=== PATIENT | female | born 1945 | race Caucasian/White ===

== ENCOUNTER → 2017-10-26 12:46 | Outpatient (CLI) | payer BC, MEDICARE, SELFPAY ==
--- NOTE | 2017-10-26 12:50 | CT_ITS ---
CT chest wo con HISTORY: Mycobacterium avium complex pulmonary disease ITS.REASON: PULMONARY MAC ORDERING PHYSICIAN: Lee Howell PATIENT AGE: 72 years Technique: Axial images obtained. Sagittal and coronal reformatted images are also generated and reviewed. All CT scans at the facility use one or more dose reduction, viz: automated exposure control; ma/kV adjustment per patient size (including targeted exams where dose is matched to indication; i.e. head); or iterative reconstruction technique. CONTRAST: None COMPARISON: 11/18/2013 FINDINGS: Scattered small lymph nodes are present within the mediastinum and opal some which are calcified. There is mild thickening of the pericardium and there is mild cardiomegaly. Biapical scarring is present. Calcified granuloma right upper lobe. There are multiple bilateral pulmonary nodules some of which contain central cavities.. The largest nodules in the right middle lobe and measures 15 x 15 mm not significantly changed. Largest cavitating nodule in the right lower lobe posteriorly 15 mm. Previously this measured 9 mm. Several of the cavitating nodules have slightly increased in size. Bronchiectasis is present in the right middle lobe, right lower lobe, and left lower lobe. No effusions are evident. Enlarging parenchymal opacity is present in the left lower lobe superior segment at 7 mm previously at 4 mm. Upper abdominal images are unremarkable. No acute bony anomalies. IMPRESSION: Multiple bilateral pulmonary nodules some of which are cavitating along with bronchiectasis. 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 This does appear somewhat worse with slight increase in the size of the nodules and increasing cavitation.
== END ==
PROVIDERS: Family Provider Family Medicine; PCP Internal Medicine; Visit Provider Internal Medicine Infectious Disease
DX: A31.0 Pulmonary mycobacterial infection (principal)
CPT/HCPCS: 71250

== ENCOUNTER 2018-04-12 11:55 | Outpatient (RCR) | payer BC, MEDICARE, SELFPAY ==
--- NOTE | 2018-04-12 13:55 | HMH.SLVOIC ---
Speech & Language Evaluation Speech/Language Voice Evaluation Start: 04/12/18 13:28 Freq: once Status: Complete Protocol: Document 04/12/18 13:28 ANTONIOTYRELL (Rec: 04/12/18 13:53 ANTONIOYUE [id number]) Voice Assessment/Goals/Plan Assessment/Problems Date of Evaluation: 04/12/18 Assessment/Problems Pt. was referred for voice therapy based on results obtained from tests in [place]. Pt. presents today with vocal quality WNL for age . She reports drastic improvement since seeing doctors in [place]. She reports that a MBS was performed and aspiration was seen. She will bring report from this test to rehab department to consider swallowing therapy. Does Patient Qualify for Service No Qualify/Failure Comment Pt vocal quality in the areas of pitch, rate, intelligibility and endurance is within functional limits for age at this time. Recommendations Additional Consults Recommended Other Comment Pt to provide documentation on swallowing tests and ENT reports from appointments in [place]. Plan Pt/Guardian verbally ack understanding Yes of dx/prognosis/goals Pt/Guardian verbally ack understanding Yes of/consent to tx prog G -code Required Yes G-CODES ST Current Status [id number] ST Current Status Modifier CI-At least 1% but less than 20% impaired, limited or restricted ST Goal Status [id number] ST Goal Status Modifier CI-At least 1% but less than 20% impaired, limited or restricted Education Pt/Caregiver able to recall information Able to recall/restate Reinforcement needed No Speech & Language HPI History Present Illness Description of Patient Problem Pt reports weakness of voice, hoarseness, and history of vocal cord dysfunction. She reports significant improvement since returning from [place]. Her voice is not hoarse and breath support without oxygen was withi
== END 2018-04-12 11:56 | disposition home or self-care (01) ==
LOC: ST 11:55
PROVIDERS: Family Provider Family Medicine; PCP Internal Medicine; Visit Provider Family Medicine
DX: J38.3 Other diseases of vocal cords (principal)
CPT/HCPCS: 92524

== ENCOUNTER → 2018-08-27 10:22 | Outpatient (CLI) | payer BC, SELFPAY ==
--- NOTE | 2018-08-27 10:47 | CI_ITS ---
Cerebrovascular Exam Indications: 435.9 Unspecified transient cerebral ischemia. IMPRESSIONS 1. The bilateral vertebral arteries are patent with normal antegrade flow. 2. Study suggests less than 20% stenosis involving the right internal carotid artery and the left internal carotid artery. Carotid duplex study. Complete study and Doppler flow study including spectral analysis, color and benton scale imaging. Location: Vascular laboratory. Patient status: Outpatient. Tables: Arterial flow: + +--------+--------+ Location V sys V ed + +--------+--------+ Right CCA - proximal 81.7cm/s 29.9cm/s + +--------+--------+ Right CCA - distal 71.5cm/s 23.6cm/s + +--------+--------+ Right ECA 54.6cm/s -------- + +--------+--------+ Right ICA - proximal 62.9cm/s 18.1cm/s + +--------+--------+ Right ICA - mid 53.4cm/s 16.5cm/s + +--------+--------+ Right ICA - distal 32cm/s 10.5cm/s + +--------+--------+ Right vertebral 33.6cm/s -------- + +--------+--------+ Left CCA - proximal 97.6cm/s 28.1cm/s + +--------+--------+ Left CCA - distal 90.4cm/s 25.9cm/s + +--------+--------+ Left ECA 89.9cm/s -------- + +--------+--------+ Left ICA - proximal 72.2cm/s 27cm/s + +--------+--------+ Left ICA - mid 71.1cm/s 27.6cm/s + +--------+--------+ Left ICA - distal 99.9cm/s 23.7cm/s + +--------+--------+ Left vertebral 46.1cm/s -------- + +--------+--------+ Velocity ratios: + + + + + + Right, V sys Right, V ed Left, V sys Left, V ed + + + + + + Max ICA/dist CCA 0.88 0.77 1.11 1.07 + + + + + + (Report amended ) Electronically signed by: Bradley Flower [id number]
[2018-08-27 12:43] LABS: Blood Urea Nitrogen 16 mg/dL (7-18); Creatinine,Serum 1.06 mg/dL (0.55-1.02); Estimated Glomerular Filt Rate 51 ml/min (>60); GFR (African American) 61 ML/MIN (>60)
[2018-08-27 12:59] LABS: Alanine Aminotransferase 30 U/L (12-78); Albumin Level 3.8 gm/dL (3.4-5.0); Alkaline Phosphatase 76 U/L (46-116); Aspartate Amino Transferase 27 U/L (15-37); Bilirubin,Direct 0.2 mg/dL (0.0-0.2); Bilirubin,Indirect 0.5 mg/dL (0.0-0.9); Bilirubin,Total 0.7 mg/dL (0.2-1.0); Total Protein,Serum 7.2 gm/dL (6.4-8.2)
== END ==
PROVIDERS: Internal Medicine Cardiovascular Disease; PCP Family Medicine; Visit Provider Psychiatry & Neurology Neurology
DX: G45.9 Transient cerebral ischemic attack, unspecified (principal); I10 Essential (primary) hypertension; R53.83 Other fatigue
CPT/HCPCS: 36415; 80076; 82565; 84520; 93880

== ENCOUNTER → 2018-08-28 08:51 | Outpatient (CLI) | payer BC, SELFPAY ==
[2018-08-28 10:32] LABS: Chol/HDL Ratio 1.8 (1-3.5); Cholesterol 154 mg/dL (140-200); HDL Cholesterol 84 mg/dL (29-89); LDL Cholesterol 60 mg/dL (0-130); Triglycerides 49 mg/dL (30-200); VLDL Cholesterol 10 mg/dL (0-40)
== END ==
PROVIDERS: Visit Provider Internal Medicine Cardiovascular Disease
DX: I10 Essential (primary) hypertension (principal); R53.83 Other fatigue
CPT/HCPCS: 36415; 80061

== ENCOUNTER → 2018-10-25 14:59 | Outpatient (CLI) | payer MEDICARE, OTHER, SELFPAY ==
--- NOTE | 2018-10-25 15:07 | CT_ITS ---
CT chest wo con HISTORY: Mycobacterium avium complex pulmonary disease ITS.REASON: PULMONARY NODULE,HYPOXIA,BRONCHIECTASIS ORDERING PHYSICIAN: Lee Howell PATIENT AGE: 73 years COMPARISON: 10/26/2017 Technique: Axial images obtained following the administration of 75 mL of Optiray 350 . Sagittal, and coronal reformatted images are also generated and reviewed. All CT scans at the facility use one or more dose reduction, viz: automated exposure control, ma/kV adjustment per patient size (including targeted exams where dose is matched to indication, i.e. head), or iterative reconstruction technique. FINDINGS: There are scattered small mediastinal lymph nodes not significant changed. There is thickening of the pericardium anteriorly and superiorly as before. There are numerous bilateral noncalcified nodules some of which are cavitating. Many of the nodules are not significantly changed. There is bronchiectasis in the right lower lobe. There is a new 7 mm nodule in the right middle lobe. Bronchiectasis is present in the right middle lobe. Solitary right middle lobe nodule is present at 1.5 cm unchanged. There are some tiny nodular opacities in the right lung base laterally which are new with some subpleural nodularity in the right lung base laterally which is also new. There is a cavitating nodule in the right lower lobe and 1.8 cm slightly larger previously 1.5 cm. There is a new nodule in the left lower lobe inferiorly at 9 mm some minimal cavitation. A cavitating nodule present in the left lower lobe posteriorly and medially at 1.5 cm slightly larger compared to the previous exam bandlike area of increased density is present in the left upper lobe posteriorly with some cavitation laterally slightly more prominent compared to the previous study. IMPRESSION: Bronchiectasis with numerous pulmonary nodules some of which are cavitating as previously described. There are few new nodules and some increase in size of cavitating nodules as described above consistent with slight worsening of Mycobacterium avium complex pulmonary disease.
== END ==
PROVIDERS: PCP Family Medicine; Referring Provider Internal Medicine Infectious Disease; Visit Provider Internal Medicine Infectious Disease
DX: J98.4 Other disorders of lung (principal); A31.0 Pulmonary mycobacterial infection; R09.02 Hypoxemia; J47.9 Bronchiectasis, uncomplicated
CPT/HCPCS: 71250

== ENCOUNTER → 2018-11-11 10:03 | Outpatient (POV) | payer MEDICARE, OTHER, SELFPAY | PROVIDERS: Visit Provider Dentist | DX: Z00.00 Encounter for general adult medical examination without abnormal findings (principal) ==

== ENCOUNTER → 2019-04-01 14:14 | Outpatient (CLI) | payer MEDICARE, OTHER, SELFPAY ==
--- NOTE | 2019-04-01 14:30 | CT_ITS ---
PROCEDURE: CT CHEST WO CON CLINICAL INDICATION: CHRONIC COUGH,COPD,SOB COMPARISON: CHESTWO CT chest wo con from 10/25/2018 TECHNIQUE: Axial images obtained with sagittal and coronal reformats. All CT scans at the facility use one or more dose reduction, viz: automated exposure control, ma/kV adjustment per patient size (including targeted exams where dose is matched to indication, i.e. head), or iterative reconstruction technique. FINDINGS: There is mild thickening of the pericardium suggesting small pericardial effusion. There is mild cardiomegaly. No mediastinal or hilar mass or adenopathy. There are few scattered small hilar lymph nodes. There is once again noted multiple irregular pulmonary opacities some which are cavitated. The largest of which is in the mid aspect of the right lower lobe measuring 2.7 cm with an air-fluid level and mildly thickened wall. The wall thickness is approximately 5 mm.. Previously this cavitating nodule measured 1.9 cm. There are few new nodular densities in the right upper lobe. However, some of the cavitating nodules in the right upper lobe are slightly smaller compared to the previous exam. There is mild diffuse bronchial thickening. No free pleural effusion.. Mild bronchiectasis once again noted. IMPRESSION: There has been a mixed response in the previously described nodular bronchiectatic mycobacterium avium complex pulmonary disease. Some of the cavitating nodules have increased in size while others have slightly decreased in size and there are few new small nodules in the right upper lobe Dictated by: Bradley Flower MD 04/02/2019 11:20 Signed by: <Electronically signed by Bradley Flower MD in [facility]> 04/02/2019 11:20
== END ==
PROVIDERS: PCP Internal Medicine; Visit Provider Internal Medicine Pulmonary Disease
DX: R06.02 Shortness of breath (principal); R05 Cough; J44.9 Chronic obstructive pulmonary disease, unspecified
CPT/HCPCS: 71250

== ENCOUNTER → 2019-08-29 10:46 | Outpatient (CLI) | payer MEDICARE, OTHER, SELFPAY ==
--- NOTE | 2019-08-29 10:56 | CA_ITS ---
APPROVED REPORT Left Lower Extremity Venous Study for DVT. [employer] Education Teacher: Alana He RVT Indications Lower Extremity Pain: Palpable Cord: Left Lower Extremity Edema: Left CAD Risk Factors Cardiac Disease Varcoise veins Vein Imaging CFV (L): compressive, spontaneous, phasic, augmentation FEM (L): compressive, spontaneous, phasic, augmentation POP (L): compressive, spontaneous, phasic, augmentation PTV (L): Compressible GSV (L): Compressible Peroneals (L):Compressible GAS (L): Compressible Findings Study suggests no evidence of DVT seen in the left lower extremity. Study suggests evidence of an SVT in a superficial vein in the mid to proximal medial calf. Conclusion Study suggests no evidence of DVT seen in the left lower extremity. Study suggests evidence of an SVT in a superficial vein in the mid to proximal medial calf. Critical Notification Physician Notified Date: 08/29/2019 Time: 11:30 am Physician Name: Isa Perales's office Electronically signed by : Bradley Flower MD 08/30/2019 18:18:22
== END ==
PROVIDERS: PCP Nurse Practitioner; Visit Provider Nurse Practitioner
DX: R60.1 Generalized edema (principal); M79.662 Pain in left lower leg
CPT/HCPCS: 93971

== ENCOUNTER → 2020-04-10 11:10 | Outpatient (CLI) | payer MEDICARE, OTHER, SELFPAY ==
[2020-04-10 11:39] LABS: Basophils # 0.1 K/mm3 (0-0.2); Basophils % 0.8 % (0.1-2.0); Eosinophils # 0.2 K/mm3 (0.0-0.4); Eosinophils % 1.8 % (0.1-12.0); Hematocrit 36.2 % (37.0-47.0); Hemoglobin 12.1 g/dL (12.2-16.2); Lymphocytes # 2.7 K/mm3 (0.7-4.5); Lymphocytes % 33.2 % (10-50); Mean Corpuscular HGB Conc 33.4 g/dL (31.8-35.4); Mean Corpuscular Hemoglobin 30.5 pg (27.0-31.2); Mean Corpuscular Volume 91.4 fl (81-99); Mean Platelet Volume 8.3 fl (7.4-10.4); Monocytes # 0.6 K/mm3 (0.1-1.0); Monocytes % 6.9 % (1.7-9.3); Neutrophils # 4.7 K/mm3 (1.8-7.8); Neutrophils % 57.2 % (37.0-80.0); Platelet Count 278 K/mm3 (142-424); Red Blood Count 3.96 M/mm3 (4.20-5.40); Red Cell Distribution Width 13.6 % (11.5-17.5); White Blood Count 8.2 K/mm3 (4.8-10.8)
[2020-04-10 11:59] LABS: Chloride 106 mmol/L (98-107)
[2020-04-10 12:00] LABS: Potassium 3.8 mmoL/L (3.5-5.1); Sodium 141 mmol/L (136-145)
[2020-04-10 12:02] LABS: Alanine Aminotransferase 11 U/L (12-78); Alkaline Phosphatase 72 U/L (38-126); Anion Gap 9.8 mEq/L (5-15); Aspartate Amino Transferase 24 U/L (14-36); Bilirubin,Indirect 0.7 mg/dL (0.0-0.9); Bilirubin,Total 0.7 mg/dl (0.2-1.3); Bilirubin,Unconjugated 0.8 mg/dL (0.0-1.1); Blood Urea Nitrogen 17 mg/dl (7-17); Carbon Dioxide 29 mmol/L (22.0-30.0); Cholesterol 158 mg/dl (140-200); Estimated Glomerular Filt Rate 48 ml/min (>60); GFR (African American) 59 ML/MIN (>60); Triglycerides 96 mg/dl (30-150); VLDL Cholesterol 19 mg/dL (0-40)
[2020-04-10 12:03] LABS: Albumin Level 3.7 g/dl (3.5-5.0); Calcium 9.6 mg/dl (8.4-10.2); Glucose 98 mg/dl (74-100); HDL Cholesterol 81 mg/dl (40-60); Total Protein,Serum 6.6 g/dl (6.3-8.2)
[2020-04-10 12:14] LABS: Direct LDL Cholesterol 60.28 mg/dL (100-129)
== END ==
PROVIDERS: Visit Provider Internal Medicine Interventional Cardiology
DX: E78.00 Pure hypercholesterolemia, unspecified (principal)
CPT/HCPCS: 36415; 80048; 80061; 80076; 85025

== ENCOUNTER → 2020-08-13 10:47 | Outpatient (CLI) | payer MEDICARE, OTHER, SELFPAY ==
[2020-08-13 13:00] LABS: Coronavirus 19 IgG Antibody Negative (Negative); Coronavirus 19 IgM Antibody Negative (Negative)
== END ==
PROVIDERS: Visit Provider Ophthalmology
DX: Z01.812 Encounter for preprocedural laboratory examination (principal); Z11.52 Encounter for screening for COVID-19; H25.12 Age-related nuclear cataract, left eye
CPT/HCPCS: 36415; 86328

== ENCOUNTER 2020-08-14 08:06 | Day surgery (SDC) | payer MEDICARE, OTHER, SELFPAY ==
[2020-08-08 09:10] VITALS: BMI 20.9
[2020-08-14] VITALS (7 sets, daily range): BP systolic 135–160; BP diastolic 56–76; PULSE 91–96; RESP 16–20; TEMP 36.6–36.7; O2SAT 96–100
== END 2020-08-14 11:13 | disposition home or self-care (01) ==
LOC: OR 08:08
PROVIDERS: PCP Family Medicine; Visit Provider Ophthalmology
DX: H25.813 Combined forms of age-related cataract, bilateral (principal); H02.839 Dermatochalasis of unspecified eye, unspecified eyelid; I49.9 Cardiac arrhythmia, unspecified; J44.9 Chronic obstructive pulmonary disease, unspecified; Z79.82 Long term (current) use of aspirin; Z79.51 Long term (current) use of inhaled steroids; Z79.899 Other long term (current) drug therapy
CPT/HCPCS: 66984; V2632

== ENCOUNTER → 2020-10-09 09:41 | Outpatient (CLI) | payer MEDICARE, OTHER, SELFPAY ==
[2020-10-09 10:33] LABS: Chloride 107 mmol/L (98-107); Potassium 4.5 mmoL/L (3.5-5.1); Sodium 142 mmol/L (136-145)
[2020-10-09 10:35] LABS: Bilirubin,Unconjugated 0.6 mg/dL (0.0-1.1); Blood Urea Nitrogen 18 mg/dl (7-17); Estimated Glomerular Filt Rate 44 ml/min (>60); GFR (African American) 53 ML/MIN (>60)
[2020-10-09 10:36] LABS: Alanine Aminotransferase 12 U/L (12-78); Alkaline Phosphatase 81 U/L (38-126); Anion Gap 8.5 mEq/L (5-15); Aspartate Amino Transferase 24 U/L (14-36); Bilirubin,Direct 0.1 mg/dl (0.0-0.4); Bilirubin,Indirect 0.6 mg/dL (0.0-0.9); Bilirubin,Total 0.7 mg/dl (0.2-1.3); Calcium 9.8 mg/dl (8.4-10.2); Carbon Dioxide 31 mmol/L (22.0-30.0); Chol/HDL Ratio 2.2 (1-3.5); Cholesterol 177 mg/dl (140-200); Glucose 98 mg/dl (74-100); HDL Cholesterol 82 mg/dl (40-60); Total Protein,Serum 6.9 g/dl (6.3-8.2); Triglycerides 115 mg/dl (30-150); VLDL Cholesterol 23 mg/dL (0-40)
[2020-10-09 10:42] LABS: Basophils # 0.1 K/mm3 (0-0.2); Basophils % 0.5 % (0.1-2.0); Eosinophils # 0.1 K/mm3 (0.0-0.4); Eosinophils % 1.2 % (0.1-12.0); Hematocrit 39.2 % (37.0-47.0); Hemoglobin 12.3 g/dL (12.2-16.2); Lymphocytes % 26.1 % (10-50); Mean Corpuscular HGB Conc 31.3 g/dL (31.8-35.4); Mean Corpuscular Hemoglobin 28.9 pg (27.0-31.2); Mean Corpuscular Volume 92.3 fl (81-99); Mean Platelet Volume 7.5 fl (7.4-10.4); Monocytes # 0.7 K/mm3 (0.1-1.0); Monocytes % 5.9 % (1.7-9.3); Neutrophils # 7.8 K/mm3 (1.8-7.8); Neutrophils % 66.3 % (37.0-80.0); Platelet Count 323 K/mm3 (142-424); Red Blood Count 4.25 M/mm3 (4.20-5.40); Red Cell Distribution Width 14.3 % (11.5-17.5); White Blood Count 11.7 K/mm3 (4.8-10.8)
[2020-10-09 10:47] LABS: Direct LDL Cholesterol 58.53 mg/dL (100-129)
== END ==
PROVIDERS: Visit Provider Internal Medicine Interventional Cardiology
DX: E78.00 Pure hypercholesterolemia, unspecified (principal)
CPT/HCPCS: 36415; 80048; 80061; 80076; 85025

== ENCOUNTER → 2021-01-08 15:00 | Outpatient (CLI) | payer MEDICARE, OTHER, SELFPAY ==
--- NOTE | 2021-01-08 15:02 | US_ITS ---
PROCEDURE: US THYROID CLINICAL INDICATION: THYROID NODULE COMPARISON: No exams were available for comparison FINDINGS: Right lobe: 4 x 1.6 x 1.4 cm Left lobe: 3.7 x 1.3 x 1.1 cm. Isthmus: Unremarkable at 3 mm Additional findings: There are small bilateral cysts present within both lobes of the thyroid gland. These measure up to 5 mm and have a benign appearance. No suspicious nodules are apparent. IMPRESSION: Small bilateral cyst within the thyroid gland which are benign appearing otherwise negative thyroid ultrasound. No suspicious nodules apparent Dictated by: Bradley Flower MD 01/09/2021 10:08 Bradley Flower MD in [facility] 01/09/2021 10:08
== END ==
PROVIDERS: PCP Family Medicine; Visit Provider Family Medicine
DX: E04.1 Nontoxic single thyroid nodule (principal)
CPT/HCPCS: 76536

== ENCOUNTER → 2021-03-13 11:25 | Outpatient (CLI) | payer MEDICARE, OTHER, SELFPAY ==
--- NOTE | 2021-03-13 11:30 | XR_ITS ---
PROCEDURE: XR CHEST 2V CLINICAL HISTORY: COPD COMPARISON: CR CXR CHEST(2 VIEWS-NOT PORTABLE) from 11/08/[address] CHEST WO CON from 04/01/2019 FINDINGS: Normal heart size. COPD changes. In the right midlung there is a 2.7 cm cavitating lesion with a thin air-fluid level. Vague increased opacity noted in the right upper lobe and may be due to an area of developing consolidation. Chronic increased density noted in the anterior clear space inferiorly. There is blunting of the left CP angle suggesting small left effusion. No acute bony abnormalities. IMPRESSION: Thin walled cavitating lesion in the right lower lobe in the perihilar area suspicious for an abscess. Faint area of consolidation in the right upper lobe which could represent a nodule or an area of pneumonia. Small left pleural effusion with COPD changes. Dictated by: Bradley Flower MD 03/13/2021 12:06 Bradley Flower MD in [facility] 03/13/2021 12:06
== END ==
PROVIDERS: PCP Family Medicine; Visit Provider Family Medicine
DX: J44.9 Chronic obstructive pulmonary disease, unspecified (principal)
CPT/HCPCS: 71046

== ENCOUNTER → 2021-05-01 14:49 | Outpatient (CLI) | payer MEDICARE, OTHER, SELFPAY ==
[2021-05-01 15:24] LABS: Basophils % 0.6 % (0.1-2.0); Eosinophils % 0.2 % (0.1-12.0); Hematocrit 35.7 % (37.0-47.0); Hemoglobin 11.4 g/dL (12.2-16.2); Lymphocytes # 1.1 K/mm3 (0.7-4.5); Lymphocytes % 14.8 % (10-50); Mean Corpuscular HGB Conc 31.8 g/dL (31.8-35.4); Mean Corpuscular Hemoglobin 29.3 pg (27.0-31.2); Mean Platelet Volume 7.6 fl (7.4-10.4); Monocytes # 0.3 K/mm3 (0.1-1.0); Monocytes % 4.1 % (1.7-9.3); Neutrophils # 6.2 K/mm3 (1.8-7.8); Neutrophils % 80.3 % (37.0-80.0); Platelet Count 302 K/mm3 (142-424); Red Blood Count 3.88 M/mm3 (4.20-5.40); Red Cell Distribution Width 13.6 % (11.5-17.5); White Blood Count 7.7 K/mm3 (4.8-10.8)
[2021-05-01 16:01] LABS: Chloride 105 mmol/L (98-107)
[2021-05-01 16:02] LABS: Potassium 4.6 mmoL/L (3.5-5.1); Sodium 142 mmol/L (136-145)
[2021-05-01 16:04] LABS: Bilirubin,Unconjugated 0.4 mg/dL (0.0-1.1); Blood Urea Nitrogen 15 mg/dl (7-17); Estimated Glomerular Filt Rate 48 ml/min (>60); GFR (African American) 58 ML/MIN (>60)
[2021-05-01 16:05] LABS: Alanine Aminotransferase 14 U/L (12-78); Albumin Level 3.8 g/dl (3.5-5.0); Alkaline Phosphatase 73 U/L (38-126); Anion Gap 13.6 mEq/L (5-15); Aspartate Amino Transferase 27 U/L (14-36); Bilirubin,Indirect 0.4 mg/dL (0.0-0.9); Bilirubin,Total 0.4 mg/dl (0.2-1.3); Calcium 9.4 mg/dl (8.4-10.2); Carbon Dioxide 28 mmol/L (22.0-30.0); Cholesterol 160 mg/dl (140-200); Glucose 124 mg/dl (74-100); Total Protein,Serum 6.4 g/dl (6.3-8.2); Triglycerides 68 mg/dl (30-150); VLDL Cholesterol 14 mg/dL (0-40)
[2021-05-01 16:06] LABS: Chol/HDL Ratio 2.2 (1-3.5); HDL Cholesterol 74 mg/dl (40-60)
[2021-05-01 16:16] LABS: Direct LDL Cholesterol 61.53 mg/dL (100-129)
== END ==
PROVIDERS: Visit Provider Internal Medicine Interventional Cardiology
DX: E78.00 Pure hypercholesterolemia, unspecified (principal)
CPT/HCPCS: 36415; 80048; 80061; 80076; 85025

== ENCOUNTER → 2022-01-14 12:15 | Outpatient (CLI) | payer MEDICARE, OTHER, SELFPAY ==
--- NOTE | 2022-01-14 12:25 | XR_ITS ---
FINAL REPORT CLINICAL HISTORY: LT HIP PAIN,LT LOW BACK PAIN FINDINGS: LUMBAR SPINE. Five views demonstrate no acute fracture. Mild and moderate degenerative changes are present. There is 6 mm of anterolisthesis of L4 on 5. There is facet arthropathy at L4-5 and L5-S1. Note is made of mild leftward curvature. IMPRESSION: Degenerative changes as detailed above. Reviewed, Interpreted and Dictated by Sam Hooper III, MD Transcribed by Caroline Parkinson Authenticated and [facility]
--- NOTE | 2022-01-14 12:25 | XR_ITS ---
FINAL REPORT CLINICAL HISTORY: LT HIP PAIN,LT LOW BACK PAIN FINDINGS: LEFT HIP Three views were obtained. There is no acute fracture or dislocation. There are mild degenerative changes of both hips. No soft tissue abnormality is identified. IMPRESSION: No acute process. Reviewed, Interpreted and Dictated by Sam Hooper III, MD Transcribed by Caroline Parkinson Authenticated and [facility]
== END ==
PROVIDERS: PCP Family Medicine; Visit Provider Family Medicine
DX: M25.552 Pain in left hip (principal); M54.50 Low back pain, unspecified
CPT/HCPCS: 72110; 73502

== ENCOUNTER → 2022-01-28 14:33 | Outpatient (CLI) | payer MEDICARE, OTHER, SELFPAY ==
--- NOTE | 2022-01-28 14:36 | CT_ITS ---
FINAL REPORT TECHNIQUE: Axial imaging of the lumbar spine was obtained without contrast. Sagittal and coronal reformatted images were also obtained and reviewed. This study was performed with techniques to keep radiation doses as low as reasonably achievable (ALARA). Individualized dose reduction techniques using automated exposure control or adjustment of mA and/or kV according to the patient''s size were employed. CLINICAL HISTORY: LT HIP PAIN,LOW BACK PAIN for six weeks, patient fell 6 weeks ago. FINDINGS: There is no fracture. There is mild retrolisthesis of L2 on L3 and L3 on L4. There is mild anterolisthesis of L4 on L5. There is L5-S1 disc space narrowing with vacuum disc phenomenon. There is multilevel facet arthropathy. T12-L1: No evidence of central canal stenosis or neural foraminal narrowing. L1-L2: An annular bulge is present. L2-L3: An annular bulge is present. There is mild right neural foraminal narrowing. L3-L4: An annular bulge is present. There is moderate right and mild left neural foraminal narrowing. L4-L5: There is an annular disc bulge with facet arthropathy. There is mild central canal stenosis with an AP diameter of the thecal sac of 7 mm. There is moderate right and mild left neural foraminal narrowing. L5-S1: There is an annular disc bulge with facet arthropathy and vertebral osteophytes. There is mild right and moderate left neural foraminal narrowing. IMPRESSION: Multilevel degenerative change with areas of neural foraminal narrowing. Mild retrolisthesis of L2 on L3 and L3 on L4. Mild anterolisthesis of L4 on L5. Reviewed, Interpreted and Dictated by Sam Hooper III, MD Transcribed by Tona Alcala Authenticated and [facility]
== END ==
PROVIDERS: PCP Family Medicine; Visit Provider Family Medicine
DX: M25.552 Pain in left hip (principal); M54.50 Low back pain, unspecified
CPT/HCPCS: 72131

== ENCOUNTER → 2022-05-01 12:03 | Outpatient (CLI) | payer MEDICARE, OTHER, SELFPAY ==
[2022-05-01 12:29] LABS: Basophils # 0.1 K/mm3 (0-0.2); Basophils % 1.2 % (0.1-2.0); Eosinophils # 0.5 K/mm3 (0.0-0.4); Eosinophils % 6.3 % (0.1-12.0); Hematocrit 34.9 % (37.0-47.0); Hemoglobin 11.1 g/dL (12.2-16.2); Lymphocytes # 2.2 K/mm3 (0.7-4.5); Lymphocytes % 29.4 % (10-50); Mean Corpuscular HGB Conc 31.9 g/dL (31.8-35.4); Mean Corpuscular Hemoglobin 29.1 pg (27.0-31.2); Mean Corpuscular Volume 91.3 fl (81-99); Mean Platelet Volume 8.4 fl (7.4-10.4); Monocytes # 0.5 K/mm3 (0.1-1.0); Monocytes % 6.2 % (1.7-9.3); Neutrophils # 4.2 K/mm3 (1.8-7.8); Neutrophils % 56.9 % (37.0-80.0); Platelet Count 329 K/mm3 (142-424); Red Blood Count 3.83 M/mm3 (4.20-5.40); Red Cell Distribution Width 14.1 % (11.5-17.5); White Blood Count 7.4 K/mm3 (4.8-10.8)
[2022-05-01 13:03] LABS: Chloride 104 mmol/L (98-107)
[2022-05-01 13:04] LABS: Potassium 4.1 mmoL/L (3.5-5.1); Sodium 142 mmol/L (136-145)
[2022-05-01 13:06] LABS: Alanine Aminotransferase 11 U/L (12-78); Anion Gap 13.1 mEq/L (5-15); Aspartate Amino Transferase 31 U/L (14-36); Bilirubin,Unconjugated 0.2 mg/dL (0.0-1.1); Blood Urea Nitrogen 13 mg/dl (7-17); Carbon Dioxide 29 mmol/L (22.0-30.0); Cholesterol 130 mg/dl (140-200); Estimated Glomerular Filt Rate 48 ml/min (>60); GFR (African American) 58 ML/MIN (>60); Triglycerides 116 mg/dl (30-150); VLDL Cholesterol 23 mg/dL (0-40)
[2022-05-01 13:07] LABS: Albumin Level 3.7 g/dl (3.5-5.0); Alkaline Phosphatase 78 U/L (38-126); Bilirubin,Indirect 0.2 mg/dL (0.0-0.9); Bilirubin,Total 0.2 mg/dl (0.2-1.3); Chol/HDL Ratio 2.5 (1-3.5); Glucose 101 mg/dl (74-100); HDL Cholesterol 52 mg/dl (40-60); Total Protein,Serum 6.3 g/dl (6.3-8.2)
[2022-05-01 13:18] LABS: Direct LDL Cholesterol 47.32 mg/dL (100-129)
== END ==
PROVIDERS: PCP Family Medicine; Visit Provider Internal Medicine Interventional Cardiology
DX: E78.00 Pure hypercholesterolemia, unspecified (principal)
CPT/HCPCS: 36415; 80048; 80061; 80076; 85025

== ENCOUNTER → 2022-08-13 10:36 | Outpatient (CLI) | payer MEDICARE, OTHER, SELFPAY ==
[2022-08-13 14:04] LABS: Alanine Aminotransferase 11 U/L (12-78); Albumin Level 3.9 g/dl (3.5-5.0); Alkaline Phosphatase 74 U/L (38-126); Anion Gap 8.1 mEq/L (5-15); Aspartate Amino Transferase 28 U/L (14-36); Bilirubin,Direct 0.1 mg/dl (0.0-0.4); Bilirubin,Indirect 0.3 mg/dL (0.0-0.9); Bilirubin,Total 0.4 mg/dl (0.2-1.3); Bilirubin,Unconjugated 0.3 mg/dL (0.0-1.1); Blood Urea Nitrogen 13 mg/dl (7-17); Calcium 9.1 mg/dl (8.4-10.2); Carbon Dioxide 30 mmol/L (22.0-30.0); Chloride 105 mmol/L (98-107); Estimated Glomerular Filt Rate 48 ml/min (>60); GFR (African American) 58 ML/MIN (>60); Glucose 89 mg/dl (74-100); Potassium 4.1 mmoL/L (3.5-5.1); Sodium 139 mmol/L (136-145); Total Protein,Serum 6.5 g/dl (6.3-8.2)
[2022-08-13 14:29] LABS: Basophils # 0.1 K/mm3 (0-0.2); Basophils % 1.2 % (0.1-2.0); Eosinophils # 0.5 K/mm3 (0.0-0.4); Eosinophils % 7.5 % (0.1-12.0); Hematocrit 35.5 % (37.0-47.0); Hemoglobin 11.1 g/dL (12.2-16.2); Lymphocytes # 2.3 K/mm3 (0.7-4.5); Lymphocytes % 34.4 % (10-50); Mean Corpuscular HGB Conc 31.2 g/dL (31.8-35.4); Mean Corpuscular Hemoglobin 29.2 pg (27.0-31.2); Mean Corpuscular Volume 93.5 fl (81-99); Mean Platelet Volume 9.9 fl (7.4-10.4); Monocytes # 0.4 K/mm3 (0.1-1.0); Monocytes % 6.5 % (1.7-9.3); Neutrophils # 3.4 K/mm3 (1.8-7.8); Neutrophils % 50.5 % (37.0-80.0); Platelet Count 296 K/mm3 (142-424); Red Cell Distribution Width 14.4 % (11.5-17.5); White Blood Count 6.8 K/mm3 (4.8-10.8)
[2022-08-13 14:46] LABS: Chol/HDL Ratio 2.6 (1-3.5); Cholesterol 144 mg/dl (140-200); HDL Cholesterol 56 mg/dl (40-60); Triglycerides 127 mg/dl (30-150); VLDL Cholesterol 25 mg/dL (0-40)
[2022-08-13 14:56] LABS: Direct LDL Cholesterol 46.13 mg/dL (100-129)
== END ==
PROVIDERS: PCP Family Medicine; Visit Provider Internal Medicine Interventional Cardiology
DX: E78.00 Pure hypercholesterolemia, unspecified (principal)
CPT/HCPCS: 36415; 80048; 80061; 80076; 85025

== ENCOUNTER → 2022-11-04 11:56 | Outpatient (CLI) | payer MEDICARE, OTHER, SELFPAY ==
[2022-11-04 13:16] LABS: Basophils # 0.1 K/mm3 (0-0.2); Basophils % 1.1 % (0.1-2.0); Eosinophils # 0.4 K/mm3 (0.0-0.4); Eosinophils % 7.4 % (0.1-12.0); Hemoglobin 11.3 g/dL (12.2-16.2); Mean Corpuscular HGB Conc 32.1 g/dL (31.8-35.4); Mean Corpuscular Hemoglobin 29.6 pg (27.0-31.2); Mean Corpuscular Volume 92.1 fl (81-99); Mean Platelet Volume 8.4 fl (7.4-10.4); Monocytes # 0.4 K/mm3 (0.1-1.0); Monocytes % 6.5 % (1.7-9.3); Platelet Count 291 K/mm3 (142-424); Red Cell Distribution Width 14.3 % (11.5-17.5); White Blood Count 5.8 K/mm3 (4.8-10.8)
[2022-11-04 14:12] LABS: Alanine Aminotransferase 12 U/L (12-78); Albumin Level 3.9 g/dl (3.5-5.0); Alkaline Phosphatase 79 U/L (38-126); Anion Gap 11.1 mEq/L (5-15); Aspartate Amino Transferase 26 U/L (14-36); Bilirubin,Indirect 0.5 mg/dL (0.0-0.9); Bilirubin,Total 0.5 mg/dl (0.2-1.3); Bilirubin,Unconjugated 0.6 mg/dL (0.0-1.1); Blood Urea Nitrogen 14 mg/dl (7-17); Calcium 8.9 mg/dl (8.4-10.2); Carbon Dioxide 28 mmol/L (22.0-30.0); Chloride 104 mmol/L (98-107); Chol/HDL Ratio 2.3 (1-3.5); Cholesterol 138 mg/dl (140-200); Estimated Glomerular Filt Rate 54 ml/min (>60); GFR (African American) 65 ML/MIN (>60); Glucose 96 mg/dl (74-100); HDL Cholesterol 60 mg/dl (40-60); Potassium 4.1 mmoL/L (3.5-5.1); Sodium 139 mmol/L (136-145); Total Protein,Serum 6.6 g/dl (6.3-8.2); Triglycerides 106 mg/dl (30-150); VLDL Cholesterol 21 mg/dL (0-40)
== END ==
PROVIDERS: PCP Family Medicine; Visit Provider Nurse Practitioner Family
DX: I48.0 Paroxysmal atrial fibrillation (principal); E78.00 Pure hypercholesterolemia, unspecified
CPT/HCPCS: 36415; 80048; 80061; 80076; 85025

== ENCOUNTER 2022-11-11 09:57 | Day surgery (SDC) | payer MEDICARE, OTHER, SELFPAY ==
[2022-11-05 13:43] VITALS: BMI 18.3
[2022-11-11 10:56] VITALS: BP 136/70; PULSE 84; RESP 18; TEMP 36.4; O2SAT 97
[2022-11-11 12:04] VITALS: BP 143/74; PULSE 80; RESP 18; O2SAT 100
[2022-11-11 12:10] VITALS: BP 146/65; PULSE 79; RESP 18; O2SAT 100
[2022-11-11 12:15] VITALS: BP 135/64; PULSE 80; RESP 16; O2SAT 100
[2022-11-11 12:20] VITALS: BP 129/70; PULSE 80; RESP 16; O2SAT 100
[2022-11-11 12:31] VITALS: BP 144/80; PULSE 92; RESP 17; TEMP 36.1; O2SAT 100
== END 2022-11-11 12:44 | disposition home or self-care (01) ==
PROVIDERS: PCP Family Medicine; Visit Provider Ophthalmology
DX: H25.811 Combined forms of age-related cataract, right eye (principal); Z79.899 Other long term (current) drug therapy
CPT/HCPCS: 66984; V2632

== ENCOUNTER → 2022-11-26 12:22 | Outpatient (CLI) | payer MEDICARE, OTHER, SELFPAY ==
--- NOTE | 2022-11-26 | XR_ITS ---
FINAL REPORT CLINICAL HISTORY: lt rib pain FINDINGS: LEFT RIB SERIES 3 views of the left ribs show no fractures. There is no pneumothorax or pleural fluid collection. IMPRESSION: Negative left rib series. No pneumothorax. Reviewed, Interpreted and Dictated by Sam Hooper III, MD Transcribed by Vee Brooke Authenticated and [facility]
--- NOTE | 2022-11-26 | XR_ITS ---
FINAL REPORT CLINICAL HISTORY: lt rib pain FINDINGS: Two views of the chest were obtained. The heart size and pulmonary vascularity are within normal limits. The mediastinum is normal. Right mid lung and left lung base opacities are consistent with pneumonia. There is a probable cavitary area in the right mid lung measuring 20 mm. Postoperative changes are seen in the lower cervical spine. IMPRESSION: Right mid lung and left lung base opacities are consistent with pneumonia. Probable cavitary area in the right mid lung. Follow-up radiograph or chest CT is recommended. Reviewed, Interpreted and Dictated by Sam Hooper III, MD Transcribed by Vee Brooke Authenticated and [facility]
[2022-11-26 13:12] LABS: Basophils # 0.1 K/mm3 (0-0.2); Basophils % 0.9 % (0.1-2.0); Eosinophils # 0.4 K/mm3 (0.0-0.4); Eosinophils % 6.2 % (0.1-12.0); Hematocrit 36.4 % (37.0-47.0); Hemoglobin 11.7 g/dL (12.2-16.2); Lymphocytes # 2.2 K/mm3 (0.7-4.5); Lymphocytes % 33.5 % (10-50); Mean Corpuscular HGB Conc 32.1 g/dL (31.8-35.4); Mean Corpuscular Hemoglobin 28.9 pg (27.0-31.2); Mean Platelet Volume 7.8 fl (7.4-10.4); Monocytes # 0.4 K/mm3 (0.1-1.0); Monocytes % 6.9 % (1.7-9.3); Neutrophils # 3.4 K/mm3 (1.8-7.8); Neutrophils % 52.5 % (37.0-80.0); Platelet Count 308 K/mm3 (142-424); Red Blood Count 4.04 M/mm3 (4.20-5.40); Red Cell Distribution Width 14.3 % (11.5-17.5); White Blood Count 6.4 K/mm3 (4.8-10.8)
[2022-11-26 13:32] LABS: Alanine Aminotransferase 13 U/L (12-78); Alkaline Phosphatase 90 U/L (38-126); Anion Gap 12.3 mEq/L (5-15); Aspartate Amino Transferase 26 U/L (14-36); Bilirubin,Indirect 0.6 mg/dL (0.0-0.9); Bilirubin,Total 0.6 mg/dl (0.2-1.3); Bilirubin,Unconjugated 0.6 mg/dL (0.0-1.1); Blood Urea Nitrogen 15 mg/dl (7-17); Calcium 9.2 mg/dl (8.4-10.2); Carbon Dioxide 29 mmol/L (22.0-30.0); Chloride 103 mmol/L (98-107); Chol/HDL Ratio 2.3 (1-3.5); Cholesterol 138 mg/dl (140-200); Estimated Glomerular Filt Rate 43 ml/min (>60); GFR (African American) 53 ML/MIN (>60); Glucose 98 mg/dl (74-100); HDL Cholesterol 59 mg/dl (40-60); Potassium 4.3 mmoL/L (3.5-5.1); Sodium 140 mmol/L (136-145); Total Protein,Serum 6.8 g/dl (6.3-8.2); Triglycerides 88 mg/dl (30-150); VLDL Cholesterol 18 mg/dL (0-40)
[2022-11-26 13:44] LABS: Direct LDL Cholesterol 53.59 mg/dL (100-129)
== END ==
PROVIDERS: PCP Family Medicine; Visit Provider Internal Medicine Interventional Cardiology
DX: E78.00 Pure hypercholesterolemia, unspecified (principal); R94.4 Abnormal results of kidney function studies
CPT/HCPCS: 36415; 71046; 71100; 80048; 80061; 80076; 85025

== ENCOUNTER → 2023-07-29 10:54 | Outpatient (CLI) | payer MEDICARE, OTHER, SELFPAY ==
[2023-07-29 11:21] LABS: Basophils # 0.1 K/mm3 (0-0.2); Eosinophils # 0.4 K/mm3 (0.0-0.4); Eosinophils % 7.7 % (0.1-12.0); Hematocrit 31.7 % (37.0-47.0); Hemoglobin 10.4 g/dL (12.2-16.2); Lymphocytes # 1.8 K/mm3 (0.7-4.5); Lymphocytes % 34.4 % (10-50); Mean Corpuscular HGB Conc 32.7 g/dL (31.8-35.4); Mean Corpuscular Hemoglobin 28.4 pg (27.0-31.2); Mean Corpuscular Volume 86.9 fl (81-99); Mean Platelet Volume 9.9 fl (7.4-10.4); Monocytes # 0.3 K/mm3 (0.1-1.0); Monocytes % 5.2 % (1.7-9.3); Neutrophils # 2.7 K/mm3 (1.8-7.8); Neutrophils % 51.7 % (37.0-80.0); Platelet Count 301 K/mm3 (142-424); Red Blood Count 3.65 M/mm3 (4.20-5.40); Red Cell Distribution Width 15.2 % (11.5-17.5); White Blood Count 5.2 K/mm3 (4.8-10.8)
[2023-07-29 12:04] LABS: Alanine Aminotransferase 16 U/L (12-78); Alkaline Phosphatase 75 U/L (38-126); Anion Gap 10.8 mEq/L (5-15); Aspartate Amino Transferase 33 U/L (14-36); Bilirubin,Indirect 0.4 mg/dL (0.0-0.9); Bilirubin,Total 0.4 mg/dl (0.2-1.3); Bilirubin,Unconjugated 0.4 mg/dL (0.0-1.1); Blood Urea Nitrogen 16 mg/dl (7-17); Calcium 8.7 mg/dl (8.4-10.2); Carbon Dioxide 27 mmol/L (22.0-30.0); Chloride 105 mmol/L (98-107); Chol/HDL Ratio 2.3 (1-3.5); Cholesterol 136 mg/dl (140-200); Estimated Glomerular Filt Rate 48 ml/min (>60); GFR (African American) 58 ML/MIN (>60); Glucose 106 mg/dl (74-100); HDL Cholesterol 59 mg/dl (40-60); Potassium 3.8 mmoL/L (3.5-5.1); Sodium 139 mmol/L (136-145); Total Protein,Serum 6.8 g/dl (6.3-8.2); Triglycerides 77 mg/dl (30-150); VLDL Cholesterol 15 mg/dL (0-40)
[2023-07-29 12:15] LABS: Direct LDL Cholesterol 56.55 mg/dL (100-129)
[2023-07-29 12:21] LABS: Free T4 (Free Thyroxine) 1.11 ng/dl (0.78-2.19)
[2023-07-29 12:35] LABS: Thyroid Stimulating Hormone 2.37 uIU/mL (0.465-4.68)
[2023-07-30 04:41] LABS: Triiodothyronine (T3) Total 106 ng/dL (71-180)
== END ==
LOC: LAB 10:57
PROVIDERS: PCP Family Medicine; Visit Provider Internal Medicine Interventional Cardiology
DX: E78.5 Hyperlipidemia, unspecified (principal); R53.83 Other fatigue
CPT/HCPCS: 36415; 80048; 80061; 80076; 84439; 84443; 84480; 85025

== ENCOUNTER 2023-10-23 12:56 | Outpatient (CLI) | payer MEDICARE, OTHER, SELFPAY ==
--- NOTE | 2023-10-23 13:17 | CT_ITS ---
FINAL REPORT TECHNIQUE: Axial CT images of the chest were obtained with contrast. Coronal reformatted images were also obtained. This study was performed with techniques to keep radiation doses as low as reasonably achievable, (ALARA). Individualized dose reduction techniques using automated exposure control or adjustment of mA and/or KV according to the patient''''s size were employed. CLINICAL HISTORY: .COPD,BRONCHIECTASIS COMPARISON: 04/01/2019 FINDINGS: There are multiple small mediastinal lymph nodes.No axillary mass or adenopathy is identified. There is a small pericardial effusion. Multiple bilateral pulmonary nodules are seen, many of which are cavitary. Some areas are improved. Other areas are new or worse from prior exam. There is a cavitary nodule in the right lower lobe measuring 16 mm, previously measured 23 mm. A cavitary nodule seen medially is new measuring 18 mm. There is a medial left lower lobe cavitary nodule measuring 23 mm, previously measured 16 mm. There is new, mild left lower lobe bronchiectasis. Multiple new, less than 1 cm nodules are seen, left greater than right. Limited imaging of the upper abdomen demonstrates postoperative change of cholecystectomy. IMPRESSION: Persistent pulmonary findings consistent with mycobacterial disease. Multiple new nodules are identified. Reviewed, Interpreted and Dictated by Sam Hooper III, MD Transcribed by Lelia Anderson Authenticated and [facility]
--- NOTE | 2023-10-23 13:17 | CT_ITS ---
FINAL REPORT TECHNIQUE: Axial imaging of the neck soft tissues was obtained with and without contrast. Reformatted images were also obtained and reviewed. This study was performed with techniques to keep radiation doses as low as reasonably achievable (ALARA). Individualized dose reduction techniques using automated exposure control or adjustment of mA and/or kV according to the patient's size were employed. CLINICAL HISTORY: .HEMOPTYSIS,MYCOBACTERIUM AVUM INFECTION FINDINGS: There is no neck mass or adenopathy. There are postoperative changes at C4, C5 and C6. Moderate degenerative changes are seen elsewhere. Soft tissues are unremarkable. There is no abnormal contrast-enhancement. IMPRESSION: No neck mass or adenopathy. Reviewed, Interpreted and Dictated by Sam Hooper III, MD Transcribed by Lelia Anderson Authenticated and [facility]
[2023-10-23 13:32] LABS: Blood Urea Nitrogen 17 mg/dl (7-17); Estimated Glomerular Filt Rate 43 ml/min (>60); GFR (African American) 52 ML/MIN (>60)
[2023-10-23] MEDS: SODIUM CHLORIDE 0.9% 10ML SYR (RAD ONLY) 10 ML IV (14:24)
[2023-10-23] MEDS: IOPAMIDOL-370 (76%);100ML BOTTLE 100 ML IV (14:24)
== END 2023-10-23 23:59 ==
LOC: RAD 12:58
PROVIDERS: PCP Family Medicine; Visit Provider Family Medicine
DX: J44.9 Chronic obstructive pulmonary disease, unspecified (principal); J47.9 Bronchiectasis, uncomplicated; Z87.891 Personal history of nicotine dependence
CPT/HCPCS: 36415; 70492; 71260; 82565; 84520; Q9967

== ENCOUNTER 2023-12-11 11:46 | Outpatient (CLI) | payer MEDICARE, SELFPAY ==
[2023-12-11 12:45] LABS: Basophils # 0.1 K/mm3 (0-0.2); Basophils % 1.2 % (0.1-2.0); Eosinophils # 0.4 K/mm3 (0.0-0.4); Eosinophils % 7.1 % (0.1-12.0); Hematocrit 35.7 % (37.0-47.0); Hemoglobin 11.3 g/dL (12.2-16.2); Lymphocytes # 1.9 K/mm3 (0.7-4.5); Lymphocytes % 32.8 % (10-50); Mean Corpuscular HGB Conc 31.7 g/dL (31.8-35.4); Mean Corpuscular Hemoglobin 28.7 pg (27.0-31.2); Mean Corpuscular Volume 90.4 fl (81-99); Mean Platelet Volume 8.2 fl (7.4-10.4); Monocytes # 0.3 K/mm3 (0.1-1.0); Neutrophils % 52.8 % (37.0-80.0); Platelet Count 249 K/mm3 (142-424); Red Blood Count 3.95 M/mm3 (4.20-5.40); Red Cell Distribution Width 16.1 % (11.5-17.5); White Blood Count 5.6 K/mm3 (4.8-10.8)
[2023-12-11 13:31] LABS: Alanine Aminotransferase 15 U/L (12-78); Albumin Level 4.2 g/dl (3.5-5.0); Alkaline Phosphatase 66 U/L (38-126); Anion Gap 11.4 mEq/L (5-15); Aspartate Amino Transferase 36 U/L (14-36); Bilirubin,Direct 0.1 mg/dl (0.0-0.4); Bilirubin,Indirect 0.6 mg/dL (0.0-0.9); Bilirubin,Total 0.7 mg/dl (0.2-1.3); Bilirubin,Unconjugated 0.6 mg/dL (0.0-1.1); Blood Urea Nitrogen 14 mg/dl (7-17); Calcium 9.7 mg/dl (8.4-10.2); Carbon Dioxide 30 mmol/L (22.0-30.0); Chloride 104 mmol/L (98-107); Chol/HDL Ratio 1.6 (1-3.5); Cholesterol 151 mg/dl (140-200); Estimated Glomerular Filt Rate 53 ml/min (>60); GFR (African American) 65 ML/MIN (>60); Glucose 99 mg/dl (74-100); HDL Cholesterol 94 mg/dl (40-60); Potassium 4.4 mmoL/L (3.5-5.1); Sodium 141 mmol/L (136-145); Triglycerides 89 mg/dl (30-150); VLDL Cholesterol 18 mg/dL (0-40)
[2023-12-11 13:42] LABS: Direct LDL Cholesterol 55.56 mg/dL (100-129)
== END 2023-12-11 23:59 | disposition home or self-care (01) ==
PROVIDERS: PCP Family Medicine; Visit Provider Internal Medicine Interventional Cardiology
DX: I48.91 Unspecified atrial fibrillation; E78.00 Pure hypercholesterolemia, unspecified
CPT/HCPCS: 36415; 80048; 80061; 80076; 85025

== ENCOUNTER 2024-03-17 12:10 | Outpatient (CLI) | payer MEDICARE, SELFPAY ==
[2024-03-17 13:51] LABS: Albumin Level 4.1 g/dl (3.5-5.0); Chloride 108 mmol/L (98-107); Potassium 4.1 mmoL/L (3.5-5.1); Sodium 139 mmol/L (136-145)
[2024-03-17 13:54] LABS: Alanine Aminotransferase 15 U/L (12-78); Alkaline Phosphatase 79 U/L (38-126); Anion Gap 7.1 mEq/L (5-15); Aspartate Amino Transferase 35 U/L (14-36); Bilirubin,Direct 0.4 mg/dl (0.0-0.4); Bilirubin,Indirect 0.3 mg/dL (0.0-0.9); Bilirubin,Total 0.7 mg/dl (0.2-1.3); Bilirubin,Unconjugated 0.3 mg/dL (0.0-1.1); Blood Urea Nitrogen 15 mg/dl (7-17); Carbon Dioxide 28 mmol/L (22.0-30.0); Cholesterol 162 mg/dl (140-200); Estimated Glomerular Filt Rate 48 ml/min (>60); GFR (African American) 58 ML/MIN (>60); Total Protein,Serum 6.9 g/dl (6.3-8.2); Triglycerides 74 mg/dl (30-150); VLDL Cholesterol 15 mg/dL (0-40)
[2024-03-17 13:55] LABS: Glucose 105 mg/dl (74-100); HDL Cholesterol 83 mg/dl (40-60)
[2024-03-17 14:06] LABS: Direct LDL Cholesterol 49.49 mg/dL (100-129)
[2024-03-17 14:56] LABS: Basophils # 0.1 K/mm3 (0-0.2); Basophils % 1.2 % (0.1-2.0); Eosinophils # 0.5 K/mm3 (0.0-0.4); Eosinophils % 9.2 % (0.1-12.0); Hematocrit 35.9 % (37.0-47.0); Lymphocytes # 1.7 K/mm3 (0.7-4.5); Lymphocytes % 29.2 % (10-50); Mean Corpuscular HGB Conc 30.6 g/dL (31.8-35.4); Mean Corpuscular Hemoglobin 28.9 pg (27.0-31.2); Mean Corpuscular Volume 94.5 fl (81-99); Mean Platelet Volume 9.5 fl (7.4-10.4); Monocytes # 0.4 K/mm3 (0.1-1.0); Monocytes % 6.6 % (1.7-9.3); Neutrophils # 3.1 K/mm3 (1.8-7.8); Neutrophils % 53.9 % (37.0-80.0); Platelet Count 269 K/mm3 (142-424); Red Cell Distribution Width 15.5 % (11.5-17.5); White Blood Count 5.7 K/mm3 (4.8-10.8)
== END 2024-03-17 23:59 | disposition home or self-care (01) ==
LOC: LAB 12:12
PROVIDERS: PCP Family Medicine; Visit Provider Internal Medicine Interventional Cardiology
DX: E78.00 Pure hypercholesterolemia, unspecified (principal)
CPT/HCPCS: 36415; 80048; 80061; 80076; 85025

== ENCOUNTER 2024-09-05 11:58 | Outpatient (CLI) | payer MEDICARE, SELFPAY ==
[2024-09-05 12:36] LABS: Basophils # 0.1 K/mm3 (0-0.2); Basophils % 1.5 % (0.1-2.0); Eosinophils # 0.4 K/mm3 (0.0-0.4); Eosinophils % 8.3 % (0.1-12.0); Hematocrit 33.8 % (37.0-47.0); Hemoglobin 10.6 g/dL (12.2-16.2); Lymphocytes # 1.9 K/mm3 (0.7-4.5); Lymphocytes % 37.4 % (10-50); Mean Corpuscular HGB Conc 31.4 g/dL (31.8-35.4); Mean Corpuscular Volume 89.4 fl (81-99); Mean Platelet Volume 10.4 fl (7.4-10.4); Monocytes # 0.5 K/mm3 (0.1-1.0); Monocytes % 9.6 % (1.7-9.3); Neutrophils # 2.2 K/mm3 (1.8-7.8); Platelet Count 218 K/mm3 (142-424); Red Blood Count 3.78 M/mm3 (4.20-5.40); Red Cell Distribution Width 14.6 % (11.5-17.5); White Blood Count 5.2 K/mm3 (4.8-10.8)
[2024-09-05 13:23] LABS: Alanine Aminotransferase 17 U/L (12-78); Alkaline Phosphatase 71 U/L (38-126); Anion Gap 11.8 mEq/L (5-15); Aspartate Amino Transferase 35 U/L (14-36); Bilirubin,Direct 0.1 mg/dl (0.0-0.4); Bilirubin,Indirect 0.3 mg/dL (0.0-0.9); Bilirubin,Total 0.4 mg/dl (0.2-1.3); Bilirubin,Unconjugated 0.3 mg/dL (0.0-1.1); Blood Urea Nitrogen 10 mg/dl (7-17); Calcium 9.3 mg/dl (8.4-10.2); Carbon Dioxide 30 mmol/L (22.0-30.0); Chloride 104 mmol/L (98-107); Cholesterol 133 mg/dl (140-200); Estimated Glomerular Filt Rate 60 ml/min (>60); GFR (African American) 73 ML/MIN (>60); Glucose 103 mg/dl (74-100); HDL Cholesterol 65 mg/dl (40-60); Potassium 3.8 mmoL/L (3.5-5.1); Sodium 142 mmol/L (136-145); Total Protein,Serum 6.5 g/dl (6.3-8.2); Triglycerides 74 mg/dl (30-150); VLDL Cholesterol 15 mg/dL (0-40)
[2024-09-05 13:36] LABS: Direct LDL Cholesterol 44.57 mg/dL (100-129)
== END 2024-09-05 23:59 | disposition home or self-care (01) ==
LOC: LAB 12:06
PROVIDERS: PCP Family Medicine; Visit Provider Internal Medicine Interventional Cardiology
DX: E78.00 Pure hypercholesterolemia, unspecified (principal)
CPT/HCPCS: 36415; 80048; 80061; 80076; 85025

== ENCOUNTER 2024-10-19 10:06 | Outpatient (CLI) | payer MEDICARE, SELFPAY ==
[2024-10-19 11:00] LABS: Albumin Level 4.2 g/dl (3.5-5.0); Chloride 105 mmol/L (98-107)
[2024-10-19 11:01] LABS: Potassium 4.1 mmoL/L (3.5-5.1); Sodium 139 mmol/L (136-145)
[2024-10-19 11:03] LABS: Alanine Aminotransferase 16 U/L (12-78); Anion Gap 8.1 mEq/L (5-15); Aspartate Amino Transferase 33 U/L (14-36); Blood Urea Nitrogen 15 mg/dl (7-17); Carbon Dioxide 30 mmol/L (22.0-30.0); Estimated Glomerular Filt Rate 48 ml/min (>60); GFR (African American) 58 ML/MIN (>60)
[2024-10-19 11:04] LABS: Albumin/Globulin Ratio 1.6 (1.1-1.8); Alkaline Phosphatase 74 U/L (38-126); Bilirubin,Total 0.6 mg/dl (0.2-1.3); Calcium 9.3 mg/dl (8.4-10.2); Chol/HDL Ratio 1.9 (1-3.5); Cholesterol 136 mg/dl (140-200); Globulin 2.6 g/dL (1.3-3.2); Glucose 93 mg/dl (74-100); HDL Cholesterol 71 mg/dl (40-60); Total Protein,Serum 6.8 g/dl (6.3-8.2); Triglycerides 66 mg/dl (30-150); VLDL Cholesterol 13 mg/dL (0-40)
[2024-10-19 11:15] LABS: Direct LDL Cholesterol 43.88 mg/dL (100-129)
[2024-10-19 13:52] LABS: Basophils # 0.1 K/mm3 (0-0.2); Basophils % 1.4 % (0.1-2.0); Eosinophils # 0.4 K/mm3 (0.0-0.4); Hematocrit 33.9 % (37.0-47.0); Hemoglobin 10.7 g/dL (12.2-16.2); Lymphocytes # 1.9 K/mm3 (0.7-4.5); Lymphocytes % 32.7 % (10-50); Mean Corpuscular HGB Conc 31.6 g/dL (31.8-35.4); Mean Corpuscular Hemoglobin 28.8 pg (27.0-31.2); Mean Corpuscular Volume 91.1 fl (81-99); Monocytes # 0.4 K/mm3 (0.1-1.0); Monocytes % 6.7 % (1.7-9.3); Platelet Count 243 K/mm3 (142-424); Red Blood Count 3.72 M/mm3 (4.20-5.40); Red Cell Distribution Width 14.3 % (11.5-17.5); White Blood Count 5.7 K/mm3 (4.8-10.8)
== END 2024-10-19 23:59 | disposition home or self-care (01) ==
LOC: LAB 10:08
PROVIDERS: PCP Family Medicine; Visit Provider Internal Medicine Interventional Cardiology
DX: I48.0 Paroxysmal atrial fibrillation (principal); I10 Essential (primary) hypertension
CPT/HCPCS: 36415; 80053; 80061; 85025

== ENCOUNTER 2025-01-16 13:30 | Outpatient (CLI) | payer MEDICARE, SELFPAY ==
--- OUTSIDE RECORDS SUMMARY | 2025-01-16 13:35 | XMS_ITS | Clinical Summary ---
Author Organization [facility] Address [address] [place] [address] Phone Care Team Providers Care Casting Carrier Name Role Phone Mary Phillips Unavailable Unavailable Conditions or Problems Problem Name Problem Code Onset Date Status Entry Date Provider Comment Standard Description Annotate History of mycobacterial infection/MAC Z86.19 (ICD-10-CM ) Active Danielle Hernandez Personal history of other infectious and parasitic diseases Benign Essential Hypertension 90185047 (SNOMED CT) Active Danielle Hernandez Benign hypertension Hypoxia 400977594 (SNOMED CT) 08/17 Resolved 08/17 Danielle Hernandez Hypoxia 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 ) 08/17 Resolved 08/17 Danielle Hernandez Pulmonary mycobacterial infection Pulmonary nodule 30656097 (SNOMED CT) 11/03 Resolved 11/03 Danielle Hernandez Disorder of lung Pulmonary nodule 22686469 (SNOMED CT) 11/03 Removed 11/03 Lee Howell MD Disorder of lung Solitary pulmonary nodule 321129844 (SNOMED CT) 08/17 Resolved 08/17 Lee Howell MD Solitary nodule of lung Bronchiectasi s with acute exacerbation 519820674 (SNOMED CT) 08/17 Resolved 08/17 Lee Howell MD Acute exacerbation of bronchiectasis Hemoptysis 06540265 (SNOMED CT) 08/17 Resolved 08/17 Lee Howell MD Hemoptysis Hemoptysis 00615806 (SNOMED CT) 08/17 Removed 08/17 Danielle Hernandez Hemoptysis Bronchiectasi s with acute exacerbation 439464899 (SNOMED CT) 08/17 Removed 08/17 Danielle Hernandez Acute exacerbation of bronchiectasis Bronchiectasi s w/o acute exacerbation 30986927 (SNOMED CT) 08/17 Active 08/17 Danielle Hernandez Bronchiectasis 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 ) 08/17 Removed 08/17 Danielle Hernandez Pulmonary mycobacterial infection Solitary pulmonary nodule 033502682 (SNOMED CT) 08/17 Removed 08/17 Danielle Hernandez Solitary nodule of lung Hypoxia 305894156 (SNOMED CT) 08/17 Removed 08/17 Danielle Hernandez Hypoxia Medications Medication Instructions Start Date Stop Date Generic Name NDC Provider ELIQUIS 5 MG TABS by mouth twice a day apixaban [id number] Chandana Sulema SYMBICORT 80-4.5 MCG/ACT AERO twice a day budesonide-formo terol 33063697863 Chandana Sulema AZITHROMYCIN 250 MG TABS one tablet twice a week azithromycin 59308308330 [place] Sulema DUONEB 0.5-2.5 (3) MG/3ML INHALATION SOLUTION Use 1 unit every four hours as needed 3 Erica Minor SERTRALINE HCL 50 MG TABS Take 1 tablet once a day sertraline 38813889413 Erica Minor MULTIVITAMIN ADULT (MULTIPLE VITAMIN) TABS Take 1 tablet once a day MULTIPLE VITAMIN Erica Minor PANTOPRAZOLE SODIUM 40 MG TBEC Take 1 tablet once a day pantoprazole 60432244539 Erica Minor ESTRADIOL 2 MG TABS Take 1 tablet once a day estradiol 13479016452 Erica Minor ALPRAZOLAM 0.25 MG TABS Take 1 tablet alprazolam 42168507125 Erica Minor VENTOLIN HFA 108 (90 Base) MCG/ACT AERS Inhale 1-2 puff every four to six hours as needed albuterol sulfate 58554882629 Erica Minor LEVOCETIRIZINE DIHYDROCHLORIDE 5 MG TABS Take 1 tablet once a day levocetirizine 11763943532 Erica Minor CLOPIDOGREL BISULFATE 75 MG TABS once a day clopidogrel 90460165513 Erica Minor ADVAIR DISKUS 250-50 MCG/DOSE INHALATION AEROSOL POWDER BREATH ACTIVATED Inhale 1 puff every twelve hours ADVAIR DISKUS 250-50 MCG/DOSE INHALATION AEROSOL POWDER BREATH ACTIVATED Erica Minor ALPRAZOLAM 0.5 MG TABS 1 tablet alprazolam 92369365223 Reica Minor SIMVASTATIN 10 MG TABS Take 1 tablet once a day simvastatin 52217885078 Erica Minor FLUTICASONE PROPIONATE 50 MCG/ACT SUSP Use 1-2 spray into both nostrils once a day fluticasone propionate 01249929207 Erica Minor D3 50 MCG (1999 UT) CHEW Take 1 tablet once a day cholecalciferol (vitamin d3) 42103617400 Erica Minor LEVOTHYROXINE SODIUM 25 MCG TABS Take 1 tablet once a day levothyroxine 79020400875 Erica Minor EPINEPHRINE 1 MG/10ML SOSY intramuscularly epinephrine 92806669272 Olivi a Minor ONDANSETRON HCL 4 MG TABS by mouth four times a day ondansetron hcl 57419999415 Erica Minor ATORVASTATIN CALCIUM 40 MG TABS by mouth once a day atorvastatin 23464938013 Erica Minor ELIQUIS 2.5 MG TABS by mouth twice a day apixaban 30476453436 Erica Minor DILTIAZEM HCL 120 MG TABS by mouth once a day diltiazem hcl 09985014589 Erica Minor LASIX 20 MG TABS by mouth once a day furosemide 03715040396 Erica Minor IPRATROPIUM-ALBUT RACHELLE 0.5-2.5 (3) MG/3ML SOLN as directed ipratropium-albu terol 07823049527 Erica Minor ETHAMBUTOL HCL 400 MG TABS by mouth 900mg QD ethambutol 06551573886 Nico Montero ACYCLOVIR 800 MG TABS by mouth five times a day acyclovir 57388336355 Erica Montero Efudex 5 % topical cream to skin twice a day fluorouracil 26331187183 Erica Montero ASPIRIN LOW DOSE 81 MG TBEC by mouth once a day aspirin 65878057350 Erica Montero LUDA ALLERGY 60 MG TABS by mouth fexofenadine 22091559506 Erica Montero ALPRAZOLAM 0.5 MG TABS 1 tab two to three times daily. ALPRAZOLAM 32303278657 Leslie Rodriguez RIFAMPIN 300 MG CAPS 2 pills three days a week 11/04 RIFAMPIN 77126728221 Leslie Rodriguez ZITHROMAX Z-AARON 250 MG TABS One pill three days a week 11/04 AZITHROMYCIN 37437037633 Leslie Rodriguez PROMETHAZINE HCL 25 MG TABS take 1/2 tablet po prior to antibiotics 11/04 PROMETHAZINE HCL 74448222286 Leslie Rodriguez PROMETHAZINE HCL 25 MG TABS take 1/2 tablet po prior to antibiotics 11/01 PROMETHAZINE HCL 43220028251 Lee Howell MD ZITHROMAX Z-AARON 250 MG TABS One pill three days a week 11/04 AZITHROMYCIN 29494752840 Lee Howell MD RIFAMPIN 300 MG CAPS 2 pills three days a week 01/13 RIFAMPIN 30467298641 Lee Howell MD AZITHROMYCIN 250 MG TABS take 1 tab po every three days 08/18 AZITHROMYCIN 73160515453 Lee Howell MD CLOPIDOGREL BISULFATE 75 MG TABS HOLD CLOPIDOGREL BISULFATE 09597671902 Isaiah Roberson AZITHROMYCIN 250 MG TABS take 1 tab po every three days 01/13 AZITHROMYCIN 07411269265 Isaiah Roberson ALPRAZOLAM 0.25 MG TABS take 1 po tab 2-3 times per day ALPRAZOLAM 43925341876 Isaiah Roberson ALPRAZOLAM 0.5 MG TABS take 1 tablet t.i.d. 08/18 ALPRAZOLAM 92335351965 Isaiah Roberson CLOPIDOGREL BISULFATE 75 MG TABS take 1 tablet qd 08/18 CLOPIDOGREL BISULFATE 98922210163 Isaiah Roberson VITAMIN D3 50 MCG (2000 UT) CHEW take 1 tablet qd CHOLECALCIFEROL 71454700958 Seferino Kingsley VENTOLIN HFA 108 (90 Base) MCG/ACT AERS inhale 1 to 2 puffs every 4 to 6 hours as needed ALBUTEROL SULFATE 27784187719 Seferino Kingsley SIMVASTATIN 10 MG TABS take 1 tablet qd SIMVASTATIN 59498370432 Seferino Kingsley SERTRALINE HCL 50 MG TABS take 1 tablet qd 01/13 SERTRALINE HCL 98942942662 Seferino Kingsley PANTOPRAZOLE SODIUM 40 MG TBEC take 1 tablet qd PANTOPRAZOLE SODIUM 15133027931 Seferino Kingsley MULTIVITAMIN ADULT TABS take 1 tablet qd MULTIPLE VITAMINS-MINERAL S 30501563865 Seferino Kingsley LEVOTHYROXINE SODIUM 25 MCG TABS take 1 tablet qd LEVOTHYROXINE SODIUM 95804814500 Seferino Kingsley LEVOCETIRIZINE DIHYDROCHLORIDE 5 MG TABS take 1 tablet qd LEVOCETIRIZINE DIHYDROCHLORIDE 20045331136 Seferino Kingsley DUONEB 0.5-2.5 (3) MG/3ML INHALATION SOLUTION use 1 unit dose in nebulizer every 4 hours as needed IPRATROPIUM-ALBU TEROL 77484179105 Seferino Kingsley FLUTICASONE PROPIONATE 50 MCG/ACT SUSP use 1 to 2 sprays in each nostril daily 01/13 FLUTICASONE PROPIONATE 50420612174 Seferino Kingsley ESTRADIOL 2 MG TABS take 1 tablet qd ESTRADIOL 03369179616 Seferino Kingsley CLOPIDOGREL BISULFATE 75 MG TABS take 1 tablet qd 11/01 CLOPIDOGREL BISULFATE 53570760010 Seferino Kingsley ALPRAZOLAM 0.5 MG TABS take 1 tablet t.i.d. 11/01 ALPRAZOLAM 10533533260 Seferino Kingsley ADVAIR DISKUS 250-50 MCG/DOSE INHALATION AEROSOL POWDER BREATH ACTIVATED inhale 1 puff every 12 hours FLUTICASONE-SALM ETEROL 35272253568 Seferino Kingsley Medications Administered No information available. Allergies, Adverse Reactions, Alerts Allergy Name Reaction Description Start Date Severity Statu s Provider SULPHUR-HEEL Moderate Active Erica Minor TRIMETHOPRIM Moderate Active Erica Minor DIFFICULT TIME WITH ANTIBIOTICS Critical Active Isaiah W BACTRIM Moderate Active Seferino Kingsley Results Date Name Value Unit Range Flag Description Office Visit: Office Visit: rm 1 MEDS REVIEW Done Documenta tion of current medications (procedure) ORALTOBACUSE Never Tobacco smoking status SMOK STATUS Never smoker Toba account planner smoking status Plan of Care Type Date Detail Appointment 11:00 AM Lee Howell MD, [address], [address], [place], [address], Referral CT Chest w/o con trast Referral CT Chest w/o con trast Pending order Continue IV anti biotics Pending order Change IV antibi otics Pending order CMP Pending order CBC with Differe ntial Pending order New IV antibioti c Pending order New IV antibioti c Pending order Discontinue oral antibiotics Pending order New Oral Antibio tic Pending order Other Pending order Immunoglobulins Quant (IGG,IGA,IGE,IGM) Pending order IGG Subclasses ( 1-4) Patient education Medications Patient education Medications Patient education Medications Patient education Medications Patient education Medications Patient education Medications Patient education Medications Patient education Medications Patient education Medications Procedures Code Procedure Name Date Entry Date G2211 Complex E&M visit add-on (G2211) CPT-89703 CT Chest w/o contrast 10/18 CPT-oral Discontinue oral antibiotics CPT-jerrica New Oral Antibiotic CPT-LAB Other CPT-95115 Immunoglobulins Quant (IGG,IGA,IGE,IGM) 2 CPT-72278 IGG Subclasses (1-4) CPT-04276 CT Chest w/o contrast 08/18 Vital Signs Date Name Value Unit Description BMI (Body Mass Index) 17.36 kg/m2 Bod y Mass Index (Ratio) Body Temperature 98.3 [degF] temperat ure E&M BP Diastolic 74 mm[Hg] blood pressu re, diastolic BP Systolic 126 mm[Hg] blood pressur e, systolic Heart Rate 82 /min pulse rate Height 66.5 [in_us] height E&M Respiratory Rate 16 /min respirat ory rate E&M Weight Measured 109.2 [lb_av] weight E& M Weight Measured 109.2 [lb_av] weight E& M Immunizations No information available. 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
== END 2025-01-16 23:59 | disposition home or self-care (01) ==
LOC: RT 13:33
PROVIDERS: PCP Family Medicine; Visit Provider Internal Medicine Critical Care Medicine
DX: Z76.89 Persons encountering health services in other specified circumstances (principal)
CPT/HCPCS: 94667

== ENCOUNTER 2025-06-07 09:50 | Outpatient (CLI) | payer MEDICARE, SELFPAY ==
--- OUTSIDE RECORDS SUMMARY | 2025-05-16 10:00 | XMS_ITS | Encounter Summary ---
Author Organization [facility] Address [address] [place] [address] Care Team Providers Care Bodily Injury Adjuster Name Role Phone Tavo Rosales MD Primary Care Provider [phone] Reason for Visit * Reason Comments Atrial Fibrillation Hypertension Hyperlipidemia Encounter Details Date Type Department Care Team (Late st Contact Info) Description 05/16/2025 11:00 AM EDT Office Visit [facility] [address] [facility] [address] [address] Kranthi Hoskins MD [address] [facility] [address], [place] [address] Paroxysmal atrial fibrillation (Primary Dx); Hyperlipidemia LDL goal <70; Benign essential hypertension Social History Tobacco Use Types Packs/Day Years Used Date Smoking Tobacco: Never Smokeless Tobacco: Never Alcohol Use Standard Drinks/Week Comments Never 0 (1 standard drink = 0.6 oz pur e alcohol) Comments Unknown Sex and Gender Information Value Date Recorded Sex Assigned at Not on file Legal Sex Female 10:15 AM EDT Gender Identity Not on file Sexual Orientation Not on file documented as of this encounter Last Filed Vital Signs Vital Sign Reading Time Taken Comments Blood Pressure 125/69 05/16/2025 10:53 AM EDT Pulse 85 05/16/2025 10:53 AM EDT Temperature - - Respiratory Rate - - Oxygen Saturation - - Inhaled Oxygen Concentration - - Weight 49.9 kg (110 lb) 05/16/2025 10:53 AM EDT Height 168.9 cm (5' 6.5 ) 05/16/2025 10:53 AM ED T Body Mass Index 17.49 05/16/2025 10:53 AM EDT documented in this encounter Progress Notes * Kranthi Hoskins MD - 05/16/2025 11:00 AM EDTAssociated Problem(s): Paroxysmal atrial fibrillation The patient is on Eliquis 2.5 mg twice a day due to her age and weight.Discussed with patient to take Eliquis 5 mg twice a day, the patient understand the reason for Eliquis and the alternative, the [id number] score, that Eliquis reduce risk of embolic stroke by close to 90%, it is an anticoagulant, there is risk for bleeding, to hold medication 48 hours prior to any surgery and resume ARTURO. Patient understand if he misses the dose of Eliquis to take it immediately but not too close together because of increased risk of bleeding. * Kranthi Hoskins MD - 05/16/2025 11:00 AM EDTAssociated Problem(s): Hyperlipidemia LDL goal <70 Lipid abnormalities are stable Plan: Continue same medication/s without change. Discussed medication dosage, use, side effects, and goals of treatment in detail. Counseled patient on lifestyle modifications to help control hyperlipidemia. Advised patient to exercise for 150 minutes weekly. (30 minute brisk walk, 5 days a week for example) Patient Treatment Goals: LDL goal is less than 55 Followup in 3 months. Continue Lipitor 40 mg once a day. * Kranthi Hoskins MD - 05/16/2025 11:00 AM EDTAssociated Problem(s): Benign essential hypertension Hypertension is stable and controlled Continue current treatment regimen. Dietary sodium restriction. Weight loss. Ambulatory blood pressure monitoring. Blood pressure will be reassessed in 3 months. Discussed with patient [employer] and [employer] provide detailed guidelines for accurate blood pressure measurement. Jhaveri steps for proper blood pressure measurement include: Recommend being fully relaxed sitting in chair with feet on the floor and back supported for at least 5 minutes. Avoid caffeine, exercise and smoking for at least 30 minutes before management. Ensureempty bladder, remove clothing covering the location of the cuff placement using proper blood pressure equipment and the blood pressure cuff size should be corrected with bladder encircling 80% of the arm. Repeat blood pressure if blood pressure is extremely high. The ideal blood pressure is less than 120/80 on the average blood pressure should be less than 130/80. * Kranthi Hoskins MD - 05/16/2025 11:00 AM EDT Cardiology Follow-Up Note Name: Rosemarie Kelly : 1945 PCP: Tavo Rosales MD Date: 09/20/2024 Department: [facility] C[facility]OLOG[facility] [address] [place] [id number] Chief Complaint Patient presents with Atrial Fibrillation Hypertension Hyperlipidemia Problem list: Paroxysmal atrial fibrillation [id number] score 4. 09/02/2021 echocardiogram EF 55 to 60% with mild pulmonic and tricuspid regurgitation Hypertension benign essential Hyperlipidemia Chronic venous insufficiency 11/07/2021 right GSV ablated 11/08/2021 left GSV ablated COPD Hypothyroidism Palpitation Subjective History of Present Illness Rosemarie Kelly is a 79 y.o. female who presents today for follow-up on chronic condition, patient has history of paroxysmal atrial fibrillation with hypertension and hypercholesterolemia. Patient states that well, no chest pain or shortness of breath, occasional palpitation.Patient states has stage 3 CKD, Current Outpatient Medications: albuterol sulfate HFA (Ventolin HFA) 108 (90 Base) MCG/ACT inhaler, Inhale 2 puffs Every 4 (Four) Hours As Needed for Wheezing., Disp: , Rfl: albuterol sulfate HFA 108 (90 Base) MCG/ACT inhaler, Inhale 2 puffs Every 4 (Four) Hours As Needed for Wheezing., Disp: , Rfl: apixaban (ELIQUIS) 5 MG tablet tablet, Take 0.5 tablets by mouth Every 12 (Twelve) Hours. (Patient taking differently: Take 1 tablet by mouth Every 12 (Twelve) Hours.), Disp: 90 tablet, Rfl: 1 Ascorbic Acid (VITAMIN C PO), Take 180 mg by mouth Daily., Disp: , Rfl: atorvastatin (LIPITOR) 40 MG tablet, Take 1 tablet by mouth Daily., Disp: , Rfl: azithromycin (ZITHROMAX) 250 MG tablet, Take 1 tablet by mouth 1 (One) Time Per Week. (Patient taking differently: Take 1 tablet by mouth As Needed.), Disp: , Rfl: budesonide-formoterol (SYMBICORT) 160-4.5 MCG/ACT inhaler, Inhale 2 puffs 2 (Two) Times a Day., Disp: , Rfl: Cholecalciferol 25 MCG (1000 UT) tablet, Take 1 tablet by mouth Daily., Disp: , Rfl: fexofenadine (LUDA) 180 MG tablet, Take 1 tablet by mouth Daily., Disp: , Rfl: ipratropium-albuterol (DUO-NEB) 0.5-2.5 mg/3 ml nebulizer, INHALE 3 MLS BY NEBULIZATION EVERY 4 (FOUR) HOURS NEEDED FOR WHEEZING., Disp: , Rfl: levocetirizine (XYZAL) 5 MG tablet, Take 1 tablet by mouth Every Evening., Disp: , Rfl: levothyroxine (SYNTHROID, LEVOTHROID) 25 MCG tablet, Take 1 tablet by mouth Every Morning., Disp: ,Rfl: ondansetron (ZOFRAN) 4 MG tablet, Take 2 tablets by mouth Every 8 (Eight) Hours As Needed., Disp: ,Rfl: pantoprazole (Protonix) 40 MG EC tablet, Take 1 tablet by mouth 2 (Two) Times a Day., Disp: , Rfl: predniSONE (DELTASONE) 5 MG tablet, Take 1 tablet by mouth Daily., Disp: , Rfl: vitamin B-12 (CYANOCOBALAMIN) 1000 MCG tablet, Take 1 tablet by mouth Daily., Disp: , Rfl: Objective Vital Signs: BP 125/69 (BP Location: Left arm, Patient Position: Sitting) Pulse 85 Ht 168.9 cm (66.5 ) Wt 49.9 kg (110 lb) BMI 17.49 kg/m?? Estimated body mass index is 17.49 kg/m?? as calculated from the following: Height as of this encounter: 168.9 cm (66.5 ). Weight as of this encounter: 49.9 kg (110 lb). Vitals reviewed. Constitutional: Appearance: Normal and healthy appearance. Eyes: Pupils: Pupils are equal, round, and reactive to light. Pulmonary: Effort: Pulmonary effort is normal. Chest: Chest wall: Not tender to palpatation. Cardiovascular: PMI at left midclavicular line. Normal rate. Regular rhythm. No gallop. Pulses: Intact distal pulses. Edema: Peripheral edema absent. Skin: General: Skin is warm. Psychiatric: Behavior: Behavior is cooperative. Data Review: No results found for: GLUCOSE , BUN , CREATININE , EGFRIFNONA , EGFRIFAFRI , BCR , K , CO2 , CALCIUM , ALBUMIN , BILIRUBIN , AST , ALT No results found for: CHOL , CHLPL , TRIG , HDL , LDL , LDLDIRECT No results found for: WBC , RBC , HGB , HCT , MCV , PLT No results found for: TSH No results found for: HGBA1C No results found for: INR , PROTIME Chronic venous insufficiency status post ablation to the right GSV and left GSV 11/07/2021 and 11/08/2021. Echocardiogram dated 09/02/2021 revealing ejection fraction 55 to 60% with mild mitral and tricuspidregurgitation Labs: 09/05/24 BMP: OK, LDL 44.57 . CBC 11.0/35.9 PLT 269 Labs dated 10/19/2024 CBC revealed hemoglobin 10.7 hematocrit 33.9 platelet 243. BMP GFR 58 LDL 43.88 Assessment and Plan Assessment & Plan Paroxysmal atrial fibrillation The patient is on Eliquis 2.5 mg twice a day due to her age and weight.Discussed with patient to take Eliquis 5 mg twice a day, the patient understand the reason for Eliquis and the alternative, the [id number] score, that Eliquis reduce risk of embolic stroke by close to 90%, it is an anticoagulant, there is risk for bleeding, to hold medication 48 hours prior to any surgery and resume ARTURO. Patient understand if he misses the dose of Eliquis to take it immediately but not too close together because of increased risk of bleeding. Hyperlipidemia LDL goal <70 Lipid abnormalities are stable Plan: Continue same medication/s without change. Discussed medication dosage, use, side effects, and goals of treatment in detail. Counseled patient on lifestyle modifications to help control hyperlipidemia. Advised patient to exercise for 150 minutes weekly. (30 minute brisk walk, 5 days a week for example) Patient Treatment Goals: LDL goal is less than 55 Followup in 3 months. Continue Lipitor 40 mg once a day. Benign essential hypertension Hypertension is stable and controlled Continue current treatment regimen. Dietary sodium restriction. Weight loss. Ambulatory blood pressure monitoring. Blood pressure will be reassessed in 3 months. Discussed with patient [employer] and [employer] provide detailed guidelines for accurate blood pressure measurement. Jhaveir steps for proper blood pressure measurement include: Recommend being fully relaxed sitting in chair with feet on the floor and back supported for at least 5 minutes. Avoid caffeine, exercise and smoking for at least 30 minutes before management. Ensureempty bladder, remove clothing covering the location of the cuff placement using proper blood pressure equipment and the blood pressure cuff size should be corrected with bladder encircling 80% of the arm. Repeat blood pressure if blood pressure is extremely high. The ideal blood pressure is less than 120/80 on the average blood pressure should be less than 130/80. Advised to continue current cardiac medications. Please notify of any issues. Discussed with the patient compliance with medical management and follow-up. Follow Up Return in about 3 months (around 08/16/2025). Call if you have any significant symptoms or go to the [facility] if possible. Kranthi Hoskins MD, [facility]. [facility] Part of this note may be an electronic instructor trainer canine service/translation of spoken language to printed textusing the [employer]ation System. documented in this encounter Plan of Treatment Upcoming Encounters Date Type Department Care Team (Late st Contact Info) Description 09/14/2025 11:00 AM EST Office Visit [facility] [address] [facility] [address] [place] [phone] Kranthi Hoskins MD [address] [facility] [address] [place] [address] Scheduled Orders Name Type Priority Associated Diagnoses Orde r Schedule CBC & Differential Lab Panel Routine Paroxysmal atrial fibrillation Hyperlipidemia LDL goal <70 Benign essential hypertension Expected: 06/14/2025 (Approximate), Expires: 05/14/2026 Lipid Panel Lab Routine Paroxysmal atrial fibrillation Hyperlipidemia LDL goal <70 Benign essential hypertension Expected: 06/14/2025 (Approximate), Expires: 05/14/2026 documented as of this encounter Visit Diagnoses Diagnosis Paroxysmal atrial fibrillation- Primary Atrial fibrillation Hyperlipidemia LDL goal <70 Other and unspecified hyperlipidemia Benign essential hypertension Essential hypertension, benign documented in this encounter Care Teams Bodily Injury Adjuster Relationship Specialty Start Date End Date Tavo Rosales MD [address] [place] [address] PCP - General Family Medicine 05/16/25 documented as of this encounter
--- OUTSIDE RECORDS SUMMARY | 2025-05-26 09:40 | XMS_ITS ---
Author Organization [facility] Address [address] [place] [address] Phone Care Team Providers Care Apple Turner Name Role Phone Lee Howell MD [ ] Conditions or Problems No information available. Medications Medication Instructions Start Date Stop Date Generic Name NDC Provider PREDNISONE 5 MG TABS prednisone [id number] Andreina Charlotte Medications Administered No information available. Allergies, Adverse Reactions, Alerts No information available. Results Date Name Value Unit Range Flag Description Office Visit: Office Visit: 4 FALLRSKASSES yes Fall ris k assessment ORALTOBACUSE Never Tobacco smoking status SMOK STATUS Never smoker Toba account resolution specialist smoking status MEDS REVIEW Done Documenta tion of current medications (procedure) Plan of Care Type Date Detail Pending order Discontinue IV a ntibiotics Pending order X-Ray, Chest, PA & Lateral Pending order X-Ray, Chest, PA & Lateral Procedures Code Procedure Name Date Entry Date G2211 Complex E&M visit add-on (G2211) CPT-04338 Flu Vaccine Vital Signs Date Name Value Unit Description BMI (Body Mass Index) 17.42 kg/m2 Bod y Mass Index (Ratio) Body Temperature 97.2 [degF] temperat ure E&M BP Diastolic 62 mm[Hg] blood pressu re, diastolic BP Systolic 110 mm[Hg] blood pressur e, systolic Heart Rate 88 /min pulse rate Height 66.5 [in_us] height E&M Respiratory Rate 16 /min respirat ory rate E&M Weight Measured 109.6 [lb_av] weight E& M Weight Measured 109.6 [lb_av] weight E& M Immunizations No information available. Advance Directives No information available.
--- OUTSIDE RECORDS SUMMARY | 2025-05-26 10:23 | XMS_ITS ---
Author Organization [facility] Address [address] [place] [address] Phone Care Team Providers Care Cook [place]ilada Name Role Phone Tamiko Dave Unavailable Unavailable Conditions or Problems No information available. Medications No information available. Medications Administered No information available. Allergies, Adverse Reactions, Alerts No information available. Results No information available. Plan of Care No information available. Procedures No information available. Vital Signs No information available. Immunizations Vaccine Administration Date Standard Description CVX Co de Dose Fluzone Intramuscular Suspension Prefilled Syringe 0.5 ML Fluzone Intramuscular Suspension Prefilled Syringe 0.5 ML 140 0.5 mL Advance Directives No information available.
--- OUTSIDE RECORDS SUMMARY | 2025-06-07 10:01 | XMS_ITS | Encounter Summary ---
Author Organization [employer] ([place], [place], [place], [place], [place]) Address [address] [place] [address] Care Team Providers Care Small Lot Operator Name Role Phone Tavo Rosales MD Primary Care Provider [phone] Encounter Details Date Type Department Care Team (Late st Contact Info) Description 08/07/2019 Transcribed Document [facility] [place] Family Medicine [address] [place] [address] ProviderRoberta MD [address] [place] [address] Social History Tobacco Use Types Packs/Day Years Used Date Smoking Tobacco: Never Assessed Comments Unknown Sex and Gender Information Value Date Recorded Sex Assigned at Not on file Legal Sex Female 2:04 PM CDT Gender Identity Not on file Sexual Orientation Not on file documented as of this encounter Miscellaneous Notes * Cerner Conversion Note - Roberta ProviderMD - 08/07/2019 12:17 PM TOMBSTONE POLISHER Treatment Intervention, PT Entered On: 08/10/2019 14:29 EST Performed On: 08/10/2019 9:43 EST by YOSELIN JEAN BAPTISTE PTA General Information, PT Visit Type, PT : Treatment Note Patient Orders : Order Date Order Ordering 08/06/2019 22:40 PT Evaluation and Treatment Ordered By: LIS MITCHELL DO 08/07/2019 12:17 PT Additional Treatment Ordered By: LENIN VALLADARES PT Active Diagnoses : 08/06/2019 12:00 Acute respiratory failure with hypoxia 08/06/2019 12:00 Bronchiectasis, uncomplicated 08/06/2019 12:00 Chest pain 08/06/2019 12:00 Fever, unspecified 08/06/2019 12:00 Nausea 08/06/2019 12:00 Pneumonia, unspecified organism 08/06/2019 12:00 Severe sepsis without septic shock 08/06/2019 12:00 Weakness Therapy Diagnosis, PT : Difficulty in walking Admission Date : 08/06/2019 22:02 Personal Devices : Personal Devices No Devices Recorded Assistive Devices : Assistive Devices No Devices Recorded Precautions in Place : Fall prevention measures YOSELIN JEAN BAPTISTE PTA - 08/10/2019 14:21 EST General Status Patient Received Status : Long sitting in bed, Other: Needs in reach, O2 via nasal cannula not donned, son present Treatment Start Time : 08/10/2019 9:43 EST Patient Left Status : Up in chair, RN/PCT informed, Communication board completed, All needs met and within reach RN/PCT Informed Comment : RN [facility]ix physical therapy. Treatment End Time : 08/10/2019 10:21 EST Treatment Time : 38 Minute(s) YOSELIN JEAN BAPTISTE PTA - 08/10/2019 14:21 EST Intervention Summary O2 Pre-Intervention : Room air SpO2 Pre-Intervention : 96 % O2 During Intervention : Room air SpO2 During Intervention : 92 % Therapist Assessment During Intervention : after gait and increased to 98% on room air following rest break. YOSELIN JEAN BAPTISTE PTA - 08/10/2019 14:21 EST Edu Topics Physical Therapy Education Grid Gait Training : Verbalizes understanding, Returns demonstration, Needs further teaching Safety : Verbalizes understanding, Returns demonstration, Needs further teaching Therapeutic Exercises : Verbalizes understanding, Returns demonstration, Needs further teaching Transfer Training : Verbalizes understanding, Returns demonstration YOSELIN JEAN BAPTISTE PTA - 08/10/2019 14:21 EST Plan of Care, PT PT Tx Plan/Goals Established w Patient : Yes YOSELIN JEAN BAPTISTE PTA - 08/10/2019 14:21 EST Mcfp Goals Other PT LTG Grid Goal #1 Other : Patient will ambulate 400 feet with no AD and SBA with no LOB or significant gait deviations to return to premorbid functional status. Date to Meet : 08/14/2019 EST Goal Status : Progressing, continue YOSELIN JEAN BAPTISTE PTA - 08/10/2019 14:21 EST Treatment Note Subjective Comment : Patient was agreeable to physical therapy. She did not report pain. Patient's Response to Treatment : Fair/Good Additional Objective Information : Supine-sit: Modified Independent with HOB elevated; sit-stand from EOB/stand-sit UIC: CGA with verbal cues to ease into sitting due to noted poor eccentric control. Gait training in room 140' with LUE HOSPITALIST NOCTURNIST PHYSICIAN/Min assist. She demonstrated a slow pace, decreased step length, decreased FREDO, and shuffled steps. Verbal cues were given on increased heel strike/toe clearance bilaterally. Following seated rest break, educated over BLE ther ex for improved strength. She performed x15-20 with AROM slowly and cues for redirection to task due to difficulty talking and exercising at the same time. She performed heel/toe raises, long arc quads, hip flexion, hip abd/adduction with BLEs extended, and gluteal squeezes. She was [facility] after session with needs in reach. (gait training 15 mins; therapeutic exercise 23 mins) Assessment : Patient was willing to participate in therapy. She increased her gait distance with noted unsteadiness, but no true loss of balance. Patient herself felt weaker in BLEs and not balanced. Informed patient she could benefit from home health physical therapy upon return to home to improve her strength and endurance, but patient was unsure she would go home with home health physical therapy and believes she will be fine at home. Patient from this standpoint would benefit from home health physical therapy. Slow progress towards gait goal. Plan for Treatment : Continue with PT POC YOSELIN JEAN BAPTISTE PTA - 08/10/2019 14:21 EST Pain Assessment Pain Scaled Used : FACES Pain Score Pre-Intervention : 0 Pain Score During-Intervention : 0 Pain Score Post-Intervention. : 0 YOSELIN JEAN BAPTISTE PTA - 08/10/2019 14:21 EST Image 1 - Images currently included in the form version of this document have not been included in the text rendition version of the form. [facility] PT Charges REGIONAL ENGINEER PT Therap. Exercise 15 min-REGIONAL ENGINEER : 2 Gait Training Each 15 Min-REGIONAL ENGINEER : 1 YOSELIN JEAN BAPTISTE PTA - 08/10/2019 14:21 EST documented in this encounter Plan of Treatment Upcoming Encounters Date Type Department Care Team (Late st Contact Info) Description 07/10/2025 1:30 PM EST Office Visit [facility] Pulmonology - [address] [place] [address] Erica Arango MD [address] [place] [address] documented as of this encounter Visit Diagnoses Not on filedocumented in this encounter Care Teams Small Lot Operator Relationship Specialty Start Date End Date Tavo Rosales MD [address] [place] [place] [address] PCP - General Family Medicine 01/05/25 documented as of this encounter
--- OUTSIDE RECORDS SUMMARY | 2025-06-07 10:01 | XMS_ITS | Encounter Summary ---
Author Organization [employer] ([place], [place], [place], [place], [place]) Address [address] [place] [address] Care Team Providers Care Microwave Technician Name Role Phone Tavo Rosales MD Primary Care Provider [phone] Encounter Details Date Type Department Care Team (Late st Contact Info) Description 08/09/2019 Transcribed Document [facility] [place] [address] [place] [address] ProviderRoberta MD [address] [id number] Social History Tobacco Use Types Packs/Day Years Used Date Smoking Tobacco: Never Assessed Comments Unknown Sex and Gender Information Value Date Recorded Sex Assigned at Not on file Legal Sex Female 2:04 PM CDT Gender Identity Not on file Sexual Orientation Not on file documented as of this encounter Miscellaneous Notes * Cerner Conversion Note - Roberta Nazario MD - 08/09/2019 7:00 AM IRON LAUNDER OPERATOR Consult Phone Call Documentation Entered On: 08/09/2019 9:45 EST Performed On: 08/09/2019 7:00 EST by KONSTANTIN CATALAN Phone Call for Consults Consult, Additional Information : Faviola in office notified KONSTANTIN CATALAN - 08/09/2019 9:45 EST documented in this encounter Plan of Treatment Upcoming Encounters Date Type Department Care Team (Late st Contact Info) Description 07/10/2025 1:30 PM EST Office Visit [facility] Pulmonology - [address] [place] [address] Erica Arango MD [address] [place] [address] documented as of this encounter Visit Diagnoses Not on filedocumented in this encounter Care Teams Microwave Technician Relationship Specialty Start Date End Date Tavo Rosales MD [address] [place] [address] PCP - General Family Medicine 01/05/25 documented as of this encounter
--- OUTSIDE RECORDS SUMMARY | 2025-06-07 10:01 | XMS_ITS | Encounter Summary ---
Author Organization [employer] ([place], [place], [place], [place], [place]) Address [address] [place] [address] Care Team Providers Care Exercise Scientist Name Role Phone Tavo Rosales MD Primary Care Provider [phone] Encounter Details Date Type Department Care Team (Late st Contact Info) Description 08/09/2019 Transcribed Document [facility] [place] Family Medicine [address] [place] [address] ProviderRoberta MD [address] [place] [address] Social History Tobacco Use Types Packs/Day Years Used Date Smoking Tobacco: Never Assessed Comments Unknown Sex and Gender Information Value Date Recorded Sex Assigned at Not on file Legal Sex Female 2:04 PM CDT Gender Identity Not on file Sexual Orientation Not on file documented as of this encounter Miscellaneous Notes * Cerner Conversion Note - Roberta Nazario MD - 08/09/2019 5:00 AM PHARMACY DELIVERY DRIVER Chart Check - Review Order Profile Entered On: 08/09/2019 6:52 EST Performed On: 08/09/2019 5:00 EST by Kenyatta Qiu RN Chart Check Powerplans Initiated/Discontinued as Appropriate : Yes All Active Orders Reviewed : Yes Kenyatta Qiu RN - 08/09/2019 6:52 EST documented in this encounter Plan of Treatment Upcoming Encounters Date Type Department Care Team (Late st Contact Info) Description 07/10/2025 1:30 PM EST Office Visit [facility] Pulmonology - [address] [place] [address] Erica Arango MD [address] [place], [place] [id number] documented as of this encounter Visit Diagnoses Not on filedocumented in this encounter Care Teams Exercise Scientist Relationship Specialty Start Date End Date Tavo Rosales MD [address] [place] [address] PCP - General Family Medicine 01/05/25 documented as of this encounter
--- OUTSIDE RECORDS SUMMARY | 2025-06-07 10:01 | XMS_ITS | Encounter Summary ---
Author Organization [employer] ([place], [place], [place], [place], [place]) Address [address] [place] [address] Care Team Providers Care Buyer Internship Name Role Phone Tavo Rosales MD Primary Care Provider [phone] Encounter Details Date Type Department Care Team (Late st Contact Info) Description 08/08/2019 Transcribed Document [facility] [place] Family Medicine [address] [place] [address] ProviderRoberta MD [address] [place] [address] Social History Tobacco Use Types Packs/Day Years Used Date Smoking Tobacco: Never Assessed Comments Unknown Sex and Gender Information Value Date Recorded Sex Assigned at Not on file Legal Sex Female 2:04 PM CDT Gender Identity Not on file Sexual Orientation Not on file documented as of this encounter Miscellaneous Notes * Cerner Conversion Note - Roberta ProviderMD - 08/08/2019 5:00 PM RN HEDIS Chart Check - Review Order Profile Entered On: 08/08/2019 16:05 EST Performed On: 08/08/2019 17:00 EST by Tyler Matthew Rn Chart Check Powerplans Initiated/Discontinued as Appropriate : Yes All Active Orders Reviewed : Yes Tyler Matthew Rn - 08/08/2019 16:05 EST Electronically signed by Kathia Wolf Conversion Balance Wheel Screw Hole Driller [place] at 11/17/2022 3:04 PM CDT documented in this encounter Plan of Treatment Upcoming Encounters Date Type Department Care Team (Late st Contact Info) Description 07/10/2025 1:30 PM EST Office Visit [facility] Pulmonology - [address] [place] [address] Erica Arango MD [address] [place] [address] documented as of this encounter Visit Diagnoses Not on filedocumented in this encounter Care Teams Buyer Internship Relationship Specialty Start Date End Date Tavo Rosales MD [address] [place] [address] PCP - General Family Medicine 01/05/25 documented as of this encounter
--- OUTSIDE RECORDS SUMMARY | 2025-06-07 10:01 | XMS_ITS | Encounter Summary ---
Author Organization [employer] ([place], [place], [place], [place], [place]) Address [address] [place] [address] Care Team Providers Care Lease Broker Name Role Phone Tavo Rosales MD Primary Care Provider [phone] Encounter Details Date Type Department Care Team (Late st Contact Info) Description 08/09/2019 Transcribed Document [facility] [place] Family Medicine [facility] [place] [address] ProviderRoberta MD [address] [place] [address] [id number] Social History Tobacco Use Types Packs/Day Years Used Date Smoking Tobacco: Never Assessed Comments Unknown Sex and Gender Information Value Date Recorded Sex Assigned at Not on file Legal Sex Female 2:04 PM CDT Gender Identity Not on file Sexual Orientation Not on file documented as of this encounter Miscellaneous Notes * Cerner Conversion Note - Roberta Nazario MD - 08/09/2019 10:41 AM PATIENT ADMITTING CLERK Patient: ROSEMARIE KELLY Age: 74 years Sex: Female : 1945 Associated Diagnoses: None Author: GERARDO LEWIS MD-PUL CC: Cough. fever, SOA Basic Information This is a 74-year-old female who is well known to our practice as an outpt. She has a past medical history significant for bronchiectasis, COPD, MAC, GERD, hyperlipidemia and anxiety. She presented to [facility] emergency department with complaints of a one-week history of cough, fever and shortness of breath. 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 She was evaluated at [facility] in [place] in [address] Howell with infectious disease did not tolerate the treatment for MAC. She stated that about a week ago she began to feel ill. She had apparently been around her who is also ill. She noted increasing shortness of breath, cough, green sputum and fever. She states at home her fever was 100.7??F. She also complained of reproducible pain on the right side of her chest is concerned her greatly. She presented to the emergency department and was found to have a temperature of 101.7??F, tachycardia, tachypnea and leukocytosis. She will chest x-ray which was also concerning for infiltrates. She was started on IV fluids and IV antibiotics. She was admitted for sepsis secondary to pneumonia. Pulmonary is being consulted for acute on chronic hypoxic respiratory failure, bronchiectasis and MAC infection. 08/08: She remains on 2 L nasal cannula with acceptable O2 saturations. She states she had visual disturbances last night that she feels is related to antibiotics. 08/09: She remains on 2 L nasal cannula with acceptable O2 saturations. She is complaining of mild nausea associated with antibiotic transfusion. She is able to get up and walk to the bathroom with minimal exertion. Her son is at the bedside. Review of Systems Constitutional: Fever, Chills, Weakness, Fatigue. Eye: No icterus, No double vision. Ear/Nose/Mouth/Throat: Negative except as documented in history of present illness. Respiratory: Shortness of breath, Cough, Sputum production, Wheezing, No hemoptysis. Cardiovascular: No palpitations, No bradycardia. Gastrointestinal: No nausea, No vomiting, No diarrhea. Genitourinary: No dysuria, No hematuria. Musculoskeletal: No joint pain, No muscle pain. Neurologic: Alert and oriented X4, No confusion, No headache. Health Status Allergies: Allergic Reactions (All) Medium Neosporin- Rash and hives with itching. Uncoded Allergy (See Comment)- Pt states she is allergic to all antibiotocs and has seen infectious disese for this issue. Severity Not Documented Sulfamethoxazole-trimethoprim- No reactions were documented. Canceled/Inactive Reactions (All) Severity Not Documented Sulfamethoxazole- No reactions were documented., Allergies (3) Active Reaction Neosporin rash and hives with itching Uncoded Allergy (See Comment) pt states she is allergic to all antibiotocs and has seen infectious disese for this issue sulfamethoxazole-trimethoprim None Documented Current medications: (Selected) Inpatient Medications Ordered Ambien: 5 mg, Oral, At Bedtime, PRN: Insomnia DuoNeb 0.5 mg-2.5 mg/3 mL inhalation solution: 3 mL, Nebulized Inhalation, RT_Q4H DuoNeb 0.5 mg-2.5 mg/3 mL inhalation solution: 3 mL, Nebulized Inhalation, RT_Q4H, PRN: Shortness of Breath KlonoPIN: 0.5 mg, Oral, Q8H, PRN: Anxiety MiraLax: 17 Gram, Oral, Daily, PRN: Constipation Pepcid: 20 mg, Oral, Q12H Phenergan: 6.25 mg, IntraVENous, Q6H, PRN: Nausea Tylenol: 650 mg, Oral, Q4H, PRN: Fever Zofran: 4 mg, IV Push, Q4H, PRN: Nausea aspirin: 81 mg, Oral, EveryOtherDay atorvastatin: 40 mg, Oral, At Bedtime cefTRIAXone + Sodium Chloride 0.9% intravenous solution 50 mL: 1 Gram, 100 mL/Hr, IV Piggyback, Daily doxycycline: 100 mg, Oral, BID levothyroxine: 25 mcg, Oral, Daily loratadine: 10 mg, Oral, Daily morphine: 2 mg, IV Push, Q2H, PRN: Pain (Severe 7-10) Documented Medications Documented Advair Diskus 250 mcg-50 mcg inhalation powder: 1 Puff, Inhalation, BID, 180 Each, 0 Refill(s) Azucena 24 Hour Allergy oral tablet: 1 Tab, Oral, Daily, 30 Tab, 0 Refill(s) Symbicort 80 mcg-4.5 mcg/inh inhalation aerosol: 1 Puff, Inhalation, BID, 0 Refill(s) Ventolin HFA 90 mcg/inh inhalation aerosol: Puff, Inhalation, QID, 0 Refill(s) Ventolin HFA 90 mcg/inh inhalation aerosol: Puff, Inhalation, QID, 0 Refill(s) Vitamin B12 1000 mcg oral tablet: 1 Tab, Oral, Daily, 30 Tab, 0 Refill(s) Vitamin D3: Daily, 0 Refill(s) aspirin 81 mg oral tablet: 1 Tab, Oral, EveryOtherDay, 30 Tab, 0 Refill(s) atorvastatin 40 mg oral tablet: 0 Refill(s) levocetirizine 5 mg oral tablet: 1 Tab, Oral, QPM, 30 Tab, 0 Refill(s) levothyroxine 25 mcg (0.025 mg) oral tablet: Tab, Oral, Daily, 0 Refill(s) multivitamin: Daily, 0 Refill(s) pantoprazole 40 mg oral delayed release tablet: 1 Tab, Oral, Daily, 30 Tab, 0 Refill(s) predniSONE 5 mg oral tablet: 0 Refill(s), Medications (16) Active Scheduled: (8) albuterol-ipratropium inh 3 mL 3 mL, Nebulized Inhalation, RT_Q4H aspirin 81 mg chew tab 81 mg 1 Tab, Oral, EveryOtherDay atorvastatin 20 mg tab 40 mg 2 Tab, Oral, At Bedtime cefTRIAXone + NaCl 0.9% 50 mL 1 Gram, IV Piggyback, Daily doxycycline monohydrate 100 mg cap 100 mg 1 Cap, Oral, BID famotidine 20 mg tab 20 mg 1 Tab, Oral, Q12H levothyroxine 25 mcg tab 25 mcg 1 Tab, Oral, Daily loratadine 10 mg tab 10 mg 1 Tab, Oral, Daily Continuous: (0) PRN: (8) acetaminophen 325 mg tab 650 mg 2 Tab, Oral, Q4H albuterol-ipratropium inh 3 mL 3 mL, Nebulized Inhalation, RT_Q4H clonazePAM 0.5 mg tab 0.5 mg 1 Tab, Oral, Q8H morphine 2 mg/1 ml inj 2 mg 1 mL, IV Push, Q2H ondansetron 4 mg/2 mL inj 4 mg 2 mL, IV Push, Q4H polyethylene glycol 3350 pwd 17 g pkt 17 Gram 1 Packet, Oral, Daily promethazine 25 mg/1 mL inj 6.25 mg 0.25 mL, IntraVENous, Q6H zolpidem 5 mg tab 5 mg 1 Tab, Oral, At Bedtime Problem list: All Problems At risk for sleep apnea / IMO [id number] / Confirmed Bronchiectasis / SNOMED CT 67078208 / Confirmed Dysphagia / SNOMED CT 46787198 / Confirmed GERD (gastroesophageal reflux disease) / SNOMED CT 120731302 / Confirmed High cholesterol / SNOMED CT 03738501 / Confirmed Hypertension / SNOMED CT 6209276852 / Confirmed Hypothyroid / SNOMED CT 04811325 / Confirmed Mycobacterium avium infection / SNOMED CT 2019035334 / Confirmed, Active Problems (8) At risk for sleep apnea Bronchiectasis Dysphagia GERD (gastroesophageal reflux disease) High cholesterol Hypertension Hypothyroid Mycobacterium avium infection Physical Examination VS/Measurements Vital Signs/Vital Measures 08/09/2019 9:16 EST Systolic Blood Pressure 126 mmHg Diastolic Blood Pressure 71 mmHg Mean Arterial Pressure (MAP)-BMDI 83 Temperature Source Oral , Vitals Signs (last 24 hrs) Last Charted Minimum Maximum Temp 97.7 (AUG 09 09:16) 97.7 (AUG 09 09:16) 99.7 (AUG 08 14:51) Mon HR 107 (AUG 09 09:16) 100 (AUG 08 11:43) 113 (AUG 08 14:51) Resp Rate 16 (AUG 09 09:16) 16 (AUG 09 09:16) 18 (AUG 08 14:51) SBP 126 (AUG 09 09:16) 125 (AUG 09 02:00) H 150 (AUG 08 21:00) DBP 71 (AUG 09 09:16) 67 (AUG 09 02:00) 74 (AUG 08 14:51) MAP 83 (AUG 09 09:16) 79 (AUG 09 02:00) 91 (AUG 08 21:00) SpO2 95 (AUG 09 09:16) L 93 (AUG 08 17:53) 97 (AUG 08 15:47) General: Alert and oriented, No acute distress. Eye: Pupils are equal, round and reactive to light, Extraocular movements are intact, Normal conjunctiva. HENT: Normocephalic, Oral mucosa is moist. Neck: Supple, Non-tender, No jugular venous distention. Respiratory: Respirations are non-labored, Breath sounds are equal, Decreased in the bases. Cardiovascular: Normal rate, Regular rhythm, No murmur. Gastrointestinal: Soft, Non-tender, Non-distended. Musculoskeletal: Normal range of motion, Normal strength. Integumentary: Warm, Moist. Neurologic: Alert, Oriented, Normal motor function, No focal deficits. Review / Management Results review: Labs (Last four charted values) WBC H 15.8 (AUG 07) H 12.8 (AUG 06) HB L 10.9 (AUG 07) 11.7 (AUG 06) HCT L 33.2 (AUG 07) 35.2 (AUG 06) Plt 302 (AUG 07) 293 (AUG 06) Na 140 (AUG 07) L 132 (AUG 06) K 4.0 (AUG 07) 3.6 (AUG 06) Cl 109 (AUG 07) L 101 (AUG 06) CO2 25 (AUG 07) 25 (AUG 06) BUN 9 (AUG 07) 8 (AUG 06) Cr 0.85 (AUG 07) 0.94 (AUG 06) Glu R H 137 (AUG 07) H 122 (AUG 06) Ca L 8.4 (AUG 07) 9.1 (AUG 06) Lactic 0.9 (AUG 06) PT 10.5 (AUG 06) INR 1.0 (AUG 06) PTT 27.4 (AUG 06) AST 15 (AUG 07) 19 (AUG 06) ALT 16 (AUG 07) 17 (AUG 06) ALK P 71 (AUG 07) 78 (AUG 06) T Bili 0.5 (AUG 07) 0.7 (AUG 06) PTN L 6.1 (AUG 07) 7.3 (AUG 06) ALB L 2.8 (AUG 07) L 3.3 (AUG 06) Troponin <0.015 (AUG 06) . No qualifying data available Blood Gases (Current Encounter/Past 24 Hours) No Blood Gas Results Found (Past 24 Hours) No Radiology Results Found Impression and Plan 1. Acute on chronic hypoxic respiratory failure: Likely secondary to pneumonia. She does wear 2 L of oxygen at home. Continue supplemental oxygen to maintain O2 saturation greater than 92%. 2. Pneumonia: History of bronchiectasis and MAC. Followed by infectious disease in the past and did not tolerate treatment for MAC. Respiratory PCR positive for human met a pneumo virus. Continue IV Rocephin and doxycycline, duo nebs. We will repeat a chest x-ray tomorrow morning. 3. Sepsis (febrile, tachycardiac, tachypnea, leukocytosis): Secondary to pneumonia. Blood culture 1/2 bottles + for gram + cocci. Continue IV fluids and IV Rocephin and doxycycline. 4. GERD: Continue home PPI 5. GI/DVT PPX: Pepcid, SCDs Professional Services Patient was seen and examined by me. Labs were reviewed. Medications were reviewed with the nurse. Plan was formulated as above Plan was discussed with the family at bedside. documented in this encounter Plan of Treatment Upcoming Encounters Date Type Department Care Team (Late st Contact Info) Description 07/10/2025 1:30 PM EST Office Visit [facility] Pulmonology - [address] [place] [address] Erica Arango MD [address] [place] [address] documented as of this encounter Visit Diagnoses Not on filedocumented in this encounter Care Teams Lease Broker Relationship Specialty Start Date End Date Tavo Rosales MD [address] [place] [address] PCP - General Family Medicine 01/05/25 documented as of this encounter
--- OUTSIDE RECORDS SUMMARY | 2025-06-07 10:01 | XMS_ITS | Encounter Summary ---
Author Organization [employer] ([place], [place], [place], [place], [place]) Address [address] [place] [address] Care Team Providers Care Auto Phone Installer Name Role Phone Tavo Rosales MD Primary Care Provider [phone] Encounter Details Date Type Department Care Team (Late st Contact Info) Description 08/08/2019 Transcribed Document [facility] [place] Family Medicine formerly [facility] [place] [address] ProviderRoberta MD [facility] [place], [place] [id number] Social History Tobacco Use Types Packs/Day Years Used Date Smoking Tobacco: Never Assessed Comments Unknown Sex and Gender Information Value Date Recorded Sex Assigned at Not on file Legal Sex Female 2:04 PM CDT Gender Identity Not on file Sexual Orientation Not on file documented as of this encounter Miscellaneous Notes * Cerner Conversion Note - Roberta Nazario MD - 08/08/2019 9:46 AM SUPERVISOR WARPING DEPARTMENT Initial Discharge Planning Entered On: 08/08/2019 9:50 EST Performed On: 08/08/2019 9:46 EST by RAFIA MALDONADO Care Management-Receiving Checker Initial Assessment I Previously Documented Living Environment : No qualifying data available. Living Situation : Home Patient Lives With : Spouse Emergency Contact #1 : Delonte Llanes Emergency Contact #1 Emergency Contact #1 Relationship : Son Emergency Contact #2 : NA Emergency Contact #2 Phone Number : NA Emergency Contact #2 Relationship : NA RAFIA MALDONADO, Care Management-Receiving Checker - 08/08/2019 9:46 EST Initial Assessment II Current Home Treatments and Equipment : Oxygen therapy RAFIA MALDONADO Care Management-Receiving Checker - 08/08/2019 9:46 EST Discharge Needs I Anticipated Discharge Date : 08/09/2019 EST Anticipated Discharge To, CM : Home with family care Current Home Treatment/Equipment : Current Home Treatment/Equipment No qualifying data available. Post Acute/Home Treatments : None Documentation Status Complete : Yes RAFIA MALDONADO Care Management-Receiving Checker - 08/08/2019 9:46 EST Discharge Needs II Professional Skilled Services : Professional Skilled Services No qualifying data available. Discharge Options Discussed with Patient : DME, Home Health RAFIA MALDONADO Care Management-Receiving Checker - 08/08/2019 9:46 EST Narrative Note Narrative Note : Pt admitted with Chest pain, Resp Failure, cough, Sepsis, PNA, and resp. failure. Pt is follwoed by Dr. Ascencio for Bronchiectasis. Pt indicated she has home O2 with [employer] [place] [employer]. Pt is currently on IV antiviotics. Pt is not current with or any other dme. Case management will continue to follow to assist as needed with disposition. RAFIA MALDONADO Care Management-Receiving Checker - 08/08/2019 9:46 EST documented in this encounter Plan of Treatment Upcoming Encounters Date Type Department Care Team (Late st Contact Info) Description 07/10/2025 1:30 PM EST Office Visit [facility] Pulmonology - [address] [place] [address] Erica Arango MD [address] [place] [address] documented as of this encounter Visit Diagnoses Not on filedocumented in this encounter Care Teams Auto Phone Installer Relationship Specialty Start Date End Date Tavo Rosales MD [address] [place] [address] PCP - General Family Medicine 01/05/25 documented as of this encounter
--- OUTSIDE RECORDS SUMMARY | 2025-06-07 10:01 | XMS_ITS | Encounter Summary ---
Author Organization [employer] ([place], [place], [place], [place], [place]) Address [address] [place] [address] Care Team Providers Care Corner Trimmer Operator Name Role Phone Tavo Rosales MD Primary Care Provider [phone] Encounter Details Date Type Department Care Team (Late st Contact Info) Description 08/07/2019 Transcribed Document [facility] [place] Family Medicine [place] [address] ProviderRoberta MD [address] [place], [place] [id number] Social History Tobacco Use Types Packs/Day Years Used Date Smoking Tobacco: Never Assessed Comments Unknown Sex and Gender Information Value Date Recorded Sex Assigned at Not on file Legal Sex Female 2:04 PM CDT Gender Identity Not on file Sexual Orientation Not on file documented as of this encounter Miscellaneous Notes * Cerner Conversion Note - Roberta Nazario MD - 08/07/2019 8:09 AM ORACLE DATA WAREHOUSE DEVELOPER ED Event Note Entered On: 08/07/2019 8:10 EST Performed On: 08/07/2019 8:09 EST by Shahnaz Slater RN ED Event Note ED Event Date/Time : 08/07/2019 8:09 EST ED Event Location : Assigned room ED Event Details : Other: Report ED Description of Event : Report called to [place] on 3rd floor, patient to be transportedshortly with a monitor Shahnaz Slater RN - 08/07/2019 8:09 EST documented in this encounter Plan of Treatment Upcoming Encounters Date Type Department Care Team (Late st Contact Info) Description 07/10/2025 1:30 PM EST Office Visit [facility] Pulmonology - [address] [place] [address] Erica Arango MD [address] [place], [place] [id number] documented as of this encounter Visit Diagnoses Not on filedocumented in this encounter Care Teams Corner Trimmer Operator Relationship Specialty Start Date End Date Tavo Rosales MD [address] [place] [address] PCP - General Family Medicine 01/05/25 documented as of this encounter
--- OUTSIDE RECORDS SUMMARY | 2025-06-07 10:01 | XMS_ITS | Encounter Summary ---
Author Organization [employer] ([place], [place], [place], [place], [place]) Address [address] [place] [address] Care Team Providers Care Electrophysiology Technologist Name Role Phone Tavo Rosales MD Primary Care Provider [phone] Encounter Details Date Type Department Care Team (Late st Contact Info) Description 08/09/2019 Transcribed Document [facility] [place] [facility] [place] [address] [place] [address] ProviderRoberta MD [address] [place], [place] [id number] Social History Tobacco Use Types Packs/Day Years Used Date Smoking Tobacco: Never Assessed Comments Unknown Sex and Gender Information Value Date Recorded Sex Assigned at Not on file Legal Sex Female 2:04 PM CDT Gender Identity Not on file Sexual Orientation Not on file documented as of this encounter Miscellaneous Notes * Cerner Conversion Note - Roberta ProviderMD - 08/09/2019 1:25 PM CREW SCHEDULER Spiritual Care Short Form Entered On: 08/09/2019 17:02 EST Performed On: 08/09/2019 13:25 EST by BRIANNA YANG Chaplain-Non Cert General Information, Spiritual Care Spiritual Care Referred by : Event Staff initiated Reason for Visit : Initial Ministry Provided to : Patient Intervention/Comment/Summary Points : Routine visit to patient by spiritual care volunteer Schuyler Arce [facility] Preference : No listed preference BRIANNA YANG Chaplain-Non Cert - 08/09/2019 17:02 EST Electronically signed by Maryann [facility] Conversion Licensed Esthetician Cerner at 11/17/2022 2:53 PM CDT documented in this encounter Plan of Treatment Upcoming Encounters Date Type Department Care Team (Late st Contact Info) Description 07/10/2025 1:30 PM EST Office Visit [facility] Pulmonology - [address] [place] [address] Erica Arango MD [address] [place] [address] documented as of this encounter Visit Diagnoses Not on filedocumented in this encounter Care Teams Electrophysiology Technologist Relationship Specialty Start Date End Date Tavo Rosales MD [address] [facility] [place] [address] PCP - General Family Medicine 01/05/25 documented as of this encounter
--- OUTSIDE RECORDS SUMMARY | 2025-06-07 10:01 | XMS_ITS | Encounter Summary ---
Author Organization [employer] ([place], [place], [place], [place], [place]) Address [address] [place] [address] Care Team Providers Care Copy Manager Name Role Phone Tavo Rosales MD Primary Care Provider [phone] Encounter Details Date Type Department Care Team (Late st Contact Info) Description 08/07/2019 Transcribed Document [facility] Family Medicine [facility] [address] ProviderRoberta MD [address] [place] [address] [id number] Social History Tobacco Use Types Packs/Day Years Used Date Smoking Tobacco: Never Assessed Comments Unknown Sex and Gender Information Value Date Recorded Sex Assigned at Not on file Legal Sex Female 2:04 PM CDT Gender Identity Not on file Sexual Orientation Not on file documented as of this encounter Miscellaneous Notes * Cerner Conversion Note - Roberta Nazario MD - 08/07/2019 9:16 AM GIS CONSULTANT Patient: ROSEMARIE KELLY Age: 74 years Sex: Female : 1945 Associated Diagnoses: None Author: GERARDO LEWIS MD-PUL CC: Cough. fever, SOA Basic Information Present at bedside: None. Source of history: Self, Medical record. Referral source: Dr. Verde. History limitation: None. Advance directive: Full code. History of Present Illness This is a 74-year-old female who is well known to our practice as an outpt. She has a past medical history significant for bronchiectasis, COPD, MAC, GERD, hyperlipidemia and anxiety. She presented to [facility] emergency department with complaints of a one-week history of cough, fever and shortness of breath. 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 She was evaluated at [facility] in [place] in [address] Howell [...] hypoxic respiratory failure, bronchiectasis and MAC infection. Review of Systems Constitutional: Fever, Weakness, Fatigue, No chills, No sweats. Eye: No icterus, No double vision. Ear/Nose/Mouth/Throat: No nasal congestion, No sore throat. Respiratory: Shortness of breath, Cough, Sputum production, No hemoptysis. Cardiovascular: No palpitations, No peripheral edema Chest pain: Right sided. Gastrointestinal: No nausea, No vomiting, No diarrhea. Genitourinary: No hematuria, No change in urine stream. Musculoskeletal: No neck pain, No muscle pain. Neurologic: Alert and oriented X4, No headache. Health Status Allergies: Allergic Reactions (All) Medium Neosporin- Rash and hives with itching. Uncoded Allergy (See Comment)- Pt states she is allergic to all antibiotocs and has seen infectious disese md for this issue. Severity Not Documented Sulfamethoxazole-trimethoprim- No reactions were documented. Canceled/Inactive Reactions (All) Severity Not Documented Sulfamethoxazole- No reactions were documented., Allergies (3) Active Reaction Neosporin rash and hives with itching Uncoded Allergy (See Comment) pt states she is allergic to all antibiotocs and has seen infectious disese MD for this issue sulfamethoxazole-trimethoprim None Documented Current medications: (Selected) Inpatient Medications Ordered DuoNeb 0.5 mg-2.5 mg/3 mL inhalation solution: 3 mL, Nebulized Inhalation, RT_Q4H DuoNeb 0.5 mg-2.5 mg/3 mL inhalation solution: 3 mL, Nebulized Inhalation, RT_Q4H, PRN: Shortness of Breath MiraLax: 17 Gram, Oral, Daily, PRN: Constipation Pepcid: 20 mg, Oral, Q12H Phenergan: 6.25 mg, IntraVENous, Q6H, PRN: Nausea Tylenol: 650 mg, Oral, Q4H, PRN: Fever Zofran: 4 mg, IV Push, Q4H, PRN: Nausea cefTRIAXone + Sodium Chloride 0.9% intravenous solution 50 mL: 1 Gram, 100 mL/Hr, IV Piggyback, Daily doxycycline: 100 mg, Oral, BID morphine: 2 mg, IV Push, Q2H, PRN: [...] aerosol: Puff, Inhalation, QID, 0 Refill(s) Vitamin D3: Daily, 0 Refill(s) aspirin 81 mg oral tablet: 1 Tab, Oral, EveryOtherDay, 30 Tab, 0 Refill(s) atorvastatin 40 mg oral tablet: 0 Refill(s) levocetirizine 5 mg oral tablet: 1 Tab, Oral, QPM, 30 Tab, 0 Refill(s) levothyroxine 25 mcg (0.025 mg) oral tablet: Tab, Oral, Daily, 0 Refill(s) pantoprazole 40 mg oral delayed release tablet: 1 Tab, Oral, Daily, 30 Tab, 0 Refill(s) predniSONE 5 mg oral tablet: 0 Refill(s), Medications (10) Active Scheduled: (4) albuterol-ipratropium inh 3 mL 3 mL, Nebulized Inhalation, RT_Q4H cefTRIAXone + NaCl 0.9% 50 mL 1 Gram, IV Piggyback, Daily doxycycline monohydrate 100 mg cap 100 mg 1 Cap, Oral, BID famotidine 20 mg tab 20 mg 1 Tab, Oral, Q12H Continuous: (0) PRN: (6) acetaminophen 325 mg tab 650 mg 2 Tab, Oral, Q4H albuterol-ipratropium inh 3 mL 3 mL, Nebulized Inhalation, RT_Q4H morphine 2 mg/1 ml inj 2 mg 1 mL, IV Push, Q2H ondansetron 4 mg/2 mL inj 4 mg 2 mL, IV Push, Q4H polyethylene glycol 3350 pwd 17 g pkt 17 Gram 1 Packet, Oral, Daily promethazine 25 mg/1 mL inj 6.25 mg 0.25 mL, IntraVENous, Q6H Problem list: All Problems At risk for sleep apnea / IMO 30771745 / Confirmed Bronchiectasis / SNOMED CT 78405391 / Confirmed Dysphagia / SNOMED CT 77057391 / Confirmed GERD (gastroesophageal reflux disease) / SNOMED CT 052385948 / Confirmed High cholesterol / SNOMED CT 19058746 / Confirmed Hypertension / SNOMED CT 3500291207 / Confirmed Hypothyroid / SNOMED CT 14053689 / Confirmed Mycobacterium avium infection / SNOMED CT 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 Procedure history: bone spur to right heel. hysterectomy. Cholecystectomy (16480606). Spinal fusion (50107975). Esophageal dilatation ([id number]). egd. colonoscopy. bronchoscopy. appendectomy. Social History Social & Psychosocial Habits Alcohol 04/22/2017 Alcohol Use History, Social Habits No Nutrition/Health 04/22/2017 Caffeine intake amount: 2 per day Substance Abuse 04/22/2017 Recreational Drug Use History No Recreational Drug Use Last 12 Months No Tobacco 04/22/2017 Smoking Status Never smoker . Physical Examination VS/Measurements Vital Signs/Vital Measures 08/07/2019 8:34 EST Systolic Blood Pressure 121 mmHg Diastolic Blood Pressure 61 mmHg Mean Arterial Pressure (MAP)-BMDI 76 Temperature Source Oral Clinical Temperature, C 36.3 Deg C Heart Rate Monitored 87 bpm , Vitals Signs (last 24 hrs) Last Charted Minimum Maximum Temp 97.3 (AUG 07 08:34) 97.3 (AUG 07 08:34) H 101.7 (AUG 06 19:33) Mon HR 87 (AUG 07 08:34) 76 (AUG 07 04:00) 97 (AUG 06 23:08) Periph HR 102 (AUG 06 22:04) 102 (AUG 06 22:04) 106 (AUG 06 19:33) Resp Rate 18 (AUG 07:34) L 10 (AUG 07 01:00) H 38 (AUG 07 08:27) SBP 121 (AUG 07 08:34) 108 (AUG 07 07:55) H 159 (AUG 06 19:33) DBP 61 (AUG 07 08:34) 61 (AUG 06 22:05) 82 (AUG 06 19:33) MAP 76 (AUG 07 08:34) 76 (AUG 07 08:34) 95 (AUG 07 06:00) SpO2 100 (AUG 07 08:34) L 93 (AUG 06 19:33) 100 (AUG 07 08:34) General: Alert and oriented, Mild distress. Eye: Pupils are equal, round and reactive to light, Extraocular movements are intact, Normal conjunctiva. HENT: Normocephalic, No pharyngeal erythema. Neck: Supple, Non-tender, No carotid bruit, No lymphadenopathy. Respiratory: Respirations are non-labored, Breath sounds are equal, No chest wall tenderness, decreased in the bases. Cardiovascular: Normal rate, Regular rhythm, No murmur, No edema. Gastrointestinal: Soft, Non-tender, Non-distended, Normal bowel sounds. Musculoskeletal: Normal range of motion, Normal strength, No swelling. Neurologic: Alert, Oriented, Normal motor function. Review / Management Results review: Labs (Last [...] available Blood Gases (Current Encounter/Past 24 Hours) pH Art 7.50 HI 08/06/2019 20:49 pCO2 Art 30.1 LOW 08/06/2019 20:49 pO2 Art 66.1 LOW 08/06/2019 20:49 HCO3 Art 23.6 08/06/2019 20:49 BE Art 1.5 08/06/2019 20:49 sO2 Art 92.9 LOW 08/06/2019 20:49 tHb Art 11.8 LOW 08/06/2019 20:49 ctO2 15.2 NA 08/06/2019 20:49 FIO2 Art 21.0 NA 08/06/2019 20:49 Temperature, F Art 98.6 NA 08/06/2019 20:49 Art Blood Gas (ABG) Site Left Radial 08/06/2019 20:49 Acceptable Bradley's Test Art Acceptable 08/06/2019 20:49 ABG Num of Draw Attempts 1 NA 08/06/2019 20:49 No Radiology Results Found Impression and Plan [...] virus. Continue IV Rocephin and doxycycline, duo nebs 3. Sepsis (febrile, tachycardiac, tachypnea, leukocytosis): Secondary to pneumonia. Ellis cultures pending. Continue IV fluids and IV Rocephin and doxycycline. Infectious disease consult pending. 4. GERD: Continue home PPI 5. GI/DVT PPX: Pepcid, SCDs [employer] Patient was seen and examined by me. Labs and CXR were reviewed. Medications were reviewed with the nurse. Plan was formulated as above She requires high complexity decision making for assessment. documented in this encounter Plan of Treatment Upcoming Encounters Date Type Department Care Team (Late st Contact Info) Description 07/10/2025 1:30 PM EST Office Visit [facility] Pulmonology - [address] [place] [address] Erica Arango MD [address] [place] [address] documented as of this encounter Visit Diagnoses Not on filedocumented in this encounter Care Teams Copy Manager Relationship Specialty Start Date End Date Tavo Rosales MD [address] [place] [address] PCP - General Family Medicine 01/05/25 documented as of this encounter
--- OUTSIDE RECORDS SUMMARY | 2025-06-07 10:01 | XMS_ITS | Encounter Summary ---
Author Organization [employer] ([place], [place], [place], [place], [place]) Address [address] [place] [address] Care Team Providers Care Accounts Payable Lead Name Role Phone Tavo Rosales MD Primary Care Provider [phone] Encounter Details Date Type Department Care Team (Late st Contact Info) Description 08/08/2019 Transcribed Document [facility] Family Medicine [address] [place] [address] ProviderRoberta MD [address] [place] [address] Social History Tobacco Use Types Packs/Day Years Used Date Smoking Tobacco: Never Assessed Comments Unknown Sex and Gender Information Value Date Recorded Sex Assigned at Not on file Legal Sex Female 2:04 PM CDT Gender Identity Not on file Sexual Orientation Not on file documented as of this encounter Miscellaneous Notes * Cerner Conversion Note - Roberta ProviderMD - 08/08/2019 5:00 AM WILLOWER Chart Check - Review Order Profile Entered On: 08/08/2019 7:47 EST Performed On: 08/08/2019 5:00 EST by Luis E White RN Chart Check Powerplans Initiated/Discontinued as Appropriate : Yes All Active Orders Reviewed : Yes Luis E White RN - 08/08/2019 7:47 EST documented in this encounter Plan of Treatment Upcoming Encounters Date Type Department Care Team (Late st Contact Info) Description 07/10/2025 1:30 PM EST Office Visit [facility] Pulmonology - [address] [place] [address] Erica Arango MD [address] [place] [address] documented as of this encounter Visit Diagnoses Not on filedocumented in this encounter Care Teams Accounts Payable Lead Relationship Specialty Start Date End Date Tavo Rosales MD [address] [place] [address] PCP - General Family Medicine 01/05/25 documented as of this encounter
--- OUTSIDE RECORDS SUMMARY | 2025-06-07 10:01 | XMS_ITS | Encounter Summary ---
Author Organization [employer] ([place], [place], [place], [place], [place]) Address [address] [place] [address] Care Team Providers Care Sewing Machine Mechanic Name Role Phone Tavo Rosales MD Primary Care Provider [phone] Encounter Details Date Type Department Care Team (Late st Contact Info) Description 08/09/[address] [facility] Family [place] [address] ProviderRoberta MD [address] [place] [address] Social History Tobacco Use Types Packs/Day Years Used Date Smoking Tobacco: Never Assessed Comments Unknown Sex and Gender Information Value Date Recorded Sex Assigned at Not on file Legal Sex Female 2:04 PM CDT Gender Identity Not on file Sexual Orientation Not on file documented as of this encounter Miscellaneous Notes * Cerner Conversion Note - Roberta Nazario MD - 08/09/2019 1:20 PM SCREWHEAD POLISHER PLEASE MODIFY BEFORE SIGNING CLINICAL DOCUMENTATION CLARIFICATION FORM: Dear : Houston Thompson Date __08/09/2019 Please exercise your independent, professional judgment in responding to the clarification form. Clinical indicators are provided on the bottom of this form for your review Please check appropriate box(es): [ x ] Sepsis with Severe sepsis with acute organ dysfunction of: ___Acute Respiratory Failure [ ] Sepsis without Severe sepsis [ ] Other diagnosis [ ] Unable to determine For continuity of documentation, please document condition throughout progress notes and discharge summary. Thank You To be completed by CDI/Coding staff for physician review: Present Clinical Indicators - Signs / Symptoms / Labs Results and Location in Medical Record [xx ] Altered mental status 08/08 PN: Visual hallucinations [xx ] Fever or hypothermia (<96.8 F/36 C or > 100.4 F/38C) 08/06 Vitals: Temp 101.7: [xx ] Hypoxia 08/06 ABG's: PH 7.50, P02 66.1, PC02 30.1, S02 92.9 [ xx ] Heart Rate/Tachycardia (>90 bpm) 08/06 Vitals: HR 106 [xx ] Acute organ dysfunction/failure 08/06 H&P: Acute on Chronic Respiratory Failure [xx ] Shock-hypotension resistant to IV fluid boluses 08/06 Orders: NS 2000ml bolus [ xx ] WBC count (>12,000/mm^4 or <4000/mm^3 or >70% neuts, >10% bands) 08/06 Labs: WBC 12.8/Neuts 83.4% 08/07 Labs: WBC 15.8/Neuts 91.9% [ xx] Positive for Metapneumovirus 08/06 Labs: Blood cultures + metapneumovirus Present Risk Factors Results and Location in Medical Record [ xx ] Pneumonia 08/06 H&P: pneumonia [xx ] Advancing Age 1/4 H&P: Age 74 Present Treatments Results and Location in Medical Record [xx ] Initiation Sepsis Protocol ICU 08/06 H&P: Sepsis protocol [xx ] Daily CBC, blood cultures 08/06 Orders: Daily Labs, Blood cultures [xx ] IV Antibiotics ??? broad spectrum 08/06 Orders: Doxycycline IV, Rocephin IV [ xx ] IV ?uids 08/06 Orders: NS 2000ml bolus CDS/Signature: __Gwendolyn Shi RN CDS Phone #: ___[phone] _ This is a permanent part of the Medical Record Q56 2019 [facility] Updated: documented in this encounter Plan of Treatment Upcoming Encounters Date Type Department Care Team (Late st Contact Info) Description 07/10/2025 1:30 PM EST Office Visit [facility] Pulmonology - [address] [place] [address] Erica Arango MD [address] [place] [address] documented as of this encounter Visit Diagnoses Not on filedocumented in this encounter Care Teams Sewing Machine Mechanic Relationship Specialty Start Date End Date Tavo Rosales MD [address] [place] [address] PCP - General Family Medicine 01/05/25 documented as of this encounter
--- OUTSIDE RECORDS SUMMARY | 2025-06-07 10:01 | XMS_ITS | Encounter Summary ---
Author Organization [employer] ([place], [place], [place], [place], [place]) Address [address] [place] [address] Care Team Providers Care Automation Clerk Name Role Phone Tavo Rosales MD Primary Care Provider [phone] Encounter Details Date Type Department Care Team (Late st Contact Info) Description 08/07/2019 Transcribed Document [facility] Family Medicine [facility] [place] [address] ProviderRoberta MD [address] [place] [id number] Social History Tobacco Use Types Packs/Day Years Used Date Smoking Tobacco: Never Assessed Comments Unknown Sex and Gender Information Value Date Recorded Sex Assigned at Not on file Legal Sex Female 2:04 PM CDT Gender Identity Not on file Sexual Orientation Not on file documented as of this encounter Miscellaneous Notes * Cerner Conversion Note - Roberta Nazario MD - 08/07/2019 12:41 PM CHIEF OF PEDIATRIC UROLOGY Patient: ROSEMARIE KELLY Age: 74 years Sex: Female : 1945 Associated Diagnoses: None Author: RODRICK DAVIS MD-INT Basic Information Time of exam 1010 The patient was admitted overnight, events reviewed. The patient was resting in bed at the time of exam and in no acute distress, sons at bedside. She reports she is feeling much improved already compared to yesterday. She feels like she has more energy, she has coughed up a large amount of sputum since presentation. Review of Systems Respiratory: Cough, Sputum production. Cardiovascular: No chest pain, No palpitations. Health Status Allergies: Allergies (3) Active Reaction Neosporin rash and [...] Refill(s) predniSONE 5 mg oral tablet: 0 Refill(s) Problem list: Medical At risk for sleep apnea / IMO [id number] / Confirmed Bronchiectasis / SNOMED CT 07837111 / Confirmed Dysphagia / SNOMED CT 10114726 / Confirmed GERD (gastroesophageal reflux disease) / SNOMED CT 548619853 / Confirmed High cholesterol / SNOMED CT 47521334 / Confirmed Hypertension / SNOMED CT 2408254447 / Confirmed Hypothyroid / SNOMED CT 08599878 / Confirmed Mycobacterium avium infection / SNOMED CT 1604163084 / Confirmed, Active Problems (8) At risk for sleep apnea Bronchiectasis Dysphagia GERD (gastroesophageal reflux disease) High cholesterol Hypertension Hypothyroid Mycobacterium avium infection Physical Examination VS/Measurements Vitals Signs (last 24 hrs) Last Charted Minimum Maximum Temp 97.3 (AUG 07 08:34) 97.3 (AUG 07 08:34) H 101.7 (AUG 06 19:33) Mon HR 87 (AUG 07 11:34) 76 (AUG 07 04:00) 97 (AUG 06 23:08) Periph HR 102 (AUG 06 22:04) 102 (AUG 06 22:04) 106 (AUG 06 19:33) Resp Rate 16 (AUG 07 11:34) L 10 (AUG 07 01:00) H 38 (AUG 07 08:27) SBP 121 (AUG 07 08:34) 108 (AUG 07 07:55) H 159 (AUG 06 19:33) DBP 61 (AUG 07 08:34) 61 (AUG 06 22:05) 82 (AUG 06 19:33) MAP 76 (AUG 07 08:34) 76 (AUG 07 08:34) 95 (AUG 07 06:00) SpO2 99 (AUG 07 11:34) L 93 (AUG 06 19:33) 100 (AUG 07 08:34) General: Alert and oriented, No acute distress. Eye: Pupils are equal, round and reactive to light, Extraocular movements are intact, Normal conjunctiva. HENT: Normocephalic, Oral mucosa is moist. Neck: Supple, Non-tender. Respiratory: Respirations are non-labored, Breath sounds are equal, Symmetrical chest wall expansion, No chest wall tenderness, Decreased bilateral air entry. Cardiovascular: Normal rate, Regular rhythm, No murmur, No gallop, Good pulses equal in all extremities, Normal peripheral perfusion, No edema. Gastrointestinal: Soft, Non-tender, Non-distended, Normal bowel sounds. Musculoskeletal: Normal range of motion, Normal strength, No tenderness, No swelling, No deformity. Integumentary: Warm, Dry, Intact, No rash. Neurologic: Alert, Oriented, Normal sensory, Normal motor function, No focal deficits, Cranial Nerves II-XII are grossly intact, Gag reflex normal, Normal deep tendon reflexes. Psychiatric: Cooperative, Appropriate mood & affect. Review / Management Results review: Labs (Last [...] (AUG 06) Troponin <0.015 (AUG 06) . Impression and Plan 1. Sepsis, POA: Secondary to pneumonia, with fever, tachycardia, and leukocytosis. Will continue empiric antibiotics and follow cultures. 2. Acute on chronic hypoxic respiratory failure: Continue supplemental oxygen. 3. Pneumonia: On empiric rocephin/doxycycline. Has history of severe antibiotic intolerances in the past. 4. Bronchiectasis: Continue bronchodilators. 5. History of MAC infection: Did not tolerate treatment. 6. Human metapneumovirus infection: Supportive care. 7. GERD: Continue PPI. 8. Hyperlipidemia: Continue statin. 9. Hypothyroidism: Continue synthroid. Disposition: Uncertain at this time. Electronically signed by Maryann, [facility] Conversion Director [employer] at 11/17/2022 2:55 PM CDT documented in this encounter Plan of Treatment Upcoming Encounters Date Type Department Care Team (Late st Contact Info) Description 07/10/2025 1:30 PM EST Office Visit [facility] Pulmonology - [address] [place] [address] Erica Arango MD [address] [place] [address] documented as of this encounter Visit Diagnoses Not on filedocumented in this encounter Care Teams Automation Clerk Relationship Specialty Start Date End Date Tavo Rosales MD [address] [place] [phone] PCP - General Family Medicine 01/05/25 documented as of this encounter
--- OUTSIDE RECORDS SUMMARY | 2025-06-07 10:01 | XMS_ITS | Encounter Summary ---
Author Organization [employer] ([place], [place], [place], [place], [place]) Address [address] [place] [address] Care Team Providers Care Supervisor Paint Roller Covers Name Role Phone Tavo Rosales MD Primary Care Provider [phone] Encounter Details Date Type Department Care Team (Late st Contact Info) Description 08/07/2019 Transcribed Document [facility] [place] [facility] [place] [address] ProviderRoberta MD [address] [place] [address] Social History Tobacco Use Types Packs/Day Years Used Date Smoking Tobacco: Never Assessed Comments Unknown Sex and Gender Information Value Date Recorded Sex Assigned at Not on file Legal Sex Female 2:04 PM CDT Gender Identity Not on file Sexual Orientation Not on file documented as of this encounter Miscellaneous Notes * Cerner Conversion Note - Roberta ProviderMD - 08/07/2019 8:31 AM CONTRACT [facility] ED Discharge Entered On: 08/07/2019 8:32 EST Performed On: 08/07/2019 8:31 EST by Shahnaz Slater RN Discharge Process Patient Disposition : Admit/Observe Personal Belongings With Patient : Yes Patient Education Completed : No Teaching Evaluation : Verbalizes understanding Link to Valuables and Belongings form : No IV Discontinued : No Nursing Documentation Completed : Yes Shahnaz Slater RN - 08/07/2019 8:31 EST Admission, ED Nurse Report Accepted By : Tyler NguyenNurse Report (Hand Off) : Called Accompanied By, Discharge : Son Shahnaz Slater RN - 08/07/2019 8:31 EST Electronically signed by Maryann [facility] Conversion Cloth Cutting Inspector [employer]ner at 11/17/2022 3:05 PM CDT documented in this encounter Plan of Treatment Upcoming Encounters Date Type Department Care Team (Late st Contact Info) Description 07/10/2025 1:30 PM EST Office Visit [facility] Pulmonology - [address] [place] [address] Erica Arango MD [address] [place] [address] documented as of this encounter Visit Diagnoses Not on filedocumented in this encounter Care Teams Supervisor Paint Roller Covers Relationship Specialty Start Date End Date Tavo Rosales MD [address] [place] [address] PCP - General Family Medicine 01/05/25 documented as of this encounter
--- OUTSIDE RECORDS SUMMARY | 2025-06-07 10:01 | XMS_ITS | Encounter Summary ---
Author Organization [employer] ([place], [place], [place], [place], [place]) Address [address] [place] [address] Care Team Providers Care Belt Loop Machine Operator Name Role Phone Tavo Rosales MD Primary Care Provider Encounter Details Date Type Department Care Team (Late st Contact Info) Description 08/09/2019 Transcribed Document [facility] [place] [facility] [place] [address] ProviderRoberta MD [facility] [place], [place] [address] Social History Tobacco Use Types Packs/Day Years Used Date Smoking Tobacco: Never Assessed Comments Unknown Sex and Gender Information Value Date Recorded Sex Assigned at Not on file Legal Sex Female 2:04 PM CDT Gender Identity Not on file Sexual Orientation Not on file documented as of this encounter Miscellaneous Notes * Cerner Conversion Note - Roberta ProviderMD - 08/09/2019 2:00 AM DIRECTOR ORGANIZATIONAL Power System Dispatcher Details Entered On: 08/09/2019 6:52 EST Performed On: 08/09/2019 2:00 EST by Kenyatta Qiu RN Order Details Transport Mode Order Detail : Wheelchair Isolation Precautions Order Detail : Standard Precautions Order Detail : N/A IV Order Detail : 1 Oxygen Order Detail : 1 Nurse Collect Order Detail : 0 Lift/Transfer : Minimal Central Line Order Detail : No Room Service : Appropriate Arterial Line : No Kenyatta Qiu RN - 08/09/2019 6:52 EST documented in this encounter Plan of Treatment Upcoming Encounters Date Type Department Care Team (Late st Contact Info) Description 07/10/2025 1:30 PM EST Office Visit [facility] Pulmonology - [address] [place] [address] Erica Arango MD [address] [place] [address] documented as of this encounter Visit Diagnoses Not on filedocumented in this encounter Care Teams Belt Loop Machine Operator Relationship Specialty Start Date End Date Tavo Rosales MD [address] [place] [address] PCP - General Family Medicine 01/05/25 documented as of this encounter
--- OUTSIDE RECORDS SUMMARY | 2025-06-07 10:01 | XMS_ITS | Encounter Summary ---
Author Organization [employer] ([place], [place], [place], [place], [place]) Address [address] [place] [address] Care Team Providers Care Polymer Chemist Name Role Phone Tavo Rosales MD Primary Care Provider [phone] Encounter Details Date Type Department Care Team (Late st Contact Info) Description 08/08/2019 Transcribed Document [facility] [place] [facility] [place] [address] ProviderRoberta MD [address] [place] [id number] Social History Tobacco Use Types Packs/Day Years Used Date Smoking Tobacco: Never Assessed Comments Unknown Sex and Gender Information Value Date Recorded Sex Assigned at Not on file Legal Sex Female 2:04 PM CDT Gender Identity Not on file Sexual Orientation Not on file documented as of this encounter Miscellaneous Notes * Cerner Conversion Note - Roberta Nazario MD - 08/08/2019 11:[address] OPERATIONS CLERK Patient: ROSEMARIE KELLY Age: 74 years Sex: Female : 1945 Associated Diagnoses: None Author: USHA SKY MD-PUL CC: Cough. fever, SOA Basic Information This is a 74-year-old female who is well known to our practice as an outpt. She has a past medical history significant for bronchiectasis, COPD, MAC, GERD, hyperlipidemia and anxiety. She presented to [facility] emergency department with complaints of a one-week history of cough, fever and shortness of breath. 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 She was evaluated at [facility] in [place] in [address] Howell [...] that she feels is related to antibiotics. Review of Systems Constitutional: Fever, Chills, Weakness, [...] At risk for sleep apnea / IMO 17007657 / Confirmed Bronchiectasis / SNOMED CT 01916351 / Confirmed Dysphagia / SNOMED CT 02968378 / Confirmed GERD (gastroesophageal reflux disease) / SNOMED CT 126666352 / Confirmed High cholesterol / SNOMED CT 37081840 / Confirmed Hypertension / SNOMED CT 3306104106 / Confirmed Hypothyroid / SNOMED CT 72108267 / Confirmed Mycobacterium avium infection / SNOMED CT 3011006132 / Confirmed, Active Problems (8) At risk for sleep apnea Bronchiectasis Dysphagia GERD (gastroesophageal reflux disease) High cholesterol Hypertension Hypothyroid Mycobacterium avium infection Physical Examination VS/Measurements Vital Signs/Vital Measures 08/08/2019 10:27 EST Systolic Blood Pressure 142 mmHg HI Diastolic Blood Pressure 70 mmHg Mean Arterial Pressure (MAP)-BMDI 88 Temperature Source Oral , Vitals Signs (last 24 hrs) Last Charted Minimum Maximum Temp 97.3 (AUG 08:) 97.3 (AUG 08:) 98.2 (AUG 07:) Mon HR 102 (AUG 08:) 87 (AUG 07 11:34) 116 (AUG 07:29) Resp Rate 18 (AUG 08:) 16 (AUG 07:) 18 (AUG 07:) SBP H 142 (AUG 08:) 124 (AUG 08 01:30) H 143 (AUG 07 21:00) DBP 70 (AUG 08:) 65 (AUG 07:) 74 (AUG 07:) MAP 88 (AUG 08:) 79 (AUG 07:) 89 (AUG 07:) SpO2 97 (AUG 08:) L 93 (AUG 07:) 99 (AUG 07:34) , Measurements from flowsheet : Measurements 08/07/2019 6:43 EST Height Source Measured Height Entry Format [place] Height/Length, [place] (ft) 5 ft Height/Length [place] 6 Inch CLINICALHEIGHT 167.64 cm [place] Body Weight 59 kg Weight Source Standing scale Weight Entry Format [place] Weight [place] lb 130 lb CLINICALWEIGHT 59.09 kg Body Surface Area (BSA) 1.67 m2 Body Mass Index 21 kg/m2 General: Alert and oriented, No acute distress. [...] Blood Gas Results Found (Past 24 Hours) Radiology Results (Last 48 hours) [id number] -- 08/06/2019 22:02 CR Chest 1 Vw Portable (08/06/2019 20:18) Result: PORTABLE CHEST; HISTORY: Cough.COMPARISON: May 10, 2019.FINDINGS: The heart is normal in size. The mediastinum is unremarkable.There is left basilar airspace disease consistent with pneumonia. Thereis no pneumothorax. IMPRESSION: Left basilar pneumonia.Images reviewed, interpreted, and dictated by Dr. Mirta Ramirez.Transcribed by Ximena Brar PA-C.I have personally viewed, interpreted and dictated the examination. Ihave read and agree with the above final transcribed report. Impression and Plan 1. Acute on chronic [...] Continue IV Rocephin and doxycycline, duo nebs. Its unclear if she had any adverse reaction to antibiotics are overall feeling ill. I do not see the need for switching antibiotics at this time. repeat CBC in the morning 3. Sepsis (febrile, tachycardiac, tachypnea, leukocytosis): Secondary to pneumonia. Ellis cultures pending. Continue IV fluids and IV Rocephin and doxycycline. 4. GERD: Continue home PPI 5. GI/DVT PPX: Pepcibridger, [facility] [employer] I have personally performed a [id number]-[id number] diagnostic evaluation on this patient. I have reviewed labs, radiologic data and agree with the care plan. Clinical condition and plan discussed with patient. Answered all questions. documented in this encounter Plan of Treatment Upcoming Encounters Date Type Department Care Team (Late st Contact Info) Description 07/10/2025 1:30 PM EST Office Visit [facility] Pulmonology - [address] [place] [address] Erica Arango MD [address] [place] [address] documented as of this encounter Visit Diagnoses Not on filedocumented in this encounter Care Teams Polymer Chemist Relationship Specialty Start Date End Date Tavo Rosales MD [address] [place] [address] PCP - General Family Medicine 01/05/25 documented as of this encounter
--- OUTSIDE RECORDS SUMMARY | 2025-06-07 10:01 | XMS_ITS | Encounter Summary ---
Author Organization [employer] ([place], [place], [place], [place], [place]) Address [address] [place] [address] Care Team Providers Care Bill Poster Installer Name Role Phone Tavo Rosales MD Primary Care Provider [phone] Encounter Details Date Type Department Care Team (Late st Contact Info) Description 08/08/2019 Transcribed Document [facility] [place] [facility] [place] [address] ProviderRoberta MD [address] [place] [id number] Social History Tobacco Use Types Packs/Day Years Used Date Smoking Tobacco: Never Assessed Comments Unknown Sex and Gender Information Value Date Recorded Sex Assigned at Not on file Legal Sex Female 2:04 PM CDT Gender Identity Not on file Sexual Orientation Not on file documented as of this encounter Miscellaneous Notes * Cerner Conversion Note - Roberta ProviderMD - 08/08/2019 2:00 AM OPERATOR CATALYST CONCENTRATION Station Gateman Details Entered On: 08/08/2019 7:47 EST Performed On: 08/08/2019 2:00 EST by Luis E White RN Order Details Transport Mode Order Detail : Wheelchair Isolation Precautions Order Detail : Standard Precautions Order Detail : N/A IV Order Detail : 1 Oxygen Order Detail : 1 Nurse Collect Order Detail : 0 Lift/Transfer : Minimal Central Line Order Detail : No Room Service : Appropriate Arterial Line : No Luis E White RN - 08/08/2019 7:47 EST Electronically signed by Maryann [facility] Conversion Tree Girdler Cerner at 11/17/2022 2:45 PM CDT documented in this encounter Plan of Treatment Upcoming Encounters Date Type Department Care Team (Late st Contact Info) Description 07/10/2025 1:30 PM EST Office Visit [facility] Pulmonology - [address] [place] [address] Erica Arango MD [address] [place], [place] [id number] documented as of this encounter Visit Diagnoses Not on filedocumented in this encounter Care Teams Bill Poster Installer Relationship Specialty Start Date End Date Tavo Rosales MD [address] [place] [address] PCP - General Family Medicine 01/05/25 documented as of this encounter
--- OUTSIDE RECORDS SUMMARY | 2025-06-07 10:01 | XMS_ITS | Encounter Summary ---
Author Organization [employer] ([place], [place], [place], [place], [place]) Address [address] [place] [address] Care Team Providers Care Instructor Watch Assembly Name Role Phone Tavo Rosales MD Primary Care Provider [phone] Encounter Details Date Type Department Care Team (Late st Contact Info) Description 08/08/2019 Transcribed Document [facility] [place] [facility] [place] [address] ProviderRoberta MD [address] [place], [place] [id number] Social History Tobacco Use Types Packs/Day Years Used Date Smoking Tobacco: Never Assessed Comments Unknown Sex and Gender Information Value Date Recorded Sex Assigned at Not on file Legal Sex Female 2:04 PM CDT Gender Identity Not on file Sexual Orientation Not on file documented as of this encounter Miscellaneous Notes * Cerner Conversion Note - Roberta ProviderMD - 08/08/2019 9:28 AM ELECTRONIC DEVICE REPAIRER Attempt to Treat, PT Entered On: 08/08/2019 12:42 EST Performed On: 08/08/2019 9:28 EST by YOSELIN JEAN BAPTISTE PTA Attempt to Treat Unable to Treat Due To : Patient Refusal Inability to Treat Comment : Patient politely declined therapy secondary nausea and not sleeping well- she hallucinated last night she reported. YOSELIN JEAN BAPTISTE PTA - 08/08/2019 12:41 EST Electronically signed by Kathia Wolf Conversion Forest [employer]ighters Dispatcher Cerner at 11/17/2022 2:51 PM CDT documented in this encounter Plan of Treatment Upcoming Encounters Date Type Department Care Team (Late st Contact Info) Description 07/10/2025 1:30 PM EST Office Visit [facility] Pulmonology - [address] [place] [address] Erica Arango MD [address] [place] [address] documented as of this encounter Visit Diagnoses Not on filedocumented in this encounter Care Teams Instructor Watch Assembly Relationship Specialty Start Date End Date Tavo Rosales MD [address] [place] [address] PCP - General Family Medicine 01/05/25 documented as of this encounter
--- OUTSIDE RECORDS SUMMARY | 2025-06-07 10:01 | XMS_ITS | Encounter Summary ---
Author Organization [employer] ([place], [place], [place], [place], [place]) Address [address] [place] [address] Care Team Providers Care Warehouseman Name Role Phone Tavo Rosales MD Primary Care Provider [phone] Encounter Details Date Type Department Care Team (Late st Contact Info) Description 08/09/2019 Transcribed Document [facility] Radiology [address] [place] [address] Sam Bravo MD [address] [place] [address] Social History Tobacco Use Types Packs/Day Years Used Date Smoking Tobacco: Never Assessed Comments Unknown Sex and Gender Information Value Date Recorded Sex Assigned at Not on file Legal Sex Female 2:04 PM CDT Gender Identity Not on file Sexual Orientation Not on file documented as of this encounter Miscellaneous Notes * Cerner Conversion Note - Sam Bravo MD - 08/09/2019 2:08 PM EST DATE OF CONSULTATION: REASON FOR CONSULTATION: Positive blood cultures. HISTORY OF PRESENT ILLNESS: This is a 74-year-old female with long-standing bronchiectasis and pulmonary MAC infection who has been seen by my associate, Dr. Lee Howell in the past. Patient has been admitted for fevers and shortness of breath. Patient has been started on Rocephin and doxycycline. Respiratory PCR panel was remarkable for human metapneumovirus. Patient has had clinical improvement. Because of positive blood cultures, we were asked to address the significance. PAST MEDICAL HISTORY: Patient has past medical history of bronchiectasis, Mycobacterium avium-intracellulare infection, GERD, hyperlipidemia, history of cholecystectomy, esophageal dilation, hysterectomy, appendectomy. Patient feels better since starting antibiotics and so planning to go home soon. Of note, the patient has been offered new treatment for MAC therapy from Dr. Lee Howell, the patient declined. The patient also is going to [facility] in [place], [place]. The patient has no other complaints. SOCIAL HISTORY: Remarkable for no alcohol use. No tobacco use. FAMILY HISTORY: Bronchiectasis. ALLERGIES: Neosporin, Bactrim. REVIEW OF SYSTEMS: GENERAL: Reports fevers, chills. HEENT: Denies headache or sore throat. PULMONARY: Admits to shortness of breath, cough, productive of greenish sputum, pleuritic pain. CARDIAC: Denies chest pain. GI: Denies nausea, vomiting, diarrhea. : Denies burning upon urination. Rest of review of systems was discussed and were negative. MEDICATIONS: 1. DuoNeb. 2. Aspirin. 3. Atorvastatin. 4. Rocephin 1 g IV daily. 5. Doxycycline 100 g every 12 hours. 6. Pepcid. 7. Levothyroxine. 8. Loratadine. PHYSICAL EXAMINATION: VITAL SIGNS: Currently, temperature 99.9, blood pressure 133/75, temperature 37.1, heart rate 114, respiratory 18, O2 saturation 2 L 97%. GENERAL APPEARANCE: Age appropriate female, pleasant, in no acute distress. HEENT: Head normocephalic, atraumatic. PERRL. EOMI. No oral lesions. LUNGS: Clear to auscultation bilaterally. CARDIAC: S1, S2. No murmur. GI: Soft, nontender. Bowel sounds positive. EXTREMITIES: No clubbing, cyanosis, or edema. NEUROLOGICAL: No focal deficit. DIAGNOSTIC STUDIES: LABORATORY RESULTS: Review of labs from 08/07/2019; creatinine 0.85. White count 15,800, hematocrit 33, platelets 302,000. Procalcitonin level elevated 0.09. Blood cultures positive for a Staphylococcus species, BioFire PCR, it was negative. Respiratory PCR panel remarkable for human metapneumovirus. IMAGING STUDIES: Chest x-ray was personally reviewed, which shows left basilar pneumonia. IMPRESSION: 1. Human metapneumovirus. 2. Bronchiectasis. 3. Chronic mycobacterium avium complex colonization versus infection. DISCUSSION: I would treat patient with Rocephin and doxycycline for prior 3 to 5 days and then stop. The blood cultures appear to be a blood culture contamination and they are not significant. I have offered see patient in ID clinic for followup to address and continue new therapies for mycobacterium avium intracellulare. Patient is not interested in new therapies at this time and I respect her decision. The patient may have worsening cavitary pneumonia and short life expectancy if this infection goes on untreated. The patient understands this. Thank you for the courtesy of this consultation. We will follow this patient with you. /[id number] Sam Bravo MD CER/AQ / CER / MODL /[id number] documented in this encounter Plan of Treatment Upcoming Encounters Date Type Department Care Team (Late st Contact Info) Description 07/10/2025 1:30 PM EST Office Visit [facility] Pulmonology - [address] [place] [address] Erica Arango MD [address] [place] [address] documented as of this encounter Visit Diagnoses Not on filedocumented in this encounter Care Teams Warehouseman Relationship Specialty Start Date End Date Tavo Rosales MD [address] [place] [address] PCP - General Family Medicine 01/05/25 documented as of this encounter
--- OUTSIDE RECORDS SUMMARY | 2025-06-07 10:01 | XMS_ITS | Encounter Summary ---
Author Organization [employer] ([place], [place], [place], [place], [place]) Address [address] [place] [address] Care Team Providers Care Gill Box Fixer Name Role Phone Tavo Rosales MD Primary Care Provider [phone] Encounter Details Date Type Department Care Team (Late st Contact Info) Description 08/08/2019 Transcribed Document [facility] [place] [facility] [place] [address] ProviderRoberta MD [address] [place] [address] Social History Tobacco Use Types Packs/Day Years Used Date Smoking Tobacco: Never Assessed Comments Unknown Sex and Gender Information Value Date Recorded Sex Assigned at Not on file Legal Sex Female 2:04 PM CDT Gender Identity Not on file Sexual Orientation Not on file documented as of this encounter Miscellaneous Notes * Cerner Conversion Note - Roberta Nazario MD - 08/08/2019 1:05 PM GLUE MIXER Patient: ROSEMARIE KELLY Age: 74 years Sex: Female : 1945 Associated Diagnoses: None Author: RODRICK DAVIS MD-INT Basic Information Time of exam 0905 The patient was resting in bed at the time of exam and in no acute distress. The patient reports she had a rough night. She had some pretty vivid visual hallucinations which were graphic and disturbing in nature. She did not get any rest. Her respiratory status is about the same. Review of Systems Respiratory: Shortness of breath, Cough, Sputum production. Cardiovascular: No chest pain, No palpitations. Psychiatric: Hallucinations. Health Status Allergies: Allergies (3) Active Reaction [...] At risk for sleep apnea / IMO [id number] / Confirmed Bronchiectasis / SNOMED CT 42206249 / Confirmed Dysphagia / SNOMED CT 95351645 / Confirmed GERD (gastroesophageal reflux disease) / SNOMED CT 697396261 / Confirmed High cholesterol / SNOMED CT 97159574 / Confirmed Hypertension / SNOMED CT 9862003236 / Confirmed Hypothyroid / SNOMED CT 02679782 / Confirmed Mycobacterium avium infection / SNOMED CT 1405482308 / Confirmed, Active Problems (8) At risk for sleep apnea Bronchiectasis Dysphagia GERD (gastroesophageal reflux disease) High cholesterol Hypertension Hypothyroid Mycobacterium avium infection Physical Examination VS/Measurements Vitals Signs (last 24 hrs) Last Charted Minimum Maximum Temp 97.3 (AUG 08:) 97.3 (AUG 08:) 98.2 (AUG 07:) Mon HR 100 (AUG 08 11:43) 95 (AUG 07 20:00) 116 (AUG 07 18:29) Resp Rate 18 (AUG 08:) 16 (AUG 08 01:30) 18 (AUG 07 14:21) SBP H 142 (AUG 08 10:) 124 (AUG 08 01:30) H 143 (AUG 07 21:00) DBP 70 (AUG 08 10:) 65 (AUG 07 14:21) 74 (AUG 07 18:29) MAP 88 (AUG 08:) 79 (AUG 07 14:21) 89 (AUG 07 18:29) SpO2 97 (AUG 08:) L 93 (AUG 07 18:29) 98 (AUG 07 20:00) General: Alert and oriented, No acute distress. [...] Soft, Non-tender, Non-distended, Normal bowel sounds. Musculoskeletal: No tenderness, No swelling, No deformity. Integumentary: [...] Hyperlipidemia: Continue statin. 9. Hypothyroidism: Continue synthroid. 10. Anxiety, hallucinations: May be a side effect of antibiotics, she states she had similar reactions in the past. Start PRN low dose klonopin. Disposition: Uncertain at this time. Electronically signed by Maryann, [facility] Conversion Manager Provider Relations Cerner at 11/17/2022 2:53 PM CDT documented in this encounter Plan of Treatment Upcoming Encounters Date Type Department Care Team (Late st Contact Info) Description 07/10/2025 1:30 PM EST Office Visit [facility] Pulmonology - [address] [place] [address] Erica Arango MD [address] [place] [address] documented as of this encounter Visit Diagnoses Not on filedocumented in this encounter Care Teams Gill Box Fixer Relationship Specialty Start Date End Date Tavo Rosales MD [address] [place] [id number] PCP - General Family Medicine 01/05/25 documented as of this encounter
--- NOTE | 2025-06-07 10:02 | XR_ITS ---
FINAL REPORT CLINICAL HISTORY: BRONCHIECTISIS W/O ACUTES EXACERBATION, HX OF MYCOBACTERIAL sent priors FINDINGS: 2 views of the chest were obtained . The heart is mildly enlarged. There are worsening lingular and left lower lobe slightly nodular opacities. There are possible small cavitary nodules in the right perihilar region. There is no effusion or pneumothorax. IMPRESSION: Worsening lower and left lower lobe opacity. Stable, possible cavitary lesions in the right lung which could be related to acute superimposed on chronic infectious process. See recent chest CT report. Reviewed, Interpreted and Dictated by Martha Dorman MD Transcribed by Lelia Anderson Authenticated and . [facility]
--- OUTSIDE RECORDS SUMMARY | 2025-06-07 10:02 | XMS_ITS | Encounter Summary ---
Author Organization [employer] ([place], [place], [place], [place], [place]) Address [address] [place] [address] Care Team Providers Care Hog Stomach Preparer Name Role Phone Tavo Rosales MD Primary Care Provider [phone] Encounter Details Date Type Department Care Team (Late st Contact Info) Description 08/10/2019 Transcribed Document [facility] [place] [address] [place] [address] ProviderRoberta MD [address] [place] [address] Social History Tobacco Use Types Packs/Day Years Used Date Smoking Tobacco: Never Assessed Comments Unknown Sex and Gender Information Value Date Recorded Sex Assigned at Not on file Legal Sex Female 2:04 PM CDT Gender Identity Not on file Sexual Orientation Not on file documented as of this encounter Miscellaneous Notes * Cerner Conversion Note - Roberta ProviderMD - 08/10/2019 5:00 AM TEST DEVELOPMENT ENGINEER Chart Check - Review Order Profile Entered On: 08/10/2019 3:35 EST Performed On: 08/10/2019 5:00 EST by Scarlet Serrato RN-TRAVELTREY Chart Check Powerplans Initiated/Discontinued as Appropriate : Yes All Active Orders Reviewed : Yes Scarlet Serrato RN-TRAVELER - 08/10/2019 3:34 EST Electronically signed by Kathia Wolf Conversion Band [employer] Mill And Carriage Operator Cerner at 11/17/2022 3:10 PM CDT documented in this encounter Plan of Treatment Upcoming Encounters Date Type Department Care Team (Late st Contact Info) Description 07/10/2025 1:30 PM EST Office Visit [facility] Pulmonology - [address] [place] [phone] Erica Arango MD [address] [facility] [address] [place], [place] [id number] documented as of this encounter Visit Diagnoses Not on filedocumented in this encounter Care Teams Hog Stomach Preparer Relationship Specialty Start Date End Date Tavo Rosales MD [address] [place] [place] [address] PCP - General Family Medicine 01/05/25 documented as of this encounter
--- OUTSIDE RECORDS SUMMARY | 2025-06-07 10:02 | XMS_ITS | Encounter Summary ---
Author Organization [employer] ([place], [place], [place], [place], [place]) Address [address] [place] [address] Care Team Providers Care Sheet Metal Shop Helper Name Role Phone Tavo Rosales MD Primary Care Provider [phone] Encounter Details Date Type Department Care Team (Late st Contact Info) Description 05/10/2019 Transcribed Document [facility] [place] Family Medicine [address] [place] [address] ProviderRoberta MD [address] [place] [id number] Social History Tobacco Use Types Packs/Day Years Used Date Smoking Tobacco: Never Assessed Comments Unknown Sex and Gender Information Value Date Recorded Sex Assigned at Not on file Legal Sex Female 2:04 PM CDT Gender Identity Not on file Sexual Orientation Not on file documented as of this encounter Miscellaneous Notes * Cerner Conversion Note - Roberta Nazario MD - 05/10/2019 12:08 PM CDT [facility] Summary Primary Physician: GERARDO LEWIS MD-PUL Finalized Date/Time: 05/10/19 13:02:28 Pt. Name: ROSEMARIE KELLY/Sex: 1945 Female Med Rec #: [id number] Physician: GERARDO LEWIS MD-PUL Financial #: [id number] Pt. Type: O Room/Bed: N/8 Admit/Disch: 05/10/19 08:48:00 - Institution: [facility] - Case Attendance Entry 1 Entry 2 Entry 3 Case Attendee GERARDO LEWIS, RadhaTHONG RN CHILDERS, BRIAN, TECH MD-PUL Role Performed Surgeon/Proceduralist, Dining Manager, First Scrub, First First Time In 05/10/19 11:52:00 05/10/19 11:52:00 05/10/19 11:52:00 Time Out 05/10/19 12:59:00 05/10/19 12:59:00 05/10/19 12:59:00 Procedure Bronchoscopy Flexible, Bronchial Navigation, Bronchial Navigation, Bronchial Navigation, Bronchoscopy Flexible, Bronchoscopy Flexible, Bronchial Washings, Bronchial Washings, Bronchial Washings, Bronchial Biopsy, Bronchial Biopsy, Bronchial Biopsy, Bronchial Brushings Bronchial Brushings Bronchial Brushings Other Attendee Superficial Wound Closed By: Last Modified By: THONG Garcia RN Childress, TOBI J, RN Childress, TOBI J, RN 05/10/19 13:02:25 05/10/19 13:02:25 05/10/19 13:02:25 Entry 4 Entry 5 Entry 6 Case Attendee WENCESLAO WAGNER WIGGINTON, DEANNA L, KYLAH DELATORRE MEDIEVAL ENGLISH LITERATURE PROFESSOR Role Performed MEDIEVAL ENGLISH LITERATURE PROFESSOR/Nurse Screen Printing Paster International Logistics Coordinator, Second Image Assembler Time In 05/10/19 11:52:00 05/10/19 11:52:00 05/10/19 11:52:00 Time Out 05/10/19 12:59:00 05/10/19 12:59:00 05/10/19 12:41:00 Procedure Bronchial Navigation, Bronchial Navigation, Bronchial Navigation, Bronchoscopy Flexible, Bronchoscopy Flexible, Bronchoscopy Flexible, Bronchial Washings, Bronchial Washings, Bronchial Washings, Bronchial Biopsy, Bronchial Biopsy, Bronchial Biopsy, Bronchial Brushings Bronchial Brushings Bronchial Brushings Other Attendee Superficial Wound Closed By: Last Modified By: THONG Garcia RN Childress, TOBI J, RN Childress, TOBI J, RN 05/10/19 13:02:25 05/10/19 13:02:25 05/10/19 12:44:54 [facility] - Case Attendance Audit 05/10/19 13:02:25 Medical Videographer: DEBORAH Modifier: DEBORAH 1 <+> Time Out 1 <*> Procedure Bronchoscopy Flexible, Bronchial Navigation, Bronchial Washings, Bronchial Biopsy, Bronchial Brushings 2 <+> Time Out 2 <*> Procedure Bronchial Navigation, Bronchoscopy Flexible, Bronchial Washings, Bronchial Biopsy, Bronchial Brushings 3 <+> Time Out 3 <*> Procedure Bronchial Navigation, Bronchoscopy Flexible, Bronchial Washings, Bronchial Biopsy, Bronchial Brushings 4 <+> Time Out 4 <*> Procedure Bronchial Navigation, Bronchoscopy Flexible, Bronchial Washings, Bronchial Biopsy, Bronchial Brushings 5 <+> Time Out 5 <*> Procedure Bronchial Navigation, Bronchoscopy Flexible, Bronchial Washings, Bronchial Biopsy, Bronchial Brushings 6 <*> Procedure Bronchial Navigation, Bronchoscopy Flexible, Bronchial Washings, Bronchial Biopsy, Bronchial Brushings 05/10/19 12:44:54 Medical Videographer: [email or web address] Modifier: HOLMESTJ 6 <+> Time Out 6 <*> Procedure Bronchial Navigation, Bronchoscopy Flexible, Bronchial Washings, Bronchial Biopsy, Bronchial Brushings 05/10/19 12:37:41 Medical Videographer: [email or web address] Modifier: [email or web address] 1 <*> Procedure Bronchoscopy Flexible, Bronchial Navigation, Bronchial Washings, Bronchial Biopsy 2 <*> Procedure Bronchial Navigation, Bronchoscopy Flexible, Bronchial Washings, Bronchial Biopsy 3 <*> Procedure Bronchial Navigation, Bronchoscopy Flexible, Bronchial Washings, Bronchial Biopsy 4 <*> Procedure Bronchial Navigation, Bronchoscopy Flexible, Bronchial Washings, Bronchial Biopsy 5 <*> Procedure Bronchial Navigation, Bronchoscopy Flexible, Bronchial Washings, Bronchial Biopsy 6 <*> Procedure Bronchial Navigation, Bronchoscopy Flexible, Bronchial Washings, Bronchial Biopsy 05/10/19 12:27:20 Medical Videographer: [email or web address] Modifier: [email or web address] 1 <*> Procedure Bronchoscopy Flexible, Bronchial Navigation, Bronchial Washings 2 <*> Procedure Bronchial Navigation, Bronchoscopy Flexible, Bronchial Washings 3 <*> Procedure Bronchial Navigation, Bronchoscopy Flexible, Bronchial Washings 4 <*> Procedure Bronchial Navigation, Bronchoscopy Flexible, Bronchial Washings 5 <*> Procedure Bronchial Navigation, Bronchoscopy Flexible, Bronchial Washings 6 <*> Procedure Bronchial Navigation, Bronchoscopy Flexible, Bronchial Washings 05/10/19 12:11:23 Medical Videographer: [email or web address] Modifier: [email or web address] 1 <*> Procedure Bronchoscopy Flexible, Bronchial Navigation 2 <*> Procedure Bronchial Navigation, Bronchoscopy Flexible 3 <*> Procedure Bronchial Navigation, Bronchoscopy Flexible 4 <*> Procedure Bronchial Navigation, Bronchoscopy Flexible 5 <*> Procedure Bronchial Navigation, Bronchoscopy Flexible 6 <+> Time In 6 <*> Procedure Bronchial Navigation, Bronchoscopy Flexible 05/10/19 12:06:30 Medical Videographer: [email or web address] Modifier: [email or web address] <+> 6 Case Attendee <+> 6 Role Performed <+> 6 Procedure 05/10/19 12:01:02 Medical Videographer: [email or web address] Modifier: [email or web address] 1 <*> Procedure Bronchoscopy Flexible, Bronchial Navigation 2 <*> Procedure Bronchial Navigation, Bronchoscopy Flexible 3 <*> Procedure Bronchial Navigation, Bronchoscopy Flexible 4 <*> Procedure Bronchial Navigation, Bronchoscopy Flexible 5 <+> Time In 5 <*> Procedure Bronchial Navigation, Bronchoscopy Flexible 05/10/19 11:56:51 Medical Videographer: [email or web address] Modifier: [email or web address] 1 <+> Time In 1 <*> Procedure Bronchoscopy Flexible, Bronchial Navigation 2 <+> Time In 2 <*> Procedure Bronchial Navigation, Bronchoscopy Flexible 3 <+> Time In 3 <*> Procedure Bronchial Navigation, Bronchoscopy Flexible 4 <+> Time In 4 <*> Procedure Bronchial Navigation, Bronchoscopy Flexible <+> 5 Case Attendee <+> 5 Role Performed <+> 5 Procedure 05/10/19 11:54:35 Medical Videographer: DOSSMT Modifier: [email or web address] <+> 2 Case Attendee <+> 2 Role Performed <+> 2 Procedure <+> 3 Case Attendee <+> 3 Role Performed <+> 3 Procedure <+> 4 Case Attendee <+> 4 Role Performed <+> 4 Procedure 05/10/19 09:26:27 Medical Videographer: DOSSMT Modifier: DOSSMT <+> 1 Procedure [facility] - Case Times Entry 1 Patient In Room Time 05/10/19 11:52:00 Out Room Time 05/10/19 12:59:00 Anesthesia Start Time 05/10/19 11:52:00 Stop Time 05/10/19 12:59:00 Anesthesia Ready 05/10/19 11:52:00 Surgery / Procedure Times Start Time 05/10/19 12:08:00 Stop Time 05/10/19 12:44:00 Last Modified By: THONG Garcia RN 05/10/19 11:55:37 [facility] - Case Times Audit 05/10/19 13:01:14 Medical Videographer: [email or web address] Modifier: [email or web address] <+> 1 Out Room Time <+> 1 Stop Time 05/10/19 12:44:58 Medical Videographer: [email or web address] Modifier: [email or web address] <+> 1 Stop Time 05/10/19 12:08:55 Medical Videographer: [email or web address] Modifier: [email or web address] <+> 1 Start Time [facility] [place] Endo - Cultures and Spec Summary Entry 1 Cultrures and Specimens Specimen Ordered: Yes Last Modified By: THONG Garcia RN 05/10/19 12:11:31 [facility] Endo - Delays Entry 1 Delay Reason Previous case ran over Duration 60 Minute(s) Last Modified By: THONG Garcia RN 05/10/19 11:57:00 E Endo - Departure from OR Entry 1 Integumentary Assessment Integumentary WDL Assessment WDL Transfer/Handoff Transfer to PACU Phase I Handoff Method Bedside/Face to face Post-op Transport Stretcher/Gurney Via Patient Transport THONG Garcia RN, Accompanied by WENCESLAO WAGNER CRNA Last Modified By: THONG Garcia RN 05/10/19 13:01:27 E Endo - Endoscopy Details Entry 1 Abdomen Procedure Soft, Non-distended, Assessment Non-Tender Procedure Abdomen 05/10/19 11:57:00 Assessment D/T Radio Frequency Ablation Last Modified By: THONG Garcia RN 05/10/19 11:57:03 [facility] [place] Endo - Fire Risk Assessment Entry 1 Fire Info Surgical Site or 1- Yes Incision Above the Xyphoid Open O2 Source 1- Yes (Mask or Cannula) Available Ignition 1- Yes (ESU, Laser, Light Source) Fire Risk 3 Assessment Score Fire Score Fire Risk Yes Assessment Complete Fire Risk THONG Garcia RN Assessment Verified By Fire Risk 05/10/19 11:57:00 Assessment Verified Date/Time Fire Risk High Risk Protocol Yes Implemented Standard Fire Yes Safety Precautions Followed Last Modified By: THONG Garcia RN 05/10/19 11:57:10 [facility] [place] Endo - General Case Gear Hobber Set Up Operator 1 Case Information OR Endo 06 [facility] [place] Case Level 1 Room Verified Yes Wound Class II - Clean-Contaminated Specialty SN Pulmonology Anesthesia Type MAC ASA Class 3 Diagnosis Preop Diagnosis R91.8 J47.9, lung nodule Postop Same As Preop Yes Postop Diagnosis R91.8 J47.9, lung nodule Last Modified By: THONG Garcia RN 05/10/19 12:06:16 [facility] [place] Endo - General Case Data Audit 05/10/19 13:01:43 Medical Videographer: DEBORAH Modifier: [email or web address] 1 <+> Postop Same As Preop 1 <*> Preop Diagnosis R91.8 J47.9 1 <+> Postop Diagnosis [facility] - Intraoperative Assessment Entry 1 Valid History / Yes Physical in Chart Preoperative Yes Checklist Reviewed/Evaluated Allergies Reviewed Yes Patient is Latex No Sensitive Level of WDL Consciousness (WDL = Alert, Oriented to Person, Place, and Time) Present Upon IVs, ECG monitored Arrival to OR Last Modified By: THONG Garcia RN 05/10/19 12:11:49 [facility] - Intraoperative Equipment Entry 1 Type Scope Equipment Intraop Monitoring Electrocardiogram Three lead placement (ECG) Electrode Placement Blood Pressure Arm, left upper Location Pulse Oximeter Hand, right Probe Site Antiembolic Devices Scopes Flexible Endoscopes Bronchoscope Used Scope Serial [id number] Number/Identificatio n Number Photo/Video Documentation Photo Yes Video No Last Modified By: THONG Garcia RN 05/10/19 12:00:27 [facility] - Patient Positioning Entry 1 Procedure Bronchial Navigation, Bronchoscopy Flexible, Bronchial Washings, Bronchial Biopsy, Bronchial Brushings Body Position Supine Left Arm Position Resting at side Right Arm Position Resting at side Left Leg Position Uncrossed, parallel Right Leg Position Uncrossed, parallel Feet Uncrossed Yes Pressure Points Yes Checked Positioned By THONG Garcia RN, WENCESLAO WAGNER CRNA Position Verified Positioning Yes Verified by Anesthesia Positioning Yes Verified by Surgeon Last Modified By: THONG Garcia RN 05/10/19 12:00:44 [facility] - Patient Positioning Audit 05/10/19 12:37:43 Medical Videographer: COREYJ Modifier: [email or web address] 1 <*> Procedure Bronchial Navigation, Bronchoscopy Flexible, Bronchial Washings, Bronchial Biopsy 05/10/19 12:27:22 Medical Videographer: HOLMESTJ Modifier: HOLMESTJ 1 <*> Procedure Bronchial Navigation, Bronchoscopy Flexible, Bronchial Washings 05/10/19 12:11:24 Medical Videographer: HOLMESTJ Modifier: HOLMESTJ 1 <*> Procedure Bronchial Navigation, Bronchoscopy Flexible [facility] - Sign In Entry 1 Patient, Site, Yes Procedure Identified Surgical Consent Yes Confirmed Relevant Surgical Yes Documents Available Surgical Site N/A Marked by person performing procedure Allergies Yes Airway Hypothermia Risk No Warming Measures No Taken Last Modified By: THONG Garcia RN 05/10/19 12:00:54 [facility] - Sign Out Entry 1 RN Confirmation Surgical Yes Procedure(s) Identified Instrument, Sponge N/A and Sharps Counts Correct/Documented Equipment Problems N/A Documented Specimen Labeled Yes Correctly Urinary Catheter N/A Documented in IView Safety Checklist Yes Elements Complete? RN Sign Out THONG Garcia RN Signature RN Sign Out 05/10/19 12:59:00 Signature Date/Time Plan of Care Outcome - Fire Risk OUTCOME STATEMENT: Goal met Patient is free from injury related to surgical fire Plan of Care Outcome - Pt Positioning OUTCOME STATEMENT: Goal met Absence of signs and symptoms of positioning injury. Plan of Care Outcome - Skin Prep OUTCOME STATEMENT: Goal met Intraoperative care is consistent with measures to prevent infection Plan of Care Outcome - Xray/Images OUTCOME STATEMENT: Goal met Absence of observable signs or symptoms of radiation injury Plan of Care Outcome - Counts OUTCOME STATEMENT: N/A Absence of signs and symptoms of injury related to extraneous objects Last Modified By: THONG Garcia RN 05/10/19 13:01:59 [facility] [place] Endo - Surgical Procedures Entry 1 Entry 2 Entry 3 Procedure Bronchial Navigation Bronchoscopy Flexible Bronchial Washings Modifiers Additional Procedure Description Primary Procedure No Yes No Primary Surgeon GERARDO LEWIS MOAMMAR, MAHMOUD Q, MOAMMAR, MAHMOUD Q, MD-PUL [place] Start 05/10/19 12:08:00 05/10/19 12:08:00 05/10/19 12:08:00 Stop 05/10/19 12:44:00 05/10/19 12:44:00 05/10/19 12:44:00 Physician States Cecum Reached Anesthesia Type MAC MAC MAC Specialty SN Pulmonology SN Pulmonology SN Pulmonology Wound Class II - Clean-Contaminated II - Clean-Contaminated II - Clean-Contaminated Last Modified By: JONEL CAMP RN JONEL CAMP RN THONG Garcia RN 05/10/19 09:26:24 05/10/19 09:26:24 05/10/19 12:11:19 Entry 4 Entry 5 Procedure Bronchial Biopsy Bronchial Brushings Modifiers Additional Procedure Description Primary Procedure No No Primary Surgeon GERARDO LEWIS MOAMMAR, MAHMOUD Q, MD-PUL [place] Start 05/10/19 12:08:00 05/10/19 12:08:00 Stop 05/10/19 12:44:00 05/10/19 12:44:00 Physician States Cecum Reached Anesthesia Type MAC MAC Specialty SN Pulmonology SN Pulmonology Wound Class II - Clean-Contaminated II - Clean-Contaminated Last Modified By: THONG Garcia RN THONG Garcia RN 05/10/19 12:27:16 05/10/19 12:37:37 [facility] - Surgical Procedures Audit 05/10/19 13:02:11 Medical Videographer: [email or web address] Modifier: [email or web address] <+> 1 Stop <+> 2 Stop <+> 3 Stop <+> 4 Stop <+> 5 Stop 05/10/19 12:37:37 Medical Videographer: [email or web address] Modifier: [email or web address] <+> 5 Procedure <+> 5 Primary Procedure <+> 5 Primary Surgeon <+> 5 Specialty <+> 5 Start <+> 5 Wound Class <+> 5 Anesthesia Type 05/10/19 12:27:16 Medical Videographer: [email or web address] Modifier: [email or web address] <+> 4 Procedure <+> 4 Primary Procedure <+> 4 Primary Surgeon <+> 4 Specialty <+> 4 Start <+> 4 Wound Class <+> 4 Anesthesia Type 05/10/19 12:11:19 Medical Videographer: DOSSMT Modifier: [email or web address] <+> 1 Start <+> 2 Start <+> 3 Procedure <+> 3 Primary Procedure <+> 3 Primary Surgeon <+> 3 Specialty <+> 3 Start <+> 3 Wound Class <+> 3 Anesthesia Type [facility] - Time Out Entry 1 Procedure to be Bronchial Navigation, Performed Bronchoscopy Flexible, Bronchial Washings, Bronchial Biopsy, Bronchial Brushings Time Out Time Out Pause Time 05/10/19 12:08:00 All activity Yes suspended (unless life threatening emergency) Team Verbally Correct patient Confirms Information identity, Correct side and site are marked, Consent form is present and accurate, Agreement on the procedure to be done, Correct patient position Antibiotic N/A Prophylaxis Administered Or In Progress Within the Last 60 Minutes Beta Sergo N/A Administered Venous N/A Thromboembolism Prophylaxis Required Anticipated Critical Events Surgeon None expected Last Modified By: THONG Garcia RN 05/10/19 12:37:44 [facility] - Time Out Audit 05/10/19 12:37:44 Medical Videographer: [email or web address] Modifier: [email or web address] 1 <*> Procedure to be Performed Bronchial Navigation, Bronchoscopy Flexible, Bronchial Washings, Bronchial Biopsy 05/10/19 12:27:23 Medical Videographer: [email or web address] Modifier: HOLMESTJ 1 <*> Procedure to be Performed Bronchial Navigation, Bronchoscopy Flexible, Bronchial Washings 05/10/19 12:11:25 Medical Videographer: [email or web address] Modifier: HOLMESTJ 1 <*> Procedure to be Performed Bronchial Navigation, Bronchoscopy Flexible [facility] - X-Ray and Images Entry 1 X-Ray/Imaging Type Fluoroscopy Fluoroscopy Type C-Arm Cosmetic Sales Name PANTOJA, KYLAH Protective Devices Yes Used Exposure Time 2.6 Last Modified By: THONG Garcia RN 05/10/19 12:41:04 [facility] - X-Ray and Images Audit 05/10/19 12:41:04 Medical Videographer: DEBORAH Modifier: [email or web address] <+> 1 Exposure Time Case Comments <None> Finalized By: THONG Garcia RN Document Signatures Signed By: THONG Garcia RN 05/10/19 13:02 documented in this encounter Plan of Treatment Upcoming Encounters Date Type Department Care Team (Late st Contact Info) Description 07/10/2025 1:30 PM EST Office Visit [facility] Pulmonology - [address] [place] [address] Erica Arango MD [address] [place] [address] documented as of this encounter Visit Diagnoses Not on filedocumented in this encounter Care Teams Sheet Metal Shop Helper Relationship Specialty Start Date End Date Tavo Rosales MD [address] [id number] PCP - General Family Medicine 01/05/25 documented as of this encounter
--- OUTSIDE RECORDS SUMMARY | 2025-06-07 10:02 | XMS_ITS | Encounter Summary ---
Author Organization [employer] ([place], [place], [place], [place], [place]) Address [address] [place] [address] Care Team Providers Care Guncotton Packer Name Role Phone Tavo Rosales MD Primary Care Provider [phone] Encounter Details Date Type Department Care Team (Late st Contact Info) Description 05/10/2019 Transcribed Document [facility] [place] Family Medicine [facility] [place] [address] ProviderRoberta MD [address] [place], [place] [address] Social History Tobacco Use Types Packs/Day Years Used Date Smoking Tobacco: Never Assessed Comments Unknown Sex and Gender Information Value Date Recorded Sex Assigned at Not on file Legal Sex Female 2:04 PM CDT Gender Identity Not on file Sexual Orientation Not on file documented as of this encounter Miscellaneous Notes * Cerner Conversion Note - Roberta Nazario MD - 05/10/2019 1:45 PM CDT Patient Education Materials Follows: Flexible Bronchoscopy, Care After This sheet gives you information about how to care for yourself after your test. Your doctor may also give you more specific instructions. If you have problems or questions, contact your doctor. Follow these instructions at home: Eating and drinking ??? Do not eat or drink anything (not even water) for 2 hours after your test, or until your numbing medicine (local anesthetic) wears off. ??? When your numbness is gone and your cough and gag reflexes have come back, you may: ? Eat only soft foods. ? Slowly drink liquids. ??? The day after the test, go back to your normal diet. Driving ??? Do not drive for 24 hours if you were given a medicine to help you relax (sedative). ??? Do not drive or use heavy machinery while taking prescription pain medicine. General instructions ??? Take mgtn-jmc-pjyaetv and prescription medicines only as told by your doctor. ??? Return to your normal activities as told. Ask what activities are safe for you. ??? Do not use any products that have nicotine or tobacco in them. This includes cigarettes and e-cigarettes. If you need help quitting, ask your doctor. ??? Keep all follow-up visits as told by your doctor. This is important. It is very important if you had a tissue sample (biopsy) taken. Get help right away if: ??? You have shortness of breath that gets worse. ??? You get light-headed. ??? You feel like you are going to pass out (faint). ??? You have chest pain. ??? You cough up: ? More than a little blood. ? More blood than before. Summary ??? Do not eat or drink anything (not even water) for 2 hours after your test, or until your numbing medicine wears off. ??? Do not use cigarettes. Do not use e-cigarettes. ??? Get help right away if you have chest pain. This information is not intended to replace advice given to you by your health care provider. Make sure you discuss any questions you have with your health care provider. Document Released: 05/17/2010 Document Revised: 08/07/2017 Document Reviewed: 08/07/2017 [employer] Patient Education ? 2019 [employer] Soft-Food Meal Plan A soft-food meal plan includes foods that are safe and easy to swallow. This meal plan typically is used: ??? If you are having trouble chewing or swallowing foods. ??? As a transition meal plan after only having had liquid meals for a long period. What do I need to know about the soft-food meal plan? A soft-food meal plan includes tender foods that are soft and easy to chew and swallow. In most cases, bite-sized pieces of food are easier to swallow. A bite-sized piece is about ? inch or smaller. Foods in this plan do not need to be ground or pureed. Foods that are very hard, crunchy, or sticky should be avoided. Also, breads, cereals, yogurts, and desserts with nuts, seeds, or fruits should be avoided. What foods can I eat? GrainsRice and wild rice. Moist bread, dressing, pasta, and noodles. Well-moistened dry or cooked cereals, such as farina (cooked wheat cereal), oatmeal, or grits. Biscuits, breads, muffins, pancakes, and waffles that have been well moistened. VegetablesShredded lettuce. Cooked, tender vegetables, including potatoes without skins. Vegetable juices. Broths or creamed soups made with vegetables that are not stringy or chewy. Strained tomatoes (without seeds). FruitsCanned or well-cooked fruits. Soft (ripe), peeled fresh fruits, such as peaches, nectarines, kiwi, cantaloupe, honeydew melon, and watermelon (without seeds). Soft berries with small seeds, such as strawberries. Fruit juices (without pulp). Meats and Other Protein SourcesMoist, tender, lean beef. Mutton. [place]. Veal. Chicken. [place]. Liver. Ham. Fish without bones. Eggs. DairyMilk, milk drinks, and cream. Plain cream cheese and cottage cheese. Plain yogurt. Sweets/DessertsFlavored gelatin desserts. Custard. Plain ice cream, frozen yogurt, sherbet, milk shakes, and malts. Plain cakes and cookies. Plain hard candy. OtherButter, margarine (without trans fat), and cooking oils. Mayonnaise. Cream sauces. Mild spices, salt, and sugar. Syrup, molasses, honey, and jelly. The items listed above may not be a complete list of recommended foods or beverages. Contact your dietitian for more options. What foods are not recommended? GrainsDry bread, toast, crackers that have not been moistened. Coarse or dry cereals, such as bran, granola, and shredded wheat. Tough or chewy crusty breads, such as [place] bread or baguettes. VegetablesCorn. Raw vegetables except shredded lettuce. Cooked vegetables that are tough or stringy. Tough, crisp, fried potatoes and potato skins. FruitsFresh fruits with skins or seeds or both, such as apples, pears, or grapes. Stringy, high-pulp fruits, such as papaya, pineapple, coconut, or christina. Fruit leather, fruit roll-ups, and all dried fruits. Meats and Other Protein SourcesSausages and hot dogs. Meats with gristle. Fish with bones. Nuts, seeds, and chunky peanut or other nut butters. Sweets/DessertsCakes or cookies that are very dry or chewy. The items listed above may not be a complete list of foods and beverages to avoid. Contact your dietitian for more information. This information is not intended to replace advice given to you by your health care provider. Make sure you discuss any questions you have with your health care provider. Document Released: 10/26/2008 Document Revised: 12/25/2016 Document Reviewed: 06/16/2014 [employer] Interactive Patient Education ? 2017 [employer]. documented in this encounter Plan of Treatment Upcoming Encounters Date Type Department Care Team (Late st Contact Info) Description 07/10/2025 1:30 PM EST Office Visit [facility] Pulmonology - [address] [place] [address] Erica Arango MD [address] [place] [address] documented as of this encounter Visit Diagnoses Not on filedocumented in this encounter Care Teams Guncotton Packer Relationship Specialty Start Date End Date Tavo Rosales MD [address] [id number] PCP - General Family Medicine 01/05/25 documented as of this encounter
--- OUTSIDE RECORDS SUMMARY | 2025-06-07 10:02 | XMS_ITS | Encounter Summary ---
Author Organization [email or web address] ([place], [place], [place], [place], [place]) Address [address] [place] [address] Care Team Providers Care Predatory Animal Exterminator Name Role Phone Tavo Rosales MD Primary Care Provider [phone] Encounter Details Date Type Department Care Team (Late st Contact Info) Description 08/11/2019 Transcribed Document [facility] [place] Family Medicine [address] [place] [address] ProviderRoberta MD [address] [place] [address] Social History Tobacco Use Types Packs/Day Years Used Date Smoking Tobacco: Never Assessed Comments Unknown Sex and Gender Information Value Date Recorded Sex Assigned at Not on file Legal Sex Female 2:04 PM CDT Gender Identity Not on file Sexual Orientation Not on file documented as of this encounter Miscellaneous Notes * Cerner Conversion Note - Roberta ProviderMD - 08/11/2019 5:00 AM DIE ENGRAVER Chart Check - Review Order Profile Entered On: 08/11/2019 3:45 EST Performed On: 08/11/2019 5:00 EST by Carolina Rodriguez RN Chart Check Powerplans Initiated/Discontinued as Appropriate : Yes All Active Orders Reviewed : Yes Carolina Rodriguez RN - 08/11/2019 3:44 EST documented in this encounter Plan of Treatment Upcoming Encounters Date Type Department Care Team (Late st Contact Info) Description 07/10/2025 1:30 PM EST Office Visit [facility] Pulmonology - [address] [place] [address] Erica Arango MD [address] [facility] [address] [place] [address] documented as of this encounter Visit Diagnoses Not on filedocumented in this encounter Care Teams Predatory Animal Exterminator Relationship Specialty Start Date End Date Tavo Rosales MD [address] [place] [place] [phone] PCP - General Family Medicine 01/05/25 documented as of this encounter
--- OUTSIDE RECORDS SUMMARY | 2025-06-07 10:02 | XMS_ITS | Encounter Summary ---
Author Organization [email or web address] ([place], [place], [place], [place], [place]) Address [address] [place] [address] Care Team Providers Care Veterans Contact Representative Name Role Phone Tavo Rosales MD Primary Care Provider [phone] Encounter Details Date Type Department Care Team (Late st Contact Info) Description 05/10/2019 Transcribed Document [facility] [place] Medicine [address] [place] [address] ProviderRoberta MD [address] [place], [place] [address] Social History Tobacco Use Types Packs/Day Years Used Date Smoking Tobacco: Never Assessed Comments Unknown Sex and Gender Information Value Date Recorded Sex Assigned at Not on file Legal Sex Female 2:04 PM CDT Gender Identity Not on file Sexual Orientation Not on file documented as of this encounter Miscellaneous Notes * Cerner Conversion Note - Roberta Nazario MD - 05/10/2019 10:30 AM CDT [facility] PreOp Summary Primary Physician: GERARDO LEWIS MD-PUL Finalized Date/Time: 05/10/19 09:58:21 Pt. Name: ROSEMARIE KELLY/Sex: 1945 Female Med Rec #: [id number] Physician: GERARDO LEWIS MD-PUL Financial #: [id number] Pt. Type: O Room/Bed: EEN/8 Admit/Disch: 05/10/19 08:48:00 - Institution: [facility] PreOp Case Times Entry 1 In Preop 05/10/19 09:09:00 Ready for Holding n/a Room Patient Ready for 05/10/19 09:58:00 Surgery Patient Out of Preop 05/10/19 09:58:00 Patient Out of n/a Holding Room [facility] PreOp Case Times Audit 05/10/19 09:58:20 Accounting Tutor: MONA Modifier: MONA <+> 1 Patient Out of Preop <+> 1 Patient Ready for Surgery Finalized By: BABS VILLEGAS, RN Document Signatures Signed By: BABS VILLEGAS RN 05/10/19 09:58 Electronically signed by Maryann [facility] [place] Conversion [employer] Windows Engineer Cerner at 11/17/2022 3:13 PM CDT documented in this encounter Plan of Treatment Upcoming Encounters Date Type Department Care Team (Late st Contact Info) Description 07/10/2025 1:30 PM EST Office Visit [facility] Pulmonology - [address] [place] [phone] Erica Arango MD [address] [place] [address] documented as of this encounter Visit Diagnoses Not on filedocumented in this encounter Care Teams Veterans Contact Representative Relationship Specialty Start Date End Date Tavo Rosales MD [address] [place] [address] [phone] PCP - General Family Medicine 01/05/25 documented as of this encounter
--- OUTSIDE RECORDS SUMMARY | 2025-06-07 10:02 | XMS_ITS | Encounter Summary ---
Author Organization [employer] ([place], [place], [place], [place], [place]) Address [address] [place] [address] Care Team Providers Care Patternmaker Plaster And Plastic Name Role Phone Tavo Rosales MD Primary Care Provider [phone] Encounter Details Date Type Department Care Team (Late st Contact Info) Description 08/11/2019 Transcribed Document [facility] Radiology [address] [place] [address] Sam Brooks MD [address] [place], [place] [id number] Social History Tobacco Use Types Packs/Day Years Used Date Smoking Tobacco: Never Assessed Comments Unknown Sex and Gender Information Value Date Recorded Sex Assigned at Not on file Legal Sex Female 2:04 PM CDT Gender Identity Not on file Sexual Orientation Not on file documented as of this encounter Miscellaneous Notes * Cerner Conversion Note - Sam Brooks MD - 08/11/2019 12:19 PM EST Patient: ROSEMARIE KELLY Age: 74 years Sex: Female : 1945 Associated Diagnoses: None Author: SAM RBOOKS MD-INF cc: fever, pneumonitis 08/10/19; patient improving but not ready to go home; getting breathing treatment currently; has low grade fever, no rash, sore throat 08/11/19 doing well but had atrial fibrillation last night; no fever, no rash no sore throat ros see hpi Vitals Signs (last 24 hrs) Last Charted Minimum Maximum Temp 97.9 (AUG 11 09:19) 97.9 (AUG 11 09:19) 99.1 (AUG 10 17:58) Mon HR 94 (AUG 11 10:11) 78 (AUG 11 05:00) 125 (AUG 10 17:40) Resp Rate 16 (AUG 11 05:53) 16 (AUG 10 17:58) 18 (AUG 10 11:43) SBP 118 (AUG 11:11) 110 (AUG 11 02:00) 139 (AUG 11 00:00) DBP 71 (AUG 11:11) L 53 (AUG 11 01:00) H 92 (AUG 10 20:00) MAP 83 (AUG 11:11) 67 (AUG 11 02:00) 100 (AUG 10 20:00) SpO2 97 (AUG 11 10:11) L 89 (AUG 11 05:53) 100 (AUG 10 17:40) GEN: pleasant, NAD HEENT: hncat no ext oral lesions PULM: cta kevon. CARD: s1s2 no m GI: s/nt/bs+ve EXT: no c/c/e DERM: no rash CBC Results (Current Encounter/Past 24 Hours) No CBC Results Found (Past 24 Hours) Creatinine Clearance (Current Encounter/Past 24 Hours) No Creatinine Clearance Results Found (Past 24 Hours) imp: probable bl cultures contamination human metapneumovirus pneumonitis fever bronchiectasis h/o MAC colonization/infection d/w pulmonary; cont ctx/doxy x 3-5 days; anticipate d/c abx upon discharge supportive care patient wishes to avoid MAC therapy at this time patient offered ID f/u for reconsideration for MAC therapy; patient declined this presently possible d/c home thursday documented in this encounter Plan of Treatment Upcoming Encounters Date Type Department Care Team (Late st Contact Info) Description 07/10/2025 1:30 PM EST Office Visit [facility] Pulmonology - [address] [place] [id number] Erica Arango MD [address] [place] [address] documented as of this encounter Visit Diagnoses Not on filedocumented in this encounter Care Teams Patternmaker Plaster And Plastic Relationship Specialty Start Date End Date Tavo Rosales MD [address], [place] [phone] PCP - General Family Medicine 01/05/25 documented as of this encounter
--- OUTSIDE RECORDS SUMMARY | 2025-06-07 10:02 | XMS_ITS | Encounter Summary ---
Author Organization [employer] ([place], [place], [place], [place], [place]) Address [address] [place] [address] Care Team Providers Care Dental Front Office Assistant Name Role Phone Tavo Rosales MD Primary Care Provider [phone] Encounter Details Date Type Department Care Team (Late st Contact Info) Description 08/12/2019 Transcribed Document [facility] [place] [facility] [address] [place] [address] ProviderRoberta MD [address] [place], [place] [id number] Social History Tobacco Use Types Packs/Day Years Used Date Smoking Tobacco: Never Assessed Comments Unknown Sex and Gender Information Value Date Recorded Sex Assigned at Not on file Legal Sex Female 2:04 PM CDT Gender Identity Not on file Sexual Orientation Not on file documented as of this encounter Miscellaneous Notes * Cerner Conversion Note - Roberta Nazario MD - 08/12/2019 2:40 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 It makes your heart beat very fast and then beat at a normal speed. A normal heart beats 60?100 times a minute. This condition can make your heart beat more than 150 times a minute. Times of having a fast heartbeat (episodes) can be scary, but they are usually not dangerous. They can lead to problems if: ??? They happen often. ??? They last a long time. Symptoms of this condition include: ??? A pounding heart. ??? A feeling that your heart is skipping beats (palpitations). ??? Weakness. ??? Trouble getting enough air (shortness of breath). ??? Pain or tightness in your chest. ??? Feeling like you are going to pass out (light-headedness). ??? Feeling worried or nervous (anxiety). ??? Dizziness. ??? Sweating. ??? Feeling sick to your stomach (nausea). ??? Passing out (fainting). ??? Tiredness. Sometimes, there are no symptoms. Follow these instructions at home: Stress ??? Avoid things that make you feel stressed. ??? Find out what helps you feel less stressed. Try: ? Doing a relaxing activity, like yoga, meditation, or being out in nature. ? Listening to relaxing music. ? Doing relaxation techniques, like deep breathing. ? Taking steps to be healthy. These include getting lots of sleep, exercising, and eating a balanced diet. ? Talking with a mental health doctor. Sleep ??? Try to get at least 7 hours of sleep each night. Tobacco and nicotine ??? Do not use anything that has nicotine or tobacco, such as cigarettes and e-cigarettes. If you need help quitting, ask your doctor. Alcohol ??? If alcohol gives you a fast heartbeat, do not drink alcohol. ??? If alcohol does not seem to give you a fast heartbeat, limit your alcohol. For non women, this means no more than 1 drink a day. For men, this means no more than 2 drinks a day. One drink means one of these: ? 12 oz of beer. ? 5 oz of wine. ? 1? oz of hard liquor. Caffeine ??? If caffeine gives you a fast heartbeat, do not eat, drink, or use anything with caffeine in it. ??? If caffeine does not seem to give you a fast heartbeat, limit how much caffeine you eat, drink, or use. Stimulant drugs ??? Do not use stimulant drugs. These are drugs like cocaine or methamphetamine. If you need help quitting, ask your doctor. General instructions ??? Stay at a healthy weight. ??? Exercise regularly. Ask your doctor to suggest some good activities for you. Try one of these options: ? 150 minutes a week of gentle exercise, like walking or yoga. ? 75 minutes a week of exercise that is very active, like running or swimming. ? A combination of gentle exercise and very active exercise. ??? Do home treatments to slow down your heartbeat as told by your doctor. ??? Take robq-yrn-ektgkbj and prescription medicines only as told by your doctor. Contact a doctor if: ??? You have a fast heartbeat more often. ??? Times of having a fast heartbeat last longer than before. ??? Your home treatments to slow down your heartbeat do not help. ??? You have new symptoms. Get help right away if: ??? You have chest pain. ??? Your symptoms get worse. ??? You have trouble breathing. ??? Your heart beats very fast for more than 20 minutes. ??? You pass out (faint). These symptoms may be an emergency. Do not wait to see if the symptoms will go away. Get medical help right away. Call your local emergency services (911 in the [place] Do not drive yourself to the hospital. This information is not intended to replace advice given to you by your health care provider. Make sure you discuss any questions you have with your health care provider. Document Released: 07/20/2006 Document Revised: 03/26/2017 Document Reviewed: 03/26/2017 [employer] Interactive Patient Education ? 2019 [employer] Infectious Disease Sepsis, Adult Sepsis is a serious bodily reaction to an infection. The infection that causes sepsis may be from a bacteria, a virus, a fungus, or a parasite. Sepsis can result from an infection in any part of the body. Infections that commonly lead to sepsis include skin, lung, and urinary tract infections. Sepsis is a medical emergency that requires immediate treatment at the hospital. In severe cases, it can lead to septic shock. Shock can weaken the heart and cause blood pressure to drop. This can make the central nervous system and the body's organs to stop working. What are the causes? This condition is caused by a severe reaction to a bacterial, viral, fungal, or parasitic infection. The germs that most commonly lead to sepsis include: ??? Escherichia coli (E. coli). ??? Staphylococcus aureus (staph). The most common infections that lead to sepsis include infections of: ??? The skin. ??? The lung (pneumonia). ??? The gut. ??? The kidneys (urinary tract infection). What increases the risk? You are more likely to develop this condition if: ??? You have a weakened disease-fighting (immune) system. ??? You are 65 or older. ??? You are male. ??? You had surgery, or you have been hospitalized. ??? You have a catheter, breathing tube, or drainage tubes inserted into your body. ??? You are not getting enough nutrients from food (are malnourished). ??? You have other long-term (chronic) diseases, including: ? Cancer. ? AIDS. ? Liver disease. ? Lung disease. ? Diabetes. ??? You have severe ferguson or injuries. ??? You inject drugs. ??? You have heart valve problems. What are the signs or symptoms? Symptoms of this condition may include: ??? Fever. ??? Chills or feeling very cold. ??? Fast heart rate (tachycardia). ??? Rapid breathing (hyperventilation). ??? Shortness of breath. ??? Confusion or light-headedness. ??? Changes in skin color. Your skin may look blotchy, pale, or blue. ??? Cool, clammy skin or sweaty skin. ??? Skin rash. ??? Nausea and vomiting. ??? Urinating much less than usual. How is this diagnosed? This condition is diagnosed based on: ??? Your symptoms. ??? Your medical history. ??? A physical exam. Other tests may also be done to find out the cause of the infection and how severe the sepsis is. These tests may include: ??? Blood tests. ??? Urine tests. ??? Swabs from other areas of the body that may have an infection. These samples may be tested (cultured) to find out what type of bacteria is causing the infection. ??? Chest X-ray to check for pneumonia. Other imaging tests, such as a CT scan, may also be done. ??? Lumbar puncture. This is a procedure to remove a small amount of the fluid that surrounds the brain and spinal cord. The fluid is then examined for infection. How is this treated? This condition is treated in a hospital with antibiotic medicines. You may also receive: ??? Fluids through an IV tube. ??? Oxygen and breathing assistance. ??? Kidney dialysis. This process cleans the blood if the kidneys have failed. ??? Surgery to remove infected tissue. ??? Medicines to increase your blood pressure. ??? Nutrients to correct imbalances in basic body function (metabolism). This may involve receiving important salts and minerals (electrolytes) through an IV and having your blood sugar level adjusted. ??? Steroid medicines to control your body?s reaction to the infection. Follow these instructions at home: Medicines ??? Take gbsl-rtn-nafnmoh and prescription medicines only as told by your health care provider. ??? If you were prescribed an antibiotic or anti-fungal medicine, take it as told by your health care provider. Do not stop taking the antibiotic or anti-fungal medicine even if you start to feel better. Activity ??? Rest and gradually return to your normal activities. Ask your health care provider what activities are safe for you. ??? Try to set small, achievable goals each week, such as dressing yourself, bathing, or walking up stairs. It may take a while to rebuild your strength. ??? Try to exercise regularly, if you feel healthy enough to do so. Ask your health care provider what exercises are safe for you. General instructions ??? Drink enough fluid to keep your urine clear or pale yellow. ??? Eat a healthy, balanced diet. This includes plenty of fruits and vegetables, whole grains, and lowfat (lean) proteins. Ask your health care provider if you should avoid certain foods. ??? Keep all follow-up visits as told by your health care provider. This is important. Contact a health care provider if: ??? You do not feel like you are getting better or regaining strength. ??? You are having trouble coping with your recovery. ??? You frequently feel tired. ??? You feel worse or do not seem to get better after surgery. ??? You think you may have an infection after surgery. Get help right away if: ??? You have any symptoms of sepsis. ??? You have difficulty breathing. ??? You have a rapid or skipping heartbeat. ??? You become confused. ??? You have a high fever. ??? Your skin becomes blotchy, pale, or blue. These symptoms may represent a serious problem that is an emergency. Do not wait to see if the symptoms will go away. Get medical help right away. Call your local emergency services (911 in the [place] Summary ??? Sepsis is a medical emergency that requires immediate treatment at the hospital. ??? This condition is caused by a severe reaction to a bacterial, viral, fungal, or parasitic infection. ??? This condition is treated in a hospital with antibiotics. Treatment may also include IV fluids, breathing assistance, and kidney dialysis. ??? If you were prescribed an antibiotic or anti-fungal medicine, take it as told by your health care provider. Do not stop taking the antibiotic or anti-fungal medicine even if you start to feel better. This information is not intended to replace advice given to you by your health care provider. Make sure you discuss any questions you have with your health care provider. Document Released: 04/17/2004 Document Revised: 06/23/2017 Document Reviewed: 06/23/2017 [email or web address] Interactive Patient Education ? 2019 [employer]. Pulmonary Medicine Bronchiectasis Bronchiectasis is a condition in which the airways in the lungs (bronchi) are damaged and widened. The condition makes it hard for the lungs to get rid of mucus, and it causes mucus to gather in the bronchi. This condition often leads to lung infections, which can make the condition worse. What are the causes? You can be born with this condition or you can develop it later in life. Common causes of this condition include: ??? Cystic fibrosis. ??? Repeated lung infections, such as pneumonia or tuberculosis. ??? An object or other blockage in the lungs. ??? Breathing in fluid, food, or other objects (aspiration). ??? A problem with the immune system and lung structure that is present at (congenital). Sometimes the cause is not known. What are the signs or symptoms? Common symptoms of this condition include: ??? A daily cough that brings up mucus and lasts for more than 3 weeks. ??? Lung infections that happen often. ??? Shortness of breath and wheezing. ??? Weakness and fatigue. How is this diagnosed? This condition is diagnosed with tests, such as: ??? Chest X-rays or CT scans. These are done to check for changes in the lungs. ??? Breathing tests. These are done to check how well your lungs are working. ??? A test of a sample of your saliva (sputum culture). This test is done to check for infection. ??? Blood tests and other tests. These are done to check for related diseases or causes. How is this treated? Treatment for this condition depends on the severity of the illness and its cause. Treatment may include: ??? Medicines that loosen mucus so it can be coughed up (expectorants). ??? Medicines that relax the muscles of the bronchi (bronchodilators). ??? Antibiotic medicines to prevent or treat infection. ??? Physical therapy to help clear mucus from the lungs. Techniques may include: ? Postural drainage. This is when you sit or lie in certain positions so that mucus can drain by gravity. ? Chest percussion. This involves tapping the chest or back with a cupped hand. ? Chest vibration. For this therapy, a hand or special equipment vibrates your chest and back. ??? Surgery to remove the affected part of the lung. This may be done in severe cases. Follow these instructions at home: Medicines ??? Take wezt-wec-dpnafec and prescription medicines only as told by your health care provider. ??? If you were prescribed an antibiotic medicine, take it as told by your health care provider. Do not stop taking the antibiotic even if you start to feel better. ??? Avoid taking sedatives and antihistamines unless your health care provider tells you to take them. These medicines tend to thicken the mucus in the lungs. Managing symptoms ??? Perform breathing exercises or techniques to clear your lungs as told by your health care provider. ??? Consider using a cold steam vaporizer or humidifier in your room or home to help loosen secretions. ??? If you have a cough that gets worse at night, try sleeping in a semi-upright position. General instructions ??? Get plenty of rest. ??? Drink enough fluid to keep your urine clear or pale yellow. ??? Stay inside when pollution and ozone levels are high. ??? Stay up to date with vaccinations and immunizations. ??? Avoid cigarette smoke and other lung irritants. ??? Do not use any products that contain nicotine or tobacco, such as cigarettes and e-cigarettes. If you need help quitting, ask your health care provider. ??? Keep all follow-up visits as told by your health care provider. This is important. Contact a health care provider if: ??? You cough up more sputum than before and the sputum is yellow or green in color. ??? You have a fever. ??? You cannot control your cough and are losing sleep. Get help right away if: ??? You cough up blood. ??? You have chest pain. ??? You have increasing shortness of breath. ??? You have pain that gets worse or is not controlled with medicines. ??? You have a fever and your symptoms suddenly get worse. Summary ??? Bronchiectasis is a condition in which the airways in the lungs (bronchi) are damaged and widened. The condition makes it hard for the lungs to get rid of mucus, and it causes mucus to gather in the bronchi. ??? Treatment usually includes therapy to help clear mucus from the lungs. ??? Stay up to date with vaccinations and immunizations. This information is not intended to replace advice given to you by your health care provider. Make sure you discuss any questions you have with your health care provider. Document Released: 05/16/2008 Document Revised: 08/24/2017 Document Reviewed: 08/24/2017 [employer] Interactive Patient Education ? 2019 [employer]. Community-Acquired Pneumonia, Adult Pneumonia is an infection of the lungs. There are different types of pneumonia. One type can develop while a person is in a hospital. A different type, called community-acquired pneumonia, develops in people who are not, or have not recently been, in the hospital or other health care facility. What are the causes? Pneumonia may be caused by bacteria, viruses, or funguses. Community-acquired pneumonia is often caused by Streptococcus pneumonia bacteria. These bacteria are often passed from one person to another by breathing in droplets from the cough or sneeze of an infected person. What increases the risk? The condition is more likely to develop in: ??? People who have?chronic diseases, such as chronic obstructive pulmonary disease (COPD), asthma, congestive heart failure, cystic fibrosis, diabetes, or kidney disease. ??? People who have?early-stage or late-stage HIV. ??? People who have?sickle cell disease. ??? People who have?had their spleen removed (splenectomy). ??? People who have?poor dental hygiene. ??? People who have?medical conditions that increase the risk of breathing in (aspirating) secretions their own mouth and nose. ??? People who have?a weakened immune system (immunocompromised). ??? People who smoke. ??? People who?travel to areas where pneumonia-causing germs commonly exist. ??? People who?are around animal habitats or animals that have pneumonia-causing germs, including birds, bats, rabbits, cats, and farm animals. What are the signs or symptoms? Symptoms of this condition include: ??? A?dry cough. ??? A wet (productive) cough. ??? Fever. ??? Sweating. ??? Chest pain, especially when breathing deeply or coughing. ??? Rapid breathing or difficulty breathing. ??? Shortness of breath. ??? Shaking chills. ??? Fatigue. ??? Muscle aches. How is this diagnosed? Your health care provider will take a medical history and perform a physical exam. You may also have other tests, including: ??? Imaging studies of your chest, including X-rays. ??? Tests to check your blood oxygen level and other blood gases. ??? Other tests on blood, mucus (sputum), fluid around your lungs (pleural fluid), and urine. If your pneumonia is severe, other tests may be done to identify the specific cause of your illness. How is this treated? The type of treatment that you receive depends on many factors, such as the cause of your pneumonia, the medicines you take, and other medical conditions that you have. For most adults, treatment and recovery from pneumonia may occur at home. In some cases, treatment must happen in a hospital. Treatment may include: ??? Antibiotic medicines, if the pneumonia was caused by bacteria. ??? Antiviral medicines, if the pneumonia was caused by a virus. ??? Medicines that are given by mouth or through an IV tube. ??? Oxygen. ??? Respiratory therapy. Although rare, treating severe pneumonia may include: ??? Mechanical ventilation. This is done if you are not breathing well on your own and you cannot maintain a safe blood oxygen level. ??? Thoracentesis. This procedure?removes fluid around one lung or both lungs to help you breathe better. Follow these instructions at home: ??? Take llmg-jts-skesccv and prescription medicines only as told by your health care provider. ? Only take?cough medicine if you are losing sleep. Understand that cough medicine can prevent your body?s natural ability to remove mucus from your lungs. ? If you were prescribed an antibiotic medicine, take it as told by your health care provider. Do not stop taking the antibiotic even if you start to feel better. ??? Sleep in a semi-upright position at night. Try sleeping in a reclining chair, or place a few pillows under your head. ??? Do notuse tobacco products, including cigarettes, chewing tobacco, and e-cigarettes. If you need help quitting, ask your health care provider. ??? Drink enough water to keep your urine clear or pale yellow. This will help to thin out mucus secretions in your lungs. How is this prevented? There are ways that you can decrease your risk of developing community-acquired pneumonia. Consider getting a pneumococcal vaccine if: ??? You are older than 65 years of age. ??? You are older than 19 years of age and are undergoing cancer treatment, have chronic lung disease, or have other medical conditions that affect your immune system. Ask your health care provider if this applies to you. There are different types and schedules of pneumococcal vaccines. Ask your health care provider which vaccination option is best for you. You may also prevent community-acquired pneumonia if you take these actions: ??? Get an influenza vaccine every year. Ask your health care provider which type of influenza vaccine is best for you. ??? Go to the dentist on a regular basis. ??? Wash your hands often. Use hand racing manager if soap and water are not available. Contact a health care provider if: ??? You have a fever. ??? You are losing sleep because you cannot control your cough with cough medicine. Get help right away if: ??? You have worsening shortness of breath. ??? You have increased chest pain. ??? Your sickness becomes worse, especially if you are an older adult or have a weakened immune system. ??? You cough up blood. This information is not intended to replace advice given to you by your health care provider. Make sure you discuss any questions you have with your health care provider. Document Released: 07/20/2006 Document Revised: 11/27/2016 Document Reviewed: 11/14/2015 [employer] Interactive Patient Education ? 2017 [employer] documented in this encounter Plan of Treatment Upcoming Encounters Date Type Department Care Team (Late st Contact Info) Description 07/10/2025 1:30 PM EST Office Visit [facility] Pulmonology - [address] [place] [address] Erica Arango MD [address] [place] [address] documented as of this encounter Visit Diagnoses Not on filedocumented in this encounter Care Teams Dental Front Office Assistant Relationship Specialty Start Date End Date Tavo Rosales MD [address] [place] [id number] PCP - General Family Medicine 01/05/25 documented as of this encounter
--- OUTSIDE RECORDS SUMMARY | 2025-06-07 10:02 | XMS_ITS | Encounter Summary ---
Author Organization [employer] ([place], [place], [place], [place], [place]) Address [address] [place] [address] Care Team Providers Care Produce Department Supervisor Name Role Phone Tavo Rosales MD Primary Care Provider [phone] Encounter Details Date Type Department Care Team (Late st Contact Info) Description 08/12/2019 Transcribed Document [facility] Family Medicine [address] [place] [address] ProviderRoberta MD [address] [place] [address] Social History Tobacco Use Types Packs/Day Years Used Date Smoking Tobacco: Never Assessed Comments Unknown Sex and Gender Information Value Date Recorded Sex Assigned at Not on file Legal Sex Female 2:04 PM CDT Gender Identity Not on file Sexual Orientation Not on file documented as of this encounter Miscellaneous Notes * Cercorry Conversion Note - Roberta ProviderMD - 08/12/2019 5:00 AM MEDIA JOB TITLES Chart Check - Review Order Profile Entered On: 08/12/2019 6:41 EST Performed On: 08/12/2019 5:00 EST by Preeti Conroy RN Chart Check Powerplans Initiated/Discontinued as Appropriate : Yes All Active Orders Reviewed : Yes Preeti Conroy RN - 08/12/2019 6:40 EST documented in this encounter Plan of Treatment Upcoming Encounters Date Type Department Care Team (Late st Contact Info) Description 07/10/2025 1:30 PM EST Office Visit [facility] Pulmonology - [address] [place] [address] Erica Arango MD [address] [facility] [address] [place] [address] documented as of this encounter Visit Diagnoses Not on filedocumented in this encounter Care Teams Produce Department Supervisor Relationship Specialty Start Date End Date Tavo Rosales MD [address] [place] [id number] PCP - General Family Medicine 01/05/25 documented as of this encounter
--- OUTSIDE RECORDS SUMMARY | 2025-06-07 10:02 | XMS_ITS | Encounter Summary ---
Author Organization [employer] ([place], [place], [place], [place], [place]) Address [address] [place] [address] Care Team Providers Care Beauty Culture Teacher Name Role Phone Tavo Rosales MD Primary Care Provider [phone] Encounter Details Date Type Department Care Team (Late st Contact Info) Description 08/09/2019 Transcribed Document [facility] Radiology [address] [place] [address] Thea Brooks MD [address] [place] [address] Social History Tobacco Use Types Packs/Day Years Used Date Smoking Tobacco: Never Assessed Comments Unknown Sex and Gender Information Value Date Recorded Sex Assigned at Not on file Legal Sex Female 2:04 PM CDT Gender Identity Not on file Sexual Orientation Not on file documented as of this encounter Miscellaneous Notes * Cerner Conversion Note - Thea Brooks MD - 08/09/2019 2:17 PM EST Patient: ROSEMARIE KELLY Age: 74 years Sex: Female : 1945 Associated Diagnoses: None Author: THEA BROOKS MD-INF imp: bl cultures contamination human metapneumovirus pneumonitis fever bronchiectasis h/o MAC colonization/infection cont ctx/doxy x 3-5 days supportive care patient wishes to avoid MAC therapy at this time dict p. documented in this encounter Plan of Treatment Upcoming Encounters Date Type Department Care Team (Late st Contact Info) Description 07/10/2025 1:30 PM EST Office Visit [facility] Pulmonology - [address] [place] [address] Erica Arango MD [address] [place], [place] [id number] documented as of this encounter Visit Diagnoses Not on filedocumented in this encounter Care Teams Beauty Culture Teacher Relationship Specialty Start Date End Date Tavo Rosales MD [address] [place] [address] PCP - General Family Medicine 01/05/25 documented as of this encounter
--- OUTSIDE RECORDS SUMMARY | 2025-06-07 10:02 | XMS_ITS | Encounter Summary ---
Author Organization [employer] ([place], [place], [place], [place], [place]) Address [address] [place] [address] Care Team Providers Care Wellness Program Coordinator Name Role Phone Tavo Rosales MD Primary Care Provider Encounter Details Date Type Department Care Team (Late st Contact Info) Description 08/11/2019 Transcribed Document [facility] Family Medicine [facility] [address] ProviderRoberta MD [address] [place] [id number] Social History Tobacco Use Types Packs/Day Years Used Date Smoking Tobacco: Never Assessed Comments Unknown Sex and Gender Information Value Date Recorded Sex Assigned at Not on file Legal Sex Female 2:04 PM CDT Gender Identity Not on file Sexual Orientation Not on file documented as of this encounter Miscellaneous Notes * Cerner Conversion Note - Roberta Nazario MD - 08/11/2019 1:14 PM MANAGER DRUG SAFETY Patient: ROSEMARIE KELLY Age: 74 years Sex: Female : 1945 Associated Diagnoses: None Author: RODRICK DAVIS MD-INT Basic Information Time of exam 924 The patient was sitting up in bed at the time of exam and in no acute distress, sons at bedside. The patient reported she was feeling a little better today. She is coughing a little less. She developed SVT yesterday evening which she reported is a recurrent issue for the last two years but she has never been on a medicine for it. Her heart rate came under good control on a cardizem drip. Review of Systems Respiratory: Shortness of breath, Cough. Cardiovascular: No chest pain, No palpitations. Health Status Allergies: Allergies (3) Active Reaction Neosporin rash and hives with itching Uncoded Allergy (See Comment) pt states she is allergic to all antibiotocs and has seen infectious disese MD for this issue sulfamethoxazole-trimethoprim None Documented Current medications: (Selected) Inpatient Medications Ordered Ambien: 5 mg, Oral, At Bedtime, PRN: Insomnia Cardizem CD: 120 mg, Oral, Daily KlonoPIN: 0.5 mg, Oral, Q8H, PRN: Anxiety Magic Mouthwash: 5 mL, Oral, Q6H MiraLax: 17 Gram, Oral, Daily, PRN: Constipation Pepcid: 20 mg, Oral, Q12H Phenergan: 6.25 mg, IntraVENous, Q6H, PRN: Nausea Tylenol: 650 mg, Oral, Q4H, PRN: Fever Zofran: 4 mg, IV Push, Q4H, PRN: Nausea albuterol 2.5 mg/3 mL (0.083%) inhalation solution: 3 mL, Nebulized Inhalation, RT_Q4H, PRN: Shortness of Breath albuterol 2.5 mg/3 mL (0.083%) inhalation solution: 3 mL, Nebulized Inhalation, RT_Q6H aspirin: 81 mg, Oral, EveryOtherDay atorvastatin: 40 mg, Oral, At Bedtime cefTRIAXone + Sodium Chloride 0.9% intravenous solution 50 mL: 1 Gram, 100 mL/Hr, IV Piggyback, Daily dilTIAZem injection 125 mg + Premix Diluent NaCl 0.9% for Drip 100 mL: TITRATE, IntraVENous doxycycline: 100 mg, Oral, BID levothyroxine: 25 [...] At risk for sleep apnea / IMO 75041288 / Confirmed Bronchiectasis / SNOMED CT 87381167 / Confirmed Dysphagia / SNOMED CT 17104679 / Confirmed GERD (gastroesophageal reflux disease) / SNOMED CT 780758935 / Confirmed High cholesterol / SNOMED CT 81710067 / Confirmed Hypertension / SNOMED CT 3370655235 / Confirmed Hypothyroid / SNOMED CT 19203931 / Confirmed Mycobacterium avium infection / SNOMED CT 0669972538 / Confirmed, Active Problems (8) At risk for sleep apnea Bronchiectasis Dysphagia GERD (gastroesophageal reflux disease) High cholesterol Hypertension Hypothyroid Mycobacterium avium infection Physical Examination VS/Measurements Vitals Signs (last 24 hrs) Last Charted Minimum Maximum Temp 97.9 (AUG 11 09:19) 97.9 (AUG 11 09:19) 99.1 (AUG 10 17:58) Apical HR 84 (AUG 11 12:50) 84 (AUG 11 12:50) 84 (AUG 11 12:50) Mon HR 90 (AUG 11 11:30) 78 (AUG 11 05:00) 125 (AUG 10 17:40) Resp Rate 16 (AUG 11 11:30) 16 (AUG 10 17:58) 18 (AUG 10 14:00) SBP 99 (AUG 11 11:30) 99 (AUG 11 11:30) 139 (AUG 11 00:00) DBP 72 (AUG 11 11:30) L 53 (AUG 11 01:00) H 92 (AUG 10 20:00) MAP 79 (AUG 11 11:30) 67 (AUG 11 02:00) 100 (AUG 10 20:00) SpO2 99 (AUG 11 11:30) L 89 (AUG 11 05:53) 100 (AUG 10 17:40) General: Alert and oriented, No acute distress. Eye: Pupils are equal, round and reactive to light, Extraocular movements are intact, Normal conjunctiva. HENT: Normocephalic, Oral mucosa is moist. Neck: Supple, Non-tender. Respiratory: Lungs are clear to auscultation, Respirations are non-labored, Breath sounds are equal, Symmetrical chest wall expansion, No chest wall tenderness. Cardiovascular: Normal rate, Regular rhythm, No murmur, [...] 9. Hypothyroidism: Continue synthroid. 10. Anxiety, hallucinations: Resolved, felt to be a side effect of medications. 11. Positive blood culture: [place] to be contamination, ID following. 12. SVT: Responded well to cardizem drip, will convert to oral cardizem. Cardiology recommendations appreciated. Disposition: Home when medically improved, perhaps in 1-2 days. Electronically signed by Maryann [facility] Conversion Christian Education Director Cerner at 11/17/2022 3:10 PM CDT documented in this encounter Plan of Treatment Upcoming Encounters Date Type Department Care Team (Late st Contact Info) Description 07/10/2025 1:30 PM EST Office Visit [facility] Pulmonology - [address] [facility] [place] [address] Erica Arango MD [address] [place] [address] documented as of this encounter Visit Diagnoses Not on filedocumented in this encounter Care Teams Wellness Program Coordinator Relationship Specialty Start Date End Date Tavo Rosales MD [address], [place] [id number] PCP - General Family Medicine 01/05/25 documented as of this encounter
--- OUTSIDE RECORDS SUMMARY | 2025-06-07 10:02 | XMS_ITS | Encounter Summary ---
Author Organization [employer] ([place], [place], [place], [place], [place]) Address [address] [place] [address] Care Team Providers Care Die Repairer Stamping Name Role Phone Tavo Rosales MD Primary Care Provider [phone] Encounter Details Date Type Department Care Team (Late st Contact Info) Description 08/10/2019 Transcribed Document [facility] [place] [facility] [place] [address] ProviderRoberta MD [address] [place] [phone] Social History Tobacco Use Types Packs/Day Years Used Date Smoking Tobacco: Never Assessed Comments Unknown Sex and Gender Information Value Date Recorded Sex Assigned at Not on file Legal Sex Female 2:04 PM CDT Gender Identity Not on file Sexual Orientation Not on file documented as of this encounter Miscellaneous Notes * Cerner Conversion Note - Roberta Nazario MD - 08/10/2019 3:23 PM CUSTOMER PROGRAM SPECIALIST Patient: ROSEMARIE KELLY Age: 74 years Sex: Female : 1945 Associated Diagnoses: None Author: RODRICK DAVIS MD-INT Basic Information Time of exam 0925 The patient was resting in bed at the time of exam and in no acute distress. She reported she was able to sleep some last night so she was feeling a little better because of that. She is still coughing up a lot of sputum. I discussed the slight improvement noted on chest x-ray. Review of Systems Constitutional: Weakness, Fatigue. Respiratory: Shortness of breath, Cough, Sputum production. [...] At risk for sleep apnea / IMO [id number] / Confirmed Bronchiectasis / SNOMED CT 01143068 / Confirmed Dysphagia / SNOMED CT 02924381 / Confirmed GERD (gastroesophageal reflux disease) / SNOMED CT 214578622 / Confirmed High cholesterol / SNOMED CT 01912575 / Confirmed Hypertension / SNOMED CT 8420334606 / Confirmed Hypothyroid / SNOMED CT 59529741 / Confirmed Mycobacterium avium infection / SNOMED CT 6592295058 / Confirmed, Active Problems (8) At risk for sleep apnea Bronchiectasis Dysphagia GERD (gastroesophageal reflux disease) High cholesterol Hypertension Hypothyroid Mycobacterium avium infection Physical Examination VS/Measurements Vitals Signs (last 24 hrs) Last Charted Minimum Maximum Temp 97.9 (AUG 10 09:49) 97.9 (AUG 10 09:49) H 100.2 (AUG 10:25) Mon HR 82 (AUG 10 11:43) 70 (AUG 10 04:00) 114 (AUG 10 08:34) Resp Rate 18 (AUG 10 11:43) 16 (AUG 10 08:34) H 22 (AUG 10 02:00) SBP 99 (AUG 10 09:49) 99 (AUG 10 09:49) H 145 (AUG 09 16:30) DBP L 58 (AUG 10 09:49) L 58 (AUG 10 09:49) 89 (AUG 10 08:34) MAP 69 (AUG 10 09:49) 68 (AUG 10 06:25) 93 (AUG 10 08:34) SpO2 95 (AUG 10 11:43) L 92 (AUG 10 02:00) 100 (AUG 09 18:20) General: Alert and oriented, No acute distress. Eye: Pupils are equal, round and reactive to light, Extraocular movements are intact, Normal conjunctiva. HENT: Normocephalic, Oral mucosa is moist. Neck: Supple, Non-tender. Respiratory: Respirations are non-labored, Breath sounds are equal, Symmetrical chest wall expansion, No chest wall tenderness, Bilateral rhonchi noted. Cardiovascular: Normal rate, Regular rhythm, No murmur, [...] 9. Hypothyroidism: Continue synthroid. 10. Anxiety, hallucinations: Improved, continue PRN klonopin. 11. Positive blood culture: [place] to be contamination, ID following. Disposition: Home when medically improved, perhaps in 1-2 days. Electronically signed by Maryann[facility] Conversion Local Tanker Truck Driver Cerner at 11/17/2022 2:42 PM CDT documented in this encounter Plan of Treatment Upcoming Encounters Date Type Department Care Team (Late st Contact Info) Description 07/10/2025 1:30 PM EST Office Visit [facility] Pulmonology - [address] [place] [address] Erica Arango MD [address] [place] [address] documented as of this encounter Visit Diagnoses Not on filedocumented in this encounter Care Teams Die Repairer Stamping Relationship Specialty Start Date End Date Tavo Rosales MD [address] [place] [phone] PCP - General Family Medicine 01/05/25 documented as of this encounter
--- OUTSIDE RECORDS SUMMARY | 2025-06-07 10:02 | XMS_ITS | Encounter Summary ---
Author Organization [employer] ([place], [place], [place], [place], [place]) Address [address] [place] [address] Care Team Providers Care Booster Pump Oiler Name Role Phone Tavo Rosales MD Primary Care Provider [phone] Encounter Details Date Type Department Care Team (Late st Contact Info) Description 08/11/2019 Transcribed Document [facility] [place] [facility] [place] [address] ProviderRoberta MD [address] [place] [id number] Social History Tobacco Use Types Packs/Day Years Used Date Smoking Tobacco: Never Assessed Comments Unknown Sex and Gender Information Value Date Recorded Sex Assigned at Not on file Legal Sex Female 2:04 PM CDT Gender Identity Not on file Sexual Orientation Not on file documented as of this encounter Miscellaneous Notes * Cerner Conversion Note - Roberta Nazario MD - 08/11/2019 12:16 PM HELPER MAINTENANCE CLEANING Patient: ROSEMARIE KELLY Age: 74 years Sex: Female : 1945 Associated Diagnoses: None Author: GERARDO LEWIS MD-PUL CC: Cough. fever, SOA Basic Information This is a 74-year-old female who is well known to our practice as an outpt. She has a past medical history significant for bronchiectasis, COPD, MAC, GERD, hyperlipidemia and anxiety. She presented to [facility] emergency department with complaints of a one-week history of cough, fever and shortness of breath. 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 She was evaluated at [facility] in [place] in [address] Howell [...] exertion. Her son is at the bedside. 08/11: She remains on 2 L nasal cannula with acceptable O2 saturations. She feels as if she is doing better. She apparently went into A. fib with RVR last night and is currently on a Cardizem drip. She states this has happened to her multiple times in the past several years. Review of Systems Constitutional: Fever, Chills, Weakness, [...] Insomnia Cardizem CD: 120 mg, Oral, Daily DuoNeb 0.5 mg-2.5 mg/3 mL inhalation solution: [...] 5 mg oral tablet: 0 Refill(s), Medications (19) Active Scheduled: (10) albuterol-ipratropium inh 3 mL 3 mL, Nebulized Inhalation, RT_Q4H aspirin 81 mg chew tab 81 mg 1 Tab, Oral, EveryOtherDay atorvastatin 20 mg tab 40 mg 2 Tab, Oral, At Bedtime cefTRIAXone + NaCl 0.9% 50 mL 1 Gram, IV Piggyback, Daily diltiazem CR24 120 mg cap 120 mg 1 Cap, Oral, Daily doxycycline monohydrate 100 mg cap 100 mg 1 Cap, Oral, BID famotidine 20 mg tab 20 mg 1 Tab, Oral, Q12H levothyroxine 25 mcg tab 25 mcg 1 Tab, Oral, Daily loratadine 10 mg tab 10 mg 1 Tab, Oral, Daily Magic Mouthwash 5 mL, Oral, Q6H Continuous: (1) diltiazem 125 mg + Premix Diluent NaCl 0.9% TITRATE 100 mL 100 mL, IntraVENous PRN: (8) acetaminophen 325 mg tab 650 [...] At risk for sleep apnea / IMO [id number] / Confirmed Bronchiectasis / SNOMED CT 46336926 / Confirmed Dysphagia / SNOMED CT 33753803 / Confirmed GERD (gastroesophageal reflux disease) / SNOMED CT 698050045 / Confirmed High cholesterol / SNOMED CT 52773207 / Confirmed Hypertension / SNOMED CT 0447640300 / Confirmed Hypothyroid / SNOMED CT 56474425 / Confirmed Mycobacterium avium infection / SNOMED CT 3851274977 / Confirmed, Active Problems (8) At risk for sleep apnea Bronchiectasis Dysphagia GERD (gastroesophageal reflux disease) High cholesterol Hypertension Hypothyroid Mycobacterium avium infection Physical Examination VS/Measurements Vital Signs/Vital Measures 08/11/2019 11:30 EST Systolic Blood Pressure 99 mmHg Diastolic Blood Pressure 72 mmHg Mean Arterial Pressure (MAP)-BMDI 79 Heart Rate Monitored 90 bpm Respiratory Rate 16 Breaths/Min , Vitals Signs (last 24 hrs) Last Charted Minimum Maximum Temp 97.9 (AUG 11 09:19) 97.9 (AUG 11 09:19) 99.1 (AUG 10 17:58) Mon HR 90 (AUG 11 11:30) 78 [...] 24 Hours) Radiology Results (Last 48 hours) [id number] -- 08/06/2019 22:02 CR Chest 1 Vw Portable (08/10/2019 05:13) Result: PORTABLE CHESTHISTORY: Sepsis, pneumonia.COMPARISON: 08/06/2019.FINDINGS: A single portable radiograph of the chest was performed. Thereare cardiac electrodes overlying the chest wall. The heart is normal insize. There is ectasia of the aorta. There is been slight increase insize of a small left pleural effusion. There is persistent but slightlyimproved left base airspace disease. There is underlying emphysema withcoarse interstitial change.IMPRESSION: Persistent but slightly improved left base airspace disease.There is been a slight increase in the small right pleural effusion. Impression and Plan 1. Acute on chronic [...] Continue IV Rocephin and doxycycline, duo nebs. Chest x-ray improved. MAC Treatment offered again by ID, patient declined. 3. Sepsis (febrile, tachycardiac, tachypnea, leukocytosis): Secondary to pneumonia. Blood culture 1/2 bottles + coagulase-negative staph, likely contaminant per ID. Continue IV fluids and IV Rocephin and doxycycline. 4. GERD: Continue home PPI 5. GI/DVT PPX: Pepcid, SCDs 6. A. fib with RVR: Currently on Cardizem drip. Cardiology consult pending. She will have completed 6 days of IV antibiotics tomorrow. Will likely be ready for discharge home tomorrow without antibiotics. She will follow-up with Dr. Lewis in 4-6 weeks after discharge. Professional Services Patient was seen and examined by me. Labs were reviewed. Medications were reviewed with the nurse. Plan was formulated as above Plan was discussed with the family at bedside. documented in this encounter Plan of Treatment Upcoming Encounters Date Type Department Care Team (Late st Contact Info) Description 07/10/2025 1:30 PM EST Office Visit [facility] Pulmonology - [address] [place] [address] Erica Arango MD [address] [place] [address] documented as of this encounter Visit Diagnoses Not on filedocumented in this encounter Care Teams Booster Pump Oiler Relationship Specialty Start Date End Date Tavo Rosales MD [address] [place] [place] [address] PCP - General Family Medicine 01/05/25 documented as of this encounter
--- OUTSIDE RECORDS SUMMARY | 2025-06-07 10:02 | XMS_ITS | Encounter Summary ---
Author Organization [employer] ([place], [place], [place], [place], [place]) Address [address] [place] [address] Care Team Providers Care Ticket Sales Supervisor Name Role Phone Tavo Rosales MD Primary Care Provider [phone] Encounter Details Date Type Department Care Team (Late st Contact Info) Description 04/11/2025 Documentation [facility] Pulmonology [address] [place] [address] Erica Arango MD [address] [place], [place] [id number] Social History Tobacco Use Types Packs/Day Years Used Date Smoking Tobacco: Never Smokeless Tobacco: Never Alcohol Use Standard Drinks/Week Comments Not Currently 0 (1 standard drink = 0.6 oz pur e alcohol) Family and Community Support Answer Ahsan e Recorded Help with Day to Day Activities Not on file 08/21/2023 Feeling Lonely or Isolated Not on file 08/21 Educational Attainment Answer Date Joel rded Speak language other than Irish at home Not on file 08/21/2023 Want help with school or training Not on file 08/21/2023 Substance Use Answer Date Recorded Used prescription meds for non-medical reasons N ot on file 08/21/2023 Used illegal drugs past 12 months Not on file 08/21/2023 Comments Unknown Sex and Gender Information Value Date Recorded Sex Assigned at Not on file Legal Sex Female 2:04 PM CDT Gender Identity Not on file Sexual Orientation Not on file documented as of this encounter Progress Notes * Erica Arango MD - 04/11/2025 11:21 AM EDT - Planned to have dental surgery, - 79 yo, F, History of chronic bronchitis, bronchiectasis, chronic MAC infection however no recent exacerbation. She does not have any recent acute respiratory infection over past 3 to 4 months. And it is an elective procedure. Based on the preoperative pulmonary complications risk Ariscat score, patient has low risk but not zero for postop pulmonary complication including respiratory failure, respiratory infection, pleural effusion, atelectasis, pneumothorax, bronchospasm, COPD exacerbation, aspiration pneumonitis. If pt understands and is agreeable for risk, she can proceed with operation. I recommend to optimize COPD control medications, uses all home meds regularly, minimize anesthesia time as possible, use incentive spirometry, acapella to mobilize secretions, uses bipap as needed. -continue same meds for COPD documented in this encounter Plan of Treatment Upcoming Encounters Date Type Department Care Team (Late st Contact Info) Description 07/10/2025 1:30 PM EST Office Visit [facility] Pulmonology - [address] [place] [address] Erica Arango MD [address] [place] [address] documented as of this encounter Visit Diagnoses Not on filedocumented in this encounter Care Teams Ticket Sales Supervisor Relationship Specialty Start Date End Date Tavo Rosales MD [address] [place] [id number] PCP - General Family Medicine 01/05/25 documented as of this encounter
--- OUTSIDE RECORDS SUMMARY | 2025-06-07 10:02 | XMS_ITS | Encounter Summary ---
Author Organization [employer] ([place], [place], [place], [place], [place]) Address [address] [place] [address] Care Team Providers Care Mobile Ui Developer Name Role Phone Tavo Rosales MD Primary Care Provider [phone] Encounter Details Date Type Department Care Team (Late st Contact Info) Description 05/10/2019 Transcribed Document [facility] Family Medicine [address] [place] [address] ProviderRoberta MD [address] [place], [place] [address] Social History Tobacco Use Types Packs/Day Years [...] - 05/10/2019 12:08 PM CDT TIFF [facility] PACU Summary Primary Physician: GERARDO LEWIS MD-PUL Finalized Date/Time: 05/10/19 14:51:11 Pt. Name: ROSEMARIE KELLY/Sex: 1945 Female Med Rec #: [id number] Physician: GERARDO LEWIS MD-PUL Financial #: [id number] Pt. Type: O Room/Bed: EEN/8 Admit/Disch: 05/10/19 08:48:00 - Institution: [facility] PACU Case Times Entry 1 In PACU I 05/10/19 13:03:00 Ready for PACU 05/10/19 14:45:00 Discharge Discharge from PACU 05/10/19 14:51:00 I TIFF Martinez PACU Case Times Audit 05/10/19 14:51:09 Caramel Candy Maker Helper: DEBORAH Modifier: COREYJ <+> 1 Ready for PACU Discharge <+> 1 Discharge from PACU I Finalized By: THONG Garcia RN Document Signatures Signed By: THONG Garcia RN 05/10/19 14:51 Electronically signed by Maryann [facility] Conversion Rag Grader Cerner at 11/17/2022 3:07 PM CDT documented in this encounter Plan of Treatment Upcoming Encounters Date Type Department Care Team (Late st Contact Info) Description 07/10/2025 1:30 PM EST Office Visit [facility] Pulmonology - [address] [place] [address] Erica Arango MD [address] [place] [address] documented as of this encounter Visit Diagnoses Not on filedocumented in this encounter Care Teams Mobile Ui Developer Relationship Specialty Start Date End Date Tavo Rosales MD [address] [address] PCP - General Family Medicine 01/05/25 documented as of this encounter
--- OUTSIDE RECORDS SUMMARY | 2025-06-07 10:02 | XMS_ITS | Encounter Summary ---
Author Organization [employer] ([place], [place], [place], [place], [place]) Address [address] [place] [address] Care Team Providers Care Seismic Interpreter Name Role Phone Tavo Rosales MD Primary Care Provider [phone] Reason for Visit * Reason Comments Medication Refill Encounter Details Date Type Department Care Team (Late st Contact Info) Description 05/25/2025 Refill [facility] Pulmonology - [address] [place] [address] Erica Arango MD [address] [place] [address] Bronchiectasis without complication (HCC) Social History Tobacco Use Types Packs/Day Years [...] Date Joel rded Speak language other than British at home Not on file 08/21/2023 Want [...] on file documented as of this encounter Plan of Treatment Upcoming Encounters Date Type Department Care Team (Late st Contact Info) Description 07/10/2025 1:30 PM EST Office Visit [facility] Pulmonology - [address] [place] [address] Erica Arango MD [address] [place] [address] documented as of this encounter Visit Diagnoses Diagnosis Bronchiectasis without complication (HCC) documented in this encounter Care Teams Seismic Interpreter Relationship Specialty Start Date End Date Tavo Rosales MD [address] [place] [address] PCP - General Family Medicine 01/05/25 documented as of this encounter
--- OUTSIDE RECORDS SUMMARY | 2025-06-07 10:02 | XMS_ITS | Encounter Summary ---
Author Organization [employer] ([place], [place], [place], [place], [place]) Address [address] [place] [address] Care Team Providers Care Meat Team Lead Name Role Phone Tavo Rosales MD Primary Care Provider [phone] Encounter Details Date Type Department Care Team (Late st Contact Info) Description 08/10/2019 Transcribed Document [facility] Radiology [address] [place] [address] Sam Brooks MD [address] [place] [address] Social History Tobacco Use Types Packs/Day Years Used Date Smoking Tobacco: Never Assessed Comments Unknown Sex and Gender Information Value Date Recorded Sex Assigned at Not on file Legal Sex Female 2:04 PM CDT Gender Identity Not on file Sexual Orientation Not on file documented as of this encounter Miscellaneous Notes * Cerner Conversion Note - Sam Brooks MD - 08/10/2019 9:18 AM EST Patient: ROSEMARIE KELLY Age: 74 years Sex: Female : 1945 Associated Diagnoses: None Author: SAM BROOKS MD-INF cc: fever, pneumonitis 08/10/19; patient improving but not ready to go home; getting breathing treatment currently; has low grade fever, no rash, sore throat ros see hpi Vitals Signs (last 24 hrs) Last Charted Minimum Maximum Temp H 100.2 (AUG 10 06:25) 97.2 (AUG 09 16:30) H 100.2 (AUG 10 06:25) Mon HR 101 (AUG 10 07:57) 70 (AUG 10 04:00) 114 (AUG 09 12:46) Resp Rate 18 (AUG 10 07:57) 16 (AUG 09 09:16) H 22 (AUG 10 02:00) SBP 103 (AUG 10 06:25) 103 (AUG 10 06:25) H 145 (AUG 09 16:30) DBP L 59 (AUG 10 06:25) L 59 (AUG 10 06:25) 87 (AUG 09 18:20) MAP 68 (AUG 10 06:25) 68 (AUG 10 06:25) 92 (AUG 09 18:20) SpO2 95 (AUG 10 07:57) L 92 (AUG 10 02:00) 100 (AUG 09 18:20) GEN: pleasant, NAD HEENT: hncat no ext oral lesions PULM: cta kevon. CARD: s1s2 no m GI: s/nt/bs+ve EXT: no c/c/e DERM: no rash CBC Results (Current Encounter/Past 24 Hours) No CBC Results Found (Past 24 Hours) Creatinine Clearance (Current Encounter/Past 24 Hours) No Creatinine Clearance Results Found (Past 24 Hours) imp: bl cultures contamination human metapneumovirus pneumonitis fever bronchiectasis h/o MAC colonization/infection cont ctx/doxy x 3-5 days supportive care patient wishes to avoid MAC therapy at this time patient offered ID f/u for reconsideration for MAC therapy; patient declined this presently documented in this encounter Plan of Treatment Upcoming Encounters Date Type Department Care Team (Late st Contact Info) Description 07/10/2025 1:30 PM EST Office Visit [facility] Pulmonology - [address] [place] [address] Erica Arango MD [address] [place] [address] documented as of this encounter Visit Diagnoses Not on filedocumented in this encounter Care Teams Meat Team Lead Relationship Specialty Start Date End Date Tavo Rosales MD [address] [place], [place] [id number] PCP - General Family Medicine 01/05/25 documented as of this encounter
--- OUTSIDE RECORDS SUMMARY | 2025-06-07 10:02 | XMS_ITS | Encounter Summary ---
Author Organization [employer] ([place], [place], [place], [place], [place]) Address [address] [place] [address] Care Team Providers Care Continuous Linter Drier Operator Name Role Phone Tavo Rosales MD Primary Care Provider [phone] Encounter Details Date Type Department Care Team (Late st Contact Info) Description 08/10/2019 Transcribed Document [facility] [place] [facility] [place] [address] ProviderRoberta MD [facility] [place], [place] [id number] Social History Tobacco Use Types Packs/Day Years Used Date Smoking Tobacco: Never Assessed Comments Unknown Sex and Gender Information Value Date Recorded Sex Assigned at Not on file Legal Sex Female 2:04 PM CDT Gender Identity Not on file Sexual Orientation Not on file documented as of this encounter Miscellaneous Notes * Cerner Conversion Note - Roberta ProviderMD - 08/10/2019 2:00 AM BUILDING APPRAISER Coater Details Entered On: 08/10/2019 0:39 EST Performed On: 08/10/2019 2:00 EST by Scarlet Serrato RN-TRAVELER Order Details Transport Mode Order Detail : Wheelchair Isolation Precautions Order Detail : Standard Precautions Order Detail : N/A IV Order Detail : 1 Oxygen Order Detail : 1 Nurse Collect Order Detail : 0 Lift/Transfer : Minimal Central Line Order Detail : No Room Service : Appropriate Arterial Line : No Scarlet Serrato RN-TRAVELER - 08/10/2019 0:38 EST documented in this encounter Plan of Treatment Upcoming Encounters Date Type Department Care Team (Late st Contact Info) Description 07/10/2025 1:30 PM EST Office Visit [facility] Pulmonology - [address] [place] [address] Erica Arango MD [address] [place] [address] documented as of this encounter Visit Diagnoses Not on filedocumented in this encounter Care Teams Continuous Linter Drier Operator Relationship Specialty Start Date End Date Tavo Rosales MD [address] [place] [address] PCP - General Family Medicine 01/05/25 documented as of this encounter
--- OUTSIDE RECORDS SUMMARY | 2025-06-07 10:02 | XMS_ITS | Encounter Summary ---
Author Organization [employer] ([place], [place], [place], [place], [place]) Address [address] [place] [address] Care Team Providers Care Pressure Controller Name Role Phone Tavo Rosales MD Primary Care Provider [phone] Encounter Details Date Type Department Care Team (Late st Contact Info) Description 08/12/2019 Transcribed Document [facility] [place] [facility] [place] [address] ProviderRoberta MD [address] [place] [id number] Social History Tobacco Use Types Packs/Day Years Used Date Smoking Tobacco: Never Assessed Comments Unknown Sex and Gender Information Value Date Recorded Sex Assigned at Not on file Legal Sex Female 2:04 PM CDT Gender Identity Not on file Sexual Orientation Not on file documented as of this encounter Miscellaneous Notes * Cerner Conversion Note - Roberta Nazario MD - 08/12/2019 2:58 PM BASKET MENDER Patient: ROSEMARIE KELLY Age: 74 years Sex: Female : 1945 Associated Diagnoses: None Author: RODRICK DAVIS MD-INT Results Review General results Most recent results Discharge Information Date of Admission: 08/06/19 Date of Discharge: 08/12/19 Discharge Diagnoses: 1. Sepsis, POA with fever, tachycardia, and leukocytosis 2. Acute on chronic hypoxic respiratory failure 3. Pneumonia 4. Bronchiectasis 5. History of MAC infection 6. Human metapneumovirus infection 7. GERD 8. Hyperlipidemia 9. Hypothyroidism 10. Anxiety, hallucinations 11. Positive blood culture, felt to be contamination 12. SVT Procedures: Plain chest x-ray Consultations: 1. Cardiology 2. Pulmonary 3. ID Discharge Medications: [facility], [address] [address] [place] [phone], [phone] dilTIAZem (Cardizem CD 120 mg/24 hours oral capsule, extended release) 1 Capsule(s) Oral Every Day for 30 Day(s). Refills: 0. traZODone (traZODone 50 mg oral tablet) 1 Tablet(s) Oral At Bedtime for 30 Day(s). Refills: 0. Other Medications albuterol (Ventolin HFA 90 mcg/inh inhalation aerosol) Inhalation Four Times A Day. albuterol (Ventolin HFA 90 mcg/inh inhalation aerosol) Inhalation Four Times A Day. aspirin (aspirin 81 mg oral tablet) 1 Tablet(s) Oral Every Other Day. atorvastatin (atorvastatin 40 mg oral tablet) budesonide-formoterol (Symbicort 80 mcg-4.5 mcg/inh inhalation aerosol) 1 Puff(s) Inhalation Two Times A Day. cholecalciferol (Vitamin D3) Every Day. cyanocobalamin (Vitamin B12 1000 mcg oral tablet) 1 Tablet(s) Oral Every Day. fexofenadine (Azucena 24 Hour Allergy oral tablet) 1 Tablet(s) Oral Every Day. fluticasone-salmeterol (Advair Diskus 250 mcg-50 mcg inhalation powder) 1 Puff(s) Inhalation Two Times A Day. levocetirizine (levocetirizine 5 mg oral tablet) 1 Tablet(s) Oral Every Evening. levothyroxine (levothyroxine 25 mcg (0.025 mg) oral tablet) Oral Every Day. multivitamin Every Day. pantoprazole (pantoprazole 40 mg oral delayed release tablet) 1 Tablet(s) Oral Every Day. predniSONE (predniSONE 5 mg oral tablet) Discharge Activity: As tolerated Discharge Diet: Resume usual diet Physical Examination VS/Measurements Vitals Signs (last 24 hrs) Last Charted Minimum Maximum Temp 97.4 (AUG 12 09:46) 97.4 (AUG 12 09:46) 99.0 (AUG 11 21:00) Apical HR 80 (AUG 12 11:22) 80 (AUG 12 11:22) 80 (AUG 12 11:22) Mon HR 79 (AUG 12 08:22) 77 (AUG 12 06:00) 95 (AUG 11 18:53) Resp Rate 17 (AUG 12:46) 16 (AUG 12 02:00) 20 (AUG 11 21:00) SBP 127 (AUG 12:46) L 81 (AUG 11:00) 127 (AUG 12:46) DBP 60 (AUG 12:46) L 30 (AUG 11:00) H 95 (AUG 11 18:53) MAP 75 (AUG 12:46) 58 (AUG 11 15:00) 102 (AUG 11 18:53) SpO2 97 (AUG 12:) 96 (AUG 11:15) 98 (AUG 11:) General: Alert and oriented, No acute distress. [...] No swelling, No deformity. Integumentary: Warm, Dry, Intact. Neurologic: Alert, Oriented, Normal sensory, Normal motor function, No focal deficits, Cranial Nerves II-XII are grossly intact. Psychiatric: Cooperative, Appropriate mood & affect. Hospital Course This is a pleasant 74 y.o. female with PMH as noted above including known bronchiectasis as well as known MAC infection for which she was unable to tolerate antibiotic treatment who presented to ER with one week history of cough, fevers, and worsening shortness of breath. She met sepsis criteria on presentation and had evidence of pneumonia on x-ray. She was started on empiric rocephin and doxycycline. She has history of severe antibiotic intolerances in the past but this admission was able to tolerate this regimen fairly well with use of anti-emetics. She was seen in consultation and followed by Pulmonary as Dr. Sheehan is her usual Geothermal System Installer. She had slow improvement with regard to her respiratory symptoms. She was noted to develop SVT during her admission. She reported long history of having intermittent SVT but had never been placed on a medication for this in the past. She was started on a cardizem drip to which her heart responded nicely. She was seen by Cardiology and they assisted in converting the patient from cardizem drip to oral cardizem which she has tolerated. She was seen by ID and offered attempt to re-treat the MAC Infection but she is not interested in pursuing this at this time. She was clinically improved today and approved to complete antibiotic therapy by both Pulmonary and ID today. She was medically stable for discharge home today. She did report difficulty with insomnia recently and has already tried fairly high dose melatonin without relief so she was provided with a trial of trazodone to see if this will help her symptoms. Discharge Plan Discharge Summary Plan Discharge Status: improved. Dx and Plan I spent 31 minutes in preparation of this discharge including interview and examination of the patient, counseling, review of documentation/vital signs/labs/testing results, and documentation. documented in this encounter Plan of Treatment Upcoming Encounters Date Type Department Care Team (Late st Contact Info) Description 07/10/2025 1:30 PM EST Office Visit [facility] Pulmonology - [address] [place] [phone] Erica Arango MD [address] [place] [address] documented as of this encounter Visit Diagnoses Not on filedocumented in this encounter Care Teams Pressure Controller Relationship Specialty Start Date End Date Tavo Rosales MD [address] [place] [phone] PCP - General Family Medicine 01/05/25 documented as of this encounter
--- OUTSIDE RECORDS SUMMARY | 2025-06-07 10:02 | XMS_ITS | Encounter Summary ---
Author Organization [employer] ([place], [place], [place], [place], [place]) Address [address] [place] [address] Care Team Providers Care Electrification Adviser Name Role Phone Tavo Rosales MD Primary Care Provider [phone] Encounter Details Date Type Department Care Team (Late st Contact Info) Description 08/11/2019 Transcribed Document [facility] [place] [facility] [place] [address] ProviderRoberta MD [address] [place] [id number] Social History Tobacco Use Types Packs/Day Years Used Date Smoking Tobacco: Never Assessed Comments Unknown Sex and Gender Information Value Date Recorded Sex Assigned at Not on file Legal Sex Female 2:04 PM CDT Gender Identity Not on file Sexual Orientation Not on file documented as of this encounter Miscellaneous Notes * Cerner Conversion Note - Roberta Nazario MD - 08/11/2019 10:48 AM CNC MACHINE SETTER Patient: ROSEMARIE KELLY Age: 74 years Sex: Female : 1945 Associated Diagnoses: None Author: JACKSON VELASQUEZ APRN Chief Complaint asked to see for irregular heart rhythm History of Present Illness 74-year-old white female with history of back infection chronically as well as pneumonia this admission whom we are asked to evaluate for irregular heart rhythm. The patient reports periods of abrupt increase in pulse last 4 a few minutes and then will resolve spontaneously without any specific precipitating or modifying factors associated with chest tightness shortness of breath weakness and severe palpitations. She reports that the symptoms appear to resolve when her heart rate feels like it slows down. The patient does report a history of this over the last 2 years has followed with cardiology but is unable to find any arrhythmia on outpatient monitoring arts that this happens to her generally at least once a week. Review of Systems Constitutional: Weakness, Fatigue, No fever, No chills, No sweats. Eye: No double vision, No visual disturbances. Ear/Nose/Mouth/Throat: No nasal congestion, No sore throat. Respiratory: Shortness of breath, Cough, No sputum production. Cardiovascular: No palpitations, No bradycardia, No tachycardia, No peripheral edema, No syncope Chest pain: Bilateral, Anterior. Gastrointestinal: No nausea, No vomiting, No diarrhea. Genitourinary: No dysuria, No hematuria. Hematology/Lymphatics: No bruising tendency. Endocrine: No excessive thirst, No polyuria, No cold intolerance. Immunologic: Not immunocompromised, No recurrent fevers. Musculoskeletal: No neck pain, No joint pain, No muscle pain. Integumentary: No rash, No pruritus. Neurologic: No abnormal balance, No confusion. Psychiatric: No anxiety, No depression. Health Status Allergies: Allergic Reactions (Selected) Medium Neosporin- Rash and hives with itching. Uncoded Allergy (See Comment)- Pt states she is allergic to all antibiotocs and has seen infectious disese md for this issue. Severity Not Documented Sulfamethoxazole-trimethoprim- No reactions were documented., Allergies (3) Active [...] 5 mg oral tablet: 0 Refill(s), Medications (17) Active Scheduled: (8) albuterol-ipratropium inh 3 mL [...] 10 mg 1 Tab, Oral, Daily Continuous: (1) diltiazem 125 mg + Premix [...] At risk for sleep apnea / IMO [id number] / Confirmed Bronchiectasis / SNOMED CT 31020213 / Confirmed Dysphagia / SNOMED CT 56793660 / Confirmed GERD (gastroesophageal reflux disease) / SNOMED CT 423793402 / Confirmed High cholesterol / SNOMED CT 92723341 / Confirmed Hypertension / SNOMED CT 7488699026 / Confirmed Hypothyroid / SNOMED CT 91408273 / Confirmed Mycobacterium avium infection / SNOMED CT 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 hysterectomy. Cholecystectomy (78914996). Spinal fusion (28462206). Esophageal dilatation ([id number]). egd. colonoscopy. bronchoscopy. appendectomy. Social History Social & Psychosocial Habits Alcohol 04/22/2017 Alcohol Use History, Social Habits No Nutrition/Health 04/22/2017 Caffeine intake amount: 2 per day Substance Abuse 04/22/2017 Recreational Drug Use History No Recreational Drug Use Last 12 Months No Tobacco 04/22/2017 Smoking Status Never smoker . Physical Examination VS/Measurements Vitals Signs (last 24 hrs) Last Charted Minimum Maximum Temp 97.9 (AUG 11:19) 97.9 (AUG 11:19) 99.1 (AUG 10:58) Mon HR 94 (AUG 11:) 78 (AUG 11 05:00) 125 (AUG 10 17:40) Resp Rate 16 (AUG 11 05:53) 16 (AUG 10 17:58) 18 (AUG 10 11:43) SBP 118 (AUG 11:11) 110 (AUG 11 02:00) 139 (AUG 11 00:00) DBP 71 (AUG 11:) L 53 (AUG 11 01:00) H 92 (AUG 10 20:00) MAP 83 (AUG 11:) 67 (AUG 11 02:00) 100 (AUG 10 20:00) SpO2 97 (AUG 11:) L 89 (AUG 11 05:53) 100 (AUG 10 17:40) General: Alert and oriented, No acute distress. Eye: Pupils are equal, round and reactive to light, Normal conjunctiva. HENT: Normocephalic, Normal hearing. Neck: Supple, Non-tender, No jugular venous distention. Respiratory: Lungs are clear to auscultation, Respirations are non-labored, Breath sounds are equal, Symmetrical chest wall expansion. Cardiovascular: Normal rate, Regular rhythm, No murmur, No gallop, Good pulses equal in all extremities, Normal peripheral perfusion, No edema. Gastrointestinal: Soft, Non-tender, Non-distended, Normal bowel sounds. Lymphatics: No lymphadenopathy neck, axilla, groin. Musculoskeletal: Normal range of motion, Normal strength. Integumentary: Warm, Dry, [place]. Neurologic: Alert, Oriented. Cognition and Speech: Oriented, Speech clear and coherent. Psychiatric: Cooperative, Appropriate mood & affect. Review [...] <0.015 (AUG 06) . 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 acute on chronic resp failire -d/t pna documented in this encounter Plan of Treatment Upcoming Encounters Date Type Department Care Team (Late st Contact Info) Description 07/10/2025 1:30 PM EST Office Visit [facility] Pulmonology - [address] [place] [address] Erica Arango MD [address] [place] [address] documented as of this encounter Visit Diagnoses Not on filedocumented in this encounter Care Teams Electrification Adviser Relationship Specialty Start Date End Date Tavo Rosales MD [address] [place] [address] PCP - General Family Medicine 01/05/25 documented as of this encounter
--- OUTSIDE RECORDS SUMMARY | 2025-06-07 10:02 | XMS_ITS | Encounter Summary ---
Author Organization [employer] ([place], [place], [place], [place], [place]) Address [address] [place] [address] Care Team Providers Care Manager Infrastructure Name Role Phone Tavo Rosales MD Primary Care Provider [phone] Encounter Details Date Type Department Care Team (Late st Contact Info) Description 05/10/2019 Transcribed Document [facility] [place] [address] [place] [address] ProviderRoberta MD [address] [place] [address] Social History Tobacco Use Types Packs/Day Years Used Date Smoking Tobacco: Never Assessed Comments Unknown Sex and Gender Information Value Date Recorded Sex Assigned at Not on file Legal Sex Female 2:04 PM CDT Gender Identity Not on file Sexual Orientation Not on file documented as of this encounter Miscellaneous Notes * Cerner Conversion Note - Roberta Nazario MD - 05/10/2019 2:41 PM CDT [address] [address] ROSEMARIE KELLY :1945 Visit Time:05/10/2019 What to do next Your Diagnosis Other nonspecific abnormal finding of lung field, Other nonspecific abnormal finding of lung field Instructions From Your Care Team Diet after Discharge: Resume usual diet as tolerated, Do not drink any alcoholic beverages, _ Fluid Restriction after Discharge: _ Activity after Discharge: _, Rest and relax today, No strenuous activity Lifting Restrictions: _ Weight Bearing: _ Bedrest: _ Driving after Discharge: Do not drive for 24 hours May Return to Work/School: 05/11/19 Showering/Bathing: _, _ Notify Provider of: with any questions or concerns Wound/Incision Care after Discharge: _, _ Medical Equipment for Home Use: Home Health Services: Community Services: Follow-Up Appointments Follow Up with GERARDO LEWIS MD-PUL When Within As needed, only if needed Where: [address] [facility] [address] [place] [address]- Medications What How Much When Instructions Next Dose albuterol (Ventolin HFA 90 mcg/ inh inhalation aerosol) Inhalation Four Times A Day budesonide-formoterol (Symbicort 80 mcg-4.5 mcg/ inh inhalation aerosol) 1 Puff(s) Inhalation Two Times A Day cholecalciferol (Vitamin D3) Every Day fluticasone-salmeterol (Advair Diskus 250 mcg-50 mcg inhalation powder) 1 Puff(s) Inhalation Two Times A Day levocetirizine (levocetirizine 5 mg oral tablet) 1 Tablet(s) Oral Every Evening levothyroxine (levothyroxine 25 mcg (0.025 mg) oral tablet) Oral Every Day pantoprazole (pantoprazole 40 mg oral delayed release tablet) 1 Tablet(s) Oral Every Day simvastatin (simvastatin 10 mg oral tablet) 1 Tablet(s) Oral Once a day (at bedtime) Take your medications faithfully. Do NOT skip medication. Do NOT stop taking medications without the direction of a physician. Carry a list of your medications with you at all times, and take this medication list with you to your first follow up visit. Report any side effects. Avoid herbal remedies unless discussed with your physician. As part of your treatment plan, your physician may have prescribed a limited course of a controlled substance. This medication may be given to help people with moderate or severe pain or for other medical conditions, but there are risks involved with treatment. Common side effects may include nausea, constipation, drowsiness, sweating, itching, dry mouth, and rash. More serious side effects may include cognitive and motor impairment, like problems with thinking, concentrating, alertness, and movement (e.g. slowed reflexes), and driving and operating heavy machinery can be dangerous. It is important for you to talk to your physician if you have these side effects or questions. These controlled substances can produce physical dependence and be habit-forming if taken for an extended period of time, which means that the body has gotten used to them and may experience withdrawal symptoms if they are abruptly stopped. Withdrawal symptoms can include runny nose, sweating, goose bumps, diarrhea, abdominal cramping, rapid heartbeat, difficulty sleeping, and nervousness. Please dispose of unused and medications per pharmacy guidance. Education Materials Flexible Bronchoscopy, Care After This sheet gives [...] prescription pain medicine. General instructions ??? Take tvrz-lae-[id number] and prescription medicines only as told by [...] 05/17/2010 Document Revised: 08/07/2017 Document Reviewed: 08/07/2017 [employer] Interactive Patient Education ?? 2019 [employer]. Soft-Food Meal Plan A soft-food meal plan [...] to swallow. A bite-sized piece is about ?? inch or smaller. Foods in this plan [...] tender, lean beef. Mutton. [place]. Veal. Chicken. [place]. Liver. Ham. Fish without bones. Eggs. DairyMilk, [...] Tough or chewy crusty breads, such as Latvian bread or baguettes. VegetablesCorn. Raw vegetables except [...] 10/26/2008 Document Revised: 12/25/2016 Document Reviewed: 06/16/2014 [employer] Interactive Patient Education ?? 2017 [employer] Emergency Awareness and Preventative Care STROKE is an EMERGENCY Every Minute Counts Act FAST and Check for these signs: FACE Does the face look uneven? ARM Does one arm drift down? SPEECH Does their speech sound strange? TIME Call at any sign of stroke Stroke Risk Factors Atrial Fibrillation (irregular heartbeat) Diabetes Family history of stroke Heart Disease Heavy alcohol use High Blood Pressure High Cholesterol Physical inactivity and obesity Smoking Cigarette Smoking The facts are clear, cigarette smoking will shorten your life. Smoking can cause many illnesses along the way. As a healthcare provider, we recommend that you stop smoking. Assistance with quitting is available by contacting 5-352-XCDS-NOW. This is a free resource providing counseling, support, and referral. Or you may contact your personal physician. [employer] Suicide Prevention Lifeline: The National Suicide Prevention Lifeline is a national network of local crisis centers that provides free and confidential emotional support to people in suicidal crisis or emotional distress 24 hours a day, 7 days a week. Don't Wait! Stop a Heart Attack Before it Starts What is a heart attack? A heart attack is damage or to a part of the heart from severely decreased or lack of blood flow to the heart. Over time, arteries can become narrow from the buildup of fat and cholesterol, which is called plaque. The plaque can rupture causing a blood clot to form. When the blood clot forms, the artery can become severely narrowed or completely blocked, causing a heart attack. Heart attack is the leading cause of in the [place]. 85% of muscle damage occurs within the first 2 hours. Delay in the recognition of heart attack symptoms increases the chances of . Know the early symptoms of a heart attack: Nausea Feeling of fullness in chest Jaw Pain Pain that travels down one or both arms Fatigue/being tired Anxiety Back Pain Chest pressure, squeezing, or discomfort Shortness of breath Sweating, or a cold sweat Feeling of impending doom There are unusual signs of a heart attack, too! Women, the elderly, and diabetics may present with atypical symptoms: Fainting/dizziness Weakness Confusion Risk Factors for a Heart Attack Some heart disease risk factors, such as age and family history, cannot be changed. Others, like smoking and lack of exercise, can be changed. Smoking High Cholesterol High Blood Pressure Family History Obesity Age Gender (Males are at higher risk) Lack of Exercise Diabetes Diet Stress Excessive Alcohol Intake If you or someone you know is experiencing the signs and symptoms of a heart attack, DON???T DELAY. Call immediately and seek help. If someone collapses, perform CPR! Do not attempt to drive if you are having symptoms of heart attack. Hands-Only CPR Why Hands-Only CPR? Hands-Only CPR has been shown to be as effective as conventional CPR for cardiac arrests that occur outside of a hospital. Survival depends on immediately receiving CPR from someone nearby. How do you perform Hands-Only CPR? There are two easy steps: Call 9-1-1 if you see a teen or adult collapse Push hard and fast in the center of the chest at a beat of 100 beats per minute. Save a life! 4 WAYS TO GET AHEAD OF SEPSIS SEPSIS is a MEDICAL EMERGENCY. Time matters! Infections put you and your family at risk for a life-threatening condition called sepsis. Sepsis is the body's extreme response to an infection. It is life-threatening, and without timely treatment, sepsis can rapidly lead to tissue damage, organ failure, and . Sepsis happens when an infection you already have-in your skin, lungs, urinary tract or somewhere else-triggers a chain reaction throughout your body. 1 PREVENT INFECTIONS Take good care of chronic conditions. Talk to your doctor about getting the recommended vaccines. 2 PRACTICE GOOD HYGIENE Wash your hands frequently. Keep cuts or open sores clean and covered until they are healed. 3 KNOW THE SYMPTOMS Confusion or disorientation Shortness of breath High heart rate Fever, shivering, or feeling very cold Extreme pain or discomfort Clammy or sweaty skin 4 ACT FAST Get medical care IMMEDIATELY if you suspect sepsis or if you have an infection that is not getting better or is getting worse. To learn more about sepsis and how to prevent infections, visit www.cdc.gov/sepsis. Test Results Laboratory or Other Results This Visit (last charted value for your 05/10/2019 visit) Microbiology 05/10/2019 12:14 PM Specimen Source: Specimen Source Micro Comments: Micro Comments Patient Name:JACK ROSEMARIE M I have received this information and was given the opportunity to ask questions. Patient/Sample Mounter Name: Patient/Sample Mounter Signature: Relationship to Patient: Clinician/Hospital Sample Mounter Signature: Date: documented in this encounter Plan of Treatment Upcoming Encounters Date Type Department Care Team (Late st Contact Info) Description 07/10/2025 1:30 PM EST Office Visit [facility] Pulmonology - [address] [place] [id number] Erica Arango MD [address] [place] [address] documented as of this encounter Visit Diagnoses Not on filedocumented in this encounter Care Teams Manager Infrastructure Relationship Specialty Start Date End Date Tavo Rosales MD [address] [place] [address] PCP - General Family Medicine 01/05/25 documented as of this encounter
--- OUTSIDE RECORDS SUMMARY | 2025-06-07 10:02 | XMS_ITS | Encounter Summary ---
Author Organization [employer] ([place], [place], [place], [place], [place]) Address [address] [place] [address] Care Team Providers Care Photogrammetric Compilation Specialist Name Role Phone Tavo Rosales MD Primary Care Provider [phone] Encounter Details Date Type Department Care Team (Late st Contact Info) Description 08/12/2019 Transcribed Document [facility] [place] [address] [place] [address] ProviderRoberta MD [address], [place] [id number] Social History Tobacco Use Types Packs/Day Years Used Date Smoking Tobacco: Never Assessed Comments Unknown Sex and Gender Information Value Date Recorded Sex Assigned at Not on file Legal Sex Female 2:04 PM CDT Gender Identity Not on file Sexual Orientation Not on file documented as of this encounter Miscellaneous Notes * Cerner Conversion Note - Roberta Nazario MD - 08/12/2019 3:38 PM [employer]ER Discharge Summary, PT Entered On: 08/12/2019 15:42 EST Performed On: 08/12/2019 15:38 EST by LITA BEACH, PT Discharge Summary Reason for Discharge : Discharged from hospital Discharged to, Therapy : Home, with home health Discharge Summary Comment, PT : 0/1 acute PT goals met. Modified Independent supine to sit CGA sit to stand Ambulated 120' without AD CGA/Min A on 2L O2 with 3 LOB Ambulated 80' with RWx CGA D/C home with family + home health on 08/12/19. LITA BEACH, PT - 08/12/2019 15:38 EST Detention Goals Other PT LTG Grid Goal #1 Other : Patient will ambulate 400 feet with no AD and SBA with no LOB or significant gait deviations to return to premorbid functional status. Date to Meet : 08/14/2019 EST Goal Status : Not met LITA BEACH, PT - 08/12/2019 15:38 EST documented in this encounter Plan of Treatment Upcoming Encounters Date Type Department Care Team (Late st Contact Info) Description 07/10/2025 1:30 PM EST Office Visit [facility] Pulmonology - [address] [place] [address] Erica Arango MD [address] [place], [place] [id number] documented as of this encounter Visit Diagnoses Not on filedocumented in this encounter Care Teams Photogrammetric Compilation Specialist Relationship Specialty Start Date End Date Tavo Rosales MD [address] [place] [address] PCP - General Family Medicine 01/05/25 documented as of this encounter
--- OUTSIDE RECORDS SUMMARY | 2025-06-07 10:02 | XMS_ITS | Encounter Summary ---
Author Organization [facility] ([place], [place], [place], [place], [place]) Address [address] [place] [address] Care Team Providers Care Camp Assistant Name Role Phone Yolanda Garcia MD Primary Care Provider [phone] Encounter Details Date Type Department Care Team (Late st Contact Info) Description 08/06/2019 Transcribed Document [facility] [place] [facility] [place] [address] ProviderRoberta MD [address] [place] [address] [id number] Social History Tobacco Use Types Packs/Day Years Used Date Smoking Tobacco: Never Assessed Comments Unknown Sex and Gender Information Value Date Recorded Sex Assigned at Not on file Legal Sex Female 2:04 PM CDT Gender Identity Not on file Sexual Orientation Not on file documented as of this encounter Miscellaneous Notes * Cerner Conversion Note - Roberta Nazario MD - 08/06/2019 11:17 PM 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 Primary Care Provider YOLANDA GARCIA MD History of Present Illness Rosemarie Kelly is a 74-year-old female with a history of bronchiectasis, MAC, GERD, hyperlipidemia, and anxiety comes to [facility] emergency department with a one-week history of cough, fever, and shortness of breath. 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 She was evaluated at [facility] in [place] in 2018, and is followed with Dr. Sheehan for pulmonology here in [place]. She previously saw Dr. Howell with infectious disease, but did not tolerate treatment for MAC. She reports about 1 week ago, she believes she caught a respiratory illness from her who had been feeling ill. She reports she began to have shortness of breath, increasing cough, and green sputum production. Her cough and shortness of breath have gotten progressively worse over the last week. She reports being febrile at home with a fever of 100.7 ??F. She began to have a reproducible pain on the right side of her chest last evening which concerned her greatly. She reports that this pain has since resolved. She came to the ER today with her son, was found to be septic with a temperature of 101.7, tachycardia, tachypnea, and leukocytosis. She had a chest x-ray which was concerning for infiltrates. She was given IV fluid and started on antibiotics for treatment of community-acquired pneumonia with Rocephin and doxycycline. She has been intolerant of antibiotics in the past, usually feeling very nauseated and lightheaded with antibiotics, although she is tolerating the Rocephin and doxy thus far. The patient is being admitted for sepsis secondary to pneumonia, and her manager trading will be consulted for assistance in management. Review of Systems Constitutional: reports fever, chills, fatigue Eye: No blurry vision, no discharge HEENT: No sore throat, no nasal congestion Respiratory: reports productive cough w/ green sputum, dyspnea, pleuritic pain Cardiovascular: yes Chest pain, no palpitations Gastrointestinal: No nausea, vomiting, diarrhea, constipation Genitourinary: No hematuria, no dysuria Greg/Lymph: Negative for bruising tendency, no nosebleeds Endocrine: Negative for excessive thirst, no excessive urination Musculoskeletal: No back pain, no leg pain Integumentary: No rash, no pruritus Neurologic: No weakness, no numbness Psychiatric: yes anxiety, depression Vital Signs T: 36.8 ??C TMIN: 36.8 ??C TMAX: 38.7 ??C HR: 97(Monitored) RR: 20 BP: 134/80 SpO2: 95% HT: 167.64 cm WT: 59.09 kg BMI: 21 Oxygen Settings (Last) Oxygen Therapy Mode: Nasal cannula (08/06/19 23:08:00) Oxygen Flow Rate: 2 Liter/Min (08/06/19 23:08:00) Physical Exam General: Alert and oriented, no acute distress Neurologic: Awake, alert, and oriented X3, no apparent focal deficits Eye: PERRL, EOMI, normal conjunctiva HENT: Normocephalic, atraumatic Neck: Supple, non-tender, no carotid bruits, no JVD Lungs: Clear to auscultation and percussion, on O2, no wheezing Heart: tachycardic, no murmur Abdomen: Soft, non-tender, non-distended, normal bowel sounds Musculoskeletal: Normal range of motion and strength, no tenderness or swelling Skin: Skin is warm, dry and pink, no rashes or lesions Psychiatric: Cooperative, appropriate mood and affect Assessment/Plan Sepsis, 2/ PNA - T 101.7, HR 105, WBC 12.8. - blood cultures pending - given IVF in ED - on rocephin and doxy PNA - complicated by hx of bronchiectasis and MAC - seen by ID in past, did not tolerate treatment for MAC - follows with Dr Sheehan, who has been consulted - resp PCR + for human metapneumovirus - on rocephin and doxy (tolerating despite multiple abx side effects) - duonebs scheduled and PRN GERD - continue home PPI Hyperlipidemia - resume statin Hypothyroidism - check TSH, resume synthroid Anxiety DVT ppx: SCDs GI ppx: PPI Diet: Regular Code status: full code Medications, labs, imaging, and available medical records reviewed. Discussed with ED physician. 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 Orders: acetaminophen, 650 mg, Oral, Tab, Q4H, PRN for Fever, Routine, Start 08/06/19 22:40:00 EST albuterol-ipratropium, 3 mL, Nebulized Inhalation, Inh, RT_Q4H, Routine, Start 08/07/19 2:10:00 EST albuterol-ipratropium, 3 mL, Nebulized Inhalation, Inh, RT_Q4H, PRN for Shortness of Breath, Routine, Start 08/06/19 22:40:00 EST cefTRIAXone + Sodium Chloride 0.9% intravenous solution 50 mL, 1 Gram, IV Piggyback, Daily, infuse over 30 Minute(s), Routine, Start 08/07/19 20:00:00 EST, 100 mL/Hr, Indication: Pneumonia doxycycline, 100 mg, Oral, Cap, BID, Routine, Start 08/07/19 9:00:00 EST, Indication: Pneumonia famotidine, 20 mg, Oral, Tab, Q12H, Routine, Start 08/06/19 22:40:00 EST morphine, 2 mg, IV Push, Inj, Q2H, PRN for Pain (Severe 7-10), Routine, Start 08/06/19 22:40:00 EST ondansetron, 4 mg, IV Push, Inj, Q4H, PRN for Nausea, Routine, Start 08/06/19 22:40:00 EST polyethylene glycol 3350, 17 Gram, Oral, Powder, Daily, PRN for Constipation, Routine, Start 08/06/19 22:40:00 EST promethazine, 6.25 mg, IntraVENous, Inj, Q6H, PRN for Nausea, Routine, Start 08/06/19 22:40:00 EST Admit to Inpatient CBC w/ Auto Diff CMP Comprehensive Metabolic Panel Consult to Case Management Consult to Physician Diabetes Education (Nursing) Diet, Adult DVT VTE Prophylaxis Education Facility Protocol Intake and Output Notify Provider Intake and Output Notify Provider of Change in Patient Condition Notify Provider of Change in Patient Condition Notify Provider Vital Signs OT Evaluation and Treatment PT Evaluation and Treatment Pulse Oximetry Continuous Monitoring Respiratory Care Assessment Resuscitation Status Sequential Compression Device Up Ad Vangie Vital Signs VTE Prophylaxis - Medical Sequential Compression Device Start: 08/06/19 22:40:00 EST, Bilateral, Length: Knee High, While patient is in bed, Continuous Order (LIS MITCHELL) Problem List/Past Medical History Ongoing At risk for sleep apnea Bronchiectasis Dysphagia GERD (gastroesophageal reflux disease) High cholesterol Hypertension Hypothyroid Mycobacterium avium infection Historical No qualifying data Procedure/Surgical History appendectomy, bone spur to right heel, bronchoscopy, Cholecystectomy, colonoscopy, egd, Esophageal dilatation, hysterectomy, Spinal fusion. Home Medications (8) Active Advair Diskus 250 mcg-50 mcg inhalation powder 1 Puff, Inhalation, BID levocetirizine 5 mg oral tablet 5 mg = 1 Tab, Oral, QPM levothyroxine 25 mcg (0.025 mg) oral tablet , Oral, Daily pantoprazole 40 mg oral delayed release tablet 40 mg = 1 Tab, Oral, Daily simvastatin 10 mg oral tablet 10 mg = 1 Tab, Oral, Once a day (at bedtime) Symbicort 80 mcg-4.5 mcg/inh inhalation aerosol 1 Puff, Inhalation, BID Ventolin HFA 90 mcg/inh inhalation aerosol , Inhalation, QID Vitamin D3 , Daily Allergies Neosporin (rash and hives with itching) Uncoded Allergy (See Comment) (pt states she is allergic to all antibiotocs and has seen infectious disese MD for this issue) sulfamethoxazole-trimethoprim Social History Alcohol Alcohol Use History No. Nutrition/Health Caffeine intake amount: 2 per day. Substance Abuse Drug Use Hx: No. Use in Last 12 Months: No. Tobacco Smoking Status Never smoker. Family History Grandfather with bronchiectasis Lab Results Test Name Test Result Date/Time pH Art 7.50 (High) 08/06/2019 20:21 EST pCO2 Art 30.1 mmHg (Low) 08/06/2019 20:21 EST pO2 Art 66.1 mmHg (Low) 08/06/2019 20:21 EST HCO3 Art 23.6 mmol/L 08/06/2019 20:21 EST BE Art 1.5 mmol/L 08/06/2019 20:21 EST sO2 Art 92.9 % (Low) 08/06/2019 20:21 EST tHb Art 11.8 Gram/dL (Low) 08/06/2019 20:21 EST ctO2 15.2 mmol/L 08/06/2019 20:21 EST FIO2 Art 21.0 08/06/2019 20:21 EST Temperature, F Art 98.6 Deg F 08/06/2019 20:21 EST Art Blood Gas (ABG) Site Left Radial 08/06/2019 20:21 EST Acceptable Bradley's Test Art Acceptable 08/06/2019 20:21 EST ABG Num of Draw Attempts 1 08/06/2019 20:21 EST Sodium Level 132 mmol/L (Low) 08/06/2019 19:46 EST Potassium Level 3.6 mmol/L 08/06/2019 19:46 EST Chloride Level 101 mmol/L (Low) 08/06/2019 19:46 EST Carbon Dioxide Level 25 mmol/L 08/06/2019 19:46 EST Anion Gap 10 08/06/2019 19:46 EST Glucose Level 122 mg/dL (High) 08/06/2019 19:46 EST Blood Urea Nitrogen 8 mg/dL 08/06/2019 19:46 EST Creatinine Level 0.94 mg/dL 08/06/2019 19:46 EST eGFR >60 mL/min/1.73m2 08/06/2019 19:46 EST eGFR NonAfrican 58 mL/min/1.73m2 (Low) 08/06/2019 19:46 EST Bun/Creatinine 8.5 08/06/2019 19:46 EST Calcium Level 9.1 mg/dL 08/06/2019 19:46 EST Protein Total 7.3 Gram/dL 08/06/2019 19:46 EST Albumin Level 3.3 Gram/dL (Low) 08/06/2019 19:46 EST Globulin 4.0 Gram/dL 08/06/2019 19:46 EST A/G Ratio 0.8 (Low) 08/06/2019 19:46 EST Bilirubin Total 0.7 mg/dL 08/06/2019 19:46 EST Alk Phos 78 Units/Liter 08/06/2019 19:46 EST AST 19 Units/Liter 08/06/2019 19:46 EST ALT 17 Units/Liter 08/06/2019 19:46 EST Lactic Acid Level 0.9 mmol/L 08/06/2019 19:51 EST Troponin I Ultra <0.015 ng/mL 08/06/2019 19:46 EST WBC 12.8 K/uL (High) 08/06/2019 19:46 EST RBC 4.03 Million/uL 08/06/2019 19:46 EST Hgb 11.7 Gram/dL 08/06/2019 19:46 EST Hct 35.2 % 08/06/2019 19:46 EST MCV 87.3 fL 08/06/2019 19:46 EST MCH 29.0 pg 08/06/2019 19:46 EST MCHC 33.2 Gram/dL 08/06/2019 19:46 EST Platelet Count 293 K/uL 08/06/2019 19:46 EST MPV 9.8 fL 08/06/2019 19:46 EST RDW 13.5 % 08/06/2019 19:46 EST Neut % 83.4 % (High) 08/06/2019 19:46 EST Neut # 10.69 K/uL (High) 08/06/2019 19:46 EST Lymph % 7.3 % (Low) 08/06/2019 19:46 EST Lymph # 0.93 K/uL (Low) 08/06/2019 19:46 EST Solano % 8.4 % 08/06/2019 19:46 EST Solano # 1.07 K/uL (High) 08/06/2019 19:46 EST Eos % 0.1 % (Low) 08/06/2019 19:46 EST Eos # 0.01 K/uL (Low) 08/06/2019 19:46 EST Baso % 0.4 % 08/06/2019 19:46 EST Baso # 0.05 K/uL 08/06/2019 19:46 EST Slide Review No 08/06/2019 19:46 EST IG# 0 x10(3)/uL 08/06/2019 19:46 EST IG% 0 % 08/06/2019 19:46 EST PT 10.5 Second(s) 08/06/2019 20:11 EST INR 1.0 08/06/2019 20:11 EST PTT 27.4 Second(s) 08/06/2019 20:15 EST Urine Type. U CleanCatch 08/06/2019 20:45 EST Urine Color YELLOW2 08/06/2019 20:45 EST Urine Appearance CLEAR2 08/06/2019 20:45 EST Urine Specific [place] 1.020 08/06/2019 20:45 EST Urine pH Dipstick 7.5 08/06/2019 20:45 EST Urine Leukocyte Esterase TRACE2 (Abnormal) 08/06/2019 20:45 EST Urine Nitrite NEGATIVE2 08/06/2019 20:45 EST Urine Protein Dipstick NEGATIVE2 08/06/2019 20:45 EST Urine Glucose Dipstick NEGATIVE2 08/06/2019 20:45 EST Urine Ketones Dipstick 40 (Abnormal) 08/06/2019 20:45 EST Urine Urobilinogen Dipstick 1.0 08/06/2019 20:45 EST Urine Bilirubin Dipstick NEGATIVE2 08/06/2019 20:45 EST Urine Blood Dipstick NEGATIVE2 08/06/2019 20:45 EST Ur RBC 0-2 (Abnormal) 08/06/2019 20:45 EST Ur Bacteria Trace (Abnormal) 08/06/2019 20:45 EST Ur Epithelial Cells 0-2 (Abnormal) 08/06/2019 20:45 EST Procalcitonin 0.09 ng/mL (High) 08/06/2019 20:11 EST Chlamydophila pneumoniae DNA PCR Not Detected 08/06/2019 20:45 EST B. pertussis DNA Not Detected 08/06/2019 20:45 EST Mycoplasma pneumoniae by PCR Not Detected 08/06/2019 20:45 EST Influenza A Not Detected 08/06/2019 20:45 EST Influenza A H1 Not Detected 08/06/2019 20:45 EST Influenza A H3 Not Detected 08/06/2019 20:45 EST Influenza A 2009 H1N1 Not Detected 08/06/2019 20:45 EST Influenza B Not Detected 08/06/2019 20:45 EST Parainfluenza 1 Not Detected 08/06/2019 20:45 EST Parainfluenza 2 Not Detected 08/06/2019 20:45 EST Parainfluenza 3 Not Detected 08/06/2019 20:45 EST Parainfluenza 4 Not Detected 08/06/2019 20:45 EST Rhinovirus/Enterovirus Not Detected 08/06/2019 20:45 EST Human Metapneumovirus Detected (Abnormal) 08/06/2019 20:45 EST Adenovirus Not Detected 08/06/2019 20:45 EST Coronavirus 229E Not Detected 08/06/2019 20:45 EST Coronavirus HKU1 Not Detected 08/06/2019 20:45 EST Coronavirus NL63 Not Detected 08/06/2019 20:45 EST Coronavirus OC43 Not Detected 08/06/2019 20:45 EST Respiratory Syncytial Virus Not Detected 08/06/2019 20:45 EST Additional Documentation Code Status Start: 08/06/19 22:40:00 EST, Full Code, Continuous Order Electronically signed by Maryann [facility] Con[facility] Regional Education Coordinator Cerner at 11/17/2022 2:48 PM CDT documented in this encounter Plan of Treatment Upcoming Encounters Date Type Department Care Team (Late st Contact Info) Description 07/10/2025 1:30 PM EST Office Visit [facility] Pulmonology - [address] [place] [id number] Erica Arango MD [address] [place] [address] documented as of this encounter Visit Diagnoses Not on filedocumented in this encounter Care Teams Camp Assistant Relationship Specialty Start Date End Date Yolanda Garcia MD [address], [place] [id number] PCP - General Family Medicine 01/05/25 documented as of this encounter
--- OUTSIDE RECORDS SUMMARY | 2025-06-07 10:02 | XMS_ITS | Clinical Summary ---
Author Organization [facility] Address [address] [place] [address] Care Team Providers Care Nurse Sane Name Role Phone Tavo Rosales MD Primary Care Provider [phone] Allergies Active Allergy Reactions Criticality Noted Date Comments Benzalkonium Chloride Other (See Comments) 02/16/2023 Other reaction(s): rash and hives with itching Ciprofloxacin Nausea Only High 12/13/2018 ciprofloxacin Ethambutol Other (See Comments) 11/11/2023 ethambutol Iodine Other (See Comments) High 02/16/2023 Neomycin-Bacitracin Zn-Polymyx Other (See Comments) 08/18/2022 Other reaction(s): rash and hives with itching Bacitracin-Polymyxin B Hives,Rash Low 09/03/2024 Rifampin Other (See Comments) 11/11/2023 rifampin Shellfish Allergy Other (See Comments) Low 08/18/2022 Patient states she is not allergic to shellfish 02/13/2025 Sulfa Antibiotics Other (See Comments) 02/13/2025 Substance with sulfonamide structure and antibacterial mechanism of action (substance) Sulfamethoxazole Hives High 09/03/2024 Sulfamethoxazole-Trimeth oprim Other (See Comments) 08/18/2022 Sulfate Other (See Comments) 02/16/2023 Trimethoprim Other (See Comments) 02/16/2023 trimethoprim Medications pantoprazole (Protonix) 40 MG EC tablet Take 1 tablet by mouth 2 (Two) Times a Day. Active levocetirizine (XYZAL) 5 MG tablet Take 1 tablet by mouth Every Evening. 09/14/19 25 Active atorvastatin (LIPITOR) 40 MG tablet Take 1 tablet by mouth Daily. Active azithromycin (ZITHROMAX) 250 MG tablet Take 1 tablet by mouth 1 (One) Time Per Week. Active ondansetron (ZOFRAN) 4 MG tablet Take 2 tablets by mouth Every 8 (Eight) Hours As Needed. 09/14/19 25 Active albuterol sulfate HFA 108 (90 Base) MCG/ACT inhaler Inhale 2 puffs Every 4 (Four) Hours As Needed for Wheezing. Active levothyroxine (SYNTHROID, LEVOTHROID) 25 MCG tablet Take 1 tablet by mouth Every Morning. Active budesonide-form oterol (SYMBICORT) 160-4.5 MCG/ACT inhaler Inhale 2 puffs 2 (Two) Times a Day. Active predniSONE (DELTASONE) 5 MG tablet Take 1 tablet by mouth Daily. 05/12/20 25 Active ipratropium-alb uterol (DUO-NEB) 0.5-2.5 mg/3 ml nebulizer INHALE 3 MLS BY NEBULIZATION EVERY 4 (FOUR) HOURS NEEDED FOR WHEEZING. 04/13/20 25 Active fexofenadine (LUDA) 180 MG tablet Take 1 tablet by mouth Daily. Active albuterol sulfate HFA (Ventolin HFA) 108 (90 Base) MCG/ACT inhaler Inhale 2 puffs Every 4 (Four) Hours As Needed for Wheezing. Active Cholecalciferol 25 MCG (1000 UT) tablet Take 1 tablet by mouth Daily. Active vitamin B-12 (CYANOCOBALAMIN ) 1000 MCG tablet Take 1 tablet by mouth Daily. Active Ascorbic Acid (VITAMIN C PO) Take 180 mg by mouth Daily. Active apixaban (ELIQUIS) 2.5 MG tablet tabletIndicatio ns:Paroxysmal atrial fibrillation,Hy perlipidemia LDL goal <70,Benign essential hypertension Take 1 tablet by mouth 2 (Two) Times a Day. 180 tablet 1 05/16/20 25 Active apixaban (ELIQUIS) 5 MG tablet tabletIndicatio ns:Paroxysmal atrial fibrillation,Be nign essential hypertension,Hy perlipidemia LDL goal <70 Take 0.5 tablets by mouth Every 12 (Twelve) Hours. 90 tablet 1 02/14/20 25 2024 Discontinued Active Problems Problem Noted Date Diagnosed Date Paroxysmal atrial fibrillation 09/19/2024 Assessment & Plan (05/16/2025 11:36 AM EDT): The patient is on Eliquis 2.5 mg twice a day due to her age and weight.Discussed with patient to take Eliquis 5 mg twice a day, the patient understand the reason for Eliquis and the alternative, the [id number] score, that Eliquis reduce risk of embolic stroke by close to 90%, it is an anticoagulant, there is risk for bleeding, to hold medication 48 hours prior to any surgery and resume ARTURO. Patient understand if he misses the dose of Eliquis to take it immediately but not too close together because of increased risk of bleeding. Assessment & Plan (02/13/2025 11:31 AM EDT): Continue apixaban 5 mg twice a day. Discussed with patient to take Eliquis 5 mg twice a day, the patient understand the reason for Eliquis and the alternative, the [id number] score, that Eliquis reduce risk of embolic stroke by close to 90%, it is an anticoagulant, there is risk for bleeding, to hold medication 48 hours prior to any surgery and resume ARTURO. Patient understand if he misses the dose of Eliquis to take it immediately but not too close together because of increased risk of bleeding. Assessment & Plan (09/20/2024 12:08 PM EST): The patient will continue Eliquis 2.5 mg p.o. twice daily, explained in detail if develop any bleeding to notify us. The patient will continue trending her blood work, she wants to do every 6 months. She understands she has any bleeding issues she will do it sooner. Benign essential hypertension 09/19/2024 Assessment & Plan (05/16/2025 11:36 AM EDT): Hypertension is stable and controlled Continue current treatment regimen. Dietary sodium restriction. Weight loss. Ambulatory blood pressure monitoring. Blood pressure will be reassessed in 3 months. Discussed with patient [employer] and [employer] provide detailed guidelines for accurate blood pressure measurement. Jhaveri steps for proper blood pressure measurement include: Recommend being fully relaxed sitting in chair with feet on the floor and back supported for at least 5 minutes. Avoid caffeine, exercise and smoking for at least 30 minutes before management. Ensure empty bladder, remove clothing covering the location of the cuff placement using proper blood pressure equipment and the blood pressure cuff size should be corrected with bladder encircling 80% of the arm. Repeat blood pressure if blood pressure is extremely high. The ideal blood pressure is less than 120/80 on the average blood pressure should be less than 130/80. Assessment & Plan (02/13/2025 11:31 AM EDT): Hypertension is stable and controlled Continue current treatment regimen. Dietary sodium restriction. Weight loss. Ambulatory blood pressure monitoring. Blood pressure will be reassessed in 3 months. Discussed with patient [employer] and [employer] provide detailed guidelines for accurate blood pressure measurement. Jhaveri steps for proper blood pressure measurement include: Recommend being fully relaxed sitting in chair with feet on the floor and back supported for at least 5 minutes. Avoid caffeine, exercise and smoking for at least 30 minutes before management. Ensure empty bladder, remove clothing covering the location of the cuff placement using proper blood pressure equipment and the blood pressure cuff size should be corrected with bladder encircling 80% of the arm. Repeat blood pressure if blood pressure is extremely high. The ideal blood pressure is less than 120/80 on the average blood pressure should be less than 130/80. Assessment & Plan (09/20/2024 12:08 PM EST): The patient has hypertension with CKD stage III, the patient was initially on Cardizem which was discontinued due to low blood pressure. Will continue to watch blood pressure and the goals of blood pressure discussed. Hyperlipidemia LDL goal <70 09/19/2024 Assessment & Plan (05/16/2025 11:36 AM EDT): Lipid abnormalities are stable Plan: Continue same [...] Continue Lipitor 40 mg once a day. Assessment & Plan (02/13/2025 11:31 AM EDT): Lipid abnormalities are stable Plan: Continue same [...] Continue Lipitor 40 mg once a day. Assessment & Plan (09/20/2024 12:08 PM EST): The patient will continue Lipitor 40 mg once a day. The goals discussed in detail. Labs reviewed with the patient. She will have it repeated in 6 months or sooner. Encounters Date Type Department Care Team Description 05/16/2025 11:00 AM EDT Office Visit [facility] [address] [facility] [address] [place] [address] Kranthi Hoskins MD Paroxysmal atrial fibrillation (Primary Dx); Hyperlipidemia LDL goal <70; Benign essential hypertension 05/16/2025 Travel 03/15/2025 Telephone [facility] [address] [facility] [address] [place] [address] Kranthi Hoskins MD NEED LABS FAXED FOR PT from Last 3 Months Family History Medical History Relation Name Comments Hyperlipidemia Father Hypertension Father Hyperlipidemia Mother Hypertension Mother Relation Name Status Comments Father Mother Social History Tobacco Use Types Packs/Day Years Used Date Smoking Tobacco: Never Smokeless Tobacco: Never Tobacco Cessation:Counseling Given: Not Answered Alcohol Use Standard Drinks/Week Comments Never 0 (1 standard drink = 0.6 oz pur e alcohol) Comments Unknown Sex and Gender Information Value Date Recorded Sex Assigned at Not on file Legal Sex Female 10:15 AM EDT Gender Identity Not on file Sexual Orientation Not on file Last Filed Vital Signs Vital Sign Reading [...] Mass Index 17.49 05/16/2025 10:53 AM EDT Plan of Treatment Upcoming Encounters Date Type Department Care Team (Late st Contact Info) Description 09/14/2025 11:00 AM EST Office Visit [facility] [address] [facility] [address] [place] [address] Kranthi Hoskins MD [address] [facility] [address] [place] [address] Health Maintenance Due Date Last Done Comments DXA SCAN 1945 Pneumococcal Vaccine 50+ (1 of 2 - PCV) 1963 TDAP/TD VACCINES (1 - Tdap) 1963 ZOSTER VACCINE (1 of 2) 1994 RSV Vaccine - Adults (1 - 1- dose 75+ series) 2019 ANNUAL WELLNESS VISIT 11/27/2020 INFLUENZA VACCINE 03/03/2025 05/26/2024, , 04/25/2016 COVID-19 Vaccine (6 - Modern a risk season) 2025 05/26/2024, 07/08/2023, 05/14/2022, Additional history exists LIPID PANEL 09/20/2025 09/20/2024 Procedures Procedure Name Priority Date/Time Associated Diagnosis Comments LIPID PANEL Routine 09/20/2024 Paroxysmal atrial fibrillation Benign essential hypertension Hyperlipidemia LDL goal <70 from Last 3 Months or Most Recently Relevant to Health Maintenance Results * Lipid Panel (09/20/2024) Blood us Kranthi Hoskins MD LAB BLOOD ORDERABLES Final Resu lt [facility]
[address] [place] [address], [place] [phone] from Last 3 Months or Most Recently Relevant to Health Maintenance Insurance MEDICARE A & B [facility] [employer] AND [facility] Care Teams Nurse Sane Relationship Specialty Start Date End Date Tavo Rosales MD [address] [place] [address] PCP - General Family Medicine 05/16/25
--- OUTSIDE RECORDS SUMMARY | 2025-06-07 10:02 | XMS_ITS | Encounter Summary ---
Author Organization [facility] ([place], [place], [place], [place], [place]) Address [address] [place] [address] Care Team Providers Care Stationary Boiler Fireman Name Role Phone Tavo Rosales MD Primary Care Provider [phone] Encounter Details Date Type Department Care Team (Late st Contact Info) Description 05/10/[address] [facility] Family Medicine [facility] [place] [address] ProviderRoberta MD [address] [place] [id number] Social History Tobacco Use Types Packs/Day Years [...] Nazario MD - 05/10/2019 1:45 PM CDT Patient: ROSEMARIE KELLY Age: 73 years Sex: Female : 1945 Associated Diagnoses: None Author: GERARDO LEWIS MD-PUL Procedure Bronchoscopy procedure Date/ Time: 05/10/2019 13:46:00. Confirmed: patient, procedure, side, site, safety procedures followed. Performed by: self. Informed consent: signed by patient. Indication: biopsy transbronchial, Right lower lobe cavitary nodule enlarging in size. Preparation: NPO, pre-medications given As per anesthesia. Technique: type of bronchoscope flexible, route endotracheal tube, monitoring during procedure (blood pressure monitoring, senior software project manager, continuous pulse oximetry). Findings: Flexible Bronchoscopy was introduced through ETT. Inspection of all the airways was performed. Findings: Martha was sharp, Right and left main bronchi were wnl, All segmental and subsegmental branches of right and left bronchial tree were normal. BAL was performed from right lower lobe. Secretions were thick and whitish. It was evidence of blood coming out from right lower lobe. Edge catheter 180 degrees was then introduced and navigation to the right upper lobe cavitary nodule was performed. The nodule location was identified and confirmed with Fluoroscopy. TBBx, Cytology brushing, and BAL were all performed from right lower lobe.. Procedure tolerated: well. Electronically signed by Maryann [facility] Conversion Salesperson [employer] at 11/17/2022 3:08 PM CDT documented in this encounter Plan of Treatment Upcoming Encounters Date Type Department Care Team (Late st Contact Info) Description 07/10/2025 1:30 PM EST Office Visit [facility] [place] [facility] [address] [facility] [address] [place] [id number] Erica Arango MD [address] [facility] [address] [place] [address] documented as of this encounter Visit Diagnoses Not on filedocumented in this encounter Care Teams Stationary Boiler Fireman Relationship Specialty Start Date End Date Tavo Rosales MD [address] [phone] PCP - General Family Medicine 01/05/25 documented as of this encounter
--- OUTSIDE RECORDS SUMMARY | 2025-06-07 10:02 | XMS_ITS | Clinical Summary ---
Author Organization [facility] Address [address] [place] [address] Phone Care Team Providers Care Rib Bender Name Role Phone Tamiko Dave Unavailable Unavailable Conditions or Problems Problem Name Problem Code Onset Date Status Entry Date Provider Comment Standard Description Annotate History of mycobacterial infection/MAC Z86.19 (ICD-10-CM ) Active Danielle Hernandez Personal history of other infectious and parasitic diseases Benign Essential Hypertension 71694100 (SNOMED CT) Active Danielle Hernandez Benign hypertension Hypoxia 772005718 (SNOMED CT) 08/17 Resolved 08/17 Danielle Hernandez Hypoxia 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 ) 08/17 Resolved 08/17 Danielle Hernandez Pulmonary mycobacterial infection Pulmonary nodule 99509828 (SNOMED CT) 11/03 Resolved 11/03 Danielle Hernandez Disorder of lung Pulmonary nodule 20373314 (SNOMED CT) 11/03 Removed 11/03 Lee Howell MD Disorder of lung Solitary pulmonary nodule 844159637 (SNOMED CT) 08/17 Resolved 08/17 Lee Howell MD Solitary nodule of lung Bronchiectasi s with acute exacerbation 832500494 (SNOMED CT) 08/17 Resolved 08/17 Lee Howell MD Acute exacerbation of bronchiectasis Hemoptysis 37375366 (SNOMED CT) 08/17 Resolved 08/17 Lee Howell MD Hemoptysis Hemoptysis 03679184 (SNOMED CT) 08/17 Removed 08/17 Danielle Hernandez Hemoptysis Bronchiectasi s with acute exacerbation 945992205 (SNOMED CT) 08/17 Removed 08/17 Danielle Hernandez Acute exacerbation of bronchiectasis Bronchiectasi s w/o acute exacerbation 57938574 (SNOMED CT) 08/17 Active 08/17 Danielle Hernandez Bronchiectasis 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 ) 08/17 Removed 08/17 Danielle Hernandez Pulmonary mycobacterial infection Solitary pulmonary nodule 965434996 (SNOMED CT) 08/17 Removed 08/17 Danielle Hernandez Solitary nodule of lung Hypoxia 787342051 (SNOMED CT) 08/17 Removed 08/17 Danielle Hernandez Hypoxia Medications Medication Instructions Start Date Stop Date Generic Name [facility] Provider PREDNISONE 5 MG TABS prednisone 30143378791 Andreina Charlotte ELIQUIS 5 MG TABS by mouth twice a day apixaban 82782930500 Muncy Sulema SYMBICORT 80-4.5 MCG/ACT AERO twice a day budesonide-formo terol 99911207757 [facility] AZITHROMYCIN 250 MG TABS one tablet twice a week azithromycin 12134855717 Muncy Sulema DUONEB 0.5-2.5 (3) MG/3ML INHALATION SOLUTION Use 1 unit every four hours as needed 3 Erica Minor SERTRALINE HCL 50 MG TABS Take 1 tablet once a day sertraline 76012112804 Erica Minor MULTIVITAMIN ADULT (MULTIPLE VITAMIN) TABS Take 1 tablet once a day MULTIPLE VITAMIN Erica Minor PANTOPRAZOLE SODIUM 40 MG TBEC Take 1 tablet once a day pantoprazole 02313224648 Erica Minor ESTRADIOL 2 MG TABS Take 1 tablet once a day estradiol 05922895260 Erica Minor ALPRAZOLAM 0.25 MG TABS Take 1 tablet alprazolam 06963714132 Erica Minor VENTOLIN HFA 108 (90 Base) MCG/ACT AERS Inhale 1-2 puff every four to six hours as needed albuterol sulfate 78683590846 Erica Minor LEVOCETIRIZINE DIHYDROCHLORIDE 5 MG TABS Take 1 tablet once a day levocetirizine 26211319689 Erica Minor CLOPIDOGREL BISULFATE 75 MG TABS once a day clopidogrel 28207436067 Erica Minor ADVAIR DISKUS 250-50 MCG/DOSE INHALATION AEROSOL POWDER BREATH ACTIVATED Inhale 1 puff every twelve hours ADVAIR DISKUS 250-50 MCG/DOSE INHALATION AEROSOL POWDER BREATH ACTIVATED Erica Minor ALPRAZOLAM 0.5 MG TABS 1 tablet alprazolam 75914313947 Erica Minor SIMVASTATIN 10 MG TABS Take 1 tablet once a day simvastatin 07906663391 Erica Minor FLUTICASONE PROPIONATE 50 MCG/ACT SUSP Use 1-2 spray into both nostrils once a day fluticasone propionate 67300521953 Erica Minor D3 50 MCG (1999 UT) CHEW Take 1 tablet once a day cholecalciferol (vitamin d3) 21707023792 Erica Minor LEVOTHYROXINE SODIUM 25 MCG TABS Take 1 tablet once a day levothyroxine 20605124579 Erica Minor EPINEPHRINE 1 MG/10ML SOSY intramuscularly epinephrine 46449662278 Olivi a Minor ONDANSETRON HCL 4 MG TABS by mouth four times a day ondansetron hcl 67042174628 Erica Minor ATORVASTATIN CALCIUM 40 MG TABS by mouth once a day atorvastatin 94083322215 Erica Minor ELIQUIS 2.5 MG TABS by mouth twice a day apixaban 56096546889 Erica Minor DILTIAZEM HCL 120 MG TABS by mouth once a day diltiazem hcl 99944197899 Erica Minor LASIX 20 MG TABS by mouth once a day furosemide 30875200732 Erica Minor IPRATROPIUM-ALBUT RACHELLE 0.5-2.5 (3) MG/3ML SOLN as directed ipratropium-albu terol 91481882507 Erica oMntero ETHAMBUTOL HCL 400 MG TABS by mouth 900mg QD ethambutol 81905976136 Nico Montero ACYCLOVIR 800 MG TABS by mouth five times a day acyclovir 23114972072 Erica Montero Efudex 5 % topical cream to skin twice a day fluorouracil 57517924068 Erica Montero ASPIRIN LOW DOSE 81 MG TBEC by mouth once a day aspirin 99086217936 Erica Montero LUDA ALLERGY 60 MG TABS by mouth fexofenadine 85573595083 Erica Montero ALPRAZOLAM 0.5 MG TABS 1 tab two to three times daily. ALPRAZOLAM 12561306622 Leslie Rodriguez RIFAMPIN 300 MG CAPS 2 pills three days a week 4 RIFAMPIN 16389295173 Leslie Rodriguez ZITHROMAX Z-AARON 250 MG TABS One pill three days a week 4 AZITHROMYCIN 89979624798 Leslie Rodriguez PROMETHAZINE HCL 25 MG TABS take 1/2 tablet po prior to antibiotics 4 PROMETHAZINE HCL 74326360465 Leslie Rodriguez PROMETHAZINE HCL 25 MG TABS take 1/2 tablet po prior to antibiotics 4 PROMETHAZINE HCL 82617890079 Lee Howell MD ZITHROMAX Z-AARON 250 MG TABS One pill three days a week 4 AZITHROMYCIN 71933751216 Lee Howell MD RIFAMPIN 300 MG CAPS 2 pills three days a week 7 RIFAMPIN 84062492359 Lee Howell MD AZITHROMYCIN 250 MG TABS take 1 tab po every three days 08/18 AZITHROMYCIN 46944211577 Lee Howell MD CLOPIDOGREL BISULFATE 75 MG TABS HOLD CLOPIDOGREL BISULFATE 13361796061 Isaiah Roberson AZITHROMYCIN 250 MG TABS take 1 tab po every three days 7 AZITHROMYCIN 76717921221 Isaiah Roberson ALPRAZOLAM 0.25 MG TABS take 1 po tab 2-3 times per day ALPRAZOLAM 30194619275 Isaiah Roberson ALPRAZOLAM 0.5 MG TABS take 1 tablet t.i.d. 08/18 ALPRAZOLAM 28470037743 Isaiah Da CLOPIDOGREL BISULFATE 75 MG TABS take 1 tablet qd 08/18 CLOPIDOGREL BISULFATE 00056549315 Isaiah Roberson VITAMIN D3 50 MCG (2000 UT) CHEW take 1 tablet qd CHOLECALCIFEROL 57162313093 Seferino Kingsley VENTOLIN HFA 108 (90 Base) MCG/ACT AERS inhale 1 to 2 puffs every 4 to 6 hours as needed ALBUTEROL SULFATE 75986258191 Seferino Kingsley SIMVASTATIN 10 MG TABS take 1 tablet qd SIMVASTATIN 31805447487 Seferino Kingsley SERTRALINE HCL 50 MG TABS take 1 tablet qd 7 SERTRALINE HCL 63219744475 Seferino Kingsley PANTOPRAZOLE SODIUM 40 MG TBEC take 1 tablet qd PANTOPRAZOLE SODIUM 49819067603 Seferino Kingsley MULTIVITAMIN ADULT TABS take 1 tablet qd MULTIPLE VITAMINS-MINERAL S 84271856597 Seferino Kingsley LEVOTHYROXINE SODIUM 25 MCG TABS take 1 tablet qd LEVOTHYROXINE SODIUM 20614080487 Seferino Kingsley LEVOCETIRIZINE DIHYDROCHLORIDE 5 MG TABS take 1 tablet qd LEVOCETIRIZINE DIHYDROCHLORIDE 98402379616 Seferino Kingsley DUONEB 0.5-2.5 (3) MG/3ML INHALATION SOLUTION use 1 unit dose in nebulizer every 4 hours as needed IPRATROPIUM-ALBU TEROL 01303680381 Seferino Kingsley FLUTICASONE PROPIONATE 50 MCG/ACT SUSP use 1 to 2 sprays in each nostril daily 01/31 FLUTICASONE PROPIONATE 51677218167 Seferino Kingsley ESTRADIOL 2 MG TABS take 1 tablet qd ESTRADIOL 85081406867 Seferino Kingsley CLOPIDOGREL BISULFATE 75 MG TABS take 1 tablet qd 11/01 CLOPIDOGREL BISULFATE 65223126967 Seferino Kingsley ALPRAZOLAM 0.5 MG TABS take 1 tablet t.i.d. 11/01 ALPRAZOLAM 04586451910 Seferino Kingsley ADVAIR DISKUS 250-50 MCG/DOSE INHALATION AEROSOL POWDER BREATH ACTIVATED inhale 1 puff every 12 hours FLUTICASONE-SALM ETEROL 32242443866 Seferino Kingsley Medications Administered No information available. Allergies, Adverse Reactions, Alerts Allergy Name Reaction Description Start Date Severity Statu s Provider SULPHUR-HEEL Moderate Active Erica Minor TRIMETHOPRIM Moderate Active Erica Minor DIFFICULT TIME WITH ANTIBIOTICS Critical Active Isaiah W BACTRIM Moderate Active Seferino Kingsley Results Date Name Value Unit Range Flag Description Office Visit: Office Visit: rm 4 FALLRSKASSES yes Fall ris k assessment ORALTOBACUSE Never Tobacco smoking status SMOK STATUS Never smoker Toba international accounting manager smoking status MEDS REVIEW Done Documenta tion of current medications (procedure) Plan of Care Type Date Detail Referral CT Chest w/o con trast Referral CT Chest w/o con trast Pending order Discontinue IV a ntibiotics Pending order X-Ray, Chest, PA & Lateral Pending order X-Ray, Chest, PA & Lateral Pending order Continue IV anti biotics Pending [...] Date G2211 Complex E&M visit add-on (G2211) CPT-76220 Flu Vaccine CPT-ca Continue IV antibiotics 2024 CPT-maryam Change IV antibiotics 08/26 CPT-79520 CMP [id number] CBC with Differential 2024 G2211 Complex E&M visit add-on (G2) CPT-isai New IV antibiotic CPT-isai New IV antibiotic CPT-80207 CT Chest w/o contrast 10/18 CPT-oral Discontinue oral antibiotics CPT-jerrica New Oral Antibiotic CPT-LAB Other CPT-08057 Immunoglobulins Quant (IGG,IGA,IGE,IGM) 2 CPT-81949 IGG Subclasses (1-4) CPT-65506 CT Chest w/o contrast 08/18 Vital Signs [...] Measured 109.6 [lb_av] weight E& M Immunizations Vaccine Administration Date Standard Description CVX Co de Dose Fluzone Intramuscular Suspension Prefilled Syringe 0.5 ML Fluzone Intramuscular Suspension Prefilled Syringe 0.5 ML 140 0.5 mL Advance Directives Directive Description Start Date YES LIVING WILL; YES POWER OF ASSET ADMINISTRATOR; YES HEALTHCARE SURROGATE
--- OUTSIDE RECORDS SUMMARY | 2025-06-07 10:02 | XMS_ITS | Encounter Summary ---
Author Organization [employer] ([place], [place], [place], [place], [place]) Address [address] [place] [address] Care Team Providers Care Cremator Name Role Phone Tavo Rosales MD Primary Care Provider [phone] Reason for Visit * Reason Comments Medication Refill Encounter Details Date Type Department Care Team (Late st Contact Info) Description 05/23/2025 Refill [facility] Pulmonology - [address] [place] [address] Erica Arango MD [address] [place] [address] Nausea Social History Tobacco Use Types Packs/Day Years [...] Date Joel rded Speak language other than Togolese at home Not on file 08/21/2023 Want [...] Description 07/10/2025 1:30 PM EST Office Visit [facility] Pulmonology - [address] [place] [address] Erica Arango MD [address] [place] [address] documented as of this encounter Visit Diagnoses Diagnosis Nausea Nausea alone documented in this encounter Care Teams Cremator Relationship Specialty Start Date End Date Tavo Rosales MD [address] [place] [address] PCP - General Family Medicine 01/05/25 documented as of this encounter
--- OUTSIDE RECORDS SUMMARY | 2025-06-07 10:02 | XMS_ITS | Encounter Summary ---
Author Organization [employer] ([place], [place], [place], [place], [place]) Address [address] [place] [address] Care Team Providers Care Well Blower Name Role Phone Tavo Rosales MD Primary Care Provider [phone] Encounter Details Date Type Department Care Team (Late st Contact Info) Description 08/11/2019 Transcribed Document [facility] [place] [facility] [place] [address] ProviderRoberta MD [facility] [place], [place] [id number] Social History Tobacco Use Types Packs/Day Years Used Date Smoking Tobacco: Never Assessed Comments Unknown Sex and Gender Information Value Date Recorded Sex Assigned at Not on file Legal Sex Female 2:04 PM CDT Gender Identity Not on file Sexual Orientation Not on file documented as of this encounter Miscellaneous Notes * Cerner Conversion Note - Roberta ProviderMD - 08/11/2019 2:00 AM POULTRY PICKING MACHINE TENDER Mica Inspector Details Entered On: 08/11/2019 3:44 EST Performed On: 08/11/2019 2:00 EST by Carolina Rodriguez RN Order Details Transport Mode Order Detail : Wheelchair Isolation Precautions Order Detail : Standard Precautions Order Detail : N/A IV Order Detail : 1 Oxygen Order Detail : 1 Nurse Collect Order Detail : 0 Lift/Transfer : Minimal Central Line Order Detail : No Room Service : Appropriate Arterial Line : No Carolina Rodriguez RN - 08/11/2019 3:44 EST documented in this encounter Plan of Treatment Upcoming Encounters Date Type Department Care Team (Late st Contact Info) Description 07/10/2025 1:30 PM EST Office Visit [facility] Pulmonology - [address] [place] [address] Erica Arango MD [address] [place] [address] documented as of this encounter Visit Diagnoses Not on filedocumented in this encounter Care Teams Well Blower Relationship Specialty Start Date End Date Tavo Rosales MD [address] [facility] [place] [address] PCP - General Family Medicine 01/05/25 documented as of this encounter
--- OUTSIDE RECORDS SUMMARY | 2025-06-07 10:02 | XMS_ITS | Encounter Summary ---
Author Organization [employer] ([place], [place], [place], [place], [place]) Address [address] [place] [address] Care Team Providers Care Lumber Piler Operator Name Role Phone Tavo Rosales MD Primary Care Provider [phone] Encounter Details Date Type Department Care Team (Late st Contact Info) Description 08/09/2019 Transcribed Document [facility] [place] [facility] [place] [address] ProviderRoberta MD [address] [place] [id number] Social History Tobacco Use Types Packs/Day Years Used Date Smoking Tobacco: Never Assessed Comments Unknown Sex and Gender Information Value Date Recorded Sex Assigned at Not on file Legal Sex Female 2:04 PM CDT Gender Identity Not on file Sexual Orientation Not on file documented as of this encounter Miscellaneous Notes * Cerner Conversion Note - Roberta Nazario MD - 08/09/2019 1:51 PM ENFORCEMENT SAFETY OFFICER Patient: ROSEMARIE KELLY Age: 74 years Sex: Female : 1945 Associated Diagnoses: None Author: RODRICK DAVIS MD-INT Basic Information Time of exam 0905 The patient was resting in bed at the time of exam and in no acute distress. She reports she again had a rough night with a lot of coughing. She developed nasal congestion and nausea this morning. She was noted to have some hoarseness of her voice. Review of Systems Ear/Nose/Mouth/Throat: Nasal congestion. Respiratory: Shortness of breath, Cough, Sputum production. [...] At risk for sleep apnea / IMO [id number] / Confirmed Bronchiectasis / SNOMED CT 67321161 / Confirmed Dysphagia / SNOMED CT 59252555 / Confirmed GERD (gastroesophageal reflux disease) / SNOMED CT 835382988 / Confirmed High cholesterol / SNOMED CT 81051501 / Confirmed Hypertension / SNOMED CT 0905143595 / Confirmed Hypothyroid / SNOMED CT 29681107 / Confirmed Mycobacterium avium infection / SNOMED CT 8293602851 / Confirmed, Active Problems (8) At risk for sleep apnea Bronchiectasis Dysphagia GERD (gastroesophageal reflux disease) High cholesterol Hypertension Hypothyroid Mycobacterium avium infection Physical Examination VS/Measurements Vitals Signs (last 24 hrs) Last Charted Minimum Maximum Temp 98.7 (AUG 09 12:46) 97.7 (AUG 09 09:16) 99.7 (AUG 08 14:51) Mon HR 114 (AUG 09 12:46) 100 (AUG 08 20:12) 114 (AUG 09 12:46) Resp Rate 18 (AUG 09 12:46) 16 (AUG 09 09:16) 20 (AUG 09 12:25) SBP 133 (AUG 09 12:46) 125 (AUG 09 02:00) H 150 (AUG 08 21:00) DBP 75 (AUG 09 12:46) 67 (AUG 09 02:00) 75 (AUG 09 12:46) MAP 86 (AUG 09 12:46) 79 (AUG 09 02:00) 91 (AUG 08 21:00) SpO2 97 (AUG 09 12:46) L 93 (AUG 08 17:53) 97 (AUG [...] continue PRN klonopin. 11. Positive blood culture: Renault to be contamination, ID following. Disposition: Uncertain at this time. Electronically signed by [facility] Conversion Utility Clerk Cerner at 11/17/2022 3:02 PM CDT documented in this encounter Plan of Treatment Upcoming Encounters Date Type Department Care Team (Late st Contact Info) Description 07/10/2025 1:30 PM EST Office Visit [facility] Pulmonology - [address] [place] [address] Erica Arango MD [address] [place] [address] documented as of this encounter Visit Diagnoses Not on filedocumented in this encounter Care Teams Lumber Piler Operator Relationship Specialty Start Date End Date Tavo Rosales MD [address] [place] [id number] PCP - General Family Medicine 01/05/25 documented as of this encounter
--- OUTSIDE RECORDS SUMMARY | 2025-06-07 10:02 | XMS_ITS | Encounter Summary ---
Author Organization [employer] ([place], [place], [place], [place], [place]) Address [address] [place] [address] Care Team Providers Care Mine Car Dispatcher Name Role Phone Tavo Rosales MD Primary Care Provider [phone] Encounter Details Date Type Department Care Team (Late st Contact Info) Description 08/12/2019 Transcribed Document [facility] [place] [facility] [place] [address] ProviderRoberta MD [facility] [place], [place] [address] Social History Tobacco Use Types Packs/Day Years Used Date Smoking Tobacco: Never Assessed Comments Unknown Sex and Gender Information Value Date Recorded Sex Assigned at Not on file Legal Sex Female 2:04 PM CDT Gender Identity Not on file Sexual Orientation Not on file documented as of this encounter Miscellaneous Notes * Cerner Conversion Note - Roberta Nazario MD - 08/12/2019 9:28 AM PILE DRIVING SUPERINTENDENT Patient: ROSEMARIE KELLY Age: 74 years Sex: Female : 1945 Associated Diagnoses: None Author: JACKSON VELASQUEZ APRN Subjective Chief complaint no cp. no further arrythmia noted . Objective VS/Measurements Vital Measurements 08/12/2019 6:00 EST Systolic Blood Pressure 99 mmHg Diastolic Blood Pressure 62 mmHg Mean Arterial Pressure (MAP)-BMDI 71 Temperature Source Oral Temperature Mode Fahrenheit Temperature, Fahrenheit 98.1 Deg F Clinical Temperature, C 36.7 Deg C Heart Rate Monitored 77 bpm Respiratory Rate 16 Breaths/Min Oxygen Saturation 97 % General: Alert and oriented. Neck: No carotid bruit, No jugular venous distention. Respiratory: Lungs are clear to auscultation, Respirations are non-labored, Breath sounds are equal, Symmetrical chest wall expansion. Cardiovascular: Normal rate, Regular rhythm, No murmur, No gallop, Good pulses equal in all extremities, Normal peripheral perfusion, No edema. Gastrointestinal: Normal bowel sounds. Integumentary: Warm, Dry, [place]. 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 office follow up 1-2 weeks documented in this encounter Plan of Treatment Upcoming Encounters Date Type Department Care Team (Late st Contact Info) Description 07/10/2025 1:30 PM EST Office Visit [facility] Pulmonology - [address] [place] [address] Erica Arango MD [address] [place] [address] documented as of this encounter Visit Diagnoses Not on filedocumented in this encounter Care Teams Mine Car Dispatcher Relationship Specialty Start Date End Date Tavo Rosales MD [address] [place] [phone] PCP - General Family Medicine 01/05/25 documented as of this encounter
--- OUTSIDE RECORDS SUMMARY | 2025-06-07 10:02 | XMS_ITS | Encounter Summary ---
Author Organization [employer] ([place], [place], [place], [place], [place]) Address [address] [place] [address] Care Team Providers Care Metal Punch Press Operator Name Role Phone Tavo Rosales MD Primary Care Provider [phone] Encounter Details Date Type Department Care Team (Late st Contact Info) Description 08/10/2019 Transcribed Document [facility] [place] [facility] [place] [address] ProviderRoberta MD [address] [place] [id number] Social History Tobacco Use Types Packs/Day Years Used Date Smoking Tobacco: Never Assessed Comments Unknown Sex and Gender Information Value Date Recorded Sex Assigned at Not on file Legal Sex Female 2:04 PM CDT Gender Identity Not on file Sexual Orientation Not on file documented as of this encounter Miscellaneous Notes * Cerner Conversion Note - Roberta Nazario MD - 08/10/2019 4:11 PM BOAT WORKER On Going Discharge Planning Entered On: 08/10/2019 16:12 EST Performed On: 08/10/2019 16:11 EST by Evelyne Rodriguez Appliquer-Mattress Specialist Care Management Progress Note Discharge Arrangements : Patient Post-Acute Information Patient Name: ROSEMARIE KELLY Gender: Female : [birth year] Age: 74 Years No Post-Acute Placement(s) Listed No Post-Acute Service(s) Listed No [place] Referral(s) Listed Discharge Options Discussed with Patient : DME, Home Health Barriers to Discharge Identified : Clinical Condition of Patient Barriers to Discharge Unresolved : Clinical Condition of Patient Patient Offered Choice/Affiliations Explained : Yes List/Info Provided Pt/Fam/Support Person : Home health Were Referrals Sent to Post Acute Providers : Yes Is the Patient Meeting Medical Necessity : Yes Did you Attend Multidisciplinary Rounds? : Yes Evelyne Rodriguez Appliquer-Mattress Specialist - 08/10/2019 16:11 EST Narrative Progress Note Narrative Progress Note : 08/10 Met with pt at the bedside. Discussed home health referral with pt. Pt was agreeable to home health referral at discharge. Quality use and resource use information for home health was provided to pt. Pt chose [facility]. Referral was sent via [employer]. Continue to follow... Evelyne Rodriguez Social Worker-Mattress Specialist - 08/10/2019 16:11 EST Electronically signed by [facility] Conversion Gardening Instructor Cerner at 11/17/2022 2:58 PM CDT documented in this encounter Plan of Treatment Upcoming Encounters Date Type Department Care Team (Late st Contact Info) Description 07/10/2025 1:30 PM EST Office Visit [facility] Pulmonology - [address] [place] [phone] Erica Arango MD [address] [place] [address] documented as of this encounter Visit Diagnoses Not on filedocumented in this encounter Care Teams Metal Punch Press Operator Relationship Specialty Start Date End Date Tavo Rosales MD [address] [address] PCP - General Family Medicine 01/05/25 documented as of this encounter
--- OUTSIDE RECORDS SUMMARY | 2025-06-07 10:02 | XMS_ITS | Encounter Summary ---
Author Organization [employer] ([place], [place], [place], [place], [place]) Address [address] [place] [address] Care Team Providers Care Heating Element Builder Name Role Phone Yolanda Garcia MD Primary Care Provider [phone] Encounter Details Date Type Department Care Team (Late st Contact Info) Description 08/12/2019 Transcribed Document [facility] [place] [facility] [place] [address] ProviderRoberta MD [facility] [place] [address] Social History Tobacco Use Types Packs/Day Years Used Date Smoking Tobacco: Never Assessed Comments Unknown Sex and Gender Information Value Date Recorded Sex Assigned at Not on file Legal Sex Female 2:04 PM CDT Gender Identity Not on file Sexual Orientation Not on file documented as of this encounter Miscellaneous Notes * Cerner Conversion Note - Roberta Nazario MD - 08/12/2019 12:11 PM RENTAL REPRESENTATIVE [address] , [place] [address] Patient Copy Patient Information: Name: ROSEMARIE KELLY DECEMBER Current Date: 08/12/2019 12:11:37 : 1945 Patient Address: [address] [place] [address] Patient Attending Physician: LIS MITCHELL DO Primary Care Provider: YOLANDA GARCIA MD Primary Care Provider Discharge Diagnosis: Acute respiratory failure with hypoxemia; Community acquired pneumonia; Fever; Generalized weakness; Nausea; Severe sepsis without septic shock; history of bronchiectasis Weight on Admission: 130 lb, 0 oz Comment: Follow-up Instructions: With: Address: When: Follow up with primary care provider Within 1 to 2 weeks With: Address: When: [address] [place], [place] [address] Business (1) Within 2 weeks Discharge Instructions: Immunizations Documented During Stay: No Immunizations Found Heart Failure Discharge Instructions (if any): Stroke Related Discharge Instructions (if any): Warfarin Related Discharge Instructions (if any): Final Medication List: [facility], [address] [id number], [phone] dilTIAZem (Cardizem CD 120 mg/24 hours oral [...] Day. predniSONE (predniSONE 5 mg oral tablet) Patient Allergies: Uncoded Allergy (See Comment); Neosporin; sulfamethoxazole-trimethoprim Medication Instructions: Take your medications faithfully. Do NOT skip [...] cramping, rapid heartbeat, difficulty sleeping, and nervousness. CIGARETTE SMOKING: The facts are clear, cigarette smoking will shorten your life. Smoking can cause many illnesses along the way. As a healthcare provider, we recommend that you stop smoking. Assistance with quitting is available by contacting 3-886-UKTE-NOW. This is a free resource providing counseling, support, and referral. Or you may contact your personal physician. 4 WAYS TO GET AHEAD OF SEPSIS SEPSIS is a MEDICAL EMERGENCY. Time matters! Infections put you and your family at risk for a life-threatening condition called sepsis. Sepsis is the body???s extreme response to an infection. It is life-threatening, and without timely treatment, sepsis can rapidly lead to tissue damage, organ failure, and . Sepsis happens when an infection you already have???in your skin, lungs, urinary tract or somewhere else???triggers a chain reaction throughout your body. 1 [...] sepsis or if you have an infection that???s not getting better or is getting worse. To learn more about sepsis and how to prevent infections, visit www.cdc.gov/sepsis. STROKE is an EMERGENCY [employer] ACT F.A.S.T! FACE ?? Facial droop ?? Uneven smile ARM ?? Arm numbness ?? Arm weakness SPEECH ?? Slurred speech ?? Difficulty speaking or understanding TIME ?? Call 911 and get to the hospital immediately Have the ambulance go to the nearest stroke center. STROKE Risk Factors High blood pressure High cholesterol Heart Disease Diabetes Smoking Heavy alcohol use Physical inactivity and obesity Atrial Fibrillation (irregular heartbeat) Family history of stroke Reminder: Be sure to sign up for the [employer] Interactive patient portal, which gives you 23/02 access to your medical information ??? including these discharge instructions ??? using your computer, smartphone, or tablet. Just go to [employer] to get started. Questions? Call . [facility] would like to thank you for allowing us to assist you with your healthcare needs. JACK Pina BRENDA MAY, (or motor vehicle representative) have received the above patient education materials/instructions and have verbalized understanding: Patient Signature _ Date/Time Patient Volleyball Assistant Coach Signature (if needed) Date/Time Clinician/Hospital Volleyball Assistant Coach Signature (if needed) Date/Time Electronically signed by Maryann, [facility] Conversion White Washer Cerner at 11/17/2022 2:42 PM CDT documented in this encounter Plan of Treatment Upcoming Encounters Date Type Department Care Team (Late st Contact Info) Description 07/10/2025 1:30 PM EST Office Visit [facility] Pulmonology - [address] [place] [phone] Erica Arango MD [address] [place], [place] [phone] documented as of this encounter Visit Diagnoses Not on filedocumented in this encounter Care Teams Heating Element Builder Relationship Specialty Start Date End Date Yolanda Garcia MD [address] [place] [address] PCP - General Family Medicine 01/05/25 documented as of this encounter
--- OUTSIDE RECORDS SUMMARY | 2025-06-07 10:02 | XMS_ITS | Encounter Summary ---
Author Organization [employer] ([place], [place], [place], [place], [place]) Address [address] [place] [address] Care Team Providers Care Communication And Outreach Manager Name Role Phone Tavo Rosales MD Primary Care Provider [phone] Encounter Details Date Type Department Care Team (Late st Contact Info) Description 08/12/2019 Transcribed Document [facility] [place] [facility] [place] [address] ProviderRoberta MD [facility] [place], [place] [id number] Social History Tobacco Use Types Packs/Day Years Used Date Smoking Tobacco: Never Assessed Comments Unknown Sex and Gender Information Value Date Recorded Sex Assigned at Not on file Legal Sex Female 2:04 PM CDT Gender Identity Not on file Sexual Orientation Not on file documented as of this encounter Miscellaneous Notes * Cerner Conversion Note - Roberta Nazario MD - 08/12/2019 5:58 PM BENZENE WASHER Nursing Discharge Summary Entered On: 08/12/2019 17:58 EST Performed On: 08/12/2019 17:58 EST by FRITZ BROOKS RN Discharge Documentation Discharge Date/Time : 08/12/2019 15:30 EST Patient Disposition, General : Discharge Discharge To : Home with ambulatory/outpatient follow-up Mode Of Departure, General Discharge : Private vehicle, Wheelchair Accompanied By, Discharge : Son IV Discontinued : Yes Medications Given to Patient : No Personal Belongings With Patient : Yes Pt's Own Supply of Medications Returned : No Prescriptions Given to Patient : Electronically sent Discharge Instructions Reviewed With, Opportunity For Questions Given : Patient Patient Education Completed : Yes Teaching Method : Explanation, Printed materials Teaching Evaluation : Verbalizes understanding FRITZ BROOKS RN - 08/12/2019 17:58 EST Electronically signed by [facility] Conversion Straddle Bug Driver Cerner at 11/17/2022 2:48 PM CDT documented in this encounter Plan of Treatment Upcoming Encounters Date Type Department Care Team (Late st Contact Info) Description 07/10/2025 1:30 PM EST Office Visit [facility] Pulmonology - [address] [place] [address] Erica Arango MD [address] [place] [address] documented as of this encounter Visit Diagnoses Not on filedocumented in this encounter Care Teams Communication And Outreach Manager Relationship Specialty Start Date End Date Tavo Rosales MD [address] [place] [address] PCP - General Family Medicine 01/05/25 documented as of this encounter
--- OUTSIDE RECORDS SUMMARY | 2025-06-07 10:02 | XMS_ITS | Encounter Summary ---
Author Organization [employer] ([place], [place], [place], [place], [place]) Address [address] [place] [address] Care Team Providers Care Language And Literature Division Chair Name Role Phone Tavo Rosales MD Primary Care Provider [phone] Encounter Details Date Type Department Care Team (Late st Contact Info) Description 08/11/2019 Transcribed Document [facility] [place] [facility] [place] [address] ProviderRoberta MD [facility] [place] [id number] Social History Tobacco Use Types Packs/Day Years Used Date Smoking Tobacco: Never Assessed Comments Unknown Sex and Gender Information Value Date Recorded Sex Assigned at Not on file Legal Sex Female 2:04 PM CDT Gender Identity Not on file Sexual Orientation Not on file documented as of this encounter Miscellaneous Notes * Cerner Conversion Note - Roberta ProviderMD - 08/11/2019 9:11 AM SCHOOL HEALTH ASSISTANT Consult Phone Call Documentation Entered On: 08/11/2019 9:46 EST Performed On: 08/11/2019 9:11 EST by Will Jimenez [facility] Phone Call for Consults Consult Phone Call/Page Attempt : First call Provider Service Notified Name : Cardiology Physician Covering for Consult : JACKSON VELASQUEZ APRN Date and Time Call Returned : 08/11/2019 9:11 EST Will Jimenez [facility] - 08/11/2019 9:46 EST documented in this encounter Plan of Treatment Upcoming Encounters Date Type Department Care Team (Late st Contact Info) Description 07/10/2025 1:30 PM EST Office Visit [facility] Pulmonology - [address] [place] [address] Erica Arango MD [address] [place] [address] documented as of this encounter Visit Diagnoses Not on filedocumented in this encounter Care Teams Language And Literature Division Chair Relationship Specialty Start Date End Date Tavo Rosales MD [address] [place] [address] PCP - General Family Medicine 01/05/25 documented as of this encounter
--- OUTSIDE RECORDS SUMMARY | 2025-06-07 10:02 | XMS_ITS | Encounter Summary ---
Author Organization [facility] Address [address] [place] [address] Care Team Providers Care Microarray Analyst Name Role Phone Tavo Rosales MD Primary Care Provider [phone] Encounter Details Date Type Department Care Team (Latest Contact Info) Description 05/16/2025 Travel Social History Tobacco Use Types Packs/Day Years [...] Description 09/14/2025 11:00 AM EST Office Visit [facility] [address] [facility] [address] [address] Kranthi Hoskins MD [address] [facility] [address] [place] [address] documented as of this encounter Visit Diagnoses Not on filedocumented in this encounter Care Teams Microarray Analyst Relationship Specialty Start Date End Date Tavo Rosales MD [address] [place] [address] PCP - General Family Medicine 05/16/25 documented as of this encounter
--- OUTSIDE RECORDS SUMMARY | 2025-06-07 10:02 | XMS_ITS | Encounter Summary ---
Author Organization [employer] ([place], [place], [place], [place], [place]) Address [address] [place] [address] Care Team Providers Care Shearing Machine Feeder Name Role Phone Tavo Rosales MD Primary Care Provider [phone] Encounter Details Date Type Department Care Team (Late st Contact Info) Description 08/12/2019 Transcribed Document [facility] [place] Family Medicine [place] [address] ProviderRoberta MD [address] [id number] Social History Tobacco Use Types Packs/Day Years Used Date Smoking Tobacco: Never Assessed Comments Unknown Sex and Gender Information Value Date Recorded Sex Assigned at Not on file Legal Sex Female 2:04 PM CDT Gender Identity Not on file Sexual Orientation Not on file documented as of this encounter Miscellaneous Notes * Cerner Conversion Note - Roberta ProviderMD - 08/12/2019 2:00 AM DIESEL TECHNOLOGY INSTRUCTOR Supervisor Baking Details Entered On: 08/12/2019 6:41 EST Performed On: 08/12/2019 2:00 EST by Preeti Conroy RN Order Details Transport Mode Order Detail : Wheelchair Isolation Precautions Order Detail : Standard Precautions Order Detail : N/A IV Order Detail : 1 Oxygen Order Detail : 1 Nurse Collect Order Detail : 0 Lift/Transfer : Minimal Central Line Order Detail : No Room Service : Appropriate Arterial Line : No Preeti Conroy RN - 08/12/2019 6:41 EST Electronically signed by Maryann Cox [place] Conversion Commercial Mortgage Broker Cerner at 11/17/2022 2:57 PM CDT documented in this encounter Plan of Treatment Upcoming Encounters Date Type Department Care Team (Late st Contact Info) Description 07/10/2025 1:30 PM EST Office Visit [facility] Pulmonology - [address] [place] [address] Erica Arango MD [address] [place] [address] documented as of this encounter Visit Diagnoses Not on filedocumented in this encounter Care Teams Shearing Machine Feeder Relationship Specialty Start Date End Date Tavo Rosales MD [address] [place] [address] PCP - General Family Medicine 01/05/25 documented as of this encounter
--- OUTSIDE RECORDS SUMMARY | 2025-06-07 10:02 | XMS_ITS | Encounter Summary ---
Author Organization [employer] ([place], [place], [place], [place], [place]) Address [address] [place] [address] Care Team Providers Care Player Development Manager Name Role Phone Tavo Rosales MD Primary Care Provider [phone] Encounter Details Date Type Department Care Team (Late st Contact Info) Description 08/12/2019 Transcribed Document [facility] Family Medicine [address] [place] [address] ProviderRoberta MD [facility] [employer] [employer], [place] [address] Social History Tobacco Use Types Packs/Day Years Used Date Smoking Tobacco: Never Assessed Comments Unknown Sex and Gender Information Value Date Recorded Sex Assigned at Not on file Legal Sex Female 2:04 PM CDT Gender Identity Not on file Sexual Orientation Not on file documented as of this encounter Miscellaneous Notes * Cerner Conversion Note - Roberta Nazario MD - 08/12/2019 1:33 PM AIRCRAFT STEEL FABRICATOR Final Discharge Planning Entered On: 08/12/2019 13:35 EST Performed On: 08/12/2019 13:33 EST by Evelyne Rodriguez, Sack Cleaning Hand-Ribbon Inker Final Discharge Planning Discharge Arrangements : Patient Post-Acute Information Patient Name: ROSEMARIE KELLY Gender: Female : 43 Age: 74 Years No Post-Acute Placement(s) Listed No Post-Acute Service(s) Listed No [place] Referral(s) Listed Patient Offered Choice/Affiliations Explained : Yes Follow Up Appointment Scheduled : Yes Is Patient High/Moderate Readmission Risk? : Yes Moderate Readmission Risk - Home with Home Health : If patient has COPD or HF diagnosis, request that HH program if available, Make post-discharge physician appointment within 5-7 days of discharge., Notify liaison that patient is moderate risk for readmission, request patient be assessed 1-3 days after D/C and frequent evaluations occur next 1-2 weeks Patient/Family Notified of Plan : Yes Physician Notified Patient is Ready for Discharge? : Yes Discharge To Care Management : Home Health Services - Start of Care > 3 days-43 Evelyne Rodriguez Sack Cleaning Hand-Ribbon Inker - 08/12/2019 13:33 EST Final Narrative Note Final Narrative Note : [facility] K[facility]n. Notified Katelyn of pt's planned discharge today. Contact Dr. Rosales's office and scheduled PCP follow-up for pt on 08/17/19 at 1000. Met with pt at the bedside and inquired about arranging RW for home use. Pt reports she has a walker available at home and declined for CM to arrange new RW. Eevlyne Rodriguez Sack Cleaning Hand-Ribbon Inker - 08/12/2019 13:33 EST documented in this encounter Plan of Treatment Upcoming Encounters Date Type Department Care Team (Late st Contact Info) Description 07/10/2025 1:30 PM EST Office Visit [facility] Pulmonology - [address] [place] [address] Erica Arango MD [address] [place] [address] documented as of this encounter Visit Diagnoses Not on filedocumented in this encounter Care Teams Player Development Manager Relationship Specialty Start Date End Date Tavo Rosales MD [address] [id number] PCP - General Family Medicine 01/05/25 documented as of this encounter
--- OUTSIDE RECORDS SUMMARY | 2025-06-07 10:02 | XMS_ITS | Data Portability ---
Author Organization [facility] LEISA Gordon [facility] Address [address] [facility] [facility] [address] [place] [address] Care Team Providers Care Senior Materials Scientist Name Role Phone TAVO ROSALES Referring Provider Assessment No assessment recorded. Plan of Treatment Reminders Order Date Submit Date Provider Last Modified By Organization Details Last Modified Time Details Appointments None record ed. Lab urinal ysis, dipsti ck, auto 019 12/23/19 19 Cu/Lc Urology [facility], [address] [facility], [place], [address], 9 14:35:33 urinal ysis, dipsti ck, auto 019 11/17/19 19 Cu/Lc Urology [facility], [address] [facility], [place], [address], 9 14:19:20 Referral None record ed. Procedures None record ed. Surgeries None record ed. Imaging None record ed. Medication Orders None record ed. Patient TargetsNo targets recorded. Patient Instructions Encounter Date Encounter Id Patient Instructions Last Modified By Organization Details Last Modified Time 11/16/2018 [id number] PVR just 20 ml, urethra very stenotic - could only pass 16 Fr sound. Discussed and decided would proceed with cysto dilation under MAC anesthesia near future. We have discussed the alternatives. Patient has been advised of the risks and potential complications of this procedure and anesthetic and would like to proceed. Not available 11/16/2018 14:18:58 12/06/2018 [id number] Still c/o urgency, nocturia and slowing and has now developed some dysuria. Cysto normal, urethra stenotic. Will see in office in 2 wks, she will use azo prn Not available 12/06/2018 11:19:19 12/22/2018 [id number] She says now muc h better with mild-moderate residual urgency - will try hep cocktail tx today, see back prn Not available 12/22/2018 14:37:06 03/01/2019 [id number] thyroid nodules: care instructions [email or web address] Not available 03/01/2019 18:47:08 1. Bilateral cerumenectomy performed; Full risks, complications, and benefits of operative versus non-operative intervention have been thoroughly discussed. Understanding was expressed, informed consent given, and we will proceed with the discussed in office treatment plan. There were no questions for me at the end of the office visit. 2. Order repeat thyroid ultrasound asalva Not available 03/01/2019 15:16:41 03/01/2019 [id number] earache: care instructions [email or web address] Not available 03/01/2019 16:53:16 Reason for Referral None Reported. Results Created Date Observation Date Name Description Value Unit Range Abnormal Flag Note LastModifiedBy Organization Detail LastModifiedTime 12/23/19 19 12/22/2018 urina lysis , dipst ick, auto Unknown Analyte Yellow Not Available Cu/Lc Urology [facility] [address] [place], [address], 12/22/2018 13:33:55 12/23/19 19 12/22/2018 urina lysis , dipst ick, auto Unknown Analyte Clear Not Available Cu/Lc Urology [facility] [address] [place], [address], 12/22/2018 13:33:55 12/23/19 19 12/22/2018 urina lysis , dipst ick, auto Unknown Analyte 1.015 Not Available Cu/Lc Urology [facility] [address] [place], [address], 12/22/2018 13:33:55 12/23/19 19 12/22/2018 urina lysis , dipst ick, auto Unknown Analyte 6.5 Not Available Cu[facility]Lc [facility] [address] [place], [address], 12/22/2018 13:33:55 12/23/19 19 12/22/2018 urina lysis , dipst ick, auto Unknown Analyte 25 Sena/ul Trace Not Available Cu/Lc Urolo [facility] [address] [place], [address], 12/22/2018 13:33:55 12/23/19 19 12/22/2018 urina lysis , dipst ick, auto Unknown Analyte Negati ve Not Available Cu/Lc Urol[facility] [address] [place], [address], 12/22/2018 13:33:55 12/23/19 19 12/22/2018 urina lysis , dipst ick, auto Unknown Analyte Negtiv e Not Available Cu/Lc [facility]rol[facility] [address] [place], [address], 12/22/2018 13:33:55 12/23/19 19 12/22/2018 urina lysis , dipst ick, auto Unknown Analyte Normal Not Available Cu[facility]Lc [facility] [address] [place], [address], 12/22/2018 13:33:55 12/23/19 19 12/22/2018 urina lysis , dipst ick, auto Unknown Analyte Negati ve Not Available Cu/Lc Urol[facility] [address] [place], [address], 12/22/2018 13:33:55 12/23/19 19 12/22/2018 urina lysis , dipst ick, auto Unknown Analyte 1 mg/dl Not Available Cu/Lc Urol[facility] [address] [place], [address], 12/22/2018 13:33:55 12/23/19 19 12/22/2018 urina lysis , dipst ick, auto Unknown Analyte Negati ve Not Available Cu/Lc Urol[facility] [address] [place], [address], 12/22/2018 13:33:55 12/23/19 19 12/22/2018 urina lysis , dipst ick, auto Unknown Analyte Negati ve Not Available Cu/Lc Urol[facility] [address] [facility], [place], [address], 12/22/2018 13:33:55 12/23/19 19 12/22/2018 urina lysis , dipst ick, auto Unknown Analyte Clean Catch Not Available Cu/Lc Urol[facility] [address] [place], [address], 12/22/2018 13:33:55 12/23/19 19 12/22/2018 urina lysis , dipst ick, auto Unknown Analyte Automa venancio Not Available Cu/Lc Urolo [facility] [address] [place], [address], 12/22/2018 13:33:55 11/17/19 19 11/16/2018 urina lysis , dipst ick, auto Unknown Analyte Yellow Not Available Cu/Lc Urology [facility] [address] [place], [address], 11/16/2018 13:24:12 11/17/19 19 11/16/2018 urina lysis , dipst ick, auto Unknown Analyte Clear Not Available Cu/Lc [facility] [address] [place], [address], 11/16/2018 13:24:12 11/17/19 19 11/16/2018 urina lysis , dipst ick, auto Unknown Analyte 1.015 Not Available Cu[facility]Lc [facility] [address] [place], [address], 11/16/2018 13:24:12 11/17/19 19 11/16/2018 urina lysis , dipst ick, auto Unknown Analyte 5.0 Not Available Cu/Lc U[facility] [address] [facility], [place], [address], 11/16/2018 13:24:12 11/17/19 19 11/16/2018 urina lysis , dipst ick, auto Unknown Analyte Negati ve Not Available Cu/Lc Urolo gy [facility] [address] [facility], [place], [address], 11/16/2018 13:24:12 11/17/19 19 11/16/2018 urina lysis , dipst ick, auto Unknown Analyte Negati ve Not Available Cu/Lc Urolo gy [facility] [address] [facility], [place], [address], 11/16/2018 13:24:12 11/17/19 19 11/16/2018 urina lysis , dipst ick, auto Unknown Analyte Negtiv e Not Available Cu/Lc Urolo gy [facility] [address] [facility], [place], [address], 11/16/2018 13:24:12 11/17/19 19 11/16/2018 urina lysis , dipst ick, auto Unknown Analyte Normal Not Available Cu/Lc Urology [facility] [address] [place], [address], 11/16/2018 13:24:12 11/17/19 19 11/16/2018 urina lysis , dipst ick, auto Unknown Analyte Negati ve Not Available Cu/Lc Urolo gy [facility] [address] [facility], [place], [address], 11/16/2018 13:24:12 11/17/19 19 11/16/2018 urina lysis , dipst ick, auto Unknown Analyte Normal Not Available Cu/Lc Urology [address], [place], [address], 11/16/2018 13:24:12 11/17/19 19 11/16/2018 urina lysis , dipst ick, auto Unknown Analyte Negati ve Not Available Cu/Lc Urolo [facility] [address] [facility], [place], [address], 11/16/2018 13:24:12 11/17/19 19 11/16/2018 urina lysis , dipst ick, auto Unknown Analyte Negati ve Not Available Cu/Lc Urolo gy [facility] [address] [place], [address], 11/16/2018 13:24:12 11/17/19 19 11/16/2018 urina lysis , dipst ick, auto Unknown Analyte Clean Catch Not Available Cu/Lc Urolo gy [facility] [address] [place], [address], 11/16/2018 13:24:12 11/17/19 19 11/16/2018 urina lysis , dipst ick, auto Unknown Analyte Automa venancio Not Available Cu/Lc Urolo [facility] [address] [facility], [place], [address], 11/16/2018 13:24:12 11/05/19 19 elect romyo gram + nerve condu ction study No observ ation record ed. [email or web address] Not Available 2018 09:27:25 03/02/20 19 03/01/2019 audio gram No observ ation record ed. BARCODE Not Available 2018 09:52:51 03/10/20 19 03/10/2019 US, neck, soft tissu e [place] [facility] [address] [facility] [place] [address] [place] lei Name: ROSEMARIE HERNANDEZ Ольга lei : 1944 Ольга lei Orderi ng Provid er: MICHELLE REYES HARLAN EXAM DATE: 2018 EXAM: US ECHO THYROI D OR PAROTI D CLINIC AL INFORM ATION: Nontox ic thyroi d nodule . TECHNI QUE: Multip le sonogr aphic images of the thyroi d gland were obtain ed. COMPAR KVNG: None. FINDIN GS: Isthmu s measur es 0.23 cm in thickn ess. Right lobe measur es 3.7 x 1.3 x 1.9 cm. Left lobe measur es 4 x 1 x 1.5 cm. The gland is normal in size and homoge neous in echote xture. Multip le bilate ral colloi d cysts are noted. The domina nt cyst on the right measur es 8 x 7 x 7 mm. The domina nt cyst on the left measur es 5 x 4 x 3 mm. IMPRES SIA: Bilate ral tiny colloi d cysts. Interp reted By: Ayes Montelongo MD Electr onical ly Signed By: Ayse Montelongo MD on 03/10/20 19 4:01 PM [email or web address] Radiology [facility] [address] [place] [address], [address], 03/11/2019 09:01:31 Result Notes None recorded. Problems No Known Problems Procedures Surgical History Date Name Laterality Status Provider Name and Address Organization Details Recorded Time 019 Tympanogram completed CHEVY RIBEIRO [facility] [place], [address], [facility] 03/01/2019 16:52:44 019 Cerumen removal - Instruments, Bilateral completed Tod Sena [facility] 03/01/2019 15:14:28 019 Bladder Installation Heparin/Kenalog completed Elder Lieberman [facility] 12/22/2018 14:24:34 019 Post Void Residual; Catheter completed THEA SARKAR MD [address] [place] [address], [address], [facility] 11/16/2018 14:19:47 019 Electromyography (EMG) with Nerve Conduction Study (NCV) completed Caprice Qiu (Nicky) [facility] 11/04/2018 13:42:29 01/01/2 017 [facility] es[facility] 13:05:03 005 dilation of esophagus completed [facility] 08/24/2018 13:04:58 000 Spine Surgery completed Adeline Langley [facility] 08/24/2018 15:17:03 998 Cholecystectomy completed [facility] 08/24/2018 13:04:26 991 Hysterectomy completed [facility] 08/24/2018 13:04:18 980 operation on bone completed [facility] 08/24/2018 13:04:12 dilation of esophagus completed [facility] 03/01/2019 14:25:07 Imaging Results None recorded. Procedure Notes None recorded. Medical Equipment None Reported. Allergies Allergen ID Allergen Name Allergen Category Reaction Reaction Severity Criticality Documentation Date Start Date Code Code System Note Provider Name and Address Organization Details Recorded Time 808643 ciproflox acin medicatio n nausea severe Not available 12/13/20182018 2551 RxNorm Patie nt repor venancio to me on this date. Kaila Cheyenne [facility] 9 10:56:16 694092 Substance with sulfonami de structure and antibacte rial mechanism of action (substanc e) medicatio n Not available Not available Not available 03/01/2019 97515 8003 SNOMED hard to vibha ate Uyen Lincoln [facility] 9 14:19:58 984399 trimethop rim medicatio n Not available Not available Not available 03/01/2019 81624 RxNorm hard to vibha ate Uyen [facility] 9 14:20:11 144250 rifampin medicatio n Not available Not available Not available 03/01/2019 9384 RxNorm hard to vibha ate Uyen Lincoln [facility] 9 14:20:27 203059 ethambuto l medicatio n Not available Not available Not available 03/01/2019 4110 RxNorm hard to vibha ate Uyen Stark [facility] 9 14:20:42 Medications Name Sig Start Date Stop Date Status Note LastModified by Organization Details LastModified Time Arthrotec 75 75 mg-200 mcg tablet,fi lm-coated Daily 08/24 completed Frequenc y: daily;Me dication Descript ion: diclofen ac-misop rostol; Dosage:1 ; Route:or al; refills: 0 Not Available Not Available Not Available atorvasta tin 40 mg tablet Take 1 tablet every day by oral route. active Not Available Not Available No t Available Protonix 40 mg tablet,de layed release Daily active Duration : 30 days;Douglas quency: daily;Me dication Descript ion: pantopra zole; Dosage:1 ; Route:or al; refills: 0; Quantity :30 enteric coated tablet Not Available Not Available Not Available albuterol sulfate 2.5 mg/3 mL (0.083 %) solution for nebulizat ion Inhale 3 mL 3 times a day by nebuliza tion route. 03/01 completed Not Available Not Available Not Available promethaz ine 12.5 mg tablet Every six hours 08/24 completed Duration : 30 days;Ins truction s: - Phenerga n 12.5 mg 1/2 to 1 tab q6h prn for mild to moderate migraine - Phenerga n 12.5 mg 1-2 tabs + Benadryl 25-50 mg and go to bed for a severe migraine ;Frequen cy: q6h;Alt Frequenc y: prn;Medi cation Descript ion: prometha zine; Dosage:1 /2-1; Route:or al; refills: 6; Quantity :45 tablet Not Available Not Available Not Available Zyrtec 10 mg tablet Take 1 tablet every day by oral route. active Not Available Not Available No t Available L-Thyroxi ne 25 mcg tablet Take 1 tablet every day by oral route. active Not Available Not Available No t Available aspirin 81 mg tablet,de layed release Take 1 tablet every day by oral route. active Not Available Not Available No t Available alprazola m 0.5 mg tablet Daily 08/24 completed Frequenc y: daily;Al t Frequenc y: prn;Medi cation Descript ion: alprazol am; Dosage:1 ; Route:or al; refills: 0 Not Available Not Available Not Available amitripty line 25 mg tablet Every night at bedtime 08/24 completed Duration : 30 days;Ins truction s: Begin with one tablet qhs; After 2 weeks increase to 2 tablets at bedtime, as tolerate d.;Frequ ency: qhs;Medi cation Descript ion: amitript yline; Dosage:1 -2; Route:or al; refills: 6; Quantity :60 tablet Not Available Not Available Not Available Azucena 180 mg tablet Daily 08/24 completed Duration : 30 days;Douglas quency: daily;Me dication Descript ion: fexofena dine; Dosage:1 ; Route:or al; refills: 12; Quantity :30 tablet Not Available Not Available Not Available Advair Diskus 250 mcg-50 mcg/dose powder for inhalatio n Two times a day 08/24 completed Duration : 30 days;Douglas quency: bid;Medi cation Descript ion: fluticas one-salm eterol; Dosage:1 inhalati on; Route:in halation ; refills: 0; Quantity :1 powder Not Available Not Available Not Available estradiol 2 mg tablet Daily 08/24 completed Frequenc y: daily;Me dication Descript ion: estradio l; Dosage:1 ; Route:or al; refills: 0; Quantity :30 tablet Not Available Not Available Not Available lisinopri l 5 mg tablet Daily 08/24 completed Frequenc y: daily;Me dication Descript ion: lisinopr il; Dosage:1 ; Route:or al; refills: 0; Quantity :30 tablet Not Available Not Available Not Available Imitrex 100 mg tablet As Directed 08/24 completed Duration : 1 day;Inst ructions : Take at onset of migraine ; may repeat 1 dose after 2 hours if migraine persists ; do not take within 24 hours of another triptan. ;Frequen cy: as direct.; Medicati on Descript ion: sumatrip mcnair; Dosage:1 ; Route:or al; refills: 6; Quantity :9 tablet Not Available Not Available Not Available Ventolin HFA 90 mcg/actua tion aerosol inhaler Inhale 2 puffs every 4 hours by inhalati on route. active Not Available Not Available No t Available Vitamin D3 25 mcg (1,000 unit) tablet Take 1 tablet every day by oral route. active Not Available Not Available No t Available Vitamin C active Not Available Not Yanelis ilable Not Available azithromy alexandra PRN active Not Available Not Available Not Available ipratropi um bromide active Not Available Not Available Not Available multivita min active Not Available Not Available Not Available Symbicort active Not Available Not Yanelis ilable Not Available sodium chloride 7 % for nebulizat ion M-W-F active Not Available Not Available Not Available Align (B. is) 03/01 completed Not Available Not Available Not Available HyoMax-SL 0.125 mg sublingua l tablet active Medicati on Descript ion: hyoscyam ine; Route:wilcox blingual ; refills: 0 Not Available Not Available Not Available More-Doph ilus 2018 active Jarro-Do philus Not Available Not Available Not Available Flonase Allergy Relief 50 mcg/actua tion nasal spray,lonny pension Daily 08/24 completed Duration : 30 days;Ins truction s: 1 spray per nostril daily;Fr equency: daily;Me dication Descript ion: fluticas one nasal; Dosage:2 sprays; Route:na riya; refills: 6; Quantity :1 spray Not Available Not Available Not Available Azo [facility] 03/01 completed Not Available Not Available Not Available Vitamin B12 1000mcg Qday active Not Available Not Available No t Available Vitals Date Recorded Body height Body mass index (BMI) Body weight Provider Name and Address Organization Details Last Updated DateTime 11/16/2018 168.91 cm 20.4 kg/m2 [address]30.[address] [facility] 11/16/2018 13:18:42 Date Recorded Body height Body mass index (BMI) Body weight Provider Name and Address Organization Details Last Updated DateTime 12/22/2018 168.91 cm 20.4 kg/m2 [address]42.[address] [facility] 12/22/2018 13:30:51 Date Recorded Body height Body mass index (BMI) Body weight Body temperature Heart rate Systolic And Diastolic Provider Name and Address Organization Details Last Updated DateTime 9 168.91 cm 20.8 kg/m2 33766.1 6 g 97.6 [degF] 85 /min 158/99 mm[Hg] Uyen Stark [facility] 9 14:31:10 Social History Question Answer Notes LastModified by Organizat ion Details LastModified Time Tobacco Smoking Status [facility] 08/24/2018 13:03:23 How Much Tobacco Do You Chew? None Information not available 03/01/2019 Live Alone Or With Others? With Others Information not available 08/24/2018 Marital Status alli Informat ion not available 08/24/2018 What Was The Date Of Your Most Recent Tobacco Screening? 12/22/2018 Information n ot available 09/20/2019 How Much Tobacco Do You Smoke? No Information not available 03/01/2019 Sex: Unknown Functional Status Question Answer Note LastModified by Organizat ion Details LastModified Time What is your level of alcohol consumption? None Information not available 08/24/2018 Do you or have you ever used smokeless tobacco? 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 Never used electronic cigarettes Information not available 03/01/2019 Mental Status None recorded. Family History Relationship Description Onset Age of this Age Resolved Age Notes LastModified by Organization Details LastModified Time Mother Family history of malignant neoplasm [email or web address] Not available 13:02:58 Mother Hypertensive disorder [email or web address] Not available 13:03:05 Mother Cerebrovascu lar accident [email or web address] Not available 08/24/2018 13:03:19 Mother Asthma Not available 03/01/2019 14:23:58 Mother Kidney disease Not available 03/01 14:24:12 Father Hypertensive disorder [email or web address] Not available 13:03:05 Father Mental health problem [email or web address] Not available 13:03:11 Father Cerebrovascu lar accident [email or web address] Not available 08/24/2018 13:03:19 Father Asthma Not available 03/01/2019 14:23:58 Brother Family history of malignant neoplasm Not available 03/01 14:23:40 Medical History Condition Response Anesthesia Complications Y Anxiety Disorder Y Acid Reflux (GERD) Y Cancer N Thyroid Problems Y Diabetes Y Bleeding Disorder N Hypertension Y Gynecological HistoryNo gynecological history recorded. 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 Hand can be anywhere, she thinks all of sudden her left hand is hot or numb, in front of her, but it will be anywhere, she uses her right hand to go get the hand which seems like someone elses hand. It is not numb when she touches it. It goes away almost immediate, as fast as it came on. DDx tumor, aneurysm, stroke. Cannot exclude cervical. She is s/p cervical spine surgery in 1999. PMH includes lung dx - will obtain MRI brain w/o; if nothing, will obtain MRA - will obtain carotid dopplers - consider EMG LUE pending above - I will see her back in f/u in 6 months or sooner PRN Hypertensive disorder 38 855907 I10 Denies h/o HTN other than 2 episodes during crisis events but recently round to have high BP 192/[address] Ibanez and now on amlodipine 5 mg daily which is controllin g it. Hyperlipidemia 71238456 E78.5 started on atorvastin since March 2018 from [facility]. - agree with tx - recommend she also begin CoQ10 - continue ASA 81 mg daily - continue MVI, vit C, vit D2, B12 [id number] KIEL SUTTON MD NEUROLOGY [facility] [address] [place] [address] 11/04/2018 11:33:17 11/04/2018 13:50:00 Cervical radiculopathy 00022313 M54.12 Neck pain 58549928 M54.2 [id number] THEA SARKAR MD UROLOGY [facility] [address] [place] [address] 11/16/2018 12:27:58 11/17/2018 09:30:21 Urge incontinence of urine 17836503 N39.41 Urethral stenosis 666043 003 N35.92 Chronic ob structive pulmonary disease 75386427 J44.9 Slowing of urinary stream 37546956 R39.12 [id number] THEA SARKAR MD SURGERY SCHEDULE [address] [place] [address] 12/06/2018 08:07:33 12/06/2018 08:10:29 Urge incontinence of urine 66626484 N39.41 Urethral stenosis 979385 003 N35.92 Chronic ob structive pulmonary disease 58479440 J44.9 Slowing of urinary stream 13802964 R39.12 [id number] THEA SARKAR MD UROLOGY [facility] [address] [place] [address] 12/22/2018 12:49:10 12/24/2018 08:28:00 Urge incontinence of urine 60084783 N39.41 Urethral stenosis 257788 003 N35.92 Chronic ob structive pulmonary disease 73389798 J44.9 Slowing of urinary stream 28049302 R39.12 Urgent shannon donnie to urinate 51289857 R39.15 [id number] LARON LAM MD [facility] [address] [place] [address] 03/01/2019 13:49:48 03/02/2019 08:32:56 Thyroid nodule 141084847 E04.1 Impacted c erumen of bilateral ears 5619378547 111754 H61.23 Pulmonary Mycobacterium avium complex infection 129656765 A31.0 [id number] CHEVY RIBEIRO [facility] [address] [place] [address] 03/01/2019 14:48:48 03/02/2019 10:25:14 [facility] 54731198 H92.03 Health Concerns Section Related Observation LastModified by Organization Detai ls LastModified Time None Recorded Concern Status LastModified by Organization Details LastModified Time None Recorded Advance Directives Directive None Recorded Payers Insurance Date Sequence Insurance Name Policy Number Policy Van Covered Member ID Van Member ID Guarantor Name 03/11/2019 2 [employer] Mark Forged (MEDICARE SUPPLEMENT) Rosemarie Kingsley Leticia [id number] Rosemarie Kingsley Leticia 06/27/2020 1 [place]) Rosemarie Kingsley Leticia [id number] Rosemarie Kingsley Leticia 09/03/2018 1 [place] [id number] Sam Aquino Leticia [id number] Rosemarie Kelly Notes Date Note Type Note Provider Name and Address Organization Details Recorded Time 11/16/2018 text/html 73 y/o new female here today with c/o incontinence which occurs with urgency. She c/o nocturia q 2 hours. She does have severe COPD, bronchiectasis and MAC mycobacterium avium complex. She states since being on oxygen at night it has improved her nocturia. She feels she emptys well but she does have slowing and uses manual crede to assist. She has no other urinary complaints today. She has prior Hx of seeing Dr. Nuñez and Dr. Gottlieb. THEA SARKAR MD [facility] [place], [address], [facility] 12/06/2018 11:03:49 12/22/2018 text/html 73 y/o female here today with c/o incontinence which occurs with urgency - now much better after last visit. She had a cystoscopy with cysto calibration on 12/06/18. She states her overall symptoms have improved since then. She does still c/o nocturia 4x. She has no other urinary complaints today. Denies any significant change in full past medical history and denies any consitutional symptoms. THEA SARKAR MD [facility] [place], [address], [facility] 12/22/2018 14:37:09 03/01/2019 text/html Rosemarie is a 73 year female being seen in the office in consultation at the request of Dr. Tavo Rosales for an evaluation of her ears and thyroid. Rosemarie states that she recently was evaluated by a doctor in [place] for pulmonary issues. At that time she was experiencing fullness and sinus pressure. She has been experiencing a decrease in her hearing over the past few years. She does state that her left ear is better than her right. Rosemarie states that she has been experiencing thyroid issues as well. She has noticed a swelling on the area of her neck regarding her thyroid. She did have testing done that indicated that Rosemarie did have 4 different thyroid nodules. She states that ultrasound was obtained a year ago in March. She was seen in this office many years ago LARON LAM MD [address] [place] [address], [id number], [facility] 03/01/2019 18:47:11 OBGyn Episode No OBEpisode recorded.
--- OUTSIDE RECORDS SUMMARY | 2025-06-07 10:02 | XMS_ITS | Encounter Summary ---
Author Organization [facility] ([place], [place], [place], [place], [place]) Address [address] [place] [address] Care Team Providers Care Shuttle Repairer Name Role Phone Tavo Rosales MD Primary Care Provider [phone] Encounter Details Date Type Department Care Team (Late st Contact Info) Description 08/12/2019 Transcribed Document [facility] [place] Family Medicine [address] [place] [address] ProviderRoberta MD [address] [place] [address] Social History Tobacco Use Types Packs/Day Years Used Date Smoking Tobacco: Never Assessed Comments Unknown Sex and Gender Information Value Date Recorded Sex Assigned at Not on file Legal Sex Female 2:04 PM CDT Gender Identity Not on file Sexual Orientation Not on file documented as of this encounter Miscellaneous Notes * Cerner Conversion Note - Roberta Nazario MD - 08/12/2019 2:25 PM DIFFERENTIAL TESTER Stroke/Warfarin Instructions Entered On: 08/12/2019 14:25 EST Performed On: 08/12/2019 14:25 EST by FRITZ BROOKS RN Stroke/Warfarin Instructions Stroke/TIA Discharge Ins : N/A Warfarin Discharge Ins : N/A FRITZ BROOKS RN - 08/12/2019 14:25 EST documented in this encounter Plan of Treatment Upcoming Encounters Date Type Department Care Team (Late st Contact Info) Description 07/10/2025 1:30 PM EST Office Visit [facility] Pulmonology - [address] [place] [address] Erica Arango MD [address] [place], [place] [id number] documented as of this encounter Visit Diagnoses Not on filedocumented in this encounter Care Teams Shuttle Repairer Relationship Specialty Start Date End Date Tavo Rosales MD [address] [place] [address] PCP - General Family Medicine 01/05/25 documented as of this encounter
--- OUTSIDE RECORDS SUMMARY | 2025-06-07 10:02 | XMS_ITS | Encounter Summary ---
Author Organization [employer] ([place], [place], [place], [place], [place]) Address [address] [place] [address] Care Team Providers Care Rack Carrier Name Role Phone Tavo Rosales MD Primary Care Provider [phone] Encounter Details Date Type Department Care Team (Late st Contact Info) Description 08/08/2019 Transcribed Document [facility] [place] [address] [place] [address] ProviderRoberta MD [address] [place], [place] [id number] Social History Tobacco Use Types Packs/Day Years Used Date Smoking Tobacco: Never Assessed Comments Unknown Sex and Gender Information Value Date Recorded Sex Assigned at Not on file Legal Sex Female 2:04 PM CDT Gender Identity Not on file Sexual Orientation Not on file documented as of this encounter Miscellaneous Notes * Cerner Conversion Note - Roberta Nazario MD - 08/08/2019 8:50 PM SPORTS COMPLEX ATTENDANT Spiritual Care Short Form Entered On: 08/08/2019 20:53 EST Performed On: 08/08/2019 20:50 EST by JEEVAN HAMMOND General Information, Spiritual Care Spiritual Care Referred by : Parts Casting Machine Operator initiated Reason for Visit : Initial Ministry Provided to : Patient Intervention/Comment/Summary Points : Pt has had a chronic lung disease for years. She seldom leaves home to go anywhere. She is a Mandaeism, but does not attend hinduism. Very receptive to pastoral visit and prayer. Spiritual/Emotional Acuity : High Spiritual Framework : Well integrated, provides significant strength/resource Active in a Sikh/Apolonia Group : No Lutheran Preference : No listed preference Parts Casting Machine Operator Follow-up Needed : Yes JEEVAN HAMMOND - 08/08/2019 20:50 EST Electronically signed by Maryann [facility] Conversion Quality Control Head Cerner at 11/17/2022 2:51 PM CDT documented in this encounter Plan of Treatment Upcoming Encounters Date Type Department Care Team (Late st Contact Info) Description 07/10/2025 1:30 PM EST Office Visit [facility] Pulmonology - [address] [place] [address] Erica Arango MD [address] [place], [place] [id number] documented as of this encounter Visit Diagnoses Not on filedocumented in this encounter Care Teams Rack Carrier Relationship Specialty Start Date End Date Tavo Rosales MD [address] [place] [address] PCP - General Family Medicine 01/05/25 documented as of this encounter
--- OUTSIDE RECORDS SUMMARY | 2025-06-07 10:02 | XMS_ITS | Encounter Summary ---
Author Organization [employer] ([place], [place], [place], [place], [place]) Address [address] [place] [address] Care Team Providers Care Hydraulic Rubbish Compactor Mechanic Name Role Phone Tavo Pierce MD Primary Care Provider Encounter Details Date Type Department Care Team (Late st Contact Info) Description 05/10/2019 Transcribed Document [facility] Family Medicine [address] [place] [address] ProviderRoberta MD [address] [place] [id number] Social History Tobacco Use Types Packs/Day Years Used Date Smoking Tobacco: Never Assessed Comments Unknown Sex and Gender Information Value Date Recorded Sex Assigned at Not on file Legal Sex Female 2:04 PM CDT Gender Identity Not on file Sexual Orientation Not on file documented as of this encounter Miscellaneous Notes * Cerner Conversion Note - Roberta Nazario MD - 05/10/2019 9:31 AM CDT Pre Procedure Adult Entered On: 05/10/2019 9:41 EDT Performed On: 05/10/2019 9:31 EDT by BABS VILLEGAS, RN Height and Weight, Clinical Dosing Height Source : Stated Height Entry Format : [place] Height, Feet : 5 ft(Converted to: 152 cm, 60 Inch) Height, Inches : 6 Inch(Converted to: 0 ft 6 Inch, 15.24 cm) Clinical Height : 167.64 cm Weight Source : Standing scale Weight Entry Format : [place] Clinical Dosing Weight : 59.55 kg Weight, Pounds : 131 lb Weight, Ounces : 0 oz Body Surface Area (BSA) : 1.67 m2 Body Mass Index : 21.2 kg/m2 [place] Body Weight : 59 kg BABS VILLEGAS RN - 05/10/2019 9:31 EDT Health Histories Smoking Status : Never (less than 100 in lifetime; none in last 30 days) Smokeless Tobacco Status : Never Implant/Device Type, Tobacco Educator and Model : cervical fusion hardware BABS VILLEGAS RN - 05/10/2019 9:31 EDT Social History (As Of: 05/10/2019 09:41:16 EDT) Tobacco: Smoking Status Never smoker. (Last Updated: 04/22/2017 09:23:16 EDT by Patti Fitch RN) Alcohol: Alcohol Use History No. (Last Updated: 04/22/2017 09:23:19 EDT by Patti Fitch RN) Substance Abuse: Drug Use Hx: No. Use in Last 12 Months: No. (Last Updated: 04/22/2017 09:23:22 EDT by Patti Fitch RN) Nutrition/Health: Caffeine intake amount: 2 per day. (Last Updated: 04/22/2017 09:23:29 EDT by Patti Fitch RN) Infectious Disease History Infectious Disease History : Chicken pox/Shingles, Influenza, Measles, Mumps Fever/Chills Last 48 Hours : No Travel To Regions with Travel Advisories : No Travel Outside [place] Within Last 30 Days : No Contact With Traveler to Advisory Region : No Tuberculosis Symptoms : Bloody Sputum Tuberculosis Screening Comment : had 2 weeks ago, has happened before BABS VILLEGAS RN - 05/10/2019 9:31 EDT Anesthesia/Transfusion History Family History of Anesthesia Reaction : No prior transfusion(s) Transfusion History : Prior anesthesia without reaction Family History of Anesthesia Reaction : None Anesthesia History Comment : sensitive maybee to propofol, states she was awate of surroundings with this and not completely asleep BABS VILLEGAS RN - 05/10/2019 9:31 EDT Functional Assessment Living Situation : Home Patient Lives With : Spouse Sensory Deficits : Other: reading glasses Current Home Treatments : Oxygen therapy, Other: pand pd machine air way vest clearance system BABS VILLEGAS RN - 05/10/2019 9:31 EDT Psychosocial History Currently in Unsafe Situation : No Tried to Harm Yourself in the Past? : No Thoughts of Harming/Killing Yourself : No BABS VILLEGAS RN - 05/10/2019 9:31 EDT Advance Directive Patient has Advance Directive *Q : Yes, Advance Directive not with the patient Advance Directive Type : Living will Copy Advance Directive Verified/on Chart : BABS Issa RN - 05/10/2019 9:31 EDT Teaching/Learning Assessment Barriers To Learning : None evident Individuals Taught : Patient Readiness to Learn : Cooperative Highest Level of Education : High school Baseline Knowledge of Topic : Good Readiness to Learn : Explanation, Printed materials BABS VILLEGAS RN - 05/10/2019 9:31 EDT General Info Preferred Name : rosemarie Arrived From : Home Mode of Arrival on Unit : Ambulatory Legal Guardian : Spouse Support Person/Patient Law Firm Administrator : Yes Want Family/Rep/Phys Notified of Admit : Yes Name/Contact Info Fam/Rep Notified Adm : lauri kelly [phone] Name/Contact Info Physician Notified Adm : KATHYA pierce Emergency Contact #1 : lauri kelly Emergency Contact #1 Emergency Contact #1 Relationship : spouse Emergency Contact #2 : na Emergency Contact #2 Phone Number : na Emergency Contact #2 Relationship : na Chief Complaint : bloody sputum hx Information Obtained From : Patient Primary Language : Malian Communication Barrier : None Status : N/A BABS VILLEGAS RN - 05/10/2019 9:31 EDT Vital Measurements Temperature Source : Oral Temperature Mode : Fahrenheit Temperature, Fahrenheit : 97.8 Deg F Clinical Temperature, C : 36.6 Deg C Heart Rate, Apical : 88 bpm Pulse Rhythm : Regular Respiratory Rate : 20 Breaths/Min Blood Pressure Source : Non-Invasive BP Device Blood Pressure Position : Supine Systolic Blood Pressure : 160 mmHg (HI) Diastolic Blood Pressure : 94 mmHg (HI) Oxygen Saturation : 97 % Oxygen Therapy Mode : Room air BABS VILLEGAS RN - 05/10/2019 9:31 EDT Sleep Apnea Risk Assmt Hx of Obstructive Sleep Apnea Diagnosis : No Snore Loudly : No Tired, Fatigued, or Sleepy During Day : No Observed Stopping Breathing During Sleep : No Have/Are Being Treated for Hypertension : Yes BMI Greater Than 35 kg/m2 : No Age over 50 Years Old : Yes Neck Circumference Greater Than 40 cm : No Gender Male : No STOP-BANG Sleep Apnea Risk Level Score : 2 BABS VILLEGAS RN - 05/10/2019 9:31 EDT Jay Scale Jay Sensory Perception : Slightly limited Jay Moisture : Occasionally moist Jay Activity : Walks occasionally Jay Mobility : No limitation Jay Nutrition : Adequate Jay Friction and Shear : No apparent problem Jay Score : 19 BABS VILLEGAS RN - 05/10/2019 9:31 EDT Pain Assessment Pain Assessment : Initial assessment Pain Scale Goal : 0 Pain Scale Used : 0-10 Scale BABS VILLEGAS RN - 05/10/2019 9:31 EDT Fall Risk Scales ABCs Fall Injury Risk Identification : Surgery ABC Fall Injury Risk : Moderate to high injury risk HICKMAN Hx Falls Immediate/Within 3 Months : No Hickman Secondary Diagnosis : Yes HICKMAN Use of Ambulatory Aid : None HICKMAN IV Therapy or IV Access : Yes Hickman Gait/Transferring : Normal, bedrest, immobile Hickman Mental Status : Oriented to own ability Hickman Fall Risk Score : 35 HICKMAN Fall Scale Risk Level : 25-45 Medium Risk Harwood Fall Interventions : Adequate lighting, Bed in low position, Call device within reach, Wheels locked BABS VILLEGAS RN - 05/10/2019 9:31 EDT Valuables and Belongings Valuables and Belongings : Clothing Clothing : Common streetwear Clothing Disposition : Bedside BABS VILLEGAS RN - 05/10/2019 9:31 EDT Pain Scale Intensity : 0 BABS VILLEGAS RN - 05/10/2019 9:31 EDT Image 4 - Images currently included in the form version of this document have not been included in the text rendition version of the form. documented in this encounter Plan of Treatment Upcoming Encounters Date Type Department Care Team (Late st Contact Info) Description 07/10/2025 1:30 PM EST Office Visit [facility] Pulmonology - [address] [place] [address] Erica Arango MD [address] [facility] [address] [place] [address] documented as of this encounter Visit Diagnoses Not on filedocumented in this encounter Care Teams Hydraulic Rubbish Compactor Mechanic Relationship Specialty Start Date End Date Tavo Pierce MD [address] [place] [address] PCP - General Family Medicine 01/05/25 documented as of this encounter
--- OUTSIDE RECORDS SUMMARY | 2025-06-07 10:03 | XMS_ITS | Encounter Summary ---
Author Organization [employer] ([place], [place], [place], [place], [place]) Address [address] [place] [address] Care Team Providers Care Gas Furnace Installer Name Role Phone Tavo Rosales MD Primary Care Provider [phone] Encounter Details Date Type Department Care Team (Late st Contact Info) Description 08/06/2019 Transcribed Document [facility] [place] [address] [place] [address] ProviderRoberta MD [address], [place] [id number] Social History Tobacco Use Types Packs/Day Years Used Date Smoking Tobacco: Never Assessed Comments Unknown Sex and Gender Information Value Date Recorded Sex Assigned at Not on file Legal Sex Female 2:04 PM CDT Gender Identity Not on file Sexual Orientation Not on file documented as of this encounter Miscellaneous Notes * Cerner Conversion Note - Roberta Nazario MD - 08/06/2019 10:03 PM MANAGER LEARNING Admission History, Adult Entered On: 08/07/2019 9:10 EST Performed On: 08/06/2019 22:03 EST by Tyler Matthew Rn Advance Directive Patient has Advance Directive *Q : Yes, Advance Directive not with the patient Advance Directive Type : Living will Copy Advance Directive Verified/on Chart : No Advance Directive Comment : Patient has one but it is at home, states she can do another one. Tyler Matthew Rn - 08/07/2019 9:07 EST Anesthesia/Transfusion History Family History of Anesthesia Reaction : No prior transfusion(s) Transfusion History : Prior anesthesia without reaction Family History of Anesthesia Reaction : None Tyler Matthew Rn - 08/07/2019 9:07 EST Anticipated Discharge Needs Discharge To, Anticipated : Home Tyler Matthew Rn - 08/07/2019 9:07 EST Education Topics, Admission Orientation DCP GENERIC CODE Advance Directives : Verbalizes understanding Allergy Band Applied : Verbalizes understanding Assessment/Vital Signs : Verbalizes understanding Bed Control : Verbalizes understanding Call Light : Verbalizes understanding Confidentiality : Verbalizes understanding Diet/Room Service : Verbalizes understanding Fall Prevention : Verbalizes understanding Hand Hygiene : Verbalizes understanding Healthcare Provider Visit : Verbalizes understanding ID Band Applied : Verbalizes understanding Isolation Precautions : Verbalizes understanding Orientation to Room/Bathroom : Verbalizes understanding Patient Bill of Rights : Verbalizes understanding Patient Rights/Responsibilities : Verbalizes understanding Patient Safety : Verbalizes understanding Personal Privacy Code : Verbalizes understanding Rapid Response Initiated by Patient/Family : Verbalizes understanding Rounding : Verbalizes understanding Siderails use/risks : Verbalizes understanding Skin Precautions : Verbalizes understanding Smoking Policy : Verbalizes understanding Telemetry Monitoring : Verbalizes understanding Television/Phone : Verbalizes understanding Visiting Policy : Verbalizes understanding Tyler Matthew Rn - 08/07/2019 9:07 EST Functional Assessment Living Situation : Home Patient Lives With : Spouse Persons Assisting Patient at Home : Child/Children Current Daily Living Assistance : ADLs, Housekeeping, Meals, Transportation Mobility Assistance Prior to Admission : Independent [place] Hx Falls Immediate/Within 3 Months : No Current Home Treatments : Nebulizer treatments, Oxygen therapy Tyler Matthew Rn - 08/07/2019 9:07 EST General Info Preferred Name : Rosemarie Arrived From : Home Mode of Arrival on Unit : Wheelchair Legal Guardian : Significant other Support Person/Patient Liquid Sugar Fortifier : Yes Want Family/Rep/Phys Notified of Admit : Yes Name/Contact Info Fam/Rep Notified Adm : Pedro Llanes Name/Contact Info Physician Notified Adm : Dr. Savana Rosales Emergency Contact #1 : Delonte Llanes Emergency Contact #1 Emergency Contact #1 Relationship : Son Tyler Matthew Rn - 08/07/2019 9:07 EST Emergency Contact #2 : Pedro Llanes Emergency Contact #2 Phone Number : [phone] Tyler Matthew Rn - 08/07/2019 10:31 EST Emergency Contact #2 Relationship : NA Chief Complaint : c/o chest pain for about a week per son-; son states I think she got pneumonia ; pain at 3/10; +coughing; Had tylenol dose this AM per patient. Information Obtained From : Patient Primary Language : Algerian Communication Barrier : None Tyler Matthew Rn - 08/07/2019 9:07 EST Fall Risk Scales ABCs Fall Injury Risk Identification : None H[place]MAN Hx Falls Immediate/Within 3 Months : No [place] Secondary Diagnosis : No [place] Use of Ambulatory Aid : None [place] IV Therapy or IV Access : Yes [place] Gait/Transferring : Normal, bedrest, immobile [place] Mental Status : Oriented to own ability [place] Fall Risk Score : 20 [place] Fall Scale Risk Level : 0-24 Low Risk [place] Fall Interventions : Adequate lighting, Assistive devices within reach, Bed in low position, Call device within reach, Hourly comfort/safety rounds, Non-slip footwear, Personal items within reach, Reinforced to call for assistance before getting out of bed, Room free of clutter/spills, Upper side-rails up, Wheels locked, Wires/Cords secured Tyler Matthew Rn - 08/07/2019 9:07 EST Health Histories Smoking Status : Never (less than 100 in lifetime; none in last 30 days) Smokeless Tobacco Status : Never Implant/Device Type, Certified Orthotist/Pedorthist and Model : cervical fusion hardware. Plates and Screws in neck Tyler Matthew Rn - 08/07/2019 9:07 EST Social History (As Of: 08/07/2019 09:10:49 EST) Tobacco: Smoking Status Never smoker. (Last Updated: 04/22/2017 09:23:16 EDT by Patti Fitch, [place]) Alcohol: Alcohol Use History No. (Last Updated: 04/22/2017 09:23:19 EDT by Patti Fitch, [place]) Substance Abuse: Drug Use Hx: No. Use in Last 12 Months: No. (Last Updated: 04/22/2017 09:23:22 EDT by Patti Fitch, [place]) Nutrition/Health: Caffeine intake amount: 2 per day. (Last Updated: 04/22/2017 09:23:29 EDT by Patti Fitch, [place]) Height and Weight, Clinical Dosing Height Source : Measured Height Entry Format : [place] Height, Feet : 5 ft(Converted to: 152 cm, 60 Inch) Height, Inches : 6 Inch(Converted to: 0 ft 6 Inch, 15.24 cm) Clinical Height : 167.64 cm Weight Source : Standing scale Weight Entry Format : [facility] Weight : 59.09 kg Weight, Pounds : 130 lb Body Surface Area (BSA) : 1.67 m2 Body Mass Index : 21 kg/m2 [place] Body Weight : 59 kg Tyler Matthew Rn - 08/07/2019 9:07 EST Infectious Disease History Infectious Disease History : Chicken pox/Shingles, Influenza, Measles, Mumps Isolation Needed : Standard Fever/Chills Last 48 Hours : No Travel To Regions with Travel Advisories : No Travel Outside [place] Within Last 30 Days : No Contact With Traveler to Advisory Region : No Tuberculosis Symptoms : None Tyler Matthew Rn - 08/07/2019 9:07 EST Tetanus Immunization Status Previous Tetanus Immunizations : No qualifying data available. Tetanus Immunization : Unknown Tyler Matthew Rn - 08/07/2019 9:07 EST Influenza Vaccine Asmt, Adult Previous Vaccines from Immunization Schedule : No qualifying data available. Influenza Immunization, Current Season : Yes Tyler Matthew Rn - 08/07/2019 9:07 EST Pneumococcal Vaccine Previous Vaccines from Immunization Schedule : No qualifying data available. Pneumonia Immunization Received : Yes Tyler Matthew Rn - 08/07/2019 9:07 EST Order Details Transport Mode Order Detail : Wheelchair Order Detail : N/A IV Order Detail : 1 Oxygen Order Detail : 1 Nurse Collect Order Detail : 0 Lift/Transfer : Minimal Central Line Order Detail : No Room Service : Appropriate Arterial Line : No Tyler Matthew Rn - 08/07/2019 9:07 EST Nutrition History Feeding Ability : Independent, Set-up Adaptive Feeding Equipment : None Adaptive Feeding Equipment : Regular Eating Poorly Due to Decreased Appetite : Yes Unplanned Weight Loss in Past 3-6 Months : No Malnutrition Screening Tool Total(mal) : 1 Malnutrition Screening Tool Risk Level : Patient not at risk Tyler Matthew Rn - 08/07/2019 9:07 EST [place] Suicide Severity Rating Scale (C-SSRS) CSSRS Past Month Wish to be : No CSSRS Past Month Suicidal Thoughts : No CSSRS Lifetime Suicide Behavior : No Suicide Severity Rating Score : 0 Suicide Severity Rating : No Additional Care Required at this time Tyler Matthew Rn - 08/07/2019 9:07 EST Psychosocial History Does Someone Depend on You for Care? : No Currently in Unsafe Situation : No Tyler Matthew Rn - 08/07/2019 9:07 EST Sleep Apnea Risk Assmt Hx of Obstructive Sleep Apnea Diagnosis : No Snore Loudly : No Tired, Fatigued, or Sleepy During Day : Yes Observed Stopping Breathing During Sleep : No Have/Are Being Treated for Hypertension : Yes BMI Greater Than 35 kg/m2 : No Age over 50 Years Old : Yes Neck Circumference Greater Than 40 cm : No Gender Male : No STOP-BANG Sleep Apnea Risk Level Score : 3 Tyler Matthew Rn - 08/07/2019 9:07 EST Spiritual/Cultural Needs Any Spiritual/Cultural Needs or Requests : No Tyler Matthew Rn - 08/07/2019 9:07 EST Valuables and Belongings Valuables and Belongings : Clothing Clothing : Common streetwear Clothing Disposition : Bedside Tyler Matthew Rn - 08/07/2019 9:07 EST Electronically signed by [facility], [facility] Conversion Paraplanner Cerner at 11/17/2022 3:08 PM CDT documented in this encounter Plan of Treatment Upcoming Encounters Date Type Department Care Team (Late st Contact Info) Description 07/10/2025 1:30 PM EST Office Visit [facility] Pulmonology - [address] [place] [address] Erica Arango MD [address] [place] [address] documented as of this encounter Visit Diagnoses Not on filedocumented in this encounter Care Teams Gas Furnace Installer Relationship Specialty Start Date End Date Tavo Rosales MD [address] [place] [id number] PCP - General Family Medicine 01/05/25 documented as of this encounter
--- OUTSIDE RECORDS SUMMARY | 2025-06-07 10:03 | XMS_ITS | Encounter Summary ---
Author Organization [employer] ([place], [place], [place], [place], [place]) Address [address] [place] [address] Care Team Providers Care Horizontal Resaw Operator Name Role Phone Tavo Rosales MD Primary Care Provider Encounter Details Date Type Department Care Team (Late st Contact Info) Description 08/06/2019 Transcribed Document [facility] [place] [address] [place] [address] ProviderRoberta MD [address] [place], [place] [id number] Social History Tobacco Use Types Packs/Day Years Used Date Smoking Tobacco: Never Assessed Comments Unknown Sex and Gender Information Value Date Recorded Sex Assigned at Not on file Legal Sex Female 2:04 PM CDT Gender Identity Not on file Sexual Orientation Not on file documented as of this encounter Miscellaneous Notes * Cerner Conversion Note - Roberta Nazario MD - 08/06/2019 7:47 PM CLIENT DEVELOPMENT CONSULTANT Pain Assessment Entered On: 08/06/2019 20:52 EST Performed On: 08/06/2019 20:52 EST by Dave Washington RN Intervention Information: ibuprofen Performed by MUMTAZ WHALEN RN on 08/06/2019 19:51:00 EST ibuprofen,600mg Oral Pain Assessment Pain Assessment : Follow-up assessment Dave Washington RN - 08/06/2019 20:52 EST documented in this encounter Plan of Treatment Upcoming Encounters Date Type Department Care Team (Late st Contact Info) Description 07/10/2025 1:30 PM EST Office Visit [facility] Pulmonology - [address] [place] [address] Erica Arango MD [address] [place] [address] documented as of this encounter Visit Diagnoses Not on filedocumented in this encounter Care Teams Horizontal Resaw Operator Relationship Specialty Start Date End Date Tavo Rosales MD [address] [place] [address] PCP - General Family Medicine 01/05/25 documented as of this encounter
--- OUTSIDE RECORDS SUMMARY | 2025-06-07 10:03 | XMS_ITS | Encounter Summary ---
Author Organization [employer] ([place], [place], [place], [place], [place]) Address [address] [place] [address] Care Team Providers Care Teachers' Aide Name Role Phone Tavo Rosales MD Primary Care Provider [phone] Encounter Details Date Type Department Care Team (Late st Contact Info) Description 08/06/2019 Transcribed Document [facility] [place] Family Medicine [address] [place] [address] ProviderRoberta MD [address], [place] [id number] Social History Tobacco Use Types Packs/Day Years Used Date Smoking Tobacco: Never Assessed Comments Unknown Sex and Gender Information Value Date Recorded Sex Assigned at Not on file Legal Sex Female 2:04 PM CDT Gender Identity Not on file Sexual Orientation Not on file documented as of this encounter Miscellaneous Notes * Cerner Conversion Note - Roberta ProviderMD - 08/06/2019 10:40 PM DIVERSITY SPECIALIST Evaluation, Physical Therapy Entered On: 08/07/2019 12:16 EST Performed On: 08/07/2019 12:08 EST by LENIN VALLADARES PT General Information, PT Visit Type, PT : Initial evaluation Patient Orders : Order Date Order Ordering 08/06/2019 22:40 PT Evaluation and Treatment Ordered By: LIS MITCHELL DO Active Diagnoses : 08/06/2019 12:00 Acute respiratory failure with hypoxia 08/06/2019 12:00 Bronchiectasis, uncomplicated 08/06/2019 12:00 Chest pain 08/06/2019 12:00 Fever, unspecified 08/06/2019 12:00 Nausea 08/06/2019 12:00 Pneumonia, unspecified organism 08/06/2019 12:00 Severe sepsis without septic shock 08/06/2019 12:00 Weakness Therapy Diagnosis, PT : difficulty walking Admission Date : 08/06/2019 22:02 Co-treated by, PT : Occupational Therapist Personal Devices : Personal Devices No Devices Recorded Assistive Devices : Assistive Devices No Devices Recorded Precautions in Place : Fall prevention measures General Information Comment, PT : PMH: bronchiectasis, mycobacterium avium, followed for pulmonology by Dr. Sheehan, HTN, dysphagia, HLD using 2L O2 at home as needed. LENIN VALLADARES, PT - 08/07/2019 12:08 EST General Status Patient Received Status : Supine in bed, Other: telemetry Treatment Start Time : 08/07/2019 11:15 EST Patient Left Status : Sitting edge of bed, RN/PCT informed, Family/Visitors at bedside, Communication board completed, All needs met and within reach, Other: camera assembler/PCT Informed Comment : RN and patient consenting to treatment this date. Treatment End Time : 08/07/2019 11:34 EST Treatment Time : 19 Minute(s) LENIN VALLADARES, PT - 08/07/2019 12:08 EST History and Environment Living Situation, Therapy : Home Patient Lives With : Spouse Persons Assisting Patient at Home : Child/Children Prior LOF Assist with ADL Comment : Patient lives with and states she was fully independent and managing her house and yard but that she needed rest breaks due to respiratory related fatigue and SOA. Used 2L O2 as needed but rarely, mostly just to sleep. History and Environment Comment, PT : Patient lives with in single story home with no steps to enter but has full flight with rail to basement which she states she was able to do independently but with fatigue prior to admission. 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 Has 2 sons who are involved and concerned that she frequently tries to overdo and exert herself too much. LENIN VALLADARES, PT - 08/07/2019 12:08 EST Upper Extremity Upper Extremity Dominance : Right Right UE Active ROM : WFL Right UE Strength : WFL Left UE Active ROM : WFL Left UE Strength : WFL LENIN VALLADARES, PT - 08/07/2019 12:08 EST Lower Extremity RLE Active ROM : WFL Right LE Strength : WFL LLE Active ROM : WFL Left LE Strength : WFL LENIN VALLADARES, PT - 08/07/2019 12:08 EST Functional Mobility Mobility Grid Bed Roll Left : Rehab Complete independence Bed Roll Right : Rehab Complete independence Bed Scooting : Rehab Complete independence Supine to Sit : Rehab Complete independence Sit to Stand : Rehab Minimal assistance (Comment: CGA with hand held assist [LENIN VALLADARES, PT - 08/07/2019 12:08 EST] ) Bed to Chair : Rehab Minimal assistance (Comment: CGA [LENIN VALLADARES PT - 08/07/2019 12:08 EST] ) Chair to Bed : Rehab Minimal assistance (Comment: CGA [LENIN VALLADARES, PT - 08/07/2019 12:08 EST] ) Stand to Sit : Rehab Minimal assistance (Comment: CGA [LENIN VALLADARES, PT - 08/07/2019 12:08 EST] ) Sit to Supine : Rehab Complete independence LENIN VALLADARES, PT - 08/07/2019 12:08 EST AM PAC Basic Mobility Turning Over in Bed : None Sit Down On/Stand Up From Chair w/ Arms : A little Move Back Lying to Sitting Side of Bed : None Moving To/From a Bed to Chair : A little Need to Walk in Hospital Room : A little Climbing 3-5 Steps with a Railing : A little AM-[facility] Basic Mobility Raw Score : 20 AM-PAC Basic Mobility Standardized Score : 47.67 AM-[facility] Basic Mobility CMS 0-100% Score : 35.83 % LENIN VALLADARES, PT - 08/07/2019 12:08 EST Image 1 - Images currently included in the form version of this document have not been included in the text rendition version of the form. Gait Training/Assessment, PT Weight Bearing Order Status : WBAT Gait Assistance Level : Assist, minimal Walking Distance : hand held assist and CGA at gait belt x 300 feet Ambulatory Devices : None Gait Deviations : Yes Gait Training Comment : Slow pace with small stride length and minimal arm swing/trunk rotation. Reports mild dizziness and significant fatigue with ambulation. Stair(s) Ascend/Descend Training : No LENIN VALLADARES, PT - 08/07/2019 12:08 EST Neuromuscular Reeducation, PT Balance Comment : Normal sitting balance and Fair + standing balance without AD. LENIN VALLADARES, PT - 08/07/2019 12:08 EST Neurological/Sensory Overall Sensory Response : Intact Response to Pain : Intact NASIRUS LENIN, PT - 08/07/2019 12:08 EST Cognition Assessment, PT Orientation : Oriented x 4 LENIN VALLADARES, PT - 08/07/2019 12:08 EST Edu Topics Physical Therapy Education Grid Balance Training : Verbalizes understanding Caregiver Training : Verbalizes understanding Gait Training : Verbalizes understanding Role of Physical Therapy : Verbalizes understanding Safety : Verbalizes understanding Transfer Training : Verbalizes understanding LENIN VALLADARES, PT - 08/07/2019 12:08 EST Indication Assesessment, PT Physical Therapy Indicated : Yes Interdisciplinary Consultation(s) Needed : No PT Problem List : Impaired, activities daily living, Impaired, endurance tolerance, Impaired, gait, Impaired, standing balance, Impaired, strength Potential Barriers To Therapy : None evident Rehabilitation Potential : Good LENIN VALLADARES, PT - 08/07/2019 12:08 EST Plan of Care, PT PT Tx Plan/Goals Established w Patient : Yes PT Frequency Rehab : Daily PT Duration Rehab : Seven Days PT Treatments Planned : Balance training, Gait training, Safety education, Stair training, Therapeutic exercises, Transfer training LENIN VALLADARES, PT - 08/07/2019 12:08 EST Dough Scaler And Mixer Goals Other PT LTG Grid Goal #1 Other : Patient will ambulate 400 feet with no AD and SBA with no LOB or significant gait deviations to return to premorbid functional status. Date to Meet : 08/14/2019 EST Goal Status : Initial goal LENIN VALLADARES, PT - 08/07/2019 12:08 EST Treatment Note Subjective Comment : Patient was pleasant and cooperative with treatment. Patient's Response to Treatment : No adverse reactions to treatment. Additional Objective Information : See Evaluation. Assessment : PT services required. Plan for Treatment : See POC and Goals. LENIN VALLADARES, PT - 08/07/2019 12:08 EST Pain Assessment Pain Scaled Used : 0-10 Pain scale Pain Score Pre-Intervention : 0 Pain Score During-Intervention : 0 Pain Score Post-Intervention. : 0 LENIN VALLADARES, PT - 08/07/2019 12:08 EST Image 1 - Images currently included in the form version of this document have not been included in the text rendition version of the form. Anticipated Discharge Needs, OT/PT Anticipated Discharge to : Other: Possible pulmonary rehab. Anticipated Home Equipment : None Anticipated D/C Provider Notified : Nursing LENIN VALLADARES, PT - 08/07/2019 12:[address] [facility] Gait Training Each 15 Min : 1 PT Eval Low Complexity : 1 LENIN VALLADARES, PT - 08/07/2019 12:08 EST Electronically signed by [facility], [facility] Conversion Customs Import Specialist Cerner at 11/17/2022 2:47 PM CDT documented in this encounter Plan of Treatment Upcoming Encounters Date Type Department Care Team (Late st Contact Info) Description 07/10/2025 1:30 PM EST Office Visit [facility] Pulmonology - [address] [place] [address] Erica Arango MD [address] [place] [address] documented as of this encounter Visit Diagnoses Not on filedocumented in this encounter Care Teams Teachers' Aide Relationship Specialty Start Date End Date Tavo Rosales MD [address] [place] [address] PCP - General Family Medicine 01/05/25 documented as of this encounter
--- OUTSIDE RECORDS SUMMARY | 2025-06-07 10:03 | XMS_ITS | Encounter Summary ---
Author Organization [employer] ([place], [place], [place], [place], [place]) Address [address] [place] [address] Care Team Providers Care Gas Plant Operator Name Role Phone Tavo Rosales MD Primary Care Provider [phone] Encounter Details Date Type Department Care Team (Late st Contact Info) Description 08/06/2019 Transcribed Document [facility] [place] [address] [place] [address] ProviderRoberta MD [address], [place] [id number] Social History Tobacco Use Types Packs/Day Years Used Date Smoking Tobacco: Never Assessed Comments Unknown Sex and Gender Information Value Date Recorded Sex Assigned at Not on file Legal Sex Female 2:04 PM CDT Gender Identity Not on file Sexual Orientation Not on file documented as of this encounter Miscellaneous Notes * Cerner Conversion Note - Roberta Nazario MD - 08/06/2019 7:17 PM SET O TYPE OPERATOR ED Assessment Entered On: 08/06/2019 20:08 EST Performed On: 08/06/2019 20:07 EST by Dave Washington, SENIOR ACCOUNT CLERK Quick Look Assessment Level of Consciousness : Alert, Awake Affect/Behavior : Appropriate, Calm, Cooperative Orientation : Oriented x 4 Skin Temperature : Warm Skin Description : Normal for ethnicity, [place] Dave Washington, RN - 08/06/2019 20:07 EST ED General-Functional Assess Information Obtained From : Patient Communication Barrier : None Primary Language : Armenian Any Spiritual/Cultural Needs or Requests : No Currently in Unsafe Situation : No Dave Washington, RN - 08/06/2019 20:07 EST Social Habits Smoking Status : Never (less than 100 in lifetime; none in last 30 days) Smokeless Tobacco Status : Never Desires Tobacco Cessation Calc : 0 Dave Washington RN - 08/06/2019 20:07 EST Social History (As Of: 08/06/2019 20:08:07 EST) Tobacco: Smoking Status Never smoker. (Last [...] 04/22/2017 09:23:29 EDT by Patti Fitch RN) Cardiovascular ASMT, ED Cardiovascular Assessment WDL : WDL with exceptions Chest Pain : Yes Dave Washington RN - 08/06/2019 20:07 EST documented in this encounter Plan of Treatment Upcoming Encounters Date Type Department Care Team (Late st Contact Info) Description 07/10/2025 1:30 PM EST Office Visit [facility] Pulmonology - [address] [place] [address] Erica Arango MD [address] [place] [address] documented as of this encounter Visit Diagnoses Not on filedocumented in this encounter Care Teams Gas Plant Operator Relationship Specialty Start Date End Date Tavo Rosales MD [address] [place] [place] [id number] PCP - General Family Medicine 01/05/25 documented as of this encounter
--- OUTSIDE RECORDS SUMMARY | 2025-06-07 10:03 | XMS_ITS | Encounter Summary ---
Author Organization [employer] ([place], [place], [place], [place], [place]) Address [address] [place] [address] Care Team Providers Care Employee Wellness/Fitness Coordinator Name Role Phone Tavo Rosales MD Primary Care Provider [phone] Encounter Details Date Type Department Care Team (Late st Contact Info) Description 08/06/2019 Transcribed Document [facility] Family Medicine [address] [place] [address] ProviderRoberta MD [address] [place], [place] [id number] Social History Tobacco Use Types Packs/Day Years Used Date Smoking Tobacco: Never Assessed Comments Unknown Sex and Gender Information Value Date Recorded Sex Assigned at Not on file Legal Sex Female 2:04 PM CDT Gender Identity Not on file Sexual Orientation Not on file documented as of this encounter Miscellaneous Notes * Cerner Conversion Note - Roberta Nazario MD - 08/06/2019 7:17 PM BOTTOM FILLER ED Triage Entered On: 08/06/2019 19:37 EST Performed On: 08/06/2019 19:33 EST by MUMTAZ WHALEN RN ED Triage Across the Room Chief Complaint : c/o chest pain for about a week per son-; son states I think she got pneumonia ; pain at 3/10; +coughing; Had tylenol dose this AM per patient. Triage Date/Time : 08/06/2019 19:33 EST MUMTAZ WHALEN RN - 08/06/2019 19:33 EST DCP GENERIC CODE Tracking Acuity : 2 - Emergent Tracking Group : [facility] ED East MUMTAZ WHALEN RN - 08/06/2019 19:33 EST Mode of Arrival : Wheelchair Transported to ED by : Private vehicle To Room Via : Wheelchair Accompanied By : Significant other ED Vital Signs : Document Height & Weight : Document ED Allergies : Document ED Reason for Visit : Document MUMTAZ WHALEN RN - 08/06/2019 19:33 EST Infectious Disease History Infectious Disease History : Chicken pox/Shingles, Influenza, Measles, Mumps Fever/Chills Last 48 Hours : No Travel To Regions with Travel Advisories : No Travel Outside [place] Within Last 30 Days : No Contact With Traveler to Advisory Region : No Tuberculosis Symptoms : None MUMTAZ WHALEN RN - 08/06/2019 19:33 EST Vital Signs ED Temperature Source : Oral Temperature Mode : Fahrenheit Temperature, Fahrenheit : 101.7 Deg F (HI) ED Pain : Yes Clinical Temperature, C : 38.7 Deg C Oxygen Therapy Mode : Room air Peripheral Pulse Rate : 106 bpm (HI) Respiratory Rate : 20 Breaths/Min Blood Pressure Location : Arm, right upper Blood Pressure Source : Non-Invasive BP Device Systolic Blood Pressure : 159 mmHg (HI) Diastolic Blood Pressure : 82 mmHg Oxygen Saturation : 93 % (LOW) MUMTAZ WHALEN RN - 08/06/2019 19:33 EST Allergy (As Of: 08/06/2019 19:37:15 EST) Allergies (Active) Neosporin Estimated Onset Date: Unspecified ; Reactions: rash and hives with itching ; Created By: BABS VILLEGAS RN; Reaction Status: Active ; Category: Drug ; Substance: Neosporin ; Type: Allergy ; Severity: Medium ; Updated By: BABS VILLEGAS RN; Source: Patient ; Reviewed Date: 08/06/2019 19:34 EST sulfamethoxazole-trimethoprim Estimated Onset Date: Unspecified ; Created By: Patti Fitch RN; Reaction Status: Active ; Category: Drug ; Substance: sulfamethoxazole-trimethoprim ; Type: Allergy ; Updated By: Patti Fitch RN; Reviewed Date: 08/06/2019 19:34 EST Uncoded Allergy (See Comment) Estimated Onset Date: Unspecified ; Reactions: pt states she is allergic to all antibiotocs and has seen infectious disese MD for this issue ; Created By: BABS VILLEGAS RN; Reaction Status: Active ; Category: Drug ; Substance: Uncoded Allergy (See Comment) ; Type: Allergy ; Severity: Medium ; Updated By: BABS VILLEGAS RN; Source: Patient ; Reviewed Date: 08/06/2019 19:34 EST Diagnosis Control ED (As Of: 08/06/2019 19:37:15 EST) Problems(Active) At risk for sleep apnea (IMO :49125202 ) Name of Problem: At risk for sleep apnea ; Recorder: SYSTEM, SYSTEM; Confirmation: Confirmed ; Classification: Medical ; Code: 77325404 ; Last Updated: 05/10/2019 9:41 EDT ; Life Cycle Date: 05/10/2019 ; Life Cycle Status: Active ; Vocabulary: IMO Bronchiectasis (SNOMED CT :43378699 ) Name of Problem: Bronchiectasis ; Recorder: Patti Fitch RN; Confirmation: Confirmed ; Classification: Medical ; Code: 97330861 ; Contributor System: SymcircleChart ; Last Updated: 04/22/2017 9:31 EDT ; Life Cycle Date: 04/22/2017 ; Life Cycle Status: Active ; Vocabulary: SNOMED CT Dysphagia (SNOMED CT :19126077 ) Name of Problem: Dysphagia ; Recorder: Patti Fitch RN; Confirmation: Confirmed ; Classification: Medical ; Code: 53470879 ; Contributor System: PowerChart ; Last Updated: 04/22/2017 9:15 EDT ; Life Cycle Date: 04/22/2017 ; Life Cycle Status: Active ; Vocabulary: SNOMED CT GERD (gastroesophageal reflux disease) (SNOMED CT :092915844 ) Name of Problem: GERD (gastroesophageal reflux disease) ; Recorder: BABS VILLEGAS RN; Confirmation: Confirmed ; Classification: Medical ; Code: [id number] ; Contributor System: PowerChart ; Last Updated: 05/10/2019 9:30 EDT ; Life Cycle Date: 05/10/2019 ; Life Cycle Status: Active ; Vocabulary: SNOMED CT High cholesterol (SNOMED CT :45362304 ) Name of Problem: High cholesterol ; Recorder: BABS VILLEGAS RN; Confirmation: Confirmed ; Classification: Medical ; Code: 19323717 ; Contributor System: PowerChart ; Last Updated: 05/10/2019 9:30 EDT ; Life Cycle Date: 05/10/2019 ; Life Cycle Status: Active ; Vocabulary: SNOMED CT Hypertension (SNOMED CT :4803042008 ) Name of Problem: Hypertension ; Recorder: Patti Fitch RN; Confirmation: Confirmed ; Classification: Medical ; Code: [id number] ; Contributor System: SymcircleChart ; Last Updated: 04/22/2017 9:14 EDT ; Life Cycle Date: 04/22/2017 ; Life Cycle Status: Active ; Vocabulary: SNOMED CT Hypothyroid (SNOMED CT :85507560 ) Name of Problem: Hypothyroid ; Recorder: Patti Fitch RN; Confirmation: Confirmed ; Classification: Medical ; Code: 05378609 ; Contributor System: SymcircleChart ; Last Updated: 04/22/2017 9:14 EDT ; Life Cycle Date: 04/22/2017 ; Life Cycle Status: Active ; Vocabulary: SNOMED CT Mycobacterium avium infection (SNOMED CT :0465382893 ) Name of Problem: Mycobacterium avium infection ; Recorder: Patti Fitch RN; Confirmation: Confirmed ; Classification: Medical ; Code: [id number] ; Contributor System: SymcircleChart ; Last Updated: 04/22/2017 9:13 EDT ; Life Cycle Date: 04/22/2017 ; Life Cycle Status: Active ; Vocabulary: SNOMED CT Diagnoses(Active) Chest pain Date: 08/06/2019 ; Diagnosis Type: Reason For Visit ; Confirmation: Complaint of ; Clinical Dx: Chest pain ; Classification: Medical ; Clinical Service: Emergency medicine ; Code: PNED ; Probability: 0 ; Diagnosis Code: [id number] ED Height and Weight Height Source : Measured Height Entry Format : [place] Height, Feet : 5 ft(Converted to: 152 cm, 60 Inch) Height, Inches : 6 Inch(Converted to: 0 ft 6 Inch, 15.24 cm) Clinical Height : 167.64 cm Weight Source, ED : Standing scale Weight Entry Format : [place] Weight, Pounds : 130 lb Clinical Dosing Weight : 59.09 kg Body Surface Area (BSA) : 1.67 m2 Body Mass Index : 21 kg/m2 [place] Body Weight (IBW) : 58.88 kg MUMTAZ WHALEN RN - 08/06/2019 19:33 EST Pain Assessment Pain Assessment : Initial assessment Pain Scale Used : 0-10 Scale Location : Chest Quality : Aching MUMTAZ WHALEN, RN - 08/06/2019 19:33 EST Pain Scale Intensity : 3 MUMTAZ WHALEN RN - 08/06/2019 19:33 EST Image 4 - Images currently included in the form version of this document have not been included in the text rendition version of the form. ED Influenza/Pneumoccocal Vaccine Influenza Immunization, Current Season : Yes Previous Vaccines from Immunization Schedule : No qualifying data available. MUMTAZ WHALEN RN - 08/06/2019 19:33 EST Electronically signed by Maryann, [facility] Conversion Auto Clocks Repairer Cerner at 11/17/2022 2:51 PM CDT documented in this encounter Plan of Treatment Upcoming Encounters Date Type Department Care Team (Late st Contact Info) Description 07/10/2025 1:30 PM EST Office Visit [facility] Pulmonology - [address] [place] [id number] Erica Arango MD [address] [place], [place] [id number] documented as of this encounter Visit Diagnoses Not on filedocumented in this encounter Care Teams Employee Wellness/Fitness Coordinator Relationship Specialty Start Date End Date Tavo Rosales MD [address] [place] [address] PCP - General Family Medicine 01/05/25 documented as of this encounter
--- OUTSIDE RECORDS SUMMARY | 2025-06-07 10:03 | XMS_ITS | Encounter Summary ---
Author Organization [employer] ([place], [place], [place], [place], [place]) Address [address] [place] [address] Care Team Providers Care Material Damage Adjuster Name Role Phone Tavo Rosales MD Primary Care Provider [phone] Encounter Details Date Type Department Care Team (Late st Contact Info) Description 08/06/2019 Transcribed Document [facility] [place] [address] [place] [address] ProviderRoberta MD [address] [place] [address] Social History Tobacco Use Types Packs/Day Years Used Date Smoking Tobacco: Never Assessed Comments Unknown Sex and Gender Information Value Date Recorded Sex Assigned at Not on file Legal Sex Female 2:04 PM CDT Gender Identity Not on file Sexual Orientation Not on file documented as of this encounter Miscellaneous Notes * Cerner Conversion Note - Roberta Nazario MD - 08/06/2019 10:40 PM OIL LEASE BUYER Pain Assessment Entered On: 08/12/2019 6:41 EST Performed On: 08/11/2019 23:45 EST by Preeti Conroy RN Intervention Information: acetaminophen Performed by Preeti Conroy RN on 08/11/2019 22:45:00 EST acetaminophen,650mg Oral,Fever Pain Assessment Pain Assessment : Follow-up assessment Pain Scale Goal : 0 Pain Scale Used : 0-10 Scale Preeti Conroy RN - 08/12/2019 6:41 EST Pain Scale Intensity : 1 Preeti Conroy RN - 08/12/2019 6:41 EST Image 4 - Images currently included in the form version of this document have not been included in the text rendition version of the form. documented in this encounter Plan of Treatment Upcoming Encounters Date Type Department Care Team (Late st Contact Info) Description 07/10/2025 1:30 PM EST Office Visit [facility] Pulmonology - [address] [place] [address] Erica Arango MD [address] [place] [address] documented as of this encounter Visit Diagnoses Not on filedocumented in this encounter Care Teams Material Damage Adjuster Relationship Specialty Start Date End Date Tavo Rosales MD [address] [place] [address] PCP - General Family Medicine 01/05/25 documented as of this encounter
--- OUTSIDE RECORDS SUMMARY | 2025-06-07 10:03 | XMS_ITS | Encounter Summary ---
Author Organization [employer] ([place], [place], [place], [place], [place]) Address [address] [place] [address] Care Team Providers Care Supervisor Drying And Winding Name Role Phone Tavo Rosales MD Primary Care Provider [phone] Encounter Details Date Type Department Care Team (Late st Contact Info) Description 08/06/2019 Transcribed Document [facility] Family Medicine [address] [place] [address] ProviderRoberta MD [address], [place] [address] Social History Tobacco Use Types Packs/Day Years Used Date Smoking Tobacco: Never Assessed Comments Unknown Sex and Gender Information Value Date Recorded Sex Assigned at Not on file Legal Sex Female 2:04 PM CDT Gender Identity Not on file Sexual Orientation Not on file documented as of this encounter Miscellaneous Notes * Cerner Conversion Note - Roberta Nazario MD - 08/06/2019 8:38 PM SUPERVISORY EXAMINER Rapid Response Team Documentation Entered On: 08/06/2019 20:40 EST Performed On: 08/06/2019 20:38 EST by Meghana Hui RN Rapid Response Event Time Rapid Response Team Called : 08/06/2019 19:54 EST Rapid Response Team Arrival Time : 08/06/2019 20:00 EST Rapid Response Team Event End Time : 08/06/2019 20:05 EST Rapid Response Event Intiated By : Hospital Staff Rapid Response Team Initiation Reason : Other: Code Sepsis Rapid Response Event Location Type : Emergency department Rapid Response Team Initiation Reason Details : Code Sepsis ED bed 11 Rapid Response Admission Diagnosis : Chest pain Rapid Response Medical Background : At risk for sleep apnea (Medical) Bronchiectasis (Medical) Dysphagia (Medical) GERD (gastroesophageal reflux disease) (Medical) High cholesterol (Medical) Hypertension (Medical) Hypothyroid (Medical) Mycobacterium avium infection (Medical) Rapid Response Allergies : Substance Category Reactions Severity Neosporin Drug Medium sulfamethoxazole-trimethoprim Drug Uncoded Allergy (See Comment) Drug Medium Rapid Response Recent Vital Signs : 08/06/2019 19:33 Systolic Blood Pressure 159 08/06/2019 19:33 Diastolic Blood Pressure 82 08/06/2019 19:33 Respiratory Rate 20 08/06/2019 19:33 Temperature, Fahrenheit 101.7 08/06/2019 19:33 Oxygen Saturation 93 Rapid Response Recent Lab Results : 08/06/2019 19:46 Sodium Level LOW 132 (136-146) 08/06/2019 19:46 Potassium Level 3.6 (3.5-5.1) 08/06/2019 19:46 Calcium Level 9.1 (8.5-10.1) 08/06/2019 19:46 Chloride Level LOW 101 (102-112) 08/06/2019 19:46 Carbon Dioxide Level 25 (21-32) 08/06/2019 19:46 Blood Urea Nitrogen 8 (7-22) 08/06/2019 19:46 Creatinine Level 0.94 (0.55-1.02) 08/06/2019 19:46 Hgb 11.7 (11.2-15.7) 08/06/2019 19:46 Hct 35.2 (34.1-44.9) 08/06/2019 19:46 RBC 4.03 (3.93-5.22) 08/06/2019 19:46 WBC HI 12.8 (3.9-10.0) 08/06/2019 19:46 Platelet Count 293 (163-369) 08/06/2019 19:51 Lactic Acid Level 0.9 (0.4-2.0) 08/06/2019 19:46 Troponin I Ultra <0.015 (0.015-0.045) Weight/BMI : Clinical Weight/BMI CLINICALWEIGHT: 59.09 kg (08/06/19 19:33:00) Body Mass Index: 21 kg/m2 (08/06/19 19:33:00) Rapid Response Team Recommendation/Response : GERIATRIC NURSE ASSISTANT checked with supercharger repair supervisor, code sepsis orders completed prior to GERIATRIC NURSE ASSISTANT arrival and no further actions were needed at this time. GERIATRIC NURSE ASSISTANT encouraged to call with any needs or concerns. Patient Condition at End of Event : No S/S of Acute Distress Patient Disposition Post Event : Other: Remains in ED at this time Rapid Response Supervisor Drying And Winding #1 : Meghana Hui, RN Meghana Hui, RN - 08/06/2019 20:38 EST Electronically signed by Maryann, [facility] Conversion Wire Technician Cerner at 11/17/2022 2:43 PM CDT documented in this encounter Plan of Treatment Upcoming Encounters Date Type Department Care Team (Late st Contact Info) Description 07/10/2025 1:30 PM EST Office Visit [facility] Pulmonology - [address] [place] [phone] Erica Arango MD [address] [place] [address] documented as of this encounter Visit Diagnoses Not on filedocumented in this encounter Care Teams Supervisor Drying And Winding Relationship Specialty Start Date End Date Tavo Rosales MD [address] [place] [address] PCP - General Family Medicine 01/05/25 documented as of this encounter
--- OUTSIDE RECORDS SUMMARY | 2025-06-07 10:03 | XMS_ITS | Clinical Summary ---
Author Organization [employer] ([place], [place], [place], [place], [place]) Address [address] [place] [address] Care Team Providers Care Cause Analyst Name Role Phone Tavo Rosales MD Primary Care Provider [phone] Allergies Active Allergy Reactions Criticality Noted Date Comments Benzalkonium Chloride 02/16/2023 Other reaction(s): rash and hives with itching Ciprofloxacin Nausea Only High 12/13/2018 Ethambutol Other (See Comments) 11/11/2023 Iodine Anaphylaxis High 02/16/2023 Xvtqjwhd-Taevlcpgzl-Bxc ymyxin 08/18/2022 Other reaction(s): rash and hives with itching Rifampin Other (See Comments) 11/11/2023 Shellfish Containing Products Anaphylaxis High 08/18/2022 Sulfa (Sulfonamide Antibiotics) Other (See Comments) 02/16/2023 Sulfamethoxazole-Trimet hoprim 08/18/2022 Trimethoprim Other (See Comments) 02/16/2023 Medications fexofenadine (LUDA) 60 MG tablet Take 1 tablet (60 mg total) by mouth daily. Active atorvastatin (LIPITOR) 10 MG tablet Take 1 tablet (10 mg total) by mouth daily. Active calcium carbonate/vitami n D3 (CALCIUM 500 + D ORAL) Take by mouth. A ctive dilTIAZem (DILACOR XR) 120 MG 24 hr capsule Take 1 capsule (120 mg total) by mouth daily. Active apixaban (ELIQUIS) 5 mg Tab tablet Take 0.5 tablets (2.5 mg total) by mouth 2 (two) times daily. Active cyanocobalamin (VITAMIN B-12) 1000 MCG tablet Take 1 tablet (1,000 mcg total) by mouth daily. Active pantoprazole (PROTONIX) 40 MG tablet Take 1 tablet (40 mg total) by mouth daily. Active budesonide-formo teroL (SYMBICORT) 80-4.5 mcg/actuation inhaler Inhale 2 puffs by mouth via inhaler 2 (two) times daily. 1 Inhaler 023 Active furosemide (LASIX) 20 MG tablet Take by mouth. 024 Active levothyroxine (SYNTHROID, LEVOTHROID) 25 MCG tablet Take 1 tablet (25 mcg total) by mouth daily. 024 Active levocetirizine (XYZAL) 5 MG tablet Take 1 tablet (5 mg total) by mouth daily. 024 Active amikacin (AMIKIN) 500 mg/2 mL 025 Active Eliquis 2.5 MG tablet Take 1 tablet (2.5 mg total) by mouth 2 (two) times daily. 025 Active mucus clearing device deviIndications: Mucopurulent chronic bronchitis (HCC),Bronchiect asis without complication (HCC) 2 times/ 1 hr. 1 each 025 Active albuterol 90 mcg/actuation inhalerIndicatio ns:Mucopurulent chronic bronchitis (HCC),Bronchiect asis without complication (HCC) Inhale 2 puffs by mouth every 4 (four) hours as needed for wheezing or shortness of breath. 1 Inhaler 11 025 Active ipratropium-albu teroL (DUO-NEB) 0.5 mg-3 mg(2.5 mg base)/3 mL nebulizer solutionIndicati ons:Bronchiectas is without complication (HCC),Chronic obstructive pulmonary disease, unspecified (HCC) Inhale 3 mLs by nebulization every 4 (four) hours as needed for wheezing. 540 mL 2 025 Active sodium chloride 3 % nebulizer solutionIndicati ons:Bronchiectas is without complication (HCC) Inhale 4 mLs by nebulization 2 (two) times daily. 240 mL 5 025 Active budesonide-formo teroL (Symbicort) 160-4.5 mcg/actuation inhalerIndicatio ns:Bronchiectasi s without complication (HCC) Inhale 2 puffs by mouth 2 (two) times daily Rinse mouth with water after each use. 7.2 g 6 025 Active ipratropium-albu teroL (DUO-NEB) 0.5 mg-3 mg(2.5 mg base)/3 mL nebulizer solutionIndicati ons:Mucopurulent chronic bronchitis (HCC) Inhale 3 mLs by nebulization every 4 (four) hours as needed for wheezing. 540 mL 3 025 2025 Active predniSONE (DELTASONE) 5 MG tabletIndication s:Mixed simple and mucopurulent chronic bronchitis (HCC) Take 1 tablet (5 mg total) by mouth daily . 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 12 tablet 1 025 Active ondansetron (ZOFRAN) 4 MG tabletIndication s:Nausea TAKE 1 TABLET BY MOUTH THRICE A WEEK MON/THU/THU TAKE 30 MINUTES PRIOR TO AZITHROMYCIN 30 tablet 1 025 Active ondansetron (ZOFRAN) 4 MG tabletIndication s:Nausea Take 1 tablet (4 mg total) by mouth 3 (three) times a week MON/THU/THU Take 30 minutes prior to azithromycin MWF. 30 tablet 1 025 2024 Discontinued Active Problems Problem Noted Date Diagnosed Date Abnormal EKG 12/05/2024 Diastolic dysfunction 12/05/2024 Hand numbness 12/05/2024 Oxygen dependent 12/05/2024 Palpitations 12/05/2024 Chronic obstructive lung disease 12/05/2024 Hypertensive disorder 12/05/2024 Dyspnea on exertion 12/05/2024 Anxiety 09/21/2023 09/21/2023 Cavitary lung disease 09/21/2023 09/21/2023 Chronic cough 09/21/2023 09/21/2023 Hemoptysis 09/21/2023 09/21/2023 Hypoxia 09/21/2023 09/21/2023 Kidney disease 09/21/2023 09/21/2023 Lung nodules 09/21/2023 09/21/2023 Panic attacks 09/21/2023 09/21/2023 Plantar fasciitis 09/21/2023 09/21/2023 Upper respiratory tract infection 09/21/2023 09/21/2023 Chronic obstructive pulmonary disease 07/09/2021 Pulmonary infection due to M ycobacterium avium-intracellulare (JAKE) 07/09/2021 Shortness of breath at rest 07/09/2021 Nausea 10/02/2020 Fatigue 03/12/2020 Restrictive lung disease 03/12/2020 Encounter for general adult medical examination without abnormal findings 06/03/2019 At risk for apnea 05/10/2019 Gastroesophageal reflux disease 05/10/2019 Hypercholesterolemia 05/10/2019 Bronchiectasis 04/22/2017 Dysphagia 04/22/2017 Hypertension 04/22/2017 Hypothyroidism 04/22/2017 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 Encounters Date Type Department Care Team Description 05/25/2025 Refill [facility] Pulmonology - [address] [place] [address] Erica Arango MD Bronchiectasis without complication (HCC) 05/23/2025 Refill [facility] Pulmonology - [address] [place] [address] Erica Arango MD Nausea 04/11/2025 Documentation [facility] Pulmonology [address] [place] [address] Erica Arango MD from Last 3 Months Family History Medical History Relation Name Comments Cancer Mother Relation Name Status Comments Mother Social History Tobacco Use Types Packs/Day Years Used Date Smoking Tobacco: Never Smokeless Tobacco: Never Tobacco Cessation:Counseling Given: Not Answered Alcohol Use Standard Drinks/Week Comments Not Currently 0 (1 standard drink = 0.6 oz pur e alcohol) Family and Community Support Answer Ahsan e Recorded Help with Day to Day Activities Not on file 08/21/2023 Feeling Lonely or Isolated Not on file 08/21 Educational Attainment Answer Date Joel rded Speak language other than Mosotho at home Not on file 08/21/2023 Want [...] Sign Reading Time Taken Comments Blood Pressure 123/80 01/05/2025 1:54 PM EDT Pulse 87 01/05/2025 1:54 PM EDT Temperature 36.9 C (98.4 F) 11/11/2023 11:07 AM EDT Respiratory Rate 16 01/05/2025 1:54 PM EDT Oxygen Saturation 96% 01/05/2025 1:5 4 PM EDT Pt on 2L of O2 as needed Inhaled Oxygen Concentration - - Weight 48.5 kg (107 lb) 01/05/2025 1:54 PM EDT Height 167.6 cm (5' 6 ) 01/05/2025 1:54 PM EDT Body Mass Index 17.27 01/05/2025 1:54 PM EDT Plan of Treatment Upcoming Encounters Date Type Department Care Team (Late st Contact Info) Description 07/10/2025 1:30 PM EST Office Visit [facility] Pulmonology - [facility] [address] [facility] [address] [place] [phone] Erica Arango MD [address] [facility] [address] [place] [address] Health Maintenance Due Date Last Done Comments Medicare Initial AWV G0438 DXA SCAN 1944 Depression Screening (12+) 1956 DTAP/TDAP/TD VACCINES (1 - Tdap) 1963 Pneumococcal 50+ years (1 of 2 - PCV) 1963 Shingles Vaccine (Zoster) (1 of 2) 1994 Respiratory Syncytial Virus (RSV) Adult or (1 - 1-dose 75+ series) 2019 Falls Risk Screening 08/03/2024 COVID-19 VACCINE (5 - 2024-2 6 season) 2025 05/14/2022, 06/03/2021, 10/10/2020, Additional history exists Influenza Vaccine (#1) 2025 05/14/2022, 2015 Tobacco Cessation Counseling and Screening (12+) 01/05/2026 01/05/2025 Insurance MEDICARE PART A B [employer] SR SUPP Care Teams Cause Analyst Relationship Specialty Start Date End Date Tavo Rosales MD [address] [place] [address] PCP - General Family Medicine 01/05/25
--- OUTSIDE RECORDS SUMMARY | 2025-06-07 10:03 | XMS_ITS | Encounter Summary ---
Author Organization [employer] ([place], [place], [place], [place], [place]) Address [address] [place] [address] Care Team Providers Care High School Professional Name Role Phone Tavo Rosales MD Primary Care Provider [phone] Encounter Details Date Type Department Care Team (Late st Contact Info) Description 08/07/2019 Transcribed Document [facility] [place] [facility] [place] [address] ProviderRoberta MD [facility] [place] [address] Social History Tobacco Use Types Packs/Day Years Used Date Smoking Tobacco: Never Assessed Comments Unknown Sex and Gender Information Value Date Recorded Sex Assigned at Not on file Legal Sex Female 2:04 PM CDT Gender Identity Not on file Sexual Orientation Not on file documented as of this encounter Miscellaneous Notes * Cerner Conversion Note - Roberta Nazario MD - 08/07/2019 6:43 AM LAND COMMISSIONER Admission History, Adult Entered On: 08/07/2019 6:54 EST Performed On: 08/07/2019 6:43 EST by MUMTAZ WHALEN RN Advance Directive Patient has Advance Directive *Q : Yes, Advance Directive not with the patient Advance Directive Type : Living will Copy Advance Directive Verified/on Chart : No Advance Directive Comment : Patient has one but it is at home, states she can do another one. MUMTAZ WHALEN RN - 08/07/2019 6:43 EST Anesthesia/Transfusion History Family History of Anesthesia Reaction : No prior transfusion(s) Transfusion History : Prior anesthesia without reaction Family History of Anesthesia Reaction : None MUMTAZ WHALEN RN - 08/07/2019 6:43 EST Functional Assessment Living Situation : Home Patient Lives With : Spouse Persons Assisting Patient at Home : Child/Children Current Daily Living Assistance : ADLs, Housekeeping, Meals, Transportation Mobility Assistance Prior to Admission : Independent Current Home Treatments : Nebulizer treatments, Oxygen therapy MUMTAZ WHALEN RN - 08/07/2019 6:43 EST General Info Preferred Name : Rosemarie Arrived From : Home Mode of Arrival on Unit : Wheelchair Legal Guardian : Significant other Support Person/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 Savana Rosales Emergency Contact #1 : Delonte Davilachie Emergency Contact #1 Emergency Contact #1 Relationship : Son Emergency Contact #2 : NA Emergency Contact #2 Phone Number : NA Emergency Contact #2 Relationship : NA Chief Complaint : c/o chest pain for about a week per son-; son states I think she got pneumonia ; pain at 3/10; +coughing; Had tylenol dose this AM per patient. Information Obtained From : Patient Primary Language : Wolof Communication Barrier : None MUMTAZ WHALEN RN - 08/07/2019 6:43 EST Fall Risk Scales ABCs Fall Injury Risk Identification : None HICKMAN Hx Falls Immediate/Within 3 Months : No [place] Secondary Diagnosis : No HICKMAN Use of Ambulatory Aid : None HICKMAN IV Therapy or IV Access : Yes [place]man Gait/Transferring : Weak Hickman Mental Status : Oriented to own ability [place] Fall Risk Score : 30 HICKMAN Fall Scale Risk Level : 25-45 Medium Risk [place] Fall Interventions : Adequate lighting, Bed in low position, Call device within reach, Fall prevention handout/education per facility policy, Personal items within reach MUMTAZ WHALEN RN - 08/07/2019 6:43 EST Health Histories Smoking Status : Never (less than 100 in lifetime; none in last 30 days) Smokeless Tobacco Status : Never Implant/Device Type, Environmental Programs Manager and Model : cervical fusion hardware MUMTAZ WHALEN RN - 08/07/2019 6:43 EST Social History (As Of: 08/07/2019 06:54:18 EST) Tobacco: Smoking Status Never smoker. (Last [...] 04/22/2017 09:23:29 EDT by Patti Fitch RN) Height and Weight, Clinical Dosing Height Source : Measured Height Entry Format : [facility] [place] Height, Feet : 5 ft(Converted to: 152 cm, 60 Inch) Height, Inches : 6 Inch(Converted to: 0 ft 6 Inch, 15.24 cm) Clinical Height : 167.64 cm Weight Source : Standing scale Weight Entry Format : [place] Clinical Dosing Weight : 59.09 kg Weight, Pounds : 130 lb Body Surface Area (BSA) : 1.67 m2 Body Mass Index : 21 kg/m2 [place] Body Weight : 59 kg MUMTAZ WHALEN RN - 08/07/2019 6:43 EST Infectious Disease History Infectious Disease History : Chicken pox/Shingles, Influenza, Measles, Mumps Fever/Chills Last 48 Hours : No Travel To Regions with Travel Advisories : No Travel Outside [place] Within Last 30 Days : No Contact With Traveler to Advisory Region : No Tuberculosis Symptoms : None MUMTAZ WHALEN RN - 08/07/2019 6:43 EST Influenza Vaccine Asmt, Adult Previous Vaccines from Immunization Schedule : No qualifying data available. Influenza Immunization, Current Season : Yes Influenza Immunization Comment : May 2019 MUMTAZ WHALEN RN - 08/07/2019 6:43 EST Pneumococcal Vaccine Previous Vaccines from Immunization Schedule : No qualifying data available. Pneumonia Immunization Received : Yes MUMTAZ WHALEN RN - 08/07/2019 6:43 EST Nutrition History Feeding Ability : Independent, Set-up Eating Poorly Due to Decreased Appetite : Yes Unplanned Weight Loss in Past 3-6 Months : No Malnutrition Screening Tool Total(mal) : 1 Malnutrition Screening Tool Risk Level : Patient not at risk MUMTAZ WHALEN RN - 08/07/2019 6:43 EST [place] Suicide Severity Rating Scale (C-SSRS) CSSRS Past Month Wish to be : No CSSRS Past Month Suicidal Thoughts : No CSSRS Lifetime Suicide Behavior : No Suicide Severity Rating Score : 0 Suicide Severity Rating : No Additional Care Required at this time MUMTAZ WHALEN RN - 08/07/2019 6:43 EST Psychosocial History Currently in Unsafe Situation : No MUMTAZ WHALEN RN - 08/07/2019 6:43 EST Sleep Apnea Risk Assmt Hx of [...] Sleep Apnea Risk Level Score : 3 MUMTAZ WHALEN RN - 08/07/2019 6:43 EST Valuables and Belongings Valuables and Belongings : Clothing Clothing : Common streetwear Clothing Disposition : Bedside MUMTAZ WHALEN RN - 08/07/2019 6:43 EST Electronically signed by [facility] Conversion Decorator Street And Building Cerner at 11/17/2022 2:46 PM CDT documented in this encounter Plan of Treatment Upcoming Encounters Date Type Department Care Team (Late st Contact Info) Description 07/10/2025 1:30 PM EST Office Visit [facility] Pulmonology - [address] [place] [address] Erica Arango MD [address] [place] [address] documented as of this encounter Visit Diagnoses Not on filedocumented in this encounter Care Teams High School Professional Relationship Specialty Start Date End Date Tavo Rosales MD [address] [place] [id number] PCP - General Family Medicine 01/05/25 documented as of this encounter
--- OUTSIDE RECORDS SUMMARY | 2025-06-07 10:03 | XMS_ITS | Referral Summary ---
Author Organization [employer] ([place], [place], [place], [place], [place]) Address [address] [place] [address] Care Team Providers Care Rug Hooker Hand Name Role Phone Tavo Rosales MD Primary Care Provider [phone] Encounters Date Type Department Care Team Description 05/25/2025 Refill [facility] Pulmonology - [address] [place] [address] Erica Arango MD Bronchiectasis without complication (HCC) 05/23/2025 Refill [facility] Pulmonology - [address] [place] [address] Erica Arango MD Nausea 04/11/2025 Documentation [facility] Pulmonology [address] [place] [address] Erica Arango MD from Last 3 Months Allergies Active Allergy Reactions Criticality Noted Date Comments Benzalkonium Chloride 02/16/2023 Other reaction(s): rash and hives with itching Ciprofloxacin Nausea Only High 12/13/2018 Ethambutol Other (See Comments) 11/11/2023 Iodine Anaphylaxis High 02/16/2023 Uxsjglfk-Xglmrzmysw-Ije ymyxin 08/18/2022 Other reaction(s): rash and hives [...] (ZITHROMAX) 250 MG tabletIndication s:Bronchiectasis without complication (HCC),Chronic obstructive pulmonary disease, unspecified (HCC),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 12 tablet 1 025 Active ondansetron (ZOFRAN) 4 MG tabletIndication s:Nausea TAKE 1 TABLET BY MOUTH THRICE A WEEK THU/THU/THU TAKE 30 MINUTES PRIOR TO AZITHROMYCIN 30 tablet 1 025 Active ondansetron (ZOFRAN) 4 MG tabletIndication s:Nausea Take 1 tablet (4 mg total) by mouth 3 (three) times a week THU/WED/FRI Take 30 minutes prior to azithromycin MWF. 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 Social History Tobacco Use Types Packs/Day Years [...] Date Joel rded Speak language other than Hungarian at home Not on file 08/21/2023 Want [...] Description 07/10/2025 1:30 PM EST Office Visit [facility] Pulmonology - [facility] [address] [place] [address] Erica Arango MD [address] [place] [address] Insurance MEDICARE PART A B [facility]LY [facility] SUPP Care Teams Rug Hooker Hand Relationship Specialty Start Date End Date Tavo Rosales MD [address] [place] [address] PCP - General Family Medicine 01/05/25
--- OUTSIDE RECORDS SUMMARY | 2025-06-07 10:03 | XMS_ITS | Encounter Summary ---
Author Organization [employer] ([place], [place], [place], [place], [place]) Address [address] [place] [address] Care Team Providers Care Direct Service Professional Name Role Phone Tavo Rosales MD Primary Care Provider Encounter Details Date Type Department Care Team (Late st Contact Info) Description 08/06/2019 Transcribed Document [facility] [place] [address] [place] [address] ProviderRoberta MD [address] [place] [id number] Social History Tobacco Use Types Packs/Day Years Used Date Smoking Tobacco: Never Assessed Comments Unknown Sex and Gender Information Value Date Recorded Sex Assigned at Not on file Legal Sex Female 2:04 PM CDT Gender Identity Not on file Sexual Orientation Not on file documented as of this encounter Miscellaneous Notes * Cerner Conversion Note - Roberta ProviderMD - 08/06/2019 7:17 PM GRAINER MACHINE [place] Suicide Severity Rating Scale (C-SSRS) Entered On: 08/06/2019 20:08 EST Performed On: 08/06/2019 20:07 EST by Dave Washington RN [place] Suicide Severity Rating Scale (C-SSRS) CSSRS Past Month Wish to be : No CSSRS Past Month Suicidal Thoughts : No CSSRS Lifetime Suicide Behavior : No Suicide Severity Rating Score : 0 Suicide Severity Rating : No Additional Care Required at this time Dave Washington, RN - 08/06/2019 20:07 EST Electronically signed by Maryann [facility] Conversion Manager Pricing Cerner at 11/17/2022 2:56 PM CDT documented in this encounter Plan of Treatment Upcoming Encounters Date Type Department Care Team (Late st Contact Info) Description 07/10/2025 1:30 PM EST Office Visit [facility] Pulmonology - [address] [place] [address] Erica Arango MD [address] [place] [address] documented as of this encounter Visit Diagnoses Not on filedocumented in this encounter Care Teams Direct Service Professional Relationship Specialty Start Date End Date Tavo Rosales MD [address] [place] [address] PCP - General Family Medicine 01/05/25 documented as of this encounter
--- OUTSIDE RECORDS SUMMARY | 2025-06-07 10:03 | XMS_ITS | Encounter Summary ---
Author Organization [employer] ([place], [place], [place], [place], [place]) Address [address] [place] [address] Care Team Providers Care Labor Representative Name Role Phone Tavo Rosales MD Primary Care Provider [phone] Encounter Details Date Type Department Care Team (Late st Contact Info) Description 08/06/2019 Transcribed Document [facility] [place] [facility] [place] [address] ProviderRoberta MD [facility] [place] [id number] Social History Tobacco Use Types Packs/Day Years Used Date Smoking Tobacco: Never Assessed Comments Unknown Sex and Gender Information Value Date Recorded Sex Assigned at Not on file Legal Sex Female 2:04 PM CDT Gender Identity Not on file Sexual Orientation Not on file documented as of this encounter Miscellaneous Notes * Cerner Conversion Note - Roberta Nazario MD - 08/06/2019 10:40 PM CRYSTALIZER OPERATOR Consult Phone Call Documentation Entered On: 08/07/2019 8:33 EST Performed On: 08/06/2019 22:40 EST by Ana Ritter SWAN Phone Call for Consults Physician Requesting Consult : LIS MITCHELL DO Physician Requested for Consult : GERARDO LEWIS MD-PUL Date and Time Call Returned : 08/07/2019 8:33 EST Physician Returning Call : KYLAH LAWSON APRN-PUL Pelgen, Kaitlin, SWAN - 08/07/2019 8:33 EST documented in this encounter Plan of Treatment Upcoming Encounters Date Type Department Care Team (Late st Contact Info) Description 07/10/2025 1:30 PM EST Office Visit [facility] Pulmonology - [address] [place] [address] Erica Arango MD [address] [place] [address] documented as of this encounter Visit Diagnoses Not on filedocumented in this encounter Care Teams Labor Representative Relationship Specialty Start Date End Date Tavo Rosales MD [address] [place] [address] PCP - General Family Medicine 01/05/25 documented as of this encounter
--- OUTSIDE RECORDS SUMMARY | 2025-06-07 10:03 | XMS_ITS | Encounter Summary ---
Author Organization [employer] ([place], [place], [place], [place], [place]) Address [address] [place] [address] Care Team Providers Care Medical Records Tech Name Role Phone Tavo Rosales MD Primary Care Provider [phone] Encounter Details Date Type Department Care Team (Late st Contact Info) Description 08/06/2019 Transcribed Document [facility] [place] Family Medicine [facility] [place] [address] ProviderRoberta MD [address] [place] [id number] Social History Tobacco Use Types Packs/Day Years Used Date Smoking Tobacco: Never Assessed Comments Unknown Sex and Gender Information Value Date Recorded Sex Assigned at Not on file Legal Sex Female 2:04 PM CDT Gender Identity Not on file Sexual Orientation Not on file documented as of this encounter Miscellaneous Notes * Cerner Conversion Note - Roberta Nazario MD - 08/06/2019 8:20 PM STENOCAPTIONER Patient: ROSEMARIE KELLY Age: 74 years Sex: Female : 1945 Associated Diagnoses: Severe sepsis without septic shock; Fever; Community acquired pneumonia; Nausea; Generalized weakness; history of bronchiectasis; Acute respiratory failure with hypoxemia Author: CRISTIN FOX MD Basic Information Time seen: Date & time 08/06/2019 19:58:00. History source: Patient, son. Arrival mode: Private vehicle. History limitation: None. Additional information: Chief Complaint from Nursing Triage Note : Chief Complaint 08/06/2019 19:33 EST Chief Complaint c/o chest pain for about a week per son-; son states I think she got pneumonia ; pain at 3/10; +coughing; Had tylenol dose this AM per patient. . History of Present Illness The patient presents with chest pain and 74-year-old female patient with a history of bronchiectasis, Mycobacterium avium infection presents to the emergency room with a productive cough of green, yellow sputum, chest pain, shortness of breath that has progressively been worsening over the last 7 days. She is bringing up very large amounts of sputum and has pain whenever she coughs, breathes. She's had no appetite and is not hydrating well and has had intermittent fevers with chills with nausea but denies actual vomiting, abdominal pain, flank pain, urinary dysuria, hematuria or frequency. She's had some dizziness and lightheadedness but denies any near-syncope, syncope, fall, injury or trauma. Last dose of Tylenol was this morning. She has been using albuterol without significant improvement of her symptoms.. The onset was 7 days ago. The course/duration of symptoms is constant. Location: Central chest. The character of symptoms is heaviness and tightness. The degree at onset was minimal. The degree at present is moderate. There are exacerbating factors including breathing and coughing. Review of Systems Additional review of systems information: All other systems reviewed and otherwise negative. Health Status Allergies: Allergic Reactions (Selected) Medium Neosporin- Rash and hives with itching. Uncoded Allergy (See Comment)- Pt states she is allergic to all antibiotocs and has seen infectious disese md for this issue. Severity Not Documented Sulfamethoxazole-trimethoprim- No reactions were documented.. Medications: (Selected) Inpatient Medications Ordered DuoNeb 0.5 mg-2.5 mg/3 mL inhalation solution: 3 mL, Nebulized Inhalation, 1-Time Rocephin: 2 Gram, IV Piggyback, 1-Time SOLU-Medrol: 125 mg, IV Push, 1-Time Sodium Chloride 0.9% bolus: 1,000 mL, 1,000 mL/Hr, IV Piggyback, 1-Time Sodium Chloride 0.9% bolus: 1,000 mL, 1,000 mL/Hr, IV Piggyback, 1-Time doxycycline: 100 mg, IV Piggyback, 1-Time Documented Medications Documented Advair Diskus 250 mcg-50 mcg inhalation powder: 1 Puff, Inhalation, BID, 180 Each, 0 Refill(s) Symbicort 80 mcg-4.5 mcg/inh inhalation aerosol: 1 Puff, Inhalation, BID, 0 Refill(s) Ventolin HFA 90 mcg/inh inhalation aerosol: Puff, Inhalation, QID, 0 Refill(s) Vitamin D3: Daily, 0 Refill(s) levocetirizine 5 mg oral tablet: 1 Tab, Oral, QPM, 30 Tab, 0 Refill(s) levothyroxine 25 mcg (0.025 mg) oral tablet: Tab, Oral, Daily, 0 Refill(s) pantoprazole 40 mg oral delayed release tablet: 1 Tab, Oral, Daily, 30 Tab, 0 Refill(s) simvastatin 10 mg oral tablet: 1 Tab, Oral, Once a day (at bedtime), 30 Tab, 0 Refill(s). Past Medical/ Family/ Social History Surgical history: bone spur to right heel. hysterectomy. Cholecystectomy ([id number]). Spinal fusion ([id number]). Esophageal dilatation ([id number]). egd. colonoscopy. bronchoscopy. appendectomy.. Family history: No family history items have been selected or recorded.. Social history: Social & Psychosocial Habits Alcohol 04/22/2017 Alcohol Use History, Social Habits No Nutrition/Health 04/22/2017 Caffeine intake amount: 2 per day Substance Abuse 04/22/2017 Recreational Drug Use History No Recreational Drug Use Last 12 Months No Tobacco 04/22/2017 Smoking Status Never smoker . Problem list: Active Problems (8) At risk for sleep apnea Bronchiectasis Dysphagia GERD (gastroesophageal reflux disease) High cholesterol Hypertension Hypothyroid Mycobacterium avium infection . Physical Examination Vital Signs Vital Signs/Vital Measures 08/06/2019 19:33 EST Blood Pressure Location Arm, right upper Blood Pressure Source Non-Invasive BP Device Systolic Blood Pressure 159 mmHg HI Diastolic Blood Pressure 82 mmHg Temperature Source Oral Temperature Mode Fahrenheit Temperature, Fahrenheit 101.7 Deg F HI Clinical Temperature, C 38.7 Deg C Peripheral Pulse Rate 106 bpm HI Respiratory Rate 20 Breaths/Min Oxygen Saturation 93 % LOW Oxygen Therapy Mode Room air . Measurements 08/06/2019 19:33 EST Height Source Measured Height Entry Format [place] Height/Length, [place] (ft) 5 ft Height/Length [place] 6 Inch CLINICALHEIGHT 167.64 cm [place] Body Weight 58.88 kg Weight Source, ED Standing scale Weight Entry Format [place] Weight [place] lb 130 lb CLINICALWEIGHT 59.09 kg Body Surface Area (BSA) 1.67 m2 Body Mass Index 21 kg/m2 . Oxygen Saturation 08/06/2019 19:33 EST Oxygen Saturation 93 % LOW . General: Alert, moderate distress, ill-appearing. Skin: Warm, intact, no rash, pale. Head: Normocephalic. Neck: Supple, no JVD. Eye: Pupils are equal, round and reactive to light, extraocular movements are intact, Sclera: not icteric. Ears, nose, mouth and throat: No pharyngeal erythema or exudate, Dry mucous membranes. Cardiovascular: No murmur, Normal peripheral perfusion, No edema, Tachycardia. Respiratory: Breath sounds are equal, Respirations: She has diffuse inspiratory and expiratory wheezing with diminished inspiratory effort and air entry bilaterally with bilateral rales, rhonchi. Chest wall: No tenderness. Back: Nontender, Normal range of motion. Musculoskeletal: Normal ROM. Gastrointestinal: Soft, Nontender, Non distended, Normal bowel sounds. Neurological: Alert and oriented to person, place, time, and situation, No focal neurological deficit observed. Lymphatics: No lymphadenopathy. Psychiatric: Cooperative. Medical Decision Making Differential Diagnosis: Myocardial infarction, non-ST elevation myocardial infarction, angina, pulmonary embolism, atypical chest pain, pneumonia, costochondritis, dyspnea, chronic obstructive pulmonary disease, bronchitis, not anxiety. Rationale: 74-year-old female patient presents to emergency room complaining of a seven-day history of a productive cough and chest pain which shortness of breath. EKG showed sinus tachycardia with no acute ischemic changes. The patient was a code sepsis and blood cultures, lactic acid were obtained and laboratory studies and she was started on doxycycline and Rocephin IV antibiotics and sepsis IV fluid boluses. She was given DuoNeb, Solu-Medrol. Her chest x-ray showed bilateral infiltrates concerning for pneumonia as well as chronic fibrosis and low suspicion for PE with patient's clinical history and presentation. ABG did show hypoxia and was placed on oxygen with improvement of her saturations. The patient's white blood cell count was 12.8, acetone and was slightly elevated otherwise she had a normal troponin and no significant electrolyte abnormalities. All questions were answered by the patient and her son and the patient was admitted for further management and care. . Documents reviewed: Emergency department nurses' notes. Orders Include Previous Orders (Selected) Inpatient Orders Ordered ED SIRS Alert: EKG: Sepsis Advisor: Ordered (Collected) Culture Blood: Culture Blood: Culture Urine: Respiratory Panel PCR: Ordered (Dispatched) Sputum Culture and Stain: Ordered (Exam Completed) CR Chest 1 Vw Portable: Completed .Automated Differential: .Urinalysis Microscopic: Aerosol Treatment (RT): Blood Gas (RT): Blood Gas Arterial (ABG): CBC w/ Auto Diff: CMP Comprehensive Metabolic Panel: Cardiac Monitoring: DuoNeb 0.5 mg-2.5 mg/3 mL inhalation solution: 3 mL, Nebulized Inhalation, 1-Time ED Adult Fall Risk Assessment: ED Adult Triage: ED C-SSRS: ED Clinical Reconciliation: ED food mobile driver: Lactic Acid Level with Reflex if Indicated: Oxygen Therapy: PT/INR Prothrombin Time: PTT: Procalcitonin: Pulse Oximetry Continuous Monitoring: Rocephin + Sodium Chloride 0.9% intravenous solution 50 mL: 2 Gram, 100 mL/Hr, IV Piggyback, 1-Time SOLU-Medrol: 125 mg, IV Push, 1-Time Saline Lock Insert: Sodium Chloride 0.9% bolus: 1,000 mL, 1,000 mL/Hr, IV Piggyback, 1-Time Sodium Chloride 0.9% bolus: 1,000 mL, 1,000 mL/Hr, IV Piggyback, 1-Time Troponin I Ultra: Urinalysis w Culture if Indicated: Zofran: 4 mg, IV Push, 1-Time doxycycline + Sodium Chloride 0.9% intravenous solution 100 mL: 100 mg, 50 mL/Hr, IV Piggyback, 1-Time ibuprofen: 600 mg, Oral, 1-Time ondansetron 4 mg oral tablet, disintegratin mg, 1 Tab, Oral, 1-Time Deleted Sepsis 30ml/kg Normal Saline Bolus: 30 mL/kg, IV Piggyback, 1-Time. Electrocardiogram: Time 08/06/2019 19:31:00, rate 105, EP Interp, Sinus tachycardia with nonspecific ST changes, no acute ischemic changes. surveillance system monitor: Sinus Tachycardia. Results review: Lab results : Lab Results 08/06/2019 20:45 EST Urine Type. U CleanCatch Urine Color Yellow Urine Appearance Clear Urine Specific [place] 1.020 Urine pH Dipstick 7.5 Urine Leukocyte Esterase Trace Urine Nitrite Negative Urine Protein Dipstick Negative Urine Glucose Dipstick Negative Urine Ketones Dipstick 40 Urine Urobilinogen Dipstick 1.0 EU/dL Urine Bilirubin Dipstick Negative Urine Blood Dipstick Negative Ur RBC 0-2 /HPF Ur Bacteria Trace Ur Epithelial Cells 0-2 /HPF 08/06/2019 20:21 EST pH Art 7.50 HI pCO2 Art 30.1 mmHg LOW pO2 Art 66.1 mmHg LOW HCO3 Art 23.6 mmol/L BE Art 1.5 mmol/L sO2 Art 92.9 % LOW tHb Art 11.8 Gram/dL LOW ctO2 15.2 mmol/L NA FIO2 Art 21.0 NA Temperature, F Art 98.6 Deg F NA Art Blood Gas (ABG) Site Left Radial Acceptable Bradley's Test Art Acceptable ABG Num of Draw Attempts 1 NA 08/06/2019 20:15 EST PTT 27.4 Second(s) 08/06/2019 20:11 EST PT 10.5 Second(s) INR 1.0 Procalcitonin 0.09 ng/mL MI 08/06/2019 19:51 EST Lactic Acid Level 0.9 mmol/L 08/06/2019 19:46 EST Sodium Level 132 mmol/L LOW Potassium Level 3.6 mmol/L Chloride Level 101 mmol/L LOW Carbon Dioxide Level 25 mmol/L Anion Gap 10 Glucose Level 122 mg/dL HI Blood Urea Nitrogen 8 mg/dL Creatinine Level 0.94 mg/dL eGFR >60 mL/min/1.73m2 eGFR NonAfrican 58 mL/min/1.73m2 LOW Bun/Creatinine 8.5 Calcium Level 9.1 mg/dL Protein Total 7.3 Gram/dL Albumin Level 3.3 Gram/dL LOW Globulin 4.0 Gram/dL A/G Ratio 0.8 LOW Bilirubin Total 0.7 mg/dL Alk Phos 78 Units/Liter AST 19 Units/Liter ALT 17 Units/Liter Troponin I Ultra <0.015 ng/mL WBC 12.8 K/uL HI RBC 4.03 Million/uL Hgb 11.7 Gram/dL Hct 35.2 % MCV 87.3 fL MCH 29.0 pg MCHC 33.2 Gram/dL Platelet Count 293 K/uL MPV 9.8 fL RDW 13.5 % Neut % 83.4 % HI Neut # 10.69 K/uL HI Lymph % 7.3 % LOW Lymph # 0.93 K/uL LOW [place] % 8.4 % [place] # 1.07 K/uL HI Eos % 0.1 % LOW Eos # 0.01 K/uL LOW Baso % 0.4 % Baso # 0.05 K/uL Slide Review No IG# 0 x10(3)/uL IG% 0 % . Chest X-Ray: Interpretation by Emergency Physician, There is bilateral infiltrate and chronic fibrosis is also present. Impression and Plan Diagnosis Severe sepsis without septic shock - Discharge, Emergency medicine, Medical Fever - Discharge, Emergency medicine, Medical Community acquired pneumonia - Discharge, Emergency medicine, Medical Nausea - Discharge, Emergency medicine, Medical Generalized weakness - Discharge, Emergency medicine, Medical history of bronchiectasis - Discharge, Emergency medicine, Medical Acute respiratory failure with hypoxemia - Discharge, Emergency medicine, Medical Plan Condition: Guarded. Disposition: Admit Admit/Transfer/Discharge: Admit to Inpatient (Order): Start: 08/06/2019 22:02 EST, Admit reason: Severe sepsis, pneumonia, Estimated length of stay 2 Midnights or LONGER, Level of Care: Telemetry unit, Admitting: LIS MITCHELL DO. Counseled: Patient, Family, Regarding diagnosis, Regarding diagnostic results, Regarding treatment plan, Patient indicated understanding of instructions. documented in this encounter Plan of Treatment Upcoming Encounters Date Type Department Care Team (Late st Contact Info) Description 07/10/2025 1:30 PM EST Office Visit [facility] Pulmonology - [address] [place] [address] Erica Arango MD [address] [place] [address] documented as of this encounter Visit Diagnoses Not on filedocumented in this encounter Care Teams Medical Records Tech Relationship Specialty Start Date End Date Tavo Rosales MD [address] [place] [id number] PCP - General Family Medicine 01/05/25 documented as of this encounter
--- OUTSIDE RECORDS SUMMARY | 2025-06-07 10:03 | XMS_ITS | Encounter Summary ---
Author Organization [employer] ([place], [place], [place], [place], [place]) Address [address] [place] [address] Care Team Providers Care Drill Doctor Name Role Phone Tavo Rosales MD Primary Care Provider [phone] Encounter Details Date Type Department Care Team (Late st Contact Info) Description 08/06/2019 Transcribed Document [facility] [place] [address] [place] [address] ProviderRoberta MD [address] [place] [address] Social History Tobacco Use Types [...] - Roberta ProviderMD - 08/06/2019 10:40 PM GLOBAL PROFESSIONAL Evaluation, Occupational Therapy Entered On: 08/07/2019 11:23 EST Performed On: 08/07/2019 11:08 EST by RIC MAGUIRE OTR/L General Information, OT Visit Type, OT : Initial evaluation RIC MAGUIRE OTR/Chau - 08/07/2019 11:22 EST Patient Orders : Order Date Order Ordering 08/06/2019 22:40 OT Evaluation and Treatment Ordered By: LIS MITCHELL DO Active Diagnoses : 08/06/2019 12:00 Acute respiratory failure with hypoxia 08/06/2019 12:00 Bronchiectasis, uncomplicated 08/06/2019 12:00 Chest pain 08/06/2019 12:00 Fever, unspecified 08/06/2019 12:00 Nausea 08/06/2019 12:00 Pneumonia, unspecified organism 08/06/2019 12:00 Severe sepsis without septic shock 08/06/2019 12:00 Weakness RIC MAGIURE OTR/L - 08/07/2019 11:25 EST Therapy Diagnosis, OT : Functional Decline RIC MAGUIRE OTR/L - 08/07/2019 11:22 EST Admission Date : 08/06/2019 22:02 RIC MAGUIRE OTR/L - 08/07/2019 11:25 EST Assisted by, OT : Physical Therapist RIC MAGUIRE OTR/Chau - 08/07/2019 11:22 EST Personal Devices : Personal Devices No Devices Recorded Assistive Devices : Assistive Devices No Devices Recorded RIC MAGUIRE OTR/Chau - 08/07/2019 11:[address] : Fall prevention measures RIC MAGUIRE OTR/L - 08/07/2019 11:22 EST General Information Comment, OT : Admitted with PNA, sepsis., acute resp failure with hypoxemia. RIC MAGUIRE OTR/L - 08/07/2019 11:25 EST General Status Patient Received Status : Long sitting in bed Treatment Start Time : 08/07/2019 11:04 EST Patient Left Status : Sitting edge of bed, Family/Visitors at bedside, All needs met and within reach RN/PCT Informed Comment : ID and verified. RN felix treatment. Treatment End Time : 08/07/2019 11:21 EST Treatment Time : 17 Minute(s) RIC MAGUIRE OTR/L - 08/07/2019 11:25 EST History and Environment, OT Living Situation, Therapy : Home Patient Lives With : Spouse Persons Assisting Patient at Home : Child/Children Home Equipment, Therapy : Other: Pt owns a cane and walker and she does not use. RIC MAGUIRE OTR/L - 08/07/2019 11:25 EST Prior LOF Bathing, OT : Independent Prior LOF Bed Mobility : Independent Prior LOF Upper Body Dressing, OT : Independent Prior LOF Lower Body Dressing, OT : Independent Prior LOF Toileting : Independent Prior LOF Transfer : Independent Prior LOF Grooming, OT : Independent Prior LOF for IADLs, OT : Independent RIC MAGUIRE OTR/L - 08/07/2019 11:25 EST Neurological/Sensory Neuro/Sensory Interventions Comment : Pt reports occasional impaired sensation left UE due to prior neck injury with hardware placement. RIC MAGUIRE OTR/L - 08/07/2019 11:25 EST Cognition Assessment, OT Orientation : Oriented x 4 RIC MAGUIRE OTR/L - 08/07/2019 11:25 EST Education OT Occupational Therapy Education Grid Activity of Daily Living Training : Verbalizes understanding, Returns demonstration Role of Occupational Therapy : Verbalizes understanding RIC MAGUIRE OTR/L - 08/07/2019 11:25 EST Plan of Care, OT OT Tx Plan/Goals Established w Patient : No Reason OT Treatment/Plan Not Established : Pt is at functional baseline for ADLs. RIC MAGUIRE OTR/L - 08/07/2019 11:25 EST Treatment Note Subjective Comment : Pt agreeable to treatment. Patient's Response to Treatment : Activiely participated. Additional Objective Information : Eval- 8 minutes Self Care- 9 minutes Instructed supine to sitting EOB with Mod I given extra time. Pt able to manage UB dressing and doffing/donning socks with good ability. Pt reports she is at functional baseline with ADLs. Functional mobility and transfers-CGA. See PT note for further assessement of gait. Assessment : Pt is at functional baseline for ADLs, skilled OT services not indicated at this time. RIC MAGUIREHILARYR/L - 08/07/2019 11:25 EST Pain Assessment Pain Score Pre-Intervention : 0 Pain Score During-Intervention : 0 Pain Score Post-Intervention. : 0 RIC MAGUIRE OTR/L - 08/07/2019 11:25 EST Image 1 - Images currently included in the form version of this document have not been included in the text rendition version of the form. [facility] OT Charges OT Selfcare/Hm Mgmt Ea 15 Min : 1 OT Eval Low Complexity : 1 RIC MAGUIRE OTR/L - 08/07/2019 11:25 EST Electronically signed by Maryann [facility] Conversion Combine Driver Cerner at 11/17/2022 3:00 PM CDT documented in this encounter Plan of Treatment Upcoming Encounters Date Type Department Care Team (Late st Miguelina Harper) Description 07/10/2025 1:30 PM EST Office Visit [facility] Pulmonology - [address] [place] [address] Erica Arango MD [address] [place] [address] documented as of this encounter Visit Diagnoses Not on filedocumented in this encounter Care Teams Drill Doctor Relationship Specialty Start Date End Date Tavo Rosales MD [address] [place] [address] PCP - General Family Medicine 01/05/25 documented as of this encounter
[2025-06-07 10:11] LABS: Hematocrit 34.1 % (37.0-47.0); Hemoglobin 11.0 g/dL (12.2-16.2); Immature Granulocytes % 0.3 %; Mean Corpuscular HGB Conc 32.3 g/dL (31.8-35.4); Mean Corpuscular Hemoglobin 28.7 pg (27.0-31.2); Mean Corpuscular Volume 89.0 fl (81-99); Nucleated Red Blood Cells % 0 %; Platelet Count 289 K/mm3 (142-424); Red Blood Count 3.83 M/mm3 (4.20-5.40); Red Cell Distribution Width-SD 45.3 fL; White Blood Count 10.2 K/mm3 (4.8-10.8)
[2025-06-07 11:23] LABS: Alanine Aminotransferase 19 U/L (12-78); Albumin Level 3.9 g/dl (3.5-5.0); Albumin/Globulin Ratio 1.2 (1.1-1.8); Alkaline Phosphatase 71 U/L (38-126); Anion Gap 11.1 mEq/L (5-15); Aspartate Amino Transferase 31 U/L (14-36); Bilirubin,Total 0.6 mg/dl (0.2-1.3); Blood Urea Nitrogen 14 mg/dl (7-17); Calcium 9.1 mg/dl (8.4-10.2); Carbon Dioxide 28 mmol/L (22.0-30.0); Chloride 103 mmol/L (98-107); Cholesterol 142 mg/dl (140-200); Creatinine,Serum 1.20 mg/dl (0.52-1.04); Estimated Glomerular Filt Rate 43 ml/min (>60); GFR (African American) 52 ML/MIN (>60); Globulin 3.2 g/dL (1.3-3.2); Glucose 87 mg/dl (74-100); HDL Cholesterol 69 mg/dl (40-60); Potassium 3.1 mmoL/L (3.5-5.1); Sodium 139 mmol/L (136-145); Total Protein,Serum 7.1 g/dl (6.3-8.2); Triglycerides 143 mg/dl (30-150)
== END 2025-06-07 23:59 | disposition home or self-care (01) ==
LOC: RAD 09:51
PROVIDERS: Internal Medicine Interventional Cardiology; PCP Family Medicine; Visit Provider Internal Medicine Infectious Disease
DX: I48.0 Paroxysmal atrial fibrillation (principal); E78.5 Hyperlipidemia, unspecified; J47.9 Bronchiectasis, uncomplicated; I11.9 Hypertensive heart disease without heart failure; R91.8 Other nonspecific abnormal finding of lung field; Z86.19 Personal history of other infectious and parasitic diseases
CPT/HCPCS: 36415; 71046; 80053; 80061; 85025

== ENCOUNTER 2025-07-13 10:53 | Outpatient (CLI) | payer MEDICARE, SELFPAY ==
--- NOTE | 2025-07-13 10:56 | CT_ITS ---
FINAL REPORT TECHNIQUE: Axial images were obtained through the chest without contrast. Multiplanar reconstructions in the sagittal and coronal planes were subsequently performed. This study was performed with techniques to keep radiation doses as low as reasonably achievable (ALARA). Individualized dose reduction techniques using automated exposure control or adjustment of mA and/or kV according to the patient's size were employed. CLINICAL HISTORY: BROCHIECTASIS W/O ACUTE EXACERBATION COMPARISON: 10/23/2023 FINDINGS: CT CHEST WITHOUT CONTRAST: There are a few small scattered mediastinal lymph nodes, favor reactive. There is a pericardial effusion present, measuring 10 mm in thickness, slightly larger than the prior exam of 10/23/2023. There are multiple cavitary and noncavitary nodules noted bilaterally. The largest cavitary nodule on the right is in the right lower lobe, 1.5 cm in size, best seen on image #122 of series 3. The largest cavitary nodule on the left is in the left lower lobe, 2.2 cm in diameter, best seen on image #147 of series 3. There is bilateral bronchiectasis present in the lower lobes, greater on the left than on the right. There is a solid nodule in the anterior right middle lobe, which measures 1.3 cm in diameter, stable. Other solid nodules are stable as well. There is bronchial wall thickening and mucous plugging which is more obvious than seen on the prior exam. IMPRESSION: Postinflammatory changes are noted, with multiple cavitary and noncavitary nodules present, along with bronchiectasis primarily of the lower lobes. Bronchial wall thickening and mucous plugging are more obvious particularly in the left lung base, when compared to the prior exam. Reviewed, Interpreted and Dictated by Gavin Oneill MD Transcribed by Anneliese Ibrahim Authenticated and [facility]
== END 2025-07-13 23:59 | disposition home or self-care (01) ==
LOC: RAD 10:54
PROVIDERS: PCP Family Medicine; Visit Provider Internal Medicine Infectious Disease
DX: J47.9 Bronchiectasis, uncomplicated (principal); J98.4 Other disorders of lung; R91.8 Other nonspecific abnormal finding of lung field
CPT/HCPCS: 71250